=== PATIENT | male | born 1950 | race Caucasian/White ===

== ENCOUNTER → 2022-03-10 14:55 | Outpatient (BNVA) | payer OTHER, SELFPAY | PROVIDERS: Family Provider Family Medicine; PCP Family Medicine; Visit Provider Podiatrist Foot & Ankle Surgery | DX: E11.42 Type 2 diabetes mellitus with diabetic polyneuropathy (principal); L60.0 Ingrowing nail; L03.031 Cellulitis of right toe; L60.3 Nail dystrophy; Z79.4 Long term (current) use of insulin | CPT/HCPCS: 11721; 11730 ==

== ENCOUNTER → 2022-03-24 11:20 | Outpatient (BNVA) | payer OTHER, SELFPAY | PROVIDERS: Family Provider Family Medicine; PCP Family Medicine; Visit Provider Podiatrist Foot & Ankle Surgery | DX: L60.0 Ingrowing nail (principal); L03.031 Cellulitis of right toe; E11.42 Type 2 diabetes mellitus with diabetic polyneuropathy; Z79.4 Long term (current) use of insulin; L60.3 Nail dystrophy | CPT/HCPCS: 99213; 99214 ==

== ENCOUNTER → 2022-05-05 10:01 | Outpatient (BNVA) | payer OTHER, SELFPAY | PROVIDERS: Family Provider Family Medicine; PCP Family Medicine; Visit Provider Podiatrist Foot & Ankle Surgery | DX: L60.0 Ingrowing nail (principal); E11.42 Type 2 diabetes mellitus with diabetic polyneuropathy; Z79.4 Long term (current) use of insulin; L60.3 Nail dystrophy | CPT/HCPCS: 99213 ==

== ENCOUNTER → 2022-06-22 15:05 | Outpatient (BNVA) | payer MEDICARE, SELFPAY | PROVIDERS: Family Provider Family Medicine; PCP Family Medicine; Visit Provider Registered Nurse | DX: R06.02 Shortness of breath (principal); E11.42 Type 2 diabetes mellitus with diabetic polyneuropathy; Z79.4 Long term (current) use of insulin; I10 Essential (primary) hypertension | CPT/HCPCS: 83880; 85025 ==

== ENCOUNTER → 2022-07-09 09:59 | Outpatient (BNVA) | payer MEDICARE, SELFPAY | PROVIDERS: Family Provider Family Medicine; PCP Family Medicine; Visit Provider Podiatrist Foot & Ankle Surgery | DX: L60.3 Nail dystrophy (principal); E11.42 Type 2 diabetes mellitus with diabetic polyneuropathy; Z79.4 Long term (current) use of insulin; M21.41 Flat foot [pes planus] (acquired), right foot; M21.42 Flat foot [pes planus] (acquired), left foot; L60.0 Ingrowing nail | CPT/HCPCS: 11750; 99214; A6219; A6446 ==

== ENCOUNTER → 2022-08-03 11:26 | Outpatient (BNVA) | payer OTHER, SELFPAY | PROVIDERS: Family Provider Family Medicine; PCP Family Medicine; Visit Provider Podiatrist Foot & Ankle Surgery | DX: L60.0 Ingrowing nail (principal); Z98.890 Other specified postprocedural states; L60.3 Nail dystrophy; E11.42 Type 2 diabetes mellitus with diabetic polyneuropathy; Z79.4 Long term (current) use of insulin; M21.40 Flat foot [pes planus] (acquired), unspecified foot | CPT/HCPCS: 99213 ==

== ENCOUNTER → 2022-10-06 10:56 | Outpatient (BNVA) | payer OTHER, SELFPAY | PROVIDERS: Family Provider Family Medicine; PCP Family Medicine; Visit Provider Podiatrist Foot & Ankle Surgery | DX: L60.3 Nail dystrophy (principal); E11.42 Type 2 diabetes mellitus with diabetic polyneuropathy; Z79.4 Long term (current) use of insulin; M21.41 Flat foot [pes planus] (acquired), right foot; M21.42 Flat foot [pes planus] (acquired), left foot | CPT/HCPCS: 11721 ==

== ENCOUNTER → 2023-01-19 10:08 | Outpatient (BNVA) | payer OTHER, SELFPAY | PROVIDERS: Family Provider Family Medicine; PCP Family Medicine; Visit Provider Podiatrist Foot & Ankle Surgery | DX: E11.8 Type 2 diabetes mellitus with unspecified complications (principal); L60.0 Ingrowing nail; L60.3 Nail dystrophy; E11.42 Type 2 diabetes mellitus with diabetic polyneuropathy; Z79.4 Long term (current) use of insulin; M21.41 Flat foot [pes planus] (acquired), right foot; M21.42 Flat foot [pes planus] (acquired), left foot | CPT/HCPCS: 11721 ==

== ENCOUNTER 2023-03-12 09:33 | Outpatient (CLI) | payer OTHER, SELFPAY ==
--- NOTE | 2023-03-12 10:34 | USCV_ITS ---
Elfego Vince Age: 73 Gender: M : 1950 Exam Date: 03/12/2023 10:43 Ordering Phys: Sherry Borjas Technologist: CT Exam Location: [facility] [place] Indication: screening aaa HISTORY: Diameter (cm) AP x Transverse x Length Velocity (cm/s) Waveform Prox Aorta: 1.99 x 1.96 x 71.90 Mid Aorta: 1.94 x 1.94 x 81.80 Distal Aorta: 1.80 x 2.03 x 72.70 Right Iliac Prox: 0.96 x 0.95 x 120.60 Left Iliac Prox: 0.97 x 1.00 x 78.40 Stent Prox Landing x x Aneurysmal Sac Max x x Lt Lat Sac Dim Rt Lat Sac Dim Stent Dist Landing x x Right Iliac Stent x x Left Iliac Stent x x Right Renal Art Left Renal Art FINDINGS: slightly ectatic aorta CONCLUSIONS No evidence of abdominal aortic or bilateral iliac aneurysm. 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 Miguel Puentes MD (Electronically Signed) Final Date: 12 Mar 2023 16:56 S
== END 2023-03-12 09:34 | disposition home or self-care (01) ==
LOC: RAD 09:41
PROVIDERS: Family Provider Family Medicine; PCP Family Medicine; Visit Provider Nurse Practitioner
DX: Z13.6 Encounter for screening for cardiovascular disorders (principal)
CPT/HCPCS: 76706

== ENCOUNTER → 2023-03-30 10:24 | Outpatient (BNVA) | payer OTHER, SELFPAY | PROVIDERS: Family Provider Family Medicine; PCP Family Medicine; Visit Provider Podiatrist Foot & Ankle Surgery | DX: E11.8 Type 2 diabetes mellitus with unspecified complications (principal); L60.3 Nail dystrophy; E11.42 Type 2 diabetes mellitus with diabetic polyneuropathy; Z79.4 Long term (current) use of insulin; M21.41 Flat foot [pes planus] (acquired), right foot; M21.42 Flat foot [pes planus] (acquired), left foot | CPT/HCPCS: 11721 ==

== ENCOUNTER 2023-04-18 13:46 | Emergency (ER) | payer OTHER, SELFPAY ==
[2023-04-18 13:50] VITALS: BP 145/85; PULSE 64; RESP 18; TEMP 36.7; O2SAT 96; BMI 28.7
--- NOTE | 2023-04-18 14:00 | XRR_ITS ---
PROCEDURE INFORMATION: Exam: XR Right Foot Exam date and time: 04/18/2023 2:20 PM Age: 73 years old Clinical indication: Injury or trauma; Other: Cow stepped on foot; Crushing; Right; Injury details: Big toe TECHNIQUE: Imaging protocol: Radiologic exam of the right foot. Views: 3 or more views. COMPARISON: No relevant prior studies available. FINDINGS: Bones/joints: Mild degenerative changes 1st MTP joint. Small bony exostosis along the outer margin 1st proximal phalanx. No fracture, dislocation or malalignment. Small plantar spur otherwise remainder of visualized osseous structures are unremarkable. Soft tissues: Normal. XR/XR foot RT min 3V* [id number] IMPRESSION: No acute bony abnormalities.
--- NOTE | 2023-04-18 14:22 | W.ED.EXTPRO ---
HPI - Extremity Problem General: Chief complaint: Extremity Injury, Lower Stated complaint: cow stepped on rt foot Time Seen by Provider: 04/18/23 13:59 History of Present Illness: Patient is a 73-year-old male comes to the ED with right foot pain. Patient injured right foot just prior to arrival. Patient states that his toenails have been removed surgically on his first and second toe on right foot. Patient says a cow stepped on his right foot causing injury. He states that the cow actually stepped on the great toe and distal end of his second toe as well. He has bleeding at the nail bed area of great toe. He rates his pain currently an 8 out of 10. Patient states he is up-to-date on his tetanus. Associated symptoms: Deny chest pain, fever(s) or rash Review of Systems Const: Denies: fever(s), chills or fatigue Eyes: Denies: change in vision or eye discomfort ENMT: Denies: throat pain, odynophagia, nasal discharge or nasal congestion Card: Denies: chest pain, palpitations, edema, swelling of feet/ankles, dyspnea on exertion or orthopnea Resp: Denies: dyspnea, productive cough or non-productive cough GI: Denies: abdominal pain, nausea, vomiting, diarrhea, constipation or hematochezia : Denies: flank pain, difficulty urinating, dysuria or hematuria Musc: Reports: extremity pain (Right foot-great toe); Denies: neck pain, back pain or extremity swelling Skin/Breast: Denies: rash or new lesions Neuro: Denies: headache(s), numbness in extremities or weakness in extremities PFS ED PFSH: Medical History Diabetes mellitus Hearing loss Hypertension Surgical History History of ureter stent Family History Brother Diabetes Brother Diabetes Denies family history of Cancer Stroke Social History Smoking and tobacco status: never smoked Alcohol intake: never Substance/Drug Use: never Household members: spouse Marital status: Current occupational status: retired Physical Exam Const: COMMON NORMALS: no acute distress, patient oriented x3, healthy appearing and alert HENMT: COMMON NORMALS: normocephalic HEAD & SCALP: normocephalic MOUTH: Normal oral and palatal mucosa present THROAT: posterior oropharynx normal and uvula midline Neck/C-Spine: COMMON NORMALS: supple GENERAL: Yes normal visual inspection Resp: COMMON NORMALS: normal respiratory effort, No retractions, No use of accessory muscles and clear to auscultation bilaterally AUSCULTATION: clear to auscultation bilaterally Cardio: COMMON NORMALS: regular rate, regular rhythm, S1 normal heart sound present, S2 normal heart sound present, No gallops present (Cardio), No clicks present (Cardio), No murmurs present (Cardio) and Peripheral pulses 2+ throughout RATE: regular rate RHYTHM: regular rhythm HEART SOUNDS: S1 normal heart sound present and S2 normal heart sound present PERIPHERAL PULSES: Peripheral pulses 2+ throughout GI: COMMON NORMALS: Normal to inspection, nondistended, normoactive bowel sounds present, Soft to palpation, non-tender and no masses PALPATION: Yes Soft to palpation : COMMON NORMALS: Yes no CVA tenderness BLADDER/KIDNEY EXAM: Yes no CVA tenderness Back/Pelvis: COMMON NORMALS: no CVA tenderness Extremity: NARRATIVE EXTREMITY EXAM: Right foot?great toe?no nail present. Hematoma over nailbed with open wound that is bleeding as well. Mild swelling to the toe and tender to palpation. Full range of motion. Neuro: COMMON NORMALS: patient oriented x3 SENSORIUM/ORIENTATION: Yes alert GAIT: Yes Normal gait present Skin: GENERAL SKIN EXAM: dry skin Course Vital Signs: Vital signs: Vital Signs Temperature 98.1 F 04/18/23 13:50 Pulse Rate 64 04/18/23 13:50 Respiratory Rate 18 04/18/23 13:50 Blood Pressure 145/85 04/18/23 13:50 Pulse Oximetry 96 04/18/23 13:50 Oxygen Delivery Me thod Room Air 04/18/23 13:50 MDM - Extremity (Nontraumatic) Medical Decision Making Patient is a 73-year-old male comes to the ED with right foot pain. Patient injured right foot just prior to arrival. Patient states that his toenails have been removed surgically on his first and second toe on right foot. Patient says a cow stepped on his right foot causing injury. He states that the cow actually stepped on the great toe and distal end of his second toe as well. He has bleeding at the nail bed area of great toe. He rates his pain currently an 8 out of 10. Patient states he is up-to-date on his tetanus. Vitals are stable. Right foot?great toe?no nail present. Hematoma over nailbed with open wound that is bleeding as well. Mild swelling to the toe and tender to palpation. Full range of motion. X-ray right foot showed no acute bony fracture. I am suspicious for fracture given his exam findings. He was diagnosed with crush injury of toe and hematoma of toe. The nurse irrigated the toe extensively with normal saline and then triple antibiotic ointment was applied and the toe was bandaged up. He was put in a stiff sole shoe and discharged home with a prescription for hydrocodone to help with pain. Told to limit weightbearing over the next couple days that advance weightbearing as tolerated. I placed order with case management for patient to be referred to accounts receivable bookkeeper for follow-up on injury. Patient understood and agreed with plan. Lab Data Radiology Impressions Foot X-Ray 04/18/23 14:00 IMPRESSION: No acute bony abnormalities. Discharge Plan Discharge Patient Disposition: Home Clinical Impression: Crush injury of toe Qualifiers: Encounter type: initial encounter Laterality: right Qualified Code(s): S97.101A - Crushing injury of unspecified right toe(s), initial encounter Hematoma of toe Qualifiers: Encounter type: initial encounter Laterality: right Qualified Code(s): S90.121A - Contusion of right lesser toe(s) without damage to nail, initial encounter Condition: Stable Prescriptions: New cephalexin 500 mg capsule 500 mg PO Q6H 7 Days Qty: 28 0RF No Action omeprazole 20 mg capsule,delayed release(DR/EC) 20 mg PO QDAY hydrochlorothiazide 25 mg tablet 25 mg PO QAM lisinopril 40 mg tablet 40 mg PO QDAY finasteride 5 mg tablet 5 mg PO QDAY tamsulosin 0.4 mg capsule 0.4 mg PO QDAY aspirin 81 mg tablet,delayed release (DR/EC) 81 mg PO QDAY Lactobacillus acidophilus 2 billion cell tablet 2,000 mmu cells PO QDAY trazodone 100 mg tablet 100 mg PO DAILY atorvastatin 40 mg tablet 40 mg PO DAILY silver sulfadiazine 1 % cream 1 applic topical BID 14 Days Qty: 50 2RF Rx Instructions: apply a 1.5 mm thickness doxycycline hyclate 100 mg capsule 100 mg PO BID 10 Days Qty: 20 0RF (DME) Diabetic shoes with custom insoles See Rx Instructions .Route .MEDSUPPLY Qty: 1 0RF Rx Instructions: As directed by [facility] amoxicillin 500 mg capsule 500 mg PO TID potassium chloride [Klor-Con M10] 10 mEq tablet,ER particles/crystals 10 meq PO DAILY 90 Days Qty: 90 1RF furosemide 20 mg tablet 20 mg PO QAM 90 Days Qty: 90 1RF carvedilol 12.5 mg tablet 12.5 mg PO BID Rx Instructions: must administer with a meal/food levalbuterol tartrate [Xopenex HFA] 45 mcg/actuation HFA aerosol inhaler 2 inh inhalation Q6H Qty: 15 0RF Rx Instructions: has AFIB, can not do albuterol duloxetine 20 mg capsule,delayed release(DR/EC) 40 mg PO DAILY Jardiance 10 mg tablet 10 mg PO DAILY Qty: 90 1RF Discharge Orders: Discharge ED (Routine); Ordered 04/18/23 Ordered By: Renzo Carver Referrals: Sherry Borjas FNP [Primary Care Provider] - Discharge Diet: Regular Discharge Activity: Increase activity as tolerated Patient Instructions: Crush Injury (ED) Activity Restrictions/Additional Instructions: Follow-up with medical provider as directed. Case management should contact you in the next several days to set up an appointment with podiatry for follow-up on toe injury. Clean toe daily with soap and water then apply thin layer triple antibiotic ointment over it and cover with bandage. Wear stiff soled shoe with ambulation and use your cane to help with ambulation as well. Rest, ice and elevate foot and limit weightbearing for the first couple days. Take medications as prescribed. Return to the ER or your medical provider if condition worsens. Please read and understand discharge instructions. Thank you for choosing [facility] for your healthcare needs today. Please realize this is an emergency room and that we are providing you with a medical screening exam and this may not be complete and all inclusive of all the testing and or work up that you may need to determine your ailment or severity of your illness. It is very important that you follow up as instructed or that you return to the Emergency Department should you have concerns or if your condition changes or worsens in any way. Coding Level of Care Code ED Sander Operator for Felipe Damian
[2023-04-18] MEDS: HYDROcodone-acetaminophen 7.5-325 mg Tablet 1 TAB PO (14:53)
[2023-04-18] MEDS: cefTRIAXone 1,000 MG in water for injection-sterile 2.1 ML 1 MG IM (16:02)
[2023-04-18] MEDS: neomycin-poly-bacitracin oint 28 gm 1 APPLIC TOPICAL (16:02)
--- NOTE | 2023-04-19 05:33 | DCPLANNER ---
Addendum entered by Oumou Michel 04/23/23 13:32: Patient had a follow up appointment scheduled for 04.22.[address] Mancini at [facility] - patient did attend appointment. Original Note: regulatory process manager had message to schedule a follow up appointment for patient with podiatry. regulatory process manager sent patients information to the front office staff at podiatry. Patients information will be printed and reviewed. Clinic will call patient with appointment information.
== END 2023-04-18 16:07 | disposition home or self-care (01) ==
PROVIDERS: Emergency Provider Physician Assistant; PCP Nurse Practitioner
DX: S97.101A Crushing injury of unspecified right toe(s), initial encounter (principal); S90.121A Contusion of right lesser toe(s) without damage to nail, initial encounter; Z79.82 Long term (current) use of aspirin; E11.9 Type 2 diabetes mellitus without complications; I10 Essential (primary) hypertension; W55.22XA Struck by cow, initial encounter
CPT/HCPCS: 73630; 96372; 99284; J0696

== ENCOUNTER → 2023-04-22 10:57 | Outpatient (BNVA) | payer OTHER, SELFPAY | PROVIDERS: PCP Nurse Practitioner; Visit Provider Podiatrist Foot & Ankle Surgery | DX: S97.101A Crushing injury of unspecified right toe(s), initial encounter (principal); S92.424A Nondisplaced fracture of distal phalanx of right great toe, initial encounter for closed fracture; W55.22XA Struck by cow, initial encounter | CPT/HCPCS: 99213 ==

== ENCOUNTER → 2023-04-29 08:15 | Outpatient (BNVA) | payer OTHER, SELFPAY | PROVIDERS: PCP Nurse Practitioner; Visit Provider Podiatrist Foot & Ankle Surgery | DX: S92.424A Nondisplaced fracture of distal phalanx of right great toe, initial encounter for closed fracture (principal); W55.22XA Struck by cow, initial encounter | CPT/HCPCS: 73630; 99214 ==

== ENCOUNTER → 2023-05-12 14:13 | Outpatient (BNVA) | payer OTHER, SELFPAY | PROVIDERS: PCP Nurse Practitioner; Visit Provider Podiatrist Foot & Ankle Surgery | DX: S92.424D Nondisplaced fracture of distal phalanx of right great toe, subsequent encounter for fracture with routine healing (principal); S92.401D Displaced unspecified fracture of right great toe, subsequent encounter for fracture with routine healing; W55.22XD Struck by cow, subsequent encounter | CPT/HCPCS: 99213 ==

== ENCOUNTER → 2023-05-31 10:02 | Outpatient (BNVA) | payer OTHER, SELFPAY | PROVIDERS: PCP Nurse Practitioner; Visit Provider Podiatrist Foot & Ankle Surgery | DX: L60.3 Nail dystrophy (principal); E11.42 Type 2 diabetes mellitus with diabetic polyneuropathy; Z79.4 Long term (current) use of insulin; M21.41 Flat foot [pes planus] (acquired), right foot; M21.42 Flat foot [pes planus] (acquired), left foot | CPT/HCPCS: 11721 ==

== ENCOUNTER → 2023-09-06 10:10 | Outpatient (BNVA) | payer OTHER, SELFPAY | PROVIDERS: PCP Nurse Practitioner; Visit Provider Podiatrist Foot & Ankle Surgery | DX: E11.8 Type 2 diabetes mellitus with unspecified complications (principal); L60.3 Nail dystrophy; E11.42 Type 2 diabetes mellitus with diabetic polyneuropathy; M21.41 Flat foot [pes planus] (acquired), right foot; M21.42 Flat foot [pes planus] (acquired), left foot; Z79.4 Long term (current) use of insulin | CPT/HCPCS: 11721 ==

== ENCOUNTER → 2023-12-21 11:08 | Outpatient (BNVA) | payer OTHER, SELFPAY | PROVIDERS: PCP Nurse Practitioner; Visit Provider Podiatrist Foot & Ankle Surgery | DX: L60.3 Nail dystrophy (principal); E11.42 Type 2 diabetes mellitus with diabetic polyneuropathy; Z79.4 Long term (current) use of insulin | CPT/HCPCS: 11721 ==

== ENCOUNTER → 2024-03-21 11:16 | Outpatient (BNVA) | payer OTHER, SELFPAY | PROVIDERS: PCP Nurse Practitioner; Visit Provider Podiatrist Foot & Ankle Surgery | DX: L60.3 Nail dystrophy (principal); E11.42 Type 2 diabetes mellitus with diabetic polyneuropathy; Z79.4 Long term (current) use of insulin | CPT/HCPCS: 11721 ==

== ENCOUNTER → 2024-06-20 11:29 | Outpatient (BNVA) | payer OTHER, SELFPAY | PROVIDERS: PCP Nurse Practitioner; Visit Provider Podiatrist Foot & Ankle Surgery | DX: L60.3 Nail dystrophy (principal); E11.42 Type 2 diabetes mellitus with diabetic polyneuropathy; Z79.4 Long term (current) use of insulin | CPT/HCPCS: 11721; 99212 ==

== ENCOUNTER → 2024-09-11 10:23 | Outpatient (BNVA) | payer OTHER, SELFPAY | PROVIDERS: PCP Nurse Practitioner; Visit Provider Podiatrist Foot & Ankle Surgery | DX: E11.8 Type 2 diabetes mellitus with unspecified complications (principal); E11.42 Type 2 diabetes mellitus with diabetic polyneuropathy; Z79.4 Long term (current) use of insulin; L60.3 Nail dystrophy; M21.41 Flat foot [pes planus] (acquired), right foot; M21.42 Flat foot [pes planus] (acquired), left foot | CPT/HCPCS: 11721; 99212 ==

== ENCOUNTER → 2024-12-11 10:20 | Outpatient (BNVA) | payer OTHER, SELFPAY | PROVIDERS: PCP Nurse Practitioner; Visit Provider Podiatrist Foot & Ankle Surgery | DX: E11.42 Type 2 diabetes mellitus with diabetic polyneuropathy (principal); Z79.4 Long term (current) use of insulin; L60.3 Nail dystrophy; M21.41 Flat foot [pes planus] (acquired), right foot; M21.42 Flat foot [pes planus] (acquired), left foot | CPT/HCPCS: 11721; 99212 ==

== ENCOUNTER → 2025-03-19 10:28 | Outpatient (BNVA) | payer OTHER, SELFPAY | PROVIDERS: PCP Nurse Practitioner; Visit Provider Podiatrist Foot & Ankle Surgery | DX: E11.42 Type 2 diabetes mellitus with diabetic polyneuropathy (principal); L60.3 Nail dystrophy; E11.8 Type 2 diabetes mellitus with unspecified complications; Z79.4 Long term (current) use of insulin | CPT/HCPCS: 99213 ==

== ENCOUNTER 2025-06-06 12:24 | Emergency (ER) | payer OTHER, MEDICARE, SELFPAY ==
--- OUTSIDE RECORDS SUMMARY | 2024-07-07 04:30 | XMS_ITS | Encounter Summary ---
Author Name [facility] [place] [facility] [place] Address [address] [place] [address] Care Team Providers Care Track Man Name Role Phone RAYSA GRULLON Primary Care Provider Unavail able Insurance Providers: All historical and current Section Date Range: From patient's date of to the date document was created. This section includes the names of all active insurance providers for the patient. Insurance Provider Type of Coverage Plan Name Start of Policy Coverage End of Policy Coverage Group Number Member ID Insurance Provider's Telephone Number Policy Reed's Name Patient's Relationship to Policy Reed MEDICARE (WNR) MEDICARE (M) PART A March 01, 1998 PART A [id number] JUANJOSE BARAJAS PATIENT MEDICARE (WNR) MEDICARE (M) PART B March 01, 1998 PART B [id number] [phone] JUANJOSE BARAJAS PATIENT Selected Encounter This section includes the information on record at [place] for the Encounter. Date/Time Encounter Type Encounter Description Reason Provider Source Jul 07, 2024 09:30 AM OFF/OP EST MARCH X REQ PHY/QHP PRIMARY CARE/MEDICINE ICD-10-CM L03.90 Cellulitis, unspecified CUSTRED,RHIANNA J IHE Encounter Template Text not used by VA Assessments - Encounter Diagnoses This section includes the primary and secondary diagnoses documented for the Encounter. Date/Time Primary/Secondary Diagnosis Diagnosis Name Provider Source Jul 07, 2024 10:53 AM PRIMARY Cellulitis, unspecified CUSTRHIANNA NICHOLS [facility] Plan of Treatment: Future Appointments (+ 6 months) and Future Tests (+/- 45 days) The Plan of Treatment section includes future care activities for the patient from all [place] treatmentfacilities. This section includes future appointments and future orders which are active, pending or scheduled. Future Appointments This section includes appointments that were scheduled to occur 6 months from the date of the Encounter, up to a maximum of 20 appointments. The data comes from all [place] treatment facilities. Appointment Date/Time Appointment Type Appointme nt Facility Name Jul 12, 2024 10:50 AM AMBULATORY - [place]IC[place] [facility] Jul 12, 2024 01:00 PM AM[facility] - [place] [facility] Jul 27, 2024 11:30 AM AMBULATORY - MEDICINE [facility] Aug 02, 2024 09:00 AM AMBULATORY - MEDICINE [facility] Aug 10, 2024 10:30 AM AMBULATORY - MEDICINE [facility] Aug 10, 2024 12:00 PM AMBULATORY - MEDICINE [facility] Sep 15, 2024 11:00 AM AMBULATORY - MEDICINE [facility] Sep 20, 2024 11:00 AM [facility]ORY - [place] [facility] Sep 21, 2024 12:45 PM AM[facility]UL[facility]ORY - [place] [facility] Oct 19, 2024 01:30 PM [facility] [place] [facility] Dec 05, 2024 08:40 AM AMBULATORY - MEDICINE [facility] Dec 21, 2024 11:00 AM AMBULATORY - MEDICINE [facility] Jan 03, 2025 12:10 PM [facility]ORY - [place] [facility] Lab Results: +/- 30 days of the encounter This section includes the Chemistry and Hematology Lab Results on record with [place] for the patient. Radiology Reports and Pathology Reports are provided separately, in subsequent sections. Lab Results This section contains the Chemistry/Hematology Results that were resulted 30 days before or 30 daysafter the date of the Encounter. Date/Time Source Result Type Result - Unit Interpretation Reference Range Specimen Type Comment Aug 01, 2024 08:41 AM [facility] DIRECT LDL (MA-PB) PLASMA Specimen Type: PLASMA No comment entered. Ordering Provider: JAYA ROGERS Report Released Date/Time: Jun 15, 2024 07:38 AM Reporting Lab: [place] [facility] [address] [place] [address] Performing Lab: [place] [facility] [address] [place] [address] DIRECT LDL 101.4 mg/dL H 0-99.9 Aug 01, 2024 08:41 AM [facility] [place] [facility] CHOLESTEROL PANEL (PB) PLASMA Specimen Type: P LASMA No comment entered. Ordering Provider: JAYA ROGERS Report Released Date/Time: Jun 15, 2024 07:38 AM Reporting Lab: [place] [facility] [address] [place] [address] Performing Lab: [place] [facility] [address] [place] [address] CHOLESTEROL 175 mg/dL 0-200 TRIGLYCERIDE 119 mg/dL 0-150 CALCULATED LDL 110.2 mg/dL HDL(New) 41.0 mg/dL H >40 HDL % OF TOTAL CHOLESTEROL (PB) 23.4 >25 Aug 01, 2024 08:41 AM [facility] B12 SERUM Specimen Type: SERUM No comment entered. Ordering Provider: JAYA ROGERS Report Released Date/Time: Jun 15, 2024 07:38 AM Reporting Lab: [place] [facility] [address] [place] [address] Performing Lab: [place] [facility] [address] [place] [address] B12 537 pg/mL 213-816 Aug 01, 2024 08:41 AM [facility] VITAMIN D, 25-HYDROXY SERUM Specimen Type: SE RUM No comment entered. Ordering Provider: JAYA ROGERS Report Released Date/Time: Jun 15, 2024 07:38 AM Reporting Lab: [place] [facility] [address] [place] [address] Performing Lab: [place] [facility] [address] [place] [address] VITAMIN D, 25-HYDROXY 31.5 ng/mL 30-96 Aug 01, 2024 08:41 AM [facility] HGA1C BLOOD Specimen Type: BLOOD No comment entered. Ordering Provider: JAYA ROGERS Report Released Date/Time: Jun 15, 2024 07:38 AM Reporting Lab: [place] [facility] [address] [place] [address] Performing Lab: [place] [facility] [address] [place] [address] HGA1C 6.5 H 4.0-6.0 Aug 01, 2024 08:41 AM [facility] FOLATE (PB) SERUM Specimen Typ e: SERUM No comment entered. Ordering Provider: JAYA ROGERS Report Released Date/Time: Jun 15, 2024 07:38 AM Reporting Lab: [place] [facility] [address] [place] [address] Performing Lab: [place] [facility] [address] [place] [address] FOLATE (PB) 16.3 ng/mL 7-20 Aug 01, 2024 08:41 AM [facility] COMPREHENSIVE METABOLIC PANEL PLASMA Specimen Type: PLASMA No comment entered. Ordering Provider: JAYA ROGERS Report Released Date/Time: Jun 15, 2024 07:38 AM Reporting Lab: [place] [facility] [address] [place] [address] Performing Lab: [place] [facility] [address] [place] [address] CREATININE 1.33 mg/dL H 0.7-1.3 UREA NITROGEN 26 mg/dL H 9-25 GLUCOSE 140 mg/dL H 72-99 SODIUM 140 meq/L 136-145 POTASSIUM 3.7 meq/L 3.5-5 CHLORIDE 103 meq/L 98-107 CARBON DIOXIDE 28 meq/L 22-31 CALCIUM 9.4 mg/dL 8.4-10.4 PROTEIN 6.4 g/dL 6-8.6 ALBUMIN 3.9 g/dL 3.4-5 TOTAL BILIRUBIN 0.6 mg/dL 0.2-1.2 ALKALINE PHOSPHATASE 79 U/L 40-150 AST/SGOT 18 U/L 5-34 ALT/SGPT 17 U/L 8-40 EGFR (CKD-EPI 2020) 56 Aug 01, 2024 08:41 AM [facility] DIRECT LDL (MA-PB) PLASMA Specimen Type: PLASM A No comment entered. Ordering Provider: JAYA ROGERS Report Released Date/Time: Jul 27, 2024 06:15 AM Reporting Lab: [place] [facility] [address] [place] [address] Performing Lab: [place] [facility] [address] [place] [address] DIRECT LDL 102.3 mg/dL H 0-99.9 Aug 01, 2024 08:41 AM [facility] CHOLESTEROL PANEL (PB) PLASMA Specimen Type: P MARTY No comment entered. Ordering Provider: JAYA ROGERS Report Released Date/Time: Jul 27, 2024 06:15 AM Reporting Lab: [place] [facility] [address] [place] [address] Performing Lab: [place] [facility] [address] [place] [address] CHOLESTEROL 174 mg/dL 0-200 TRIGLYCERIDE 104 mg/dL 0-150 CALCULATED LDL 113.3 mg/dL HDL(New) 39.9 mg/dL L >40 HDL % OF TOTAL CHOLESTEROL (PB) 22.9 >25 Vital Signs: All taken on the encounter date This section contains inpatient and outpatient Vital Signs collected on the date of the Encounter. Date/Time Temperature Pulse Blood Pressure Respiratory Rate SP02 Pain Height Weight Body Mass Index Source Jul 07, 2024 10:37 AM 98.3 60 153/95 18 [facility] Social History: Smoking Status (Most current) and Tobacco Use (All prior to encounter date) This section includes the most current, and the historical, smoking and tobacco- related health factors from the [place] facility where the Encounter took place. Current Smoking Status This section includes the most current smoking, or tobacco-related health factor, from the [place] facility where the Encounter took place. Date/Time Current Smoking Status Comment Facil ity 2024 11:00 AM VA-TOBACCO FORMER USER [facility] Tobacco Use History This section includes a history of the smoking, or tobacco-related health factors, that were collected on or before the date of the Encounter. The data comes from the [place] facility where the Encounter took place. Date/Time Smoking Status/Tobacco Use Comment F acility 2024 11:00 AM AL-TOBACCO QUIT 15 YRS OR MORE [facility] Feb 17, 2023 10:30 AM VA-TOBACCO FORMER USER [facility] Feb 17, 2023 10:30 AM VA-TOBACCO QUIT 15 YRS OR MORE [facility] Feb 26, 2022 11:00 AM VA-TOBACCO FORMER USER [facility] Feb 26, 2022 11:00 AM VA-TOBACCO QUIT 15 YRS OR MORE [facility] March 03, 2021 09:00 AM VA-TOBACCO FORMER USER [facility] March 03, 2021 09:00 AM VA-TOBACCO QUIT 15 YRS OR MORE [facility] Jan 04, 2019 09:35 AM VA-TOBACCO FORMER USER [facility] Jan 04, 2019 09:35 AM VA-TOBACCO QUIT 15 YRS OR MORE [facility] Jan 22, 2016 10:08 AM QUIT TOBACCO >7 YEARS AGO [facility] Advance Directives: All historical and current Section Date Range: From patient's date of to the date document was created. This section includes ALL of a patient's completed or amended VA Advance and Rescinded Directives. The entries below indicate that a directive exists for the patient, but an actual copy is not included with this document. The data comes from all [place] facilities. Date Advance Directives Provider Source Dec 15, 2017 ADVANCE DIRECTIVE TULIO CRUMP YANNA FF [facility] Encounter Notes: All associated encounter notes This section contains the clinical notes associated to the Encounter. Date/Time Encounter Note(s) Provider Source Jul 07, 2024 10:37 AM NURSING PROGRESS N OTE: LOCAL TITLE: NURSING NOTE PB STANDARD TITLE: NURSING PROGRESS NOTE DATE OF NOTE: JUL 07, 2024@10:37 ENTRY DATE: JUL 07, 2024@10:37:38 AUTHOR: RHIANNA COOL EXP COSIGNER: URGENCY: STATUS: COMPLETED Blood Pressure: 153/95 Pulse: 60 Respiratory Rate: 18 Temperature: 98.3 F (36.8 C) Pulse Oximetry: 96% Active Outpatient Medications: Active Outpatient Medications (including Supplies): Active Outpatient Medications Status 1) ACCU-CHEK GUIDE (GLUCOSE) TEST STRIP USE 1 STRIP FOR ACTIVE BLOOD TEST TWO TIMES PER WEEK FOR BLOOD SUGAR MONITORING 2) APIXABAN 5MG TAB TAKE ONE TABLET BY MOUTH TWICE A DAY ACTIVE FOR ANTICOAGULATION 3) ASPIRIN 81MG EC TAB TAKE ONE TABLET BY MOUTH ONCE A ACTIVE DAY FOR HEART OR CIRCULATION. TAKE WITH FOOD. 4) ATORVASTATIN CALCIUM 40MG TAB TAKE ONE AND ONE-HALF ACTIVE TABLETS BY MOUTH EVERY EVENING FOR HIGH CHOLESTEROL 5) CARVEDILOL 25MG TAB TAKE ONE-HALF TABLET BY MOUTH ACTIVE TWICE A DAY FOR HEART. TAKE WITH FOOD. 6) CHOLECALCIF 50MCG (D3-2,000UNIT) TAB TAKE ONE TABLET ACTIVE BY MOUTH ONCE A DAY FOR VITAMIN D DEFICIENCY. 7) CYANOCOBALAMIN 1000MCG/ML INJ INJECT 1000MCG/1ML ACTIVE (S) INTRAMUSCULARLY MONTHLY 8) DEXAMETHASONE 0.1%/LION/POLYMX OPH OINT APPLY ACTIVE ONE-FOURTH INCH RIBBON TO AFFECTED EYE(S) TWICE A DAY APPLY ON EYELID. START DAY OF PROCEDURE AND CONTINUE FOR 2 WEEKS. 9) DULOXETINE HCL 60MG EC CAP TAKE ONE CAPSULE BY MOUTH ACTIVE (S) ONCE A DAY DO NOT ABRUPTLY DISCONTINUE MEDICATION. 10) EMPAGLIFLOZIN 25MG TAB TAKE ONE TABLET BY MOUTH ONCE ACTIVE (S) A DAY FOR DIABETES 11) ESCITALOPRAM OXALATE 10MG TAB TAKE ONE TABLET BY ACTIVE MOUTH ONCE A DAY FOR DEPRESSION 12) FEXOFENADINE HCL 180MG TAB TAKE ONE TABLET BY MOUTH ACTIVE (S) EVERY MORNING FOR ALLERGIES 13) FINASTERIDE 5MG TAB TAKE ONE TABLET BY MOUTH ONCE A ACTIVE DAY SWALLOW WHOLE, DO NOT CRUSH, SPLIT, OR CHEW. 14) FLUTICASONE PROP 50MCG 120D NASAL INHL INSTILL 1 ACTIVE (S) SPRAY IN NOSTRIL(S) ONCE A DAY FOR ALLERGIES (MUST BE USED DIRECTED FOR MINIMUM OF 21 DAYS TO PROVIDE ADEQUATE BENEFITS) 15) GABAPENTIN 300MG CAP TAKE ONE CAPSULE BY MOUTH TWICE ACTIVE A DAY 16) GLIPIZIDE 10MG TAB TAKE ONE TABLET BY MOUTH THREE ACTIVE TIMES A DAY BEFORE MEALS FOR DIABETES. TAKE 30 MINUTES BEFORE EATING. 17) HYDROCHLOROTHIAZIDE 25MG TAB TAKE ONE-HALF TABLET BY ACTIVE MOUTH ONCE A DAY FOR FLUID RETENTION (EDEMA) FOR EXCESSIVE FLUID AND TO LOWER BLOOD PRESSURE 18) LISINOPRIL 40MG TAB TAKE ONE TABLET BY MOUTH TWICE A ACTIVE (S) DAY FOR HEART OR BLOOD PRESSURE 19) MIRABEGRON 50MG SA TAB TAKE ONE TABLET BY MOUTH ONCE ACTIVE A DAY SWALLOW WHOLE; DO NOT CRUSH, SPLIT, OR CHEW. 20) MULTIVIT W/MINERALS, CAP/TAB TAKE 1 TABLET BY ACTIVE (S) MOUTH ONCE A DAY FOR VITAMIN AND MINERAL SUPPLEMENTATION. TAKE WITH FOOD. 21) OMEPRAZOLE 20MG EC CAP TAKE TWO CAPSULES BY MOUTH ACTIVE (S) EVERY MORNING TO LOWER STOMACH ACID. TAKE 30 MINUTES PRIOR TO FOOD. 22) PIOGLITAZONE HCL 30MG TAB TAKE ONE TABLET BY MOUTH ACTIVE ONCE A DAY FOR DIABETES 23) SILDENAFIL CITRATE 50MG TAB TAKE 1-2 TABLETS BY MOUTH ACTIVE ONE HOUR PRIOR TO SEXUAL ACTIVITY TAKE ON EMPTY STOMACH. NEEDED -- LIMIT 6 DOSES PER 30 DAYS 24) SODIUM FLUORIDE 1.1% TOOTHPASTE USE DIRECTED BY ACTIVE MOUTH AT BEDTIME FOR DENTAL HEALTH (BRUSH TEETH ONCE DAILY FOR TWO MINUTES BEFORE BEDTIME; SPIT EXCESS INTO SINK AFTER BRUSING - DO NOT SWALLOW) 25) SYRINGE 2.5-3ML/NDL 25G 1IN USE 1 SYRINGE UNDER THE ACTIVE (S) SKIN MONTHLY (TO BE USED WITH VITAMIN B12 SHOTS) 26) TAMSULOSIN HCL 0.4MG CAP TAKE ONE CAPSULE BY MOUTH AT ACTIVE BEDTIME APPROXIMATELY 30 MINUTES AFTER THE SAME MEAL EACH DAY 27) TRAZODONE HCL 100MG TAB TAKE TWO TABLETS BY MOUTH AT ACTIVE (S) BEDTIME FOR MOOD OR SLEEP. Active Non-VA Medications Status 1) Non-VA APPLE CIDER VINEGAR CAP/TAB 1 CAP/TAB BY MOUTH ACTIVE ONCE A DAY 2) Non-VA FISH OIL 1000MG (500MG DHA/EPA) CAP 2000MG BY ACTIVE MOUTH THREE TIMES A DAY WITH MEALS 3) Non-VA PSYLLIUM ORAL PWD 2 TEASPOONFULS BY MOUTH ONCE ACTIVE A DAY CC: [place] presents to walk in clinic for redness and bruising left leg. Subjective: states about 3 days ago he hit his leg on tractor causing a small abraison on left carpenter area. Today he notices area has become red, swollen, tender, and warm. Also noticed large bruise forming around left heel. Denies fever, chills, or malaise. O/A: [place] is alert and oriented. Respirations easy and non-labored. Heart rate regular with mild edema to left leg. Left carpenter area small abraised area with scab intact, no drainage noted. Area around abraison is red, swollen, and warm to touch. Red area is approximetely the size of a baseball. Ecchymosis noted around lower portion of heel with trace pedal edema. Circulation check to lower extremity normal with brisk capillary refill and palpable pedal pulse. No tenderness to foot or heel and range of motion to lower extremity normal. does not feel he hit carpenter very hard and denies pain with walking. While in clinic reports his blood pressure has been higher when checking at home. Today in clinic blood pressure 172/93, repeat 173/97, and 153/95. [place] reports his furosemide was held by clinical pharmacist as states he was urinating alot. Plan/ Intervention: Discussed with PACt [employer]AMINER. New RX for cephalexin 500mg PO 3 times daily for 7 days. Educated to take as prescribed. If red area expands, becomes increasingly painful, or becomes open seek re-evaluation in ER. Rx and immediate need form hand delivered to to present to pharmacy. Follow up with PACT Team if not fully healed at end of treatment. Furosemide to restart per [employer]ING EXAMINER as it is contributing to elevated BP. Resume dosing as previously ordered. Monitor and record BP over next week or two and follow up with PACt team to evaluate BP. RTC: As scheduled and as needed. Per A Directive 1605.06, wristband documentation: Patient wristband was removed and destroyed by (staff name) Rhianna Cool and placed in the designated [employer] bin. /es/ RHIANNA CALDWELL RN [facility] Signed: 07/07/2024 10:53 Receipt Acknowledged By: 07/07/2024 11:37 /es/ ISAAC BatesP[facility], SCOTT COOL,RHIANNA King [facility] NATY CHAVEZ
--- OUTSIDE RECORDS SUMMARY | 2024-08-10 05:30 | XMS_ITS | Encounter Summary ---
Author Name [facility] [place] [place] [facility] [place] Address [address] [place] [address] Care Team Providers Care Fingerprint Classifier Name Role Phone RAYSA GRULLON Primary Care [...] PART A March 01, 1998 PART A [id number] JUANJOSE BARAJAS PATIENT MEDICARE (WNR) MEDICARE (M) PART B March 01, 1998 PART B [id number] JUANJOSE BARAJAS PATIENT Selected Encounter This section includes the information on record at [place] for the Encounter. Date/Time Encounter Type Encounter Description Reason Provider Source Aug 10, 2024 10:30 AM Outpatient Encounter PRIMARY CARE/MEDICINE ICD-10-CM Z00.00 Encntr for general adult medical exam w/o abnormal findings NICOLE GRULLON IHCristina Encounter Template Text not used by [facility] Assessments - Encounter Diagnoses This section includes the primary and secondary diagnoses documented for the Encounter. 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 NICOLE GRULLONS [facility] Aug 10, 2024 09:54 PM SECONDARY Autonomic neuropathy in diseases classified elsewhere NICOLE GRULLONS [facility] Aug 10, 2024 09:54 PM SECONDARY Benign prostatic hyperplasia with lower urinary tract symp NICOLE GRULLONS [facility] Aug 10, 2024 09:54 PM SECONDARY Essential (primary) hypertension NICOLE GRULLONS [facility] Aug 10, 2024 09:54 PM SECONDARY Hyperlipidemia, unspecified NICOLE GRULLONS [facility] Aug 10, 2024 09:54 PM SECONDARY Obesity, unspecified NICOLE GRULLONS [facility] Aug 10, 2024 09:54 PM SECONDARY Type 2 diabetes mellitus with unspecified complications NICOLE GRULLON [facility] Plan of Treatment: Future Appointments (+ 6 months) and Future Tests (+/- 45 days) The Plan of Treatment section includes future care activities for the [facility] [place] [facility] This section includes future appointments and future orders which are active, pending or scheduled. Future Appointments This section includes appointments that were scheduled to occur 6 months from the date of the Encounter, up to a maximum of 20 appointments. The data comes from all [facility] facilities. Appointment Date/Time Appointment Type Appointme nt Facility Name Sep 15, 2024 11:00 AM AMBULATORY - MEDICINE [facility] Sep 20, 2024 11:00 AM AMBULATORY - MEDICINE [place] [facility] Sep 21, 2024 12:45 PM AMBULATORY - MEDICINE [place] [facility] Oct 19, 2024 01:30 PM AMBULATORY - MEDICINE [place] [facility] Dec 05, 2024 08:40 AM AMBULATORY - MEDICINE [facility] Dec 21, 2024 11:00 AM AMBULATORY - MEDICINE [facility] Jan 03, 2025 12:10 PM AMBULATORY - MEDICINE [place] [facility] Jan 15, 2025 10:00 AM AMBULATORY - MEDICINE [place] [facility] Jan 24, 2025 12:00 PM AMBULATORY - MEDICINE [facility] Jan 24, 2025 12:01 PM AMBULATORY - MEDICINE [place] [facility] Feb 05, 2025 05:00 AM AMBULATORY - NONE [facility] Lab Results: +/- 30 days of the encounter This section includes the Chemistry and Hematology Lab Results on record with [facility] for the patient. Radiology Reports and Pathology Reports are provided separately, in subsequent sections. Lab Results This section contains the Chemistry/Hematology Results that were resulted 30 days before or 30 daysafter the date of the Encounter. Date/Time Source Result Type Result - Unit Interpretation Reference Range Specimen Type Comment Aug 10, 2024 12:02 PM [facility] TSH (MA-PB) SERUM Specimen Type: SERUM No comment entered. Ordering Provider: RAYSA GRULLON Report Released Date/Time: Aug 10, 2024 12:01 PM Reporting Lab: [place] [facility] [address] [place] [address] Performing Lab: [place] [facility] [address] [place] [address] TSH 1.119 u[IU]/mL 0.47-5 Aug 10, 2024 12:01 PM [facility] URINE ALBUMIN PROFILE-ih (PB) URINE Specimen Type: URINE No comment entered. Ordering Provider: RAYSA GRULLON Report Released Date/Time: Aug 10, 2024 10:21 AM Reporting Lab: [place] [facility] [address] [place] [address] Performing Lab: [place] [facility] [address] [place] [address] URINE ALBUMIN (PB-STL) 7.80 mg/L 0-30 uACR (PB-MA) 57.82 ug/mg CREATININE URINE/OTHERS 13.49 mg/dL Aug 10, 2024 12:01 PM [facility] CBC BLOOD Specimen Type: BLOOD No comment entered. Ordering Provider: RAYSA GRULLON Report Released Date/Time: Aug 10, 2024 10:21 AM Reporting Lab: [place] [facility] [address] [place] [address] Performing Lab: [place] [facility] [address] [place] [address] WBC 7.0 10*3/uL 3.6-11.2 RBC 5.39 10*6/uL 4.10-5.70 HGB 17.1 g/dL H 13.1-16.8 HCT 49.1 H 38.2-48.4 MCV 91.1 fL 80.0-100.0 MCH 31.7 pg 27.0-34.0 MCHC 34.8 g/dL 33.0-36.0 PLT 174 10*3/uL 150-400 MPV 10.5 fL 7.5-11.2 RDW 13.0 11.8-15.1 LYMPHOCYTES, AUTO % 21.7 MONOCYTES, AUTO % 7.1 NEUTROPHILS, AUTO % 67.8 EOSINOPHILS, AUTO % 2.1 BASOPHILS, AUTO % 1.0 LYMPHOCYTES, ABSOLUTE 1.52 10*3/uL 0.77- 4.50 MONOCYTES, ABSOLUTE 0.50 10*3/uL 0.19-0. 8 NEUTROPHILS, ABSOLUTE 4.75 10*3/uL 2.10- 8.00 EOSINOPHILS, ABSOLUTE 0.15 10*3/uL 0.00- 0.60 BASOPHILS, ABSOLUTE 0.07 10*3/uL 0.00-0. 20 IMMATURE GRANS, AUTO % 0.3 IMMATURE GRANS, AUTO ABS 0.02 10*3/uL 0. 00-0.05 Aug 01, 2024 08:[address] [facility] VITAMIN D, 25-HYDROXY SERUM Specimen Type: SE RUM No comment entered. Ordering Provider: JAYA ROBINS Report Released Date/Time: Jun 15, 2024 07:38 AM Reporting Lab: [place] [facility] [address] [place] [id number] Performing Lab: [place] [facility] [address] [place] [address] VITAMIN D, 25-HYDROXY 31.5 ng/mL 30-96 Aug 01, 2024 08:[address] [facility] DIRECT LDL (MA-PB) PLASMA Specimen Type: PLASM A No comment entered. Ordering Provider: JAYA ROBINS Report Released Date/Time: Jun 15, 2024 07:38 AM Reporting Lab: [place] [facility] [address] [place] [address] Performing Lab: [place] [facility] [address] [place] [address] DIRECT LDL 101.4 mg/dL H 0-99.9 Aug 01, 2024 08:41 AM [facility] [place] [facility] CHOLESTEROL PANEL (PB) PLASMA Specimen Type: P LASMA No comment entered. Ordering Provider: JAYA ROBINS Report Released Date/Time: Jun 15, 2024 07:38 AM Reporting Lab: [place] [facility] [address] [place] [address] Performing Lab: [place] [facility] [address] [place] [address] CHOLESTEROL 175 mg/dL 0-200 TRIGLYCERIDE 119 mg/dL 0-150 CALCULATED LDL 110.2 mg/dL HDL(New) 41.0 mg/dL H >40 HDL % OF TOTAL CHOLESTEROL (PB) 23.4 >25 Aug 01, 2024 08:41 AM [facility] B12 SERUM Specimen Type: SERUM No comment entered. Ordering Provider: JAYA ROBINS Report Released Date/Time: Jun 15, 2024 07:38 AM Reporting Lab: [place] [facility] [address] [place] [address] Performing Lab: [place] [facility] [address] [place] [address] B12 537 pg/mL 213-816 Aug 01, 2024 08:41 AM [facility] [place] [facility] HGA1C BLOOD Specimen Type: BLOOD No comment entered. Ordering Provider: JAYA ROBINS Report Released Date/Time: Jun 15, 2024 07:38 AM Reporting Lab: [place] [facility] [address] [place] [address] Performing Lab: [place] [facility] [address] [place] [address] HGA1C 6.5 H 4.0-6.0 Aug 01, 2024 08:41 AM [facility] FOLATE (PB) SERUM Specimen Typ e: SERUM No comment entered. Ordering Provider: JAYA ROBINS Report Released Date/Time: Jun 15, 2024 07:38 AM Reporting Lab: [place] [facility] [address] [place] [address] Performing Lab: [place] [facility] [address] [place] [address] FOLATE (PB) 16.3 ng/mL 7-20 Aug 01, 2024 08:[address] [facility] COMPREHENSIVE METABOLIC PANEL PLASMA Specimen Type: PLASMA No comment entered. Ordering Provider: JAYA ROBINS Report Released Date/Time: Jun 15, 2024 07:38 AM Reporting Lab: [place] [facility] [address] [place] [address] Performing Lab: [place] [facility] [address] [place] [address] CREATININE 1.33 mg/dL H 0.7-1.3 UREA NITROGEN [...] 2020) 56 Aug 01, 2024 08:[address] [facility] DIRECT LDL (MA-PB) PLASMA Specimen Type: PLASM A No comment entered. Ordering Provider: JAYA ROBINS Report Released Date/Time: Jul 27, 2024 06:15 AM Reporting Lab: [place] [facility] [address] [place] [address] Performing Lab: [place] [facility] [address] [place] [address] DIRECT LDL 102.3 mg/dL H 0-99.9 Aug 01, 2024 08:[address] [facility] CHOLESTEROL PANEL (PB) PLASMA Specimen Type: P LASMA No comment entered. Ordering Provider: JAYA ROBINS Report Released Date/Time: Jul 27, 2024 06:15 AM Reporting Lab: [place] [facility] [address] [place] [address] Performing Lab: [place] [facility] [address] [place] [address] CHOLESTEROL 174 mg/dL 0-200 TRIGLYCERIDE 104 mg/dL 0-150 CALCULATED LDL 113.3 mg/dL HDL(New) 39.9 mg/dL L >40 HDL % OF TOTAL CHOLESTEROL (PB) 22.9 >25 Vital Signs: All taken on the encounter date This section contains inpatient and outpatient Vital Signs collected on the date of the Encounter. Date/Time Temperature Pulse Blood Pressure Respiratory Rate SP02 Pain Height Weight Body Mass Index Source Aug 10, 2024 10:37 AM 60 157/[address] [facility] Aug 10, 2024 10:34 AM 60 170/91 18 97 0 71.0 216.5 30 [facility] Social History: Smoking Status (Most current) and Tobacco Use (All prior to encounter date) This section includes the most current, and the historical, smoking and tobacco- related health factors from the [place] facility where the Encounter took place. Current Smoking Status This section includes the most current smoking, or tobacco-related health factor, from the [place] facility where the Encounter took place. Date/Time Current Smoking Status Comment Facil ity 2024 11:00 AM VA-TOBACCO FORMER USER [facility] Tobacco Use History This section includes a history of the smoking, or tobacco-related health factors, that were collected on or before the date of the Encounter. The data comes from the [place] facility where the Encounter took place. Date/Time Smoking Status/Tobacco Use Comment F acility 2024 11:00 AM VA-TOBACCO QUIT 15 YRS OR MORE [facility] Feb 17, 2023 10:30 AM VA-TOBACCO FORMER USER [facility] Feb 17, 2023 10:30 AM VA-TOBACCO QUIT 15 YRS [place] MORE [facility] Feb 26, 2022 11:00 AM VA-[facility] Feb 26, 2022 11:00 AM VA-TOBACCO QUIT 15 YRS [place] MORE [facility] March 03, 2021 09:00 AM VA-TOBACCO [facility] US[facility] March 03, 2021 09:00 AM VA-TOBACCO QUIT 15 YRS [place] MORE [facility] Jan 04, 2019 09:35 AM VA-TOBACCO FORMER USER [facility] Jan 04, 2019 09:35 AM VA-TOBACCO QUIT [address] [facility] Jan 22, 2016 10:08 AM QUIT TOBACCO >7 YEARS AGO [facility] Advance Directives: All historical and current Section Date Range: From patient's date of to the date document was created. This section includes ALL of a patient's completed or amended [place] Advance and Rescinded Directives. The entries below indicate that a directive exists for the patient, but an actual copy is not included with this document. The data comes from all [place] facilities. Date Advance Directives Provider Source Dec 15, 2017 ADVANCE DIRECTIVE TULIO CRUMP YANNA [facility] Encounter Notes: All associated encounter notes This section contains the clinical notes associated to the Encounter. Date/Time Encounter Note(s) Provider Source Aug 10, 2024 11:32 AM PRIMARY CARE PROGRESS NOTE: LOCAL TITLE: PRIMARY CARE CLINIC PROGRESS NOTE PB STANDARD TITLE: PRIMARY CARE PROGRESS NOTE DATE OF NOTE: AUG 10, 2024@11:32 ENTRY DATE: AUG 10, 2024@11:32:29 AUTHOR: RAYSA GRULLONIGNER: URGENCY: STATUS: COMPLETED PROVIDER ASSESSMENT DATE & TIME:Aug@11:32 CHIEF COMPLAINT: Annual physical and lab review. HISTORY OF PRESENT ILLNESS: Kaitlin is being seen today for his annual physical and lab review. recently saw dermatology. is seeing Dr. Robins for medication and lab review today but I have reviewed this with him also. is seeing a manager department soon also. Kaitlin is slightly hypertensive still and we discussed that he needs additional medication changes and he would like to have them adjust this also and do additional testing on his heart to check for blockage. He states he has not had any in awhile since his stents were placed. He has had a few falls but has not had any significant injuries. He denies any home needs. Active problems/med list thread puller: 1) Type 2 diabetes mellitus 2) CAD - Coronary artery disease 3) HTN - Hypertension 4) HLD - Hyperlipidemia 5) BPH - Benign prostatic hypertrophy 6) PTSD - Post-traumatic stress disorder 7) Depression 8) Diabetic peripheral neuropathy associated with type 2 diabetes mellitus 9) History of malignant basal cell neoplasm of skin 10) Obesity 11) Sleep apnea 12) Insomnia (SCT [id number]) 13) Actinic keratosis 14) Allergic rhinitis 15) Constipation 16) Plantar fasciitis 17) Unsteady when walking 18) Exposure to potentially hazardous substance Active Outpatient Medications (including Supplies): Active Outpatient Medications Status 1) ACCU-CHEK GUIDE (GLUCOSE) TEST STRIP USE 1 STRIP FOR ACTIVE BLOOD TEST TWO TIMES PER WEEK FOR BLOOD SUGAR MONITORING 2) AMLODIPINE BESYLATE 10MG TAB TAKE ONE TABLET BY MOUTH ACTIVE (S) ONCE A DAY FOR HIGH BLOOD PRESSURE 3) APIXABAN 5MG TAB TAKE ONE TABLET BY MOUTH TWICE A DAY ACTIVE (S) FOR ANTICOAGULATION 4) ASPIRIN 81MG EC TAB TAKE ONE TABLET BY MOUTH ONCE A ACTIVE (S) DAY FOR HEART OR CIRCULATION. TAKE WITH FOOD. 5) ATORVASTATIN CALCIUM 40MG TAB TAKE ONE AND ONE-HALF ACTIVE (S) TABLETS BY MOUTH EVERY EVENING FOR HIGH CHOLESTEROL 6) CARVEDILOL 25MG TAB TAKE ONE-HALF TABLET BY MOUTH ACTIVE (S) TWICE A DAY FOR HEART. TAKE WITH FOOD. 7) CHOLECALCIF 50MCG (D3-2,000UNIT) TAB TAKE ONE TABLET ACTIVE BY MOUTH ONCE A DAY FOR VITAMIN D DEFICIENCY. 8) CYANOCOBALAMIN 1000MCG/ML INJ INJECT 1000MCG/1ML ACTIVE INTRAMUSCULARLY MONTHLY 9) DEXAMETHASONE 0.1%/LION/POLYMX OPH OINT APPLY ACTIVE ONE-FOURTH INCH RIBBON TO AFFECTED EYE(S) TWICE A DAY APPLY ON EYELID. START DAY OF PROCEDURE AND CONTINUE FOR 2 WEEKS. 10) DULOXETINE HCL 60MG EC CAP TAKE ONE CAPSULE BY MOUTH ACTIVE (S) ONCE A DAY DO NOT ABRUPTLY DISCONTINUE MEDICATION. 11) EMPAGLIFLOZIN 25MG TAB TAKE ONE TABLET BY MOUTH ONCE ACTIVE A DAY FOR DIABETES 12) ESCITALOPRAM OXALATE 10MG TAB TAKE ONE TABLET BY ACTIVE (S) MOUTH ONCE A DAY FOR DEPRESSION 13) FEXOFENADINE HCL 180MG TAB TAKE ONE TABLET BY MOUTH ACTIVE (S) EVERY MORNING FOR ALLERGIES 14) FINASTERIDE 5MG TAB TAKE ONE TABLET BY MOUTH ONCE A ACTIVE DAY SWALLOW WHOLE, DO NOT CRUSH, SPLIT, OR CHEW. 15) FLUTICASONE PROP 50MCG 120D NASAL INHL INSTILL 1 ACTIVE (S) SPRAY IN NOSTRIL(S) ONCE A DAY FOR ALLERGIES (MUST BE USED DIRECTED FOR MINIMUM OF 21 DAYS TO PROVIDE ADEQUATE BENEFITS) 16) GABAPENTIN 300MG CAP TAKE ONE CAPSULE BY MOUTH TWICE ACTIVE (S) A DAY 17) GLIPIZIDE 10MG TAB TAKE ONE TABLET BY MOUTH THREE ACTIVE (S) TIMES A DAY BEFORE MEALS FOR DIABETES. TAKE 30 MINUTES BEFORE EATING. 18) HYDROCHLOROTHIAZIDE 25MG TAB TAKE ONE TABLET BY MOUTH ACTIVE (S) ONCE A DAY FOR EXCESSIVE FLUID AND TO LOWER BLOOD PRESSURE 19) LISINOPRIL 40MG TAB TAKE ONE TABLET BY MOUTH TWICE A ACTIVE (S) DAY FOR HEART OR BLOOD PRESSURE 20) MIRABEGRON 50MG SA TAB TAKE ONE TABLET BY MOUTH ONCE ACTIVE A DAY SWALLOW WHOLE; DO NOT CRUSH, SPLIT, OR CHEW. 21) MULTIVIT W/MINERALS, CAP/TAB TAKE 1 TABLET BY ACTIVE (S) MOUTH ONCE A DAY FOR VITAMIN AND MINERAL SUPPLEMENTATION. TAKE WITH FOOD. 22) OMEPRAZOLE 20MG EC CAP TAKE TWO CAPSULES BY MOUTH ACTIVE (S) EVERY MORNING TO LOWER STOMACH ACID. TAKE 30 MINUTES PRIOR TO FOOD. 23) PIOGLITAZONE HCL 30MG TAB TAKE ONE TABLET BY MOUTH ACTIVE (S) ONCE A DAY FOR DIABETES 24) SILDENAFIL CITRATE 50MG TAB TAKE 1-2 TABLETS BY MOUTH ACTIVE ONE HOUR PRIOR TO SEXUAL ACTIVITY TAKE ON EMPTY STOMACH. NEEDED -- LIMIT 6 DOSES PER 30 DAYS 25) SODIUM FLUORIDE 1.1% TOOTHPASTE USE DIRECTED BY ACTIVE MOUTH AT BEDTIME FOR DENTAL HEALTH (BRUSH TEETH ONCE DAILY FOR TWO MINUTES BEFORE BEDTIME; SPIT EXCESS INTO SINK AFTER BRUSING - DO NOT SWALLOW) 26) SYRINGE 2.5-3ML/NDL 25G 1IN USE 1 SYRINGE UNDER THE ACTIVE SKIN MONTHLY (TO BE USED WITH VITAMIN B12 SHOTS) 27) TAMSULOSIN HCL 0.4MG CAP TAKE ONE CAPSULE BY MOUTH AT ACTIVE (S) BEDTIME APPROXIMATELY 30 MINUTES AFTER THE SAME MEAL EACH DAY 28) TRAZODONE HCL 100MG TAB TAKE TWO TABLETS BY MOUTH AT ACTIVE BEDTIME FOR MOOD OR SLEEP. Active Non-VA Medications Status 1) Non-VA APPLE CIDER VINEGAR CAP/TAB 1 CAP/TAB BY MOUTH ACTIVE ONCE A DAY 2) Non-VA FISH OIL 1000MG (500MG DHA/EPA) CAP 2000MG BY ACTIVE MOUTH THREE TIMES A DAY WITH MEALS 3) Non-VA PSYLLIUM ORAL PWD 2 TEASPOONFULS BY MOUTH ONCE ACTIVE A DAY 31 Total Medications REVIEW OF SYSTEMS: HEENT: No Headache. No blurry vision, vision loss, eye pain, red eyes, or foreign body. No runnynose, congestion, or nose bleed. No hearing loss, ringing in the ears, or vertigo. No sore throat or dental pain. RESPIRATORY: No cough, SOA, wheezing, or sputum production. CARDIOVASCULAR: No chest pain, palpitations, tachycardia, PND, or orthopnea. GI: No abdominal pain, nausea, vomiting, diarrhea, constipation, melena, or hematochezia. : No dysuria, hematuria, urinary frequency, weak stream, or post-void dribbling. MUSCULOSKELETAL:chronic joint pain. SKIN: No rash, lesions, or infection PSYCH: No Depression or Anxiety. Not suicidal. PHYSICAL ASSESSMENT: VITAL SIGNS Pulse: 60 (08/10/2024 10:37) Blood Pressure: 157/77 (08/10/2024 10:37) Respiratory Rate: 18 (08/10/2024 10:34) Temperature: 98.3 F [36.8 C] (07/07/2024 10:37) Weight: 216.5 lb [98.20 kg] (08/10/2024 10:34) Height: 71.0 in [180.3 cm] (08/10/2024 10:34) Pain: 0 (08/10/2024 10:34) HEENT:PERRL, EOMI, Fundi benign, TM's clear, Pharynx not red and without exudate, tonsils normal size. NECK: Supple, no lymhadenopathy, thyroid normal. CARDIAC: Regular rate and rhythm without murmur. Trace edema lower extremities bilaterally. RESPIRATORY: CTA, BEBS GI: Abdomen soft,with ABS, no HSM, no guarding or rebound. MUSCULOSKELETAL:Chronic joint pain with no acute change. FROM. SKIN: [place] without rash or lesions. No open DM ulcers bilaterally. NEUROLOGICAL: The is alert and oriented without distress. Affect appropriate. IMPRESSION: Encounter for General Adult Medical Exam Diabetes Mellitus Type II with Neuropathy-controlled Hypertension-uncontrolled Hyperlipidemia-controlled BPH-chronic CAD-chronic PLAN: Increase water intake. Continue current medications. Fall precautions. Follow up with cardiology. Lab review and copy provided to . Discussed diet. RTC in 6 months or sooner if needed. Daily foot check. Patient is advised this primary care clinic has open access and he can make a same day appointment anytime a problem/concern arises. Patient further advised he can be seen on a walk-in basis as needed. Patient is provided clinic contact information. Medications reviewed and reconciled. Discussed diet and exercise as relevant to patient conditions. Treatment plan as noted above and the After Visit Summary was reviewed with ; opportunity provided to report concerns and ask question regarding aspects of care or treatment or services; concurrence reached and verbalized understanding. Please refer to addendum or follow up lab letter for plan of care/changes related to lab/test results not available at conclusion of appointment, if any. Discussed with patient that in the event of community imaging / testing being ordered in the future, once the imaging / testing has been completed, please notify PACT of within 1 week by a [facility] PACT member; this is due to intermittent lapses in notification of imaging completion within CPRS. All questions answered; agrees to plan of care. Follow up as listed above, annually, and as needed. Keep all completion at outside facility if not called with results appointments. Medications Reconciled. Time spent 30 minutes. *ELEVATED LDL DIABETIC: No lipid treatment change is needed based on patient's current status. Comment: stable The benefits of maintaining a healthy weight range were explained to the patient. *ELEVATED LDL: No lipid treatment change is needed based on patient's current status. Comment: stable The benefits of maintaining a healthy weight range were explained to the patient. HTN Assess for Elevated BP>=140/90: Patient referred to PACT pharmacist for hypertension treatment. The patient was counseled on the importance of regular exercise and/or physical activity in the control of blood pressure. The patient has a limited ability to exercise but was encouraged to increase physical activity as much as possible since any increase in activity may be beneficial in improving blood pressure control. The patient was counseled on the importance of diet and weight loss/ control in the regulation of blood pressure. The patient was counseled to reduce their weight to within 10 percent of their ideal body weight. The possible improvement in blood pressure control with even 5 to 10 pounds of weight loss was reviewed. The contribution of dietary sodium to elevated blood pressure was reviewed. The patient was counseled to have a goal sodium intake of 1500mg per day, with no more than 2300mg per day. The patient was counseled that a diet low in dietary saturated and trans fats is beneficial in lowering blood pressure. The patient was counseled that a diet rich in fresh fruits, vegetables and whole grains is beneficial in lowering blood pressure. /es/ ZARI [facility] HospitalSCOTT Signed: 08/10/2024 21:53 RAYSA GRULLON [facility] COUNTY[facility] Ann MD CB Aug 10, 2024 10:23 AM PRIMARY CARE NURSING NOTE: LOCAL TITLE: PRIMARY CARE NURSING PROGRESS NOTE (TEXT) NURSING P STANDARD TITLE: PRIMARY CARE NURSING NOTE DATE OF NOTE: AUG 10, 2024@10:23 ENTRY DATE: AUG 10, 2024@10:23:56 AUTHOR: ELISA SIERRA EXP COSIGNER: URGENCY: STATUS: COMPLETED Established Patient RACHEL BARAJAS IS A 74 YEAR OLD MALE BEING SEEN IN CLINIC AUG 10, 2024. REASON FOR VISIT: [place] here today for her annual appointment. Are you receiving care any where other than the [facility]? No HEALTH AND SURGICAL HISTORY: Does patient report using home oxygen? No CURRENT ACTIVE MEDICATIONS FOR REVIEW: Allergies/ADRs (Tool #5) FACILITY ALLERGY/ADR -------- No Remote Allergy/ADR Data available for this patient [facility] Med. Reconciliation (Tool #1) INCLUDED IN THIS LIST: Alphabetical list of active outpatient prescriptions dispensed from this [place] (local) and dispensed from another VA or DoD facility (remote) as well as inpatient orders (local pending and active), local clinic medications, locally documented non-VA medications, and local prescriptions that have or been discontinued in the past 90 days. Non-VA Meds Last Documented On: March 06, 2024 NOTE The display of VA prescriptions dispensed from another [place] or [facility] facility (remote) is limited to active outpatient prescription entries matched to National Drug File at the originating site and may not include some items such as investigational drugs, compounds, etc. NOT INCLUDED IN THIS LIST: Medications self-entered by the patient into personal health records (i.e. [employer]) are NOT included in this list. Non-VA medications documented outside this [place], remote inpatient orders (regardless of status) and remote clinic medications are NOT included in this list. The patient and provider must always discuss medications the patient is taking, regardless of where the medication was dispensed or obtained. OUTPT AMLODIPINE BESYLATE 10MG TAB (Status = Active/Suspended) TAKE ONE TABLET BY MOUTH ONCE A DAY FOR HIGH BLOOD PRESSURE Rx# [id number] Last Released: 07/28/24 Qty/Days Supply: 90 Rx Expiration Date: 07/28/25 Refills Remainin Indication: FOR HIGH BLOOD PRESSURE OUTPT APIXABAN 5MG TAB (Status = Discontinued) TAKE ONE TABLET BY MOUTH TWICE A DAY FOR ANTICOAGULATION Rx# [id number] Last Released: 03/23/24 Qty/Days Supply: 180/90 Rx Expiration Date: 07/14/24 Refills Remainin Indication: FOR ANTICOAGULATION OUTPT APIXABAN 5MG TAB (Status = Active/Suspended) TAKE ONE TABLET BY MOUTH TWICE A DAY FOR ANTICOAGULATION Rx# [id number] Last Released: 06/30/24 Qty/Days Supply: 180/90 Rx Expiration Date: 06/24/25 Refills Remainin Indication: FOR ANTICOAGULATION Non-VA APPLE CIDER VINEGAR CAP/TAB TAKE 1 CAP/TAB BY MOUTH ONCE A DAY 2024 [place] RX: Non-VA medication recommended by VA provider VA RX: Patient wants to buy from Non-VA pharmacy Indication: supplement OUTPT ASPIRIN 81MG EC TAB (Status = Active/Suspended) TAKE ONE TABLET BY MOUTH ONCE A DAY FOR HEART OR CIRCULATION. TAKE WITH FOOD. Rx# [id number] Last Released: 06/06/24 Qty/Days Supply: 120/90 Rx Expiration Date: 05/11/25 Refills Remainin OUTPT ATORVASTATIN CALCIUM 40MG TAB (Status = Active/Suspended) TAKE ONE AND ONE-HALF TABLETS BY MOUTH EVERY EVENING FOR HIGH CHOLESTEROL Rx# [id number] Last Released: 06/15/24 Qty/Days Supply: 135/90 Rx Expiration Date: 01/04/25 Refills Remainin Indication: FOR HIGH CHOLESTEROL OUTPT CARVEDILOL 25MG TAB (Status = Active/Suspended) TAKE ONE-HALF TABLET BY MOUTH TWICE A DAY FOR HEART. TAKE WITH FOOD. Rx# [id number] Last Released: 06/06/24 Qty/Days Supply: 90 Rx Expiration Date: 05/11/25 Refills Remainin OUTPT CHOLECALCIF 50MCG (D3-2,000UNIT) TAB (Status = Active) TAKE ONE TABLET BY MOUTH ONCE A DAY FOR VITAMIN D DEFICIENCY. Rx# [id number] Last Released: 08/02/24 Qty/Days Supply: 100/ Rx Expiration Date: 09/30/24 Refills Remainin OUTPT CYANOCOBALAMIN 1000MCG/ML INJ (Status = Active) INJECT 1000MCG/1ML INTRAMUSCULARLY MONTHLY Rx# [id number] Last Released: 07/12/24 Qty/Days Supply: Rx Expiration Date: 05/11/25 Refills Remainin OUTPT DEXAMETHASONE 0.1%/LION/POLYMX OPH OINT (Status = Active) APPLY ONE-FOURTH INCH RIBBON TO AFFECTED EYE(S) TWICE A DAY APPLY ON EYELID. START DAY OF PROCEDURE AND CONTINUE FOR 2 WEEKS. Rx# [id number] Last Released: 02/01/24 Qty/Days Supply: 11/14 Rx Expiration Date: 01/26/25 Refills Remainin OUTPT DULOXETINE HCL 60MG EC CAP (Status = Active/Suspended) TAKE ONE CAPSULE BY MOUTH ONCE A DAY DO NOT ABRUPTLY DISCONTINUE MEDICATION. Rx# [id number] Last Released: 07/31/24 Qty/Days Supply: Rx Expiration Date: 04/21/25 Refills Remainin OUTPT EMPAGLIFLOZIN 25MG TAB (Status = Active) TAKE ONE TABLET BY MOUTH ONCE A DAY FOR DIABETES Rx# [id number] Last Released: 08/03/24 Qty/Days Supply: Rx Expiration Date: 05/11/25 Refills Remainin Indication: FOR DIABETES OUTPT ESCITALOPRAM OXALATE 10MG TAB (Status = Active/Suspended) TAKE ONE TABLET BY MOUTH ONCE A DAY FOR DEPRESSION Rx# [id number] Last Released: 06/15/24 Qty/Days Supply: Rx Expiration Date: 01/04/25 Refills Remainin Indication: FOR DEPRESSION OUTPT FEXOFENADINE HCL 180MG TAB (Status = Active/Suspended) TAKE ONE TABLET BY MOUTH EVERY MORNING FOR ALLERGIES Rx# [id number] Last Released: 07/19/24 Qty/Days Supply: Rx Expiration Date: 05/11/25 Refills Remainin OUTPT FINASTERIDE 5MG TAB (Status = Discontinued) TAKE ONE TABLET BY MOUTH ONCE A DAY SWALLOW WHOLE, DO NOT CRUSH, SPLIT, OR CHEW. Rx# [id number] Last Released: 05/08/24 Qty/Days Supply: Rx Expiration Date: 07/09/24 Refills Remainin OUTPT FINASTERIDE 5MG TAB (Status = ) TAKE ONE TABLET BY MOUTH ONCE A DAY SWALLOW WHOLE, DO NOT CRUSH, SPLIT, OR CHEW. Rx# [id number] Last Released: 05/26/24 Qty/Days Supply: Rx Expiration Date: 07/09/24 Refills Remainin OUTPT FINASTERIDE 5MG TAB (Status = Discontinued) TAKE ONE TABLET BY MOUTH ONCE A DAY SWALLOW WHOLE, DO NOT CRUSH, SPLIT, OR CHEW. Rx# [id number] Last Released: 07/20/24 Qty/Days Supply: Rx Expiration Date: 07/13/25 Refills Remainin OUTPT FINASTERIDE 5MG TAB (Status = Active) TAKE ONE TABLET BY MOUTH ONCE A DAY SWALLOW WHOLE, DO NOT CRUSH, SPLIT, OR CHEW. Rx# [id number] Last Released: 08/03/24 Qty/Days Supply: Rx Expiration Date: 07/13/25 Refills Remainin Non-VA FISH OIL 1000MG (500MG DHA/EPA) CAP TAKE 2 CAPSULES BY MOUTH THREE TIMES A DAY WITH MEALS Jan 04, 2024 [place] RX: Non-VA medication recommended by [place] provider [place] RX: Patient wants to buy from Non-IN pharmacy Indication: FOR HIGH TRIGLYCERIDES OUTPT FLUTICASONE PROP 50MCG 120D NASAL INHL (Status = Active/Suspended) INSTILL 1 SPRAY IN NOSTRIL(S) ONCE A DAY FOR ALLERGIES (MUST BE USED DIRECTED FOR MINIMUM OF 21 DAYS TO PROVIDE ADEQUATE BENEFITS) Rx# [id number] Last Released: 07/19/24 Qty/Days Supply: Rx Expiration Date: 05/11/25 Refills Remainin OUTPT FUROSEMIDE 20MG TAB (Status = Discontinued) TAKE ONE TABLET BY MOUTH EVERY MORNING FOR FLUID RETENTION Rx# [id number] Last Released: 05/26/24 Qty/Days Supply: Rx Expiration Date: 05/11/25 Refills Remainin OUTPT GABAPENTIN 300MG CAP (Status = Active/Suspended) TAKE ONE CAPSULE BY MOUTH TWICE A DAY Rx# [id number] Last Released: 06/29/24 Qty/Days Supply: 180/ Rx Expiration Date: 04/21/25 Refills Remainin OUTPT GLIPIZIDE 10MG TAB (Status = Active/Suspended) TAKE ONE TABLET BY MOUTH THREE TIMES A DAY BEFORE MEALS FOR DIABETES. TAKE 30 MINUTES BEFORE EATING. Rx# [id number] Last Released: 06/15/24 Qty/Days Supply: 270 Rx Expiration Date: 01/04/25 Refills Remainin OUTPT HYDROCHLOROTHIAZIDE 25MG TAB (Status = Discontinued) TAKE ONE TABLET BY MOUTH ONCE A DAY FOR EXCESSIVE FLUID AND TO LOWER BLOOD PRESSURE Rx# [id number] Last Released: 04/10/24 Qty/Days Supply: Rx Expiration Date: 07/08/24 Refills Remainin OUTPT HYDROCHLOROTHIAZIDE 25MG TAB (Status = Discontinued) TAKE ONE TABLET BY MOUTH ONCE A DAY FOR EXCESSIVE FLUID AND TO LOWER BLOOD PRESSURE Rx# [id number] Last Released: Qty/Days Supply: Rx Expiration Date: 05/13/25 Refills Remainin OUTPT HYDROCHLOROTHIAZIDE 25MG TAB (Status = Discontinued) TAKE ONE-HALF TABLET BY MOUTH ONCE A DAY FOR FLUID RETENTION (EDEMA) FOR EXCESSIVE FLUID AND TO LOWER BLOOD PRESSURE Rx# [id number] Last Released: 06/20/24 Qty/Days Supply: 45 Rx Expiration Date: 06/16/25 Refills Remainin Indication: FOR FLUID RETENTION (EDEMA) OUTPT HYDROCHLOROTHIAZIDE 25MG TAB (Status = Active/Suspended) TAKE ONE TABLET BY MOUTH ONCE A DAY FOR EXCESSIVE FLUID AND TO LOWER BLOOD PRESSURE Rx# [id number] Last Released: 07/28/24 Qty/Days Supply: 90 Rx Expiration Date: 07/28/25 Refills Remainin OUTPT LISINOPRIL 40MG TAB (Status = Active/Suspended) TAKE ONE TABLET BY MOUTH TWICE A DAY FOR HEART OR BLOOD PRESSURE Rx# [id number] Last Released: 07/12/24 Qty/Days Supply: 180/90 Rx Expiration Date: 05/11/25 Refills Remainin OUTPT MIRABEGRON 50MG SA TAB (Status = ) TAKE ONE TABLET BY MOUTH ONCE A DAY SWALLOW WHOLE; DO NOT CRUSH, SPLIT, OR CHEW. Rx# [id number] Last Released: 05/26/24 Qty/Days Supply: Rx Expiration Date: 07/09/24 Refills Remainin OUTPT MIRABEGRON 50MG SA TAB (Status = Active) TAKE ONE TABLET BY MOUTH ONCE A DAY SWALLOW WHOLE; DO NOT CRUSH, SPLIT, OR CHEW. Rx# [id number] Last Released: 08/03/24 Qty/Days Supply: Rx Expiration Date: 07/13/25 Refills Remainin OUTPT MULTIVIT W/MINERALS, CAP/TAB (Status = Active/Suspended) TAKE 1 TABLET BY MOUTH ONCE A DAY FOR VITAMIN AND MINERAL SUPPLEMENTATION. TAKE WITH FOOD. Rx# [id number] Last Released: 07/12/24 Qty/Days Supply: 100/90 Rx Expiration Date: 05/11/25 Refills Remainin OUTPT OMEPRAZOLE 20MG EC CAP (Status = Active/Suspended) TAKE TWO CAPSULES BY MOUTH EVERY MORNING TO LOWER STOMACH ACID. TAKE 30 MINUTES PRIOR TO FOOD. Rx# [id number] Last Released: 07/08/24 Qty/Days Supply: Rx Expiration Date: 05/11/25 Refills Remainin OUTPT PIOGLITAZONE HCL 30MG TAB (Status = Active/Suspended) TAKE ONE TABLET BY MOUTH ONCE A DAY FOR DIABETES Rx# [id number] Last Released: 06/15/24 Qty/Days Supply: Rx Expiration Date: 01/04/25 Refills Remainin Indication: FOR DIABETES OUTPT POTASSIUM CL 20MEQ SA TAB (DISPERSIBLE) (Status = Discontinued) TAKE ONE TABLET BY MOUTH ONCE A DAY FOR POTASSIUM SUPPLEMENTATION TAKE WITH FOOD, DOSE INCREASE Rx# [id number] Last Released: 04/21/24 Qty/Days Supply: Rx Expiration Date: 02/09/25 Refills Remainin Indication: FOR POTASSIUM SUPPLEMENTATION Non-VA PSYLLIUM ORAL PWD MIX AND DRINK 2 TEASPOONFULS BY MOUTH ONCE A DAY March 06, 2024 VA RX: Non-VA medication recommended by [place] provider VA RX: Patient wants to buy from Non-[place] pharmacy Indication: FOR FIBER SUPPLEMENTATION OUTPT SILDENAFIL CITRATE 50MG TAB (Status = Active) TAKE 1-2 TABLETS BY MOUTH ONE HOUR PRIOR TO SEXUAL ACTIVITY TAKE ON EMPTY STOMACH. NEEDED -- LIMIT 6 DOSES PER 30 DAYS Rx# [id number] Last Released: 03/31/24 Qty/Days Supply: Rx Expiration Date: 02/01/25 Refills Remainin OUTPT SODIUM FLUORIDE 1.1% TOOTHPASTE (Status = Active) USE DIRECTED BY MOUTH AT BEDTIME FOR DENTAL HEALTH (BRUSH TEETH ONCE DAILY FOR TWO MINUTES BEFORE BEDTIME; SPIT EXCESS INTO SINK AFTER BRUSING - DO NOT SWALLOW) Rx# [id number] Last Released: 03/29/24 Qty/Days Supply: Rx Expiration Date: 12/27/24 Refills Remainin Indication: FOR DENTAL HEALTH OUTPT TAMSULOSIN HCL 0.4MG CAP (Status = Discontinued) TAKE ONE CAPSULE BY MOUTH AT BEDTIME APPROXIMATELY 30 MINUTES AFTER THE SAME MEAL EACH DAY Rx# [id number] Last Released: 05/24/24 Qty/Days Supply: Rx Expiration Date: 05/11/25 Refills Remainin OUTPT TAMSULOSIN HCL 0.4MG CAP (Status = Active/Suspended) TAKE ONE CAPSULE BY MOUTH AT BEDTIME APPROXIMATELY 30 MINUTES AFTER THE SAME MEAL EACH DAY Rx# [id number] Last Released: Supply: Rx Expiration Date: 07/13/25 Refills Remainin OUTPT TRAZODONE HCL 100MG TAB (Status = Active) TAKE TWO TABLETS BY MOUTH AT BEDTIME FOR MOOD OR SLEEP. Rx# [id number] Last Released: 08/04/24 Supply: Rx Expiration Date: 05/11/25 Refills Remainin SUPPLIES OUTPT ACCU-CHEK GUIDE (GLUCOSE) TEST STRIP (Status = Active) USE 1 STRIP FOR BLOOD TEST TWO TIMES PER WEEK FOR BLOOD SUGAR MONITORING Rx# [id number] Last Released: 06/30/24 Qt Supply: Rx Expiration Date: 09/21/24 Refills Remainin Indication: FOR BLOOD SUGAR MONITORING OUTPT SYRINGE 2.5-3ML/NDL 25G 1IN (Status = Active) USE 1 SYRINGE UNDER THE SKIN MONTHLY (TO BE USED WITH VITAMIN B12 SHOTS) Rx# [id number] Last Released: 07/19/24 Supply: Rx Expiration Date: 05/11/25 Refills Remainin PHARMACY TERMS AND POSSIBLE PATIENT ACTIONS INPT = IN inpatient order IV = VA intravenous medication OUTPT = IN outpatient prescription PHARMACY POSSIBLE PATIENT TERMS EXPLANATION ACTIONS -------- -- ACTIVE A prescription that can be If you have refills, filled at the local VA pharmacy. you may request a refill of this prescription from your VA pharmacy. CLINIC A medication you received during If you have questions a visit to a VA clinic or about this medication emergency department. contact your VA healthcare team. DISCONTINUED A prescription your provider has Contact your VA stopped. It is no longer healthcare team if you available to be sent to you or need more of this picked up at the [place] pharmacy medication. window. A prescription which is too old Contact your VA to fill. This does not refer to healthcare team if you the expiration date of the need more of this medication in the container. medication. NON-VA A medication that came from If this medication someplace other than a VA information is pharmacy. This may be a incorrect or out of prescription from either the VA date, please tell your or non VA providers that was VA healthcare team. filled outside the VA. Or, it may be an ozmj-zuk-sinqydf (OTC), herbal, dietary supplements or sample medication. ON HOLD An active prescription that will Contact your VA not be filled until pharmacy pharmacy when you need resolves the issue. more of this medication. PARKED An active prescription that will Contact your VA not be filled until the patient pharmacy when you need requests it. this medication. PENDING This prescription order has been If you have been sent to the pharmacy for review instructed to start and is not ready yet. this medication now, contact your VA pharmacy. SUSPENDED An active prescription that is Contact your [place] not scheduled to be filled yet. pharmacy if you need You should receive it before this medication now. you run out. ====== Patient reports taking medications as ordered. IS PATIENT TAKING ANY OVER THE COUNTER MEDICATIONS, SUCH VITAMINS OR HERBAL SUPPLEMENTS, INCLUDING ANY MEDICATIONS PRESCRIBED BY ANOTHER PHYSICIAN? No ALLERGIES/ADVERSE REACTIONS: CODEINE Does patient have any new allergies to report since last visit? NO VITALS: TEMPERATURE: 98.3 F [36.8 C] (07/07/2024 10:37) BP: 153/95 (07/07/2024 10:37) RESP: 18 (07/07/2024 10:37) PULSE: 60 (07/07/2024 10:37) HT: 71 in [180.3 cm] (02/17/2023 10:54) WT: 211 lb [95.71 kg] (03/09/2024 10:31) BMI: 29.5 PAIN ASSESSMENT: (Most Recent Pain Score in Vitals Package: 0 (02/17/2023 10:54) ) The patient indicated that they and their close contacts have not traveled outside of the [place] in the past 21 days. The patient reports the following symptoms: No symptoms present The patient is not immunocompromised. The patient does not report having a history of Multi Drug Resistant Organism (MDRO) within the last five years. The patient does not report having been exposed to measles, chickenpox, or zoster in last 30 days. Patient reports no pain at this visit. Pain Score = 0. STRESS: Thank you for your service. Now let us serve you. At the [facility], we strive to provide you with exceptional health care that improves your health and well-being. Are you feeling sad, empty, or depressed? No Do you need to talk about things in your life that worry you or cause you stress? No Do you need to talk about personal problems, family problems, alcohol use, drug use, or mental or emotional illness? No SUICIDE SCREENING: The patient was asked, Over the past two weeks, how often have you been bothered by thoughts that you would be better off or of hurting yourself in some way? Not At All SPIRITUAL ASSESSMENT: Are there rastafari practices or spiritual concerns you want the manager distribution center, your physician, and other health care team members to immediately know about? No Patient advised to call the clinic for any concerns, questions, or symptoms. Patient and/or caregiver verbalized understanding of plan of care. Frail/Elderly Screen: ADL Screen - [place]jas Index of [place] in Activities of Daily Living Bathing: (3 Points) Receives no assistance (gets in and out of tub by self, if tub is usual means of bathing) Dressing: (3 Points) Gets clothes and gets completely dressed without assistance. Toileting: (3 Points) Goes to toilet room , cleans self, and arranges clothes without assistance (may use object for support such as cane, walker, or wheelchair, and may manage own night bedpan or commode, emptying same next morning) Transferring: (3 Points) Moves in and out of bed and in and out of chair without assistance (may be using object for support, such as cane or walker) Continence: (3 Points) Controls urination and bowel movement completely by self Feeding: (3 Points) Feeds self without assistance Total Score: 18 Points 18 = High (patient independent) 6 = Low (patient very dependent) IADL Screen - [place] Instrumental Activities of Daily Living Scale Ability to use telephone: (1 point) Operates Telephone on own initiative; looks up and dials numbers. Shopping: (1 point) Takes care of all shopping needs independently. Food preparation: (1 point) Plans, prepares, and serves adequate meals independently. Housekeeping: (1 point) Maintains house alone with occasional assistance (heavy work). Laundry: (1 point) Does personal laundry completely. Mode of transportation: (1 point) Travels independently on public transportation or drives own car. Responsibility for own medications: (1 point) Is responsible for taking medications in correct dosages at correct times. Ability to handle finances: (1 point) Manages financial matters independently (budgets, writes checks, pays rent and bills, goes to bank); collects and keeps track of income. Total score: 8 points 8 = High function, independent 0 = Low function, dependent Falls Screen: No falls within the past 12 months. Incontinence Screen: No incontinence. Sexual Orientation: The patient thinks of their sexual orientation as: Straight or Heterosexual Suicide Screen: C-SSRS Screening [place]-Suicide Severity Rating Scale (C-SSRS Screener) 1. Over the past month, have you wished you were or wished you could go to sleep and not wake up? No 2. Over the past month, have you had any actual thoughts of killing yourself? No 3. Over the past month, have you been thinking about how you might do this? Response not required due to responses to other questions. 4. Over the past month, have you had these thoughts and had some intention of acting on them? Response not required due to responses to other questions. 5. Over the past month, have you started to work out or worked out the details of how to kill yourself? Response not required due to responses to other questions. 6. If yes, at any time in the past month did you intend to carry out this plan? Response not required due to responses to other questions. 7. In your lifetime, have you ever done anything, started to do anything, or prepared to do anything to end your life (for example, collected pills, obtained a gun, gave away valuables, went to the roof but didn't jump)? No 8. If YES, was this within the past 3 months? Response not required due to responses to other questions. RHS Screen: RHS Screen Session Format: Face to Face Environmental Check Screening was not completed at this time due to: Another adult present PAVE Foot Check: Patient indicates foot exam (including monofilament test for sensation) was performed in the past year in the private sector: Date: June 07, 2024 Result: Normal [facility] - PHP MAP: PERSONAL HEALTH PLAN INVENTORY & MAP [place]'s Response: family /es/ ELISA [facility] LPN Signed: 08/10/2024 10:42 ELISA [facility]
--- OUTSIDE RECORDS SUMMARY | 2024-09-15 06:00 | XMS_ITS | Encounter Summary ---
Author Name [facility] [place] [facility] [place] Address [address] [place] [address] Care Team Providers Care Senior Bioinformatics Scientist Name Role Phone RAYSA GRULLON Primary Care [...] PART A March 01, 1998 PART A [id number] [id number] [phone] JUANJOSE BARAJAS PATIENT MEDICARE (WNR) MEDICARE (M) PART B March 01, 1998 PART B [id number] [id number] [phone] JUANJOSE BARAJAS PATIENT Selected Encounter This section includes the information on record at [place] for the Encounter. Date/Time Encounter Type Encounter Description Reason Provider Source Sep 15, 2024 11:00 AM OFFICE O/P EST LOW 20 MIN PRIMARY CARE/MEDICINE ICD-10-CM I25.10 [place]s[facility] heart disease of [place] coronary artery w/o ang pctNICOLE Talley IHCristina Encounter Template Text not used by [place] Assessments - Encounter Diagnoses This section includes the primary and secondary diagnoses documented for the Encounter. Date/Time Primary/Secondary Diagnosis Diagnosis Name Provider Source Sep 17, 2024 11:19 PM PRIMARY Athscl heart disease of [place] coronary artery w/o ang pctHOA Talley [facility] Plan of Treatment: Future Appointments (+ 6 months) and Future Tests (+/- 45 days) The Plan of Treatment section includes future care activities for the patient from [facility] [place] [facility] This section includes future appointments and future orders which are active, pending or scheduled. Future Appointments This section includes appointments that were scheduled to occur 6 months from the date of the Encounter, up to a maximum of 20 appointments. The data comes from all [place] treatment facilities. Appointment Date/Time Appointment Type Appointme nt Facility Name Sep 20, 2024 11:00 AM AMBULATORY - MEDICINE [place] Sep 21, 2024 12:45 PM AMBULATORY - MEDICINE [place] [facility] Oct 19, 2024 01:30 PM AMBULATORY - MEDICINE [place] [facility] Dec 05, 2024 08:40 AM AMBULATORY - MEDICINE [facility] Dec 21, 2024 11:00 AM AMBULATORY - MEDICINE [facility] Jan 03, 2025 12:10 PM AMBULATORY - MEDICINE [place] [facility] Jan 15, 2025 10:00 AM AMBULATORY - MEDICINE [place] [facility] Jan 24, 2025 12:00 PM AMBULATORY - MEDICINE [facility] Jan 24, 2025 12:01 PM AMBULATORY - MEDICINE [place] Feb 05, 2025 05:00 AM AMBULATORY - NONE [place] [facility] Feb 14, 2025 02:30 PM AMBULATORY - MEDICINE [facility] Vital Signs: All taken on the encounter date This section contains inpatient and outpatient Vital Signs collected on the date of the Encounter. Date/Time Temperature Pulse Blood Pressure Respiratory Rate SP02 Pain Height Weight Body Mass Index Source Sep 15, 2024 11:05 AM 59 137/81 16 95 [address] [place] [address] Social History: Smoking Status (Most current) and Tobacco Use (All prior to encounter date) This section includes the most current, and the historical, smoking and tobacco- related health factors from the [place] facility where the Encounter took place. Current Smoking Status This section includes the most current smoking, or tobacco-related health factor, from the [place] facility where the Encounter took place. Date/Time Current Smoking Status Comment Adrien ity 2024 11:00 AM VA-TOBACCO QUIT 15 YRS OR MORE [facility] Tobacco Use History This section includes a history of the smoking, or tobacco-related health factors, that were collected on or before the date of the Encounter. The data comes from the [place] facility where the Encounter took place. Date/Time Smoking Status/Tobacco Use Comment F acility 2024 11:00 AM VA-TOBACCO QUIT 15 YRS OR MORE [facility] Feb 17, 2023 10:30 AM VA-TOBACCO FORMER USER [facility] Feb 17, 2023 10:30 AM VA-TOBACCO QUIT 15 YRS OR MORE [facility] Feb 26, 2022 11:00 AM VA-TOBACCO FORMER USER [facility] Feb 26, 2022 11:00 AM VA-TOBACCO QUIT 15 YRS OR MORE [facility] March 03, 2021 09:00 AM VA-TOBACCO FORMER USER [facility] March 03, 2021 09:00 AM VA-TOBACCO QUIT 15 YRS OR MORE [facility] Jan 04, 2019 09:35 AM VA-TOBACCO FORMER USER [facility] Jan 04, 2019 09:35 AM VA-TOBACCO QUIT 15 YRS OR MORE [facility] Jan 22, 2016 10:08 AM QUIT TOBACCO >7 YEARS AGO [facility] Advance Directives: All historical and current Section Date Range: From patient's date of to the date document was created. This section includes ALL of a patient's completed or amended [place] Advance and Rescinded Directives. The entries below indicate that a directive exists for the patient, but an actual copy is not included with this document. The data comes from all [place] facilities. Date Advance Directives Provider Source Dec 15, 2017 ADVANCE DIRECTIVE TULIO CRUMP [facility] Encounter Notes: All associated encounter notes This section contains the clinical notes associated to the Encounter. Date/Time Encounter Note(s) Provider Source Dec 08, 2024 03:41 PM PRIMARY CARE MEDICATION MGT NOTE: LOCAL TITLE: MEDICATION RENEWAL/REFILL PB STANDARD TITLE: PRIMARY CARE MEDICATION MGT NOTE DATE OF NOTE: DEC 08, 2024@15:41 ENTRY DATE: DEC 08, 2024@15:41:35 AUTHOR: RACHELE CRAFT RE EXP COSIGNER: URGENCY: STATUS: COMPLETED RACHEL BARAJAS has contacted the and is requesting that the following prescription(s) be renewed. The patient reports that he/she is currently LOW on his/her supply of medication. He/she is requesting a new supply be mailed by MEDICATION REQUESTED: Drug Name ACCU-CHEK GUIDE (GLUCOSE) TEST STRIP Issue Date 06/23/2024 SIG USE 1 STRIP FOR BLOOD TEST TWO TIMES PER WEEK FOR BLOOD SUGAR MONITORING Facility: [facility] Recall visit scheduled? Future visits: 12/21/24 11:00 am [facility] [phone] ====== The following is informational only for those patients that are on long-term opiate therapy: Opioid Consent: No data available for: CONSENT FOR LONG-TERM OPIOIDS FOR PAIN No drugs in class: CN101 (OPIOID ANALGESICS) Last UDS: Collection DT Specimen Test Name Result Units Ref Range 08/10/2024 12:01 URINE CREATuF 13.49 mg/dL Benzodiazipines: No drugs in class: CN302 (BENZODIAZEPINE DERIVATIVE SEDATIVES/HYPNOTICS) /aline/ Rachele Craft RN Vulcan SCOTT, PHILP [facility] Signed: 12/08/2024 15:45 Receipt Acknowledged By: 12/09/2024 17:03 /aline/ [facility]ARI [facility] warren JEANNIE R[facility] Ann CHAVEZ Sep 15, 2024 11:20 AM PRIMARY CARE PROGRESS NOTE: LOCAL TITLE: PRIMARY CARE CLINIC PROGRESS NOTE PB STANDARD TITLE: PRIMARY CARE PROGRESS NOTE DATE OF NOTE: SEP 15, 2024@11:20 ENTRY DATE: SEP 15, 2024@11:20:19 AUTHOR: RAYSA GRULLON COSIGNER: URGENCY: STATUS: COMPLETED PROVIDER ASSESSMENT DATE & TIME:Sep@11:20 CHIEF COMPLAINT: Discuss heart surgery. HISTORY OF PRESENT ILLNESS: Avery is being referred from [place] [facility] to [place] [facility] for heart surgery. They said the left lower side of his heart is atrophied. He had his heart doctor started him on torsemide 20mg daily and he will take it for the next week then have labs to see if it is working. He is on a one liter a day fluid restriction to see if it helps. Avery is just here to update clinician. 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: 1) Type 2 diabetes mellitus 2) CAD - Coronary artery disease 3) HTN - Hypertension 4) HLD - Hyperlipidemia 5) BPH - Benign prostatic hypertrophy 6) PTSD - Post-traumatic stress disorder 7) Depression 8) Diabetic peripheral neuropathy associated with type 2 diabetes mellitus 9) History of malignant basal cell neoplasm of skin 10) Obesity 11) Sleep apnea 12) Insomnia ([facility] [phone]) 13) Actinic keratosis 14) Allergic rhinitis 15) [...] MOUTH TWICE A DAY ACTIVE FOR ANTICOAGULATION 4) ASPIRIN 81MG EC TAB [...] ACTIVE MOUTH ONCE A DAY FOR DEPRESSION 13) [...] MOUTH ACTIVE ONCE A DAY FOR DIABETES 24) SILDENAFIL [...] runnynose, congestion, or nose bleed. No hearing loss,ringing in the ears, or vertigo. No sore [...] Not suicidal. PHYSICAL ASSESSMENT: VITAL SIGNS Pulse: 59 (09/15/2024 11:05) Blood Pressure: 137/81 (09/15/2024 11:05) Respiratory Rate: 16 (09/15/2024 11:05) Temperature: 98.3 F [36.8 C] (07/07/2024 10:37) Weight: 215.4 lb [97.70 kg] (09/15/2024 11:05) Height: 71.0 in [180.3 cm] (09/15/2024 11:05) Pain: 0 (09/15/2024 11:05) HEENT:PERRL, EOMI, Fundi benign, TM's clear, Pharynx not red and without exudate, tonsils normal size. NECK: Supple, no lymhadenopathy, thyroid normal. CARDIAC: Regular rate and rhythm without murmur. No edema. RESPIRATORY: CTA, BEBS GI: Abdomen soft,with ABS. MUSCULOSKELETAL:Chronic joint pain with no acute change. FROM. SKIN: [place] without rash or lesions. NEUROLOGICAL: The is alert and oriented without distress. Affect appropriate. IMPRESSION: Cardiac Hypertrophy-chronic PLAN: Continue current medications. RTC as previously scheduled. Patient is advised this primary care clinic [...] appointments. Medications Reconciled. Time spent 30 minutes. /aline/ ZARI Bates-[facility], [facility] Signed: 09/17/2024 23:18 RAYSA GRULLON [facility] Sep 15, 2024 10:58 AM PRIMARY CARE NURSING NOTE: LOCAL TITLE: PRIMARY CARE NURSING PROGRESS NOTE (TEXT) NURSING P STANDARD TITLE: PRIMARY CARE NURSING NOTE DATE OF NOTE: SEP 15, 2024@10:58 ENTRY DATE: SEP 15, 2024@10:58:51 AUTHOR: ELISA SIERRA EXP COSIGNER: URGENCY: STATUS: COMPLETED Established Patient RACHEL BARAJAS IS A 74 YEAR OLD MALE BEING SEEN IN CLINIC SEP 15, 2024. REASON FOR VISIT: Avery here today with to speak with provider about upcoming cardiac procedure. Are you receiving care any where other than the [facility]? No HEALTH AND SURGICAL HISTORY: Does patient report using home oxygen? No CURRENT ACTIVE MEDICATIONS FOR REVIEW: Allergies/ADRs (Tool #5) FACILITY ALLERGY/ADR -------- No Remote Allergy/ADR Data available for this patient [facility] Med. Reconciliation (Tool #1) INCLUDED IN THIS LIST: Alphabetical list of active outpatient prescriptions dispensed from this VA (local) and dispensed from another VA or DoD facility (remote) as well as inpatient orders (local pending and active), local clinic medications, locally documented non-VA medications, and local prescriptions that have or been discontinued in the past 90 days. Non-VA Meds Last Documented On: March 06, 2024 NOTE The display of VA prescriptions dispensed from another VA or DoD facility (remote) is limited to active outpatient prescription entries matched to National Drug File at the originating site and may not include some items such as investigational drugs, compounds, etc. NOT INCLUDED IN THIS LIST: Medications self-entered by the patient into personal health records (i.e. [employer]) are NOT included in this list. Non-VA medications documented outside this [place], remote inpatient orders (regardless of status) and remote clinic medications are NOT included in this list. The patient and provider must always discuss medications the patient is taking, regardless of where the medication was dispensed or obtained. OUTPT AMLODIPINE BESYLATE 10MG TAB (Status = Active/Suspended) TAKE ONE TABLET BY MOUTH ONCE A DAY FOR HIGH BLOOD PRESSURE Rx# [id number] Last Released: 07/28/24 Qty/Days Supply: 90/90 Rx Expiration Date: 07/28/25 Refills Remainin Indication: FOR HIGH BLOOD PRESSURE OUTPT APIXABAN 5MG TAB (Status = Discontinued) TAKE ONE TABLET BY MOUTH TWICE A DAY FOR ANTICOAGULATION Rx# [id number] Last Released: 03/23/24 Qty/Days Supply: 180/90 Rx Expiration Date: 07/14/24 Refills Remainin Indication: FOR ANTICOAGULATION OUTPT APIXABAN 5MG TAB (Status = Active) TAKE ONE TABLET BY MOUTH TWICE A DAY FOR ANTICOAGULATION Rx# [id number] Last Released: 09/08/24 Qty/Days Supply: 180/90 Rx Expiration Date: 06/24/25 Refills Remainin Indication: FOR ANTICOAGULATION Non-VA APPLE CIDER VINEGAR CAP/TAB TAKE 1 CAP/TAB BY MOUTH ONCE A DAY 2024 VA RX: Non-VA medication recommended by VA provider VA RX: Patient wants to buy from Non-VA pharmacy Indication: supplement OUTPT ASPIRIN 81MG EC TAB (Status = Active) TAKE ONE TABLET BY MOUTH ONCE A DAY FOR HEART OR CIRCULATION. TAKE WITH FOOD. Rx# [id number] Last Released: 08/28/24 Qty/Days Supply: 120/90 Rx Expiration Date: 05/11/25 Refills Remainin OUTPT ATORVASTATIN CALCIUM 40MG TAB (Status = Active) TAKE ONE AND ONE-HALF TABLETS BY MOUTH EVERY EVENING FOR HIGH CHOLESTEROL Rx# [id number] Last Released: 09/13/24 Qty/Days Supply: 135 Rx Expiration Date: 01/04/25 Refills Remainin Indication: FOR HIGH CHOLESTEROL OUTPT CARVEDILOL 25MG TAB (Status = Active) TAKE ONE-HALF TABLET BY MOUTH TWICE A DAY FOR HEART. TAKE WITH FOOD. Rx# [id number] Last Released: 08/28/24 Qty/Days Supply: Rx Expiration Date: 05/11/25 Refills Remainin OUTPT CHOLECALCIF 50MCG (D3-2,000UNIT) TAB (Status = Active) TAKE ONE TABLET BY MOUTH ONCE A DAY FOR VITAMIN D DEFICIENCY. Rx# [id number] Last Released: 08/02/24 Qty/Days Supply: / Rx Expiration Date: 09/30/24 Refills Remainin OUTPT CYANOCOBALAMIN 1000MCG/ML INJ (Status = Active) INJECT 1000MCG/1ML INTRAMUSCULARLY MONTHLY Rx# [id number] Last Released: 07/12/24 Qty/Days Supply: Rx Expiration Date: 05/11/25 Refills Remainin OUTPT DEXAMETHASONE 0.1%/LION/POLYMX OPH OINT (Status = Active) APPLY ONE-FOURTH INCH RIBBON TO AFFECTED EYE(S) TWICE A DAY APPLY ON EYELID. START DAY OF PROCEDURE AND CONTINUE FOR 2 WEEKS. Rx# [id number] Last Released: 02/01/24 Qty/Days Supply: 11/14 Rx Expiration Date: 01/26/25 Refills Remainin OUTPT DULOXETINE HCL 60MG EC CAP (Status = Active/Suspended) TAKE ONE CAPSULE BY MOUTH ONCE A DAY DO NOT ABRUPTLY DISCONTINUE MEDICATION. Rx# [id number] Last Released: 07/31/24 Qty/Days Supply: Rx Expiration Date: 04/21/25 Refills Remainin OUTPT EMPAGLIFLOZIN 25MG TAB (Status = Active) TAKE ONE TABLET BY MOUTH ONCE A DAY FOR DIABETES Rx# [id number] Last Released: 08/03/24 Qty/Days Supply: Rx Expiration Date: 05/11/25 Refills Remainin Indication: FOR DIABETES OUTPT ESCITALOPRAM OXALATE 10MG TAB (Status = Active) TAKE ONE TABLET BY MOUTH ONCE A DAY FOR DEPRESSION Rx# [id number] Last Released: 09/13/24 Qty/Days Supply: Rx Expiration Date: 01/04/25 Refills Remainin Indication: FOR DEPRESSION OUTPT FEXOFENADINE HCL 180MG TAB (Status = Active/Suspended) TAKE ONE TABLET BY MOUTH EVERY MORNING FOR ALLERGIES Rx# [id number] Last Released: 07/19/24 Qty/Days Supply: Rx Expiration Date: 05/11/25 Refills Remainin OUTPT FINASTERIDE 5MG TAB (Status = ) TAKE ONE TABLET BY MOUTH ONCE A DAY SWALLOW WHOLE, DO NOT CRUSH, SPLIT, OR CHEW. Rx# [id number] Last Released: 05/26/24 Qty/Days Supply: Rx Expiration Date: 07/09/24 Refills Remainin OUTPT FINASTERIDE 5MG TAB (Status = Discontinued) TAKE ONE TABLET BY MOUTH ONCE A DAY SWALLOW WHOLE, DO NOT CRUSH, SPLIT, OR CHEW. Rx# [id number] Last Released: 07/20/24 Qty/Days Supply: Rx Expiration Date: 07/13/25 Refills Remainin OUTPT FINASTERIDE 5MG TAB (Status = Active) TAKE ONE TABLET BY MOUTH ONCE A DAY SWALLOW WHOLE, DO NOT CRUSH, SPLIT, OR CHEW. Rx# [id number] Last Released: 08/03/24 Qty/Days Supply: Rx Expiration Date: 07/13/25 Refills Remainin Non-VA FISH OIL 1000MG (500MG DHA/EPA) CAP TAKE 2 CAPSULES BY MOUTH THREE TIMES A DAY WITH MEALS Jan 04, 2024 [place] RX: Non-VA medication recommended by [place] provider VA RX: Patient wants to buy from Non-VA pharmacy Indication: FOR HIGH TRIGLYCERIDES OUTPT FLUTICASONE PROP 50MCG 120D NASAL INHL (Status = Active/Suspended) INSTILL 1 SPRAY IN NOSTRIL(S) ONCE A DAY FOR ALLERGIES (MUST BE USED DIRECTED FOR MINIMUM OF 21 DAYS TO PROVIDE ADEQUATE BENEFITS) Rx# [id number] Last Released: 07/19/24 Qty/Days Supply: Rx Expiration Date: 05/11/25 Refills Remainin OUTPT GABAPENTIN 300MG CAP (Status = Active/Suspended) TAKE ONE CAPSULE BY MOUTH TWICE A DAY Rx# [id number] Last Released: 06/29/24 Qty/Days Supply: 180/90 Rx Expiration Date: 04/21/25 Refills Remainin OUTPT GLIPIZIDE 10MG TAB (Status = Active) TAKE ONE TABLET BY MOUTH THREE TIMES A DAY BEFORE MEALS FOR DIABETES. TAKE 30 MINUTES BEFORE EATING. Rx# [id number] Last Released: 09/13/24 Qty/Days Supply: 270/90 Rx Expiration Date: 01/04/25 Refills Remainin OUTPT HYDROCHLOROTHIAZIDE 25MG TAB (Status = Discontinued) TAKE ONE-HALF TABLET BY MOUTH ONCE A DAY FOR FLUID RETENTION (EDEMA) FOR EXCESSIVE FLUID AND TO LOWER BLOOD PRESSURE Rx# [id number] Last Released: 06/20/24 Qty/Days Supply: 45/ Rx Expiration Date: 06/16/25 Refills Remainin Indication: FOR FLUID RETENTION (EDEMA) OUTPT HYDROCHLOROTHIAZIDE 25MG TAB (Status = Active/Suspended) TAKE ONE TABLET BY MOUTH ONCE A DAY FOR EXCESSIVE FLUID AND TO LOWER BLOOD PRESSURE Rx# [id number] Last Released: 07/28/24 Qty/Days Supply: 90/ Rx Expiration Date: 07/28/25 Refills Remainin OUTPT LISINOPRIL 40MG TAB (Status = Active/Suspended) TAKE ONE TABLET BY MOUTH TWICE A DAY FOR HEART OR BLOOD PRESSURE Rx# [id number] Last Released: 07/12/24 Qty/Days Supply: 180/ Rx Expiration Date: 05/11/25 Refills Remainin OUTPT MIRABEGRON 50MG SA TAB (Status = ) TAKE ONE TABLET BY MOUTH ONCE A DAY SWALLOW WHOLE; DO NOT CRUSH, SPLIT, OR CHEW. Rx# [id number] Last Released: 05/26/24 Qty/Days Supply: Rx Expiration Date: 07/09/24 Refills Remainin OUTPT MIRABEGRON 50MG SA TAB (Status = Active) TAKE ONE TABLET BY MOUTH ONCE A DAY SWALLOW WHOLE; DO NOT CRUSH, SPLIT, OR CHEW. Rx# [id number] Last Released: 08/03/24 Qty/Days Supply: Rx Expiration Date: 07/13/25 Refills Remainin OUTPT MULTIVIT W/MINERALS, CAP/TAB (Status = Active/Suspended) TAKE 1 TABLET BY MOUTH ONCE A DAY FOR VITAMIN AND MINERAL SUPPLEMENTATION. TAKE WITH FOOD. Rx# [id number] Last Released: 07/12/24 Qty/Days Supply: 100/ Rx Expiration Date: 05/11/25 Refills Remainin OUTPT OMEPRAZOLE 20MG EC CAP (Status = Active/Suspended) TAKE TWO CAPSULES BY MOUTH EVERY MORNING TO LOWER STOMACH ACID. TAKE 30 MINUTES PRIOR TO FOOD. Rx# [id number] Last Released: 07/08/24 Qty/Days Supply: 180/ Rx Expiration Date: 05/11/25 Refills Remainin OUTPT PIOGLITAZONE HCL 30MG TAB (Status = Active) TAKE ONE TABLET BY MOUTH ONCE A DAY FOR DIABETES Rx# [id number] Last Released: 09/13/24 Qty/Days Supply: Rx Expiration Date: 01/04/25 Refills Remainin Indication: FOR DIABETES Non-VA PSYLLIUM ORAL PWD MIX AND DRINK 2 TEASPOONFULS BY MOUTH ONCE A DAY March 06, 2024 VA RX: Non-VA medication recommended by [place] provider VA RX: Patient wants to buy from Non-VA pharmacy Indication: FOR FIBER SUPPLEMENTATION OUTPT SILDENAFIL CITRATE 50MG TAB (Status = Active) TAKE 1-2 TABLETS BY MOUTH ONE HOUR PRIOR TO SEXUAL ACTIVITY TAKE ON EMPTY STOMACH. NEEDED -- LIMIT 6 DOSES PER 30 DAYS Rx# [id number] Last Released: 03/31/24 Qty/Days Supply: Rx Expiration Date: 02/01/25 Refills Remainin OUTPT SODIUM FLUORIDE 1.1% TOOTHPASTE (Status = Active) USE DIRECTED BY MOUTH AT BEDTIME FOR DENTAL HEALTH (BRUSH TEETH ONCE DAILY FOR TWO MINUTES BEFORE BEDTIME; SPIT EXCESS INTO SINK AFTER BRUSING - DO NOT SWALLOW) Rx# [id number] Last Released: 03/29/24 Qty/Days Supply: 102 Rx Expiration Date: 12/27/24 Refills Remainin Indication: FOR DENTAL HEALTH OUTPT TAMSULOSIN HCL 0.4MG CAP (Status = Discontinued) TAKE ONE CAPSULE BY MOUTH AT BEDTIME APPROXIMATELY 30 MINUTES AFTER THE SAME MEAL EACH DAY Rx# [id number] Last Released: 05/24/24 Qty/Days Supply: 90 Rx Expiration Date: 05/11/25 Refills Remainin OUTPT TAMSULOSIN HCL 0.4MG CAP (Status = Active) TAKE ONE CAPSULE BY MOUTH AT BEDTIME APPROXIMATELY 30 MINUTES AFTER THE SAME MEAL EACH DAY Rx# [id number] Last Released: 09/04/24 Qt Supply: Rx Expiration Date: 07/13/25 Refills Remainin OUTPT TRAZODONE HCL 100MG TAB (Status = Active) TAKE TWO TABLETS BY MOUTH AT BEDTIME FOR MOOD OR SLEEP. Rx# [id number] Last Released: 08/04/24 Qt Supply: Rx Expiration Date: 05/11/25 Refills Remainin SUPPLIES OUTPT ACCU-CHEK GUIDE (GLUCOSE) TEST STRIP (Status = Active) USE 1 STRIP FOR BLOOD TEST TWO TIMES PER WEEK FOR BLOOD SUGAR MONITORING Rx# [id number] Last Released: 06/30/24 Qt Supply: Rx Expiration Date: 09/21/24 Refills Remainin Indication: FOR BLOOD SUGAR MONITORING OUTPT SYRINGE 2.5-3ML/NDL 25G 1IN (Status = Active) USE 1 SYRINGE UNDER THE SKIN MONTHLY (TO BE USED WITH VITAMIN B12 SHOTS) Rx# [id number] Last Released: 07/19/24 Qt Supply: Rx Expiration Date: 05/11/25 Refills Remainin PHARMACY TERMS AND POSSIBLE PATIENT ACTIONS INPT = [place] inpatient order IV = VA intravenous medication OUTPT = [place] outpatient prescription PHARMACY POSSIBLE PATIENT TERMS EXPLANATION ACTIONS -------- -- ACTIVE A prescription that can be If you have refills, filled at the local [place] pharmacy. you may request a refill of [...] more of this picked up at the [place] pharmacy medication. window. A prescription which is [...] the VA. Or, it may be an yrcq-rqa-hstpfme (OTC), herbal, dietary supplements or sample medication. [...] An active prescription that is Contact your [place] not scheduled to be filled yet. pharmacy [...] 98.3 F [36.8 C] (07/07/2024 10:37) BP: 157/77 (08/10/2024 10:37) RESP: 18 (08/10/2024 10:34) PULSE: 60 (08/10/2024 10:37) HT: 71.0 in [180.3 cm] (08/10/2024 10:34) WT: 216.5 lb [98.20 kg] (08/10/2024 10:34) BMI: 30.3 PAIN ASSESSMENT: (Most Recent Pain Score in Vitals Package: 0 (08/10/2024 10:34) ) The patient indicated that they and [...] Now let us serve you. At the [facility], we strive to provide you [...] Not At All SPIRITUAL ASSESSMENT: Are there mosque practices or spiritual concerns you want the industrial truck operator, your physician, and other health care team members to immediately know about? No Patient advised to call the clinic for any concerns, questions, or symptoms. Patient and/or caregiver verbalized understanding of plan of care. /aline/ ELISA SIERRA LPN Signed: 09/15/2024 11:24 ELISA SIERRA [facility]
--- OUTSIDE RECORDS SUMMARY | 2025-01-23 03:56 | XMS_ITS | Encounter Summary ---
Author Name [facility] [place] Address [address] [place] [address] Care Team Providers Care Industrial Laborer Name Role Phone RAYSA GRULLON Primary Care [...] PART A March 01, 1998 PART A [id number] [id number] [phone] JUANJOSE BARAJAS PATIENT MEDICARE (WNR) MEDICARE (M) PART B March 01, 1998 PART B [id number] JUANJOSE BARAJAS PATIENT Selected Encounter This section includes the information on record at [place] for the Encounter. Date/Time Encounter Type Encounter Description Reason Pro vider Source Jan 23, 2025 08:56 AM Outpatient Encounter ADMIN PAT ACTIVTIES (MASNONCT) IHE Encounter Template Text not used by [facility] Plan of Treatment: Future Appointments (+ 6 months) and Future Tests (+/- 45 days) The Plan of Treatment section includes future care activities for the patient from all [facility] treatmentfacilities. This section includes future appointments and future orders which are active, pending or scheduled. Future Appointments This section includes appointments that were scheduled to occur 6 months from the date of the Encounter, up to a maximum of 20 appointments. The data comes from all [facility]. Appointment Date/Time Appointment Type Appointme nt Facility Name Jan 24, 2025 12:00 PM AMBULATORY - MEDICINE [facility] Jan 24, 2025 12:01 PM [place] [facility] Feb 05, 2025 05:00 AM AMBULATORY - NONE [place] [facility] Feb 14, 2025 02:30 PM AMBULATORY - MEDICINE [facility] March 19, 2025 10:30 AM AMB[place]ORY [place]IC[place] [facility] March 22, 2025 10:30 AM AMBULATORY - MEDICINE [facility] March 28, 2025 11:00 AM [place]ORY [place]IC[place] [facility] March 30, 2025 10:30 AM AMBUL[place]ORY - [place]IC[place] [facility] March 30, 2025 11:00 AM AMBULATORY - MEDICINE [facility] Apr 03, 2025 12:00 PM [facility]ULATORY - MEDICINE [facility] Apr 23, 2025 10:40 AM AMBULATORY - [place]ICINE [place] [facility] Apr 25, 2025 12:00 PM AMBULATORY - MEDICINE [facility] Apr 25, 2025 12:02 PM AMBULATORY - MEDICINE [place] [facility] May 01, 2025 12:00 PM AMBULATORY - MEDICINE [facility] Jun 05, 2025 12:00 PM AMBULATORY - MEDICINE [facility] Jun 06, 2025 12:00 PM AMBULATORY - MEDICINE [facility] Jun 12, 2025 01:00 PM AMBUL[place]ORY - [place]ICINE [place] [facility] Jun 25, 2025 10:30 AM [facility] Jul 11, 2025 12:00 PM AMBULATORY - MEDICINE [place] [facility] Active, Pending, and Scheduled Orders This section includes a listing of several types of active, pending, and scheduled orders, including clinic medications orders, diagnostic test orders, procedure orders and consult orders; where the start date of the order is 45 days before the date of the Encounter or 45 days after the date of theEncounter. The data comes from all [facility]. Test Date/Time Test Type Test Details Facility Name Feb 14, 2025 03:12 PM Laboratory - Chemi stry Order POC UA (STL-PB-MA) URINE SP [facility] Feb 19, 2025 10:44 AM Consult Order [facility]-PODIATRY [id number] Cons Soldering Machine Setter's Choice [facility] Lab Results: +/- 30 days of the encounter This section includes the Chemistry and Hematology Lab Results on record with [place] for the patient. Radiology Reports and Pathology Reports are provided separately, in subsequent sections. Lab Results This section contains the Chemistry/Hematology Results that were resulted 30 days before or 30 daysafter the date of the Encounter. Date/Time Source Result Type Result - Unit Interpretation Reference Range Specimen Type Comment Feb 14, 2025 03:27 PM [facility] HGA1C BLOOD Specimen Type: BLOOD No comment entered. Ordering Provider: RAYSA GRULLON Report Released Date/Time: Feb 14, 2025 03:27 PM Reporting Lab: [place] [facility] [address] [place] [address] Performing Lab: [place] [facility] [address] [address] HGA1C 7.1 H 4.0-6.0 Feb 14, 2025 03:18 PM [facility] POC UA (STL-PB-MA) URINE Specimen Type: URINE No comment entered. Ordering Provider: RAYSA GRULLON Report Released Date/Time: Feb 14, 2025 03:24 PM Reporting Lab: [facility] [address] [facility] [address] Performing Lab: [facility] [address] [facility] [address] PROTEIN POC UA Negative mg/dL Negative BLOOD POC UA Negative Negative LEUKOCYTES POC UA Negative Negative COLOR POC UA Yellow YELLOW SPEC GRAV POC UA 1.010 1.005-1.030 UROBILINOGEN POC UA 2.0 {Joy'U}/dL 0 .1-1.0 BILIRUBIN POC UA Negative Negative KETONES POC UA Negative mg/dL Negative GLUCOSE POC UA 500 mg/dL Negative pH POC UA 6.0 5.0-8.0 NITRITE POC UA Negative Negative CLARITY POC UA Clear CLEAR Feb 14, 2025 03:12 PM [place] [facility] COMPREHENSIVE METABOLIC PANEL PLASMA Specimen Type: PLASMA No comment entered. Ordering Provider: RAYSA GRULLON Report Released Date/Time: Feb 14, 2025 03:12 PM Reporting Lab: [place] [facility] [address] [place] [address] Performing Lab: [place] [facility] [address] [place] [address] CREATININE 0.92 mg/dL 0.7-1.3 UREA NITROGEN 15 mg/dL 9-25 GLUCOSE 264 mg/dL H 72-99 SODIUM 140 meq/L 136-145 POTASSIUM 4.2 meq/L 3.5-5 CHLORIDE 104 meq/L 98-107 CARBON DIOXIDE 25 meq/L 22-31 CALCIUM 9.3 mg/dL 8.4-10.4 PROTEIN 6.8 g/dL 6-8.6 ALBUMIN 4.2 g/dL 3.4-5 TOTAL BILIRUBIN 1.1 mg/dL 0.2-1.2 ALKALINE PHOSPHATASE 218 U/L H 40-150 AST/SGOT 24 U/L 5-34 ALT/SGPT 21 U/L 8-40 EGFR (CKD-EPI 2020) 86 Feb 14, 2025 03:12 PM [facility] CB CBC BLOOD Specimen Type: BLOOD No comment entered. Ordering Provider: RAYSA GRULLON Report Released Date/Time: Feb 14, 2025 03:00 PM Reporting Lab: [place] [facility] [address] [place] [address] Performing Lab: [place] [facility] [address] [place] [address] WBC 9.4 10*3/uL 3.6-11.2 RBC 4.38 10*6/uL 4.10-5.70 HGB 14.1 g/dL 13.1-16.8 HCT 41.3 38.2-48.4 MCV 94.3 fL 80.0-100.0 MCH 32.2 pg 27.0-34.0 MCHC 34.1 g/dL 33.0-36.0 PLT 379 10*3/uL 150-400 MPV 10.1 fL 7.5-11.2 RDW 13.6 11.8-15.1 LYMPHOCYTES, AUTO % 10.8 MONOCYTES, AUTO % 5.4 NEUTROPHILS, AUTO % 82.1 EOSINOPHILS, AUTO % 0.5 BASOPHILS, AUTO % 0.6 LYMPHOCYTES, ABSOLUTE 1.01 10*3/uL 0.77- 4.50 MONOCYTES, ABSOLUTE 0.51 10*3/uL 0.19-0. 8 NEUTROPHILS, ABSOLUTE 7.69 10*3/uL 2.10- 8.00 EOSINOPHILS, ABSOLUTE 0.05 10*3/uL 0.00- 0.60 BASOPHILS, ABSOLUTE 0.06 10*3/uL 0.00-0. 20 IMMATURE GRANS, AUTO % 0.6 IMMATURE GRANS, AUTO ABS 0.06 10*3/uL H 0. 00-0.05 Social History: Smoking Status (Most current) and Tobacco Use (All prior to encounter date) This section includes the most current, and the historical, smoking and tobacco- related health factors from the [place] facility where the Encounter took place. Current Smoking Status This section includes the most current smoking, or tobacco-related health factor, from the [place] facility where the Encounter took place. Date/Time Current Smoking Status Comment Facil ity 2024 11:00 AM VA-TOBACCO FORMER USER [facility] Tobacco Use History This section includes a history of the smoking, or tobacco-related health factors, that were collected on or before the date of the Encounter. The data comes from the [place] facility where the Encounter took place. Date/Time Smoking Status/Tobacco Use Comment F acility 2024 11:00 AM VA-TOBACCO QUIT 15 YRS OR MORE [place] [facility] Feb 17, 2023 10:30 AM VA-TOBACCO FORMER USER [place] [facility] Feb 17, 2023 10:30 AM VA-TOBACCO QUIT 15 YRS OR MORE [place] [facility] Feb 26, 2022 11:00 AM VA-TOBACCO FOR[facility] US[facility] [place] [facility] Feb 26, 2022 11:00 AM VA-TOBACCO QUIT 15 YRS OR MORE [place] [facility] March 03, 2021 09:00 AM VA-TOBACCO FOR[facility] USER [place] [facility] March 03, 2021 09:00 AM VA-TOBACCO QUIT 15 YRS OR MORE [place] [facility] Jan 04, 2019 09:35 AM VA-TOBACCO FORMER USER [place] [facility] Jan 04, 2019 09:35 AM VA-TOBACCO QUIT 15 YRS OR MORE [place] [facility] Jan 22, 2016 10:08 AM QUIT TOBACCO >7 YEARS AGO [facility] Advance Directives: All historical and current Section Date Range: From patient's date of to the date document was created. This section includes ALL of a patient's completed or amended [place] Advance and Rescinded Directives. The entries below indicate that a directive exists for the patient, but an actual copy is not included with this document. The data comes from all [place] facilities. Date Advance Directives Provider Source Dec 15, 2017 ADVANCE DIRECTIVE TULIO CRUMP [facility] Radiology Reports: +/- 30 days of the encounter Radiology Reports For cases when an order for radiology services may have been completed prior to the date of the Encounter, the report list includes the Radiology Reports that were completed up to 30 days before dateof the Encounter. For cases when an order for radiology services may have been completed after the date of the Encounter, the report list also includes the Radiology Reports that were completed up to30 days after date of the Encounter. The data comes from all [place] treatment facilities. Date/Time Radiology Report Provider Source Feb 14, 2025 03:02 PM CHEST X-RAY, 2 VIE WS: RACHEL BARAJAS [id number] -1950 M Exm Date: FEB 14, 2025@15:02 Req Phys: RAYSA GRULLON Loc: PB-GISSEL PACT CRISTIAN BUCKNER [facility] (Req Img Loc: PB-XRAY [place] Service: [place] [address] (Case [id number] COMPLETE) CHEST X-RAY, 2 VIEWS (RAD Detailed) CPT:20012 Reason for Study: left rib fractures and lung drained of fluid Clinical History: post chest injury Report Status: Verified Date Reported: FEB 14, 2025 Date Verified: FEB 14, 2025 [place] E-Sig: Report: PA and lateral views of the chest reveal moderate degenerative skeletal changes and multiple old left rib fractures. There is density at the left base and along the left lateral chest wall possibly due to a combination of pleural effusion and chronic pleural thickening. While not obvious, and left lower lobe infiltrate cannot be excluded. There is no acute process referable to the right lung. Heart size is normal. There is a cardiac pacemaker via the left main. Impression: 1. Chronic findings as noted 2. Left pleural effusion/fibrosis 3. No acute process referable to the right lung Primary Interpreting Staff: RACHEL DUBOIS, RADIOLOGIST ([place], no e-sig) /RACHEL [facility] Encounter Notes: All associated encounter notes This section contains the clinical notes associated to the Encounter. Date/Time Encounter Note(s) Provider Source Jan 23, 2025 08:56 AM GENERAL MEDICINE N OTE: LOCAL TITLE: General Note PB STANDARD TITLE: GENERAL MEDICINE NOTE DATE OF NOTE: JAN 23, 2025@08:56 ENTRY DATE: JAN 23, 2025@08:56:54 AUTHOR: DEE DEE EDWARDS EXP COSIGNER: URGENCY: STATUS: COMPLETED Rec'd left hearing aid, certified in [place]. [place] has upcoming appt for fitting. /aline/ VETO HANLEY CB Signed: 01/23/2025 08:57 DEE DEE EDWARDS [facility]
--- OUTSIDE RECORDS SUMMARY | 2025-01-24 07:01 | XMS_ITS ---
Author Name [facility] [place] Address [address] [place] [address] Care Team Providers Care Doll Repairer Name Role Phone RAYSA GRULLON Primary Care [...] PART A March 01, 1998 PART A [id number] JUANJOSE BARAJAS PATIENT MEDICARE (WNR) MEDICARE (M) PART B March 01, 1998 PART B [id number] JUANJOSE BARAJAS PATIENT Selected Encounter This section includes the [place] at [place] for the Encounter. Date/Time Encounter Type Encounter Description Reason Provider Source Jan 24, 2025 12:01 PM HEARING AID FITTING/CHECKIN G AUDIOLOGY ICD-10-CM Z46.1 Encounter for fitting and adjustment of hearing aid COCO MONTOYA RA E Encounter Template Text not used by [facility] Assessments - Encounter Diagnoses This section includes the primary and secondary diagnoses documented for the Encounter. Date/Time Primary/Secondary Diagnosis Diagnosis Name Provider Source Jan 24, 2025 12:10 PM PRIMARY Encounter for fitting and adjustment of hearing aid COCO MONTOYA RA [facility] Jan 24, 2025 12:10 PM SECONDARY Sensorineural hearing loss, bilateral COCO MONTOYA RA [place] [facility] Plan of Treatment: Future Appointments (+ 6 months) and Future Tests (+/- 45 days) The Plan of Treatment section includes future care activities for the patient from all [place] [facility]. This section includes future appointments and future orders which are active, pending or scheduled. Future Appointments This section includes appointments that were scheduled to occur 6 months from the date of the Encounter, up to a maximum of 20 appointments. The data comes from all [place] treatment facilities. Appointment Date/Time Appointment Type Appointme nt Facility Name Feb 05, 2025 05:00 AM AMBULATORY - NONE [place] [facility] Feb 14, 2025 02:30 PM AMBULATORY - MEDICINE [facility] March 19, 2025 10:30 AM AMBULATORY - MEDICINE [place] [facility] March 22, 2025 10:30 AM AMBULATORY - MEDICINE [facility] March 28, 2025 11:00 AM AMBULATORY - MEDICINE [place] [facility] March 30, 2025 10:30 AM AMBULATORY - MEDICINE [place] [facility] March 30, 2025 11:00 AM AMBULATORY - MEDICINE [facility] Apr 03, 2025 12:00 PM AMBULATORY - MEDICINE [facility] Apr 23, 2025 10:40 AM AMBULATORY - MEDICINE [place] [facility] Apr 25, 2025 12:00 PM AMBULATORY - MEDICINE [facility] Apr 25, 2025 12:02 PM AMBULATORY - MEDICINE [place] [facility] May 01, 2025 12:00 PM AMBULATORY - MEDICINE [facility] Jun 05, 2025 12:00 PM AMBULATORY - MEDICINE [facility] Jun 06, 2025 12:00 PM AMBULATORY - MEDICINE [facility] Jun 12, 2025 01:00 PM AMBULATORY - MEDICINE [place] [facility] Jun 25, 2025 10:30 AM AMBULATORY - MEDICINE [facility] Jul 11, 2025 12:00 PM AMBULATORY - MEDICINE [place] [facility] Active, Pending, and Scheduled Orders This section includes a listing of several types of active, pending, and scheduled orders, including clinic medications orders, diagnostic test orders, procedure orders and consult orders; where the start date of the order is 45 days before the date of the Encounter or 45 days after the date of theEncounter. The data comes from all [place] treatment facilities. Test Date/Time Test Type Test Details Facility Name Feb 14, 2025 03:12 PM Laboratory - Chemi stry Order POC UA (STL-PB-MA) [facility]INE SP [facility] Feb 19, 2025 10:44 AM Consult Order [facility]-PODIATRY [id number] Cons Loom Changer's Choice [facility] Lab Results: +/- 30 days of the encounter This section includes the Chemistry and Hematology Lab Results on record with [place] for the patient. Radiology Reports and Pathology Reports are provided separately, in subsequent sections. Lab Results This section contains the Chemistry/Hematology Results that were resulted 30 days before or 30 daysafter the date of the Encounter. Date/Time Source Result Type Result - Unit Interpretation Reference Range Specimen Type Comment Feb 14, 2025 03:27 PM [facility] HGA1C BLOOD Specimen Type: BLOOD No comment entered. Ordering Provider: RAYSA GRULLON Report Released Date/Time: Feb 14, 2025 03:27 PM Reporting Lab: [place] [facility] [address] [place] [address] Performing Lab: [place] [facility] [address] [place] [address] HGA1C 7.1 H 4.0-6.0 Feb 14, 2025 03:18 PM [facility] POC UA (STL-PB-MA) URINE Specimen Type: URINE No comment entered. Ordering Provider: RAYSA GRULLON Report Released Date/Time: Feb 14, 2025 03:24 PM Reporting Lab: [facility] [address] [facility] [address] Performing Lab: [facility] [address] [facility] [address] [facility] [address] PROTEIN POC UA Negative mg/dL Negative BLOOD [...] Clear CLEAR Feb 14, 2025 03:12 PM [facility] COMPREHENSIVE METABOLIC PANEL PLASMA Specimen Type: PLASMA No comment entered. Ordering Provider: RAYSA GRULLON Report Released Date/Time: Feb 14, 2025 03:12 PM Reporting Lab: [place] [facility] [address] [place] [address] Performing Lab: [place] [facility] [address] [facility] [place] [id number] CREATININE 0.92 mg/dL 0.7-1.3 UREA NITROGEN 15 [...] 2020) 86 Feb 14, 2025 03:12 PM [facility] CBC BLOOD Specimen Type: BLOOD No comment entered. Ordering Provider: RAYSA GRULLON Report Released Date/Time: Feb 14, 2025 03:00 PM Reporting Lab: [place] [facility] [address] [place] [address] Performing Lab: [place] [facility] [address] [place] [address] WBC 9.4 10*3/uL 3.6-11.2 RBC 4.38 10*6/uL [...] AUTO ABS 0.06 10*3/uL H 0. 00-0.05 Advance Directives: All historical and current Section Date Range: From patient's date of to the date document was created. This section includes ALL of a patient's completed or amended [place] Advance and Rescinded Directives. The entries below indicate that a directive exists for the patient, but an actual copy is not included with this document. The data comes from all [place] facilities. Date Advance Directives Provider Source Dec 15, 2017 ADVANCE DIRECTIVE TULIO CRUMP [facility] [facility] Radiology Reports: +/- 30 days of the [...] the Encounter. The data comes from all [place] treatment facilities. Date/Time Radiology Report Provider Source Feb 14, 2025 03:02 PM CHEST X-RAY, 2 VIE WS: RACHEL BARAJAS [id number] -1950 M Exm Date: FEB 14, 2025@15:02 Req Phys: RAYSA GRULLON Loc: PB-GISSEL PACT CRISTIAN BUCKNER (Req Img Loc: PB-XRAY [place] Service: [place] [address] (Case [id number] COMPLETE) CHEST X-RAY, 2 VIEWS (RAD Detailed) CPT:92339 Reason for Study: left rib fractures and lung drained of fluid Clinical History: post chest injury Report Status: Verified Date Reported: FEB 14, 2025 Date Verified: FEB 14, 2025 Sewing Machines Salesperson E-Sig: Report: PA and lateral views of [...] lung Primary Interpreting Staff: RACHEL DUBOIS, RADIOLOGIST (Sewing Machines Salesperson, no e-sig) /RACHEL Gonzalez [facility] Encounter Notes: All associated encounter notes This section contains the clinical notes associated to the Encounter. Date/Time Encounter Note(s) Provider Source Jan 24, 2025 07:24 AM AUDIOLOGY NOTE: LOCAL TITLE: HEARING CLINIC STANDARD TITLE: AUDIOLOGY NOTE DATE OF NOTE: JAN 24, 2025@07:24 ENTRY DATE: JAN 24, 2025@07:24:05 AUTHOR: PARIS MONTOYA COSIGNER: URGENCY: STATUS: COMPLETED Diagnosis: Sensorineural hearing loss, Bilateral Treatment: Hearing Aid Check Time spent with : 30 minutes seen for a hearing aid check via Audio Telehealth and verbally consented to the Telehealth modality. Multi-factor personally identifiable information of the was obtained verbally (full name and date of ). accompanied by: none Patient site: [facility] ____ HISTORY: Reason for Appointment: Patient is here today for issue of left hearing aid replaced through loss/damage warranty. He did not bring right device today. HEARING DEVICES: 12/2022 PHONAK AUDEO L90-R MILES R [id number] 12/2022 PHONAK AUDEO L90-R MILES L [id number] - 3P 4.0 - CSHLL 4.0 ACRYLIC SMALL SELECT A VENT RF TAPER CANAL - CERUSTOP Phone Connectivity: no OBJECTIVE/ASSESSMENT: Otoscopy was performed by collaboration of telehealth clinical electroencephalograph technician and provider via telehealth technology/video otoscope which revealed: Right ear: unremarkable Left ear: unremarkable Connected left hearing aid to software to import user settings. Unable to sync devices as right device not present today/firmware out of date. The was counseled/educated on services provided today and is in agreement with the plan. PLAN: Return to clinic with both hearing aids for firmware update (right) and sync'd settings. /aline/ Ulises Kovacs [facility] Signed: 01/24/2025 12:11 PARIS MONTOYA [facility]
--- OUTSIDE RECORDS SUMMARY | 2025-02-14 09:30 | XMS_ITS | Encounter Summary ---
Author Name [facility] [place] [facility] [place] Address [address] [place] [address] Care Team Providers Care Product Tester Name Role Phone RAYSA GRULLON Primary Care [...] Policy Reed's Name Patient's Relationship to Policy Rede MEDICARE (WNR) MEDICARE (M) PART A March 01, 1998 PART A [id number] JUANJOSE BARAJAS PATIENT MEDICARE (WNR) MEDICARE (M) PART B March 01, 1998 PART B [id number] JUANJOSE BARAJAS PATIENT Selected Encounter This section includes the information on record at [place] for the Encounter. Date/Time Encounter Type Encounter Description Reason Provider Source Feb 14, 2025 02:30 PM OFFICE O/P EST MOD 30 MIN PRIMARY CARE/MEDICINE ICD-10-CM S22.42XD Multiple fx of ribs, left side, subs for fx w routn NICOLE Wharton IHCristina Encounter Template Text not used by [facility] Assessments - Encounter Diagnoses This section includes the primary and secondary diagnoses documented for the Encounter. Date/Time Primary/Secondary Diagnosis Diagnosis Name Provider Source Feb 14, 2025 08:52 PM PRIMARY Multiple fx of ribs, left side, subs for fx w HOA Recio KELLI HERNANDEZS NATY [facility] Feb 14, 2025 08:52 PM SECONDARY Fx unsp part of l clavicle, subs for fx w HOA Recio KELLI SHAHIDA ALFONSO [facility] Feb 14, 2025 08:52 PM SECONDARY Other specified soft tissue disorders HOA GRULLON [facility] Plan of Treatment: Future Appointments (+ 6 months) and Future Tests (+/- 45 days) The Plan of Treatment section includes future care activities for the patient [facility] [place] [facility] This section includes future appointments and future orders which are active, pending or scheduled. Future Appointments This section includes appointments that were scheduled to occur 6 months from the date of the Encounter, up to a maximum of 20 appointments. The data comes from all [place] treatment facilities. Appointment Date/Time Appointment Type Appointme nt Facility Name March 19, 2025 10:30 AM AMBULATORY - [place]IC[place] [facility] March 22, 2025 10:30 AM AMBULATORY - MEDICINE [facility] March 28, 2025 11:00 AM AMBULATORY - [facility]IC[place] [facility] March 30, 2025 10:30 AM AMB[facility]ORY - [facility]IC[place] [facility] March 30, 2025 11:00 AM AMBULATORY - MEDICINE [facility] Apr 03, 2025 12:00 PM AMBULATORY - MEDICINE [facility] Apr 23, 2025 10:40 AM AMBULATORY - MEDIC[place] [facility] Apr 25, 2025 12:00 PM AMBULATORY - MEDICINE [facility] Apr 25, 2025 12:02 PM AMBULATORY - MEDIC[facility] [place] [facility] May 01, 2025 12:00 PM AMBULATORY - MEDICINE [facility] Jun 05, 2025 12:00 PM AMBULATORY - MEDICINE [facility] Jun 06, 2025 12:00 PM AMBULATORY - MEDICINE [facility] Jun 12, 2025 01:00 PM AMBULATORY - [facility]IC[place] [facility] Jun 25, 2025 10:30 AM AMBULATORY - MEDICINE [facility] Jul 11, 2025 12:00 PM AMBULATORY - MEDICINE [place] [facility] Active, Pending, and Scheduled Orders This section includes a listing of several types of active, pending, and scheduled orders, including clinic medications orders, diagnostic test orders, procedure orders and consult orders; where the start date of the order is 45 days before the date of the Encounter or 45 days after the date of theEncounter. The data comes from all [place] treatment facilities. Test Date/Time Test Type Test Details Facility Name Feb 14, 2025 03:12 PM Laboratory - Chemi stry Order POC UA (STL-PB-MA) URINE SP [facility] Feb 19, 2025 10:44 AM Consult Order COMMUNITY CARE-PODIATRY [id number] Cons Flexographic Press Helper's Choice [facility] March 30, 2025 12:00 AM Laboratory - Chemi stry Order HGB,HCT,PLT BLOOD [facility] Lab Results: +/- 30 days of the encounter This section includes the Chemistry and Hematology Lab Results on record with [place] for the patient. Radiology Reports and Pathology Reports are provided separately, in subsequent sections. Lab Results This section contains the Chemistry/Hematology Results that were resulted 30 days before or 30 daysafter the date of the Encounter. Date/Time Source Result Type Result - Unit Interpretation Reference Range Specimen Type Comment Feb 14, 2025 03:27 PM [facility] CB HGA1C BLOOD Specimen Type: BLOOD No comment entered. Ordering Provider: RAYSA GRULLON Report Released Date/Time: Feb 14, 2025 03:27 PM Reporting Lab: [place] [facility] [address] [facility] [place] [facility] [address] Performing Lab: [facility] [address] [facility] [address] HGA1C 7.1 H 4.0-6.0 Feb 14, 2025 03:18 PM [facility] POC UA (STL-PB-MA) URINE Specimen Type: URINE No comment entered. Ordering Provider: RAYSA GRULLON Report Released Date/Time: Feb 14, 2025 03:24 PM Reporting Lab: [facility] [address] [facility] [address] [facility]: [facility] [address] [facility] [address] PROTEIN POC UA Negative mg/dL Negative BLOOD [...] Clear CLEAR Feb 14, 2025 03:12 PM [facility] COMPREHENSIVE METABOLIC PANEL PLASMA Specimen Type: PLASMA No comment entered. Ordering Provider: RAYSA GRULLON Report Released Date/Time: Feb 14, 2025 03:12 PM Reporting Lab: [place] [facility] [address] [place] [phone] Performing Lab: [place] [facility] [address] [facility] [place] [phone] CREATININE 0.92 mg/dL 0.7-1.3 UREA NITROGEN 15 [...] 2020) 86 Feb 14, 2025 03:12 PM [facility] CBC BLOOD Specimen Type: BLOOD No comment entered. Ordering Provider: RAYSA GRULLON Report Released Date/Time: Feb 14, 2025 03:00 PM Reporting Lab: [place] [facility] [address] [place] [address] Performing Lab: [place] [facility] [address] [place] [phone] WBC 9.4 10*3/uL 3.6-11.2 RBC 4.38 10*6/uL [...] AUTO ABS 0.06 10*3/uL H 0. 00-0.05 Vital Signs: All taken on the encounter date This section contains inpatient and outpatient Vital Signs collected on the date of the Encounter. Date/Time Temperature Pulse Blood Pressure Respiratory Rate SP02 Pain Height Weight Body Mass Index Source Feb 14, 2025 02:37 PM 97.7 87 136/79 18 96 211.6 30 [facility] Social History: Smoking Status (Most current) and Tobacco Use (All prior to encounter date) This section includes the most current, and the historical, smoking and tobacco- related health factors from the [place] facility where the Encounter took place. Current Smoking Status This section includes the most current smoking, or tobacco-related health factor, from the [place] facility where the Encounter took place. Date/Time Current Smoking Status Comment Facil ity Feb 14, 2025 02:30 PM VA-TOBACCO NEVER USED CIGARETTES [facility] Tobacco Use History This section includes a history of the smoking, or tobacco-related health factors, that were collected on or before the date of the Encounter. The data comes from the [place] facility where the Encounter took place. Date/Time Smoking Status/Tobacco Use Comment F acility Feb 14, 2025 02:30 PM VA-TOBACCO NEVER USED OTHER TYPE [facility] 2024 11:00 AM VA-TOBACCO FORMER USER [facility] 2024 11:00 AM VA-TOBACCO QUIT 15 YRS OR MORE [facility] [place] [facility] Feb 17, 2023 10:30 AM VA-TOBACCO FORMER USER [facility] Feb 17, 2023 10:30 AM VA-TOBACCO QUIT 15 YRS OR MORE [facility] Feb 26, 2022 11:00 AM VA-TOBACCO FORMER USER [facility] Feb 26, 2022 11:00 AM VA-TOBACCO QUIT 15 YRS OR MORE [facility] March 03, 2021 09:00 AM VA-TOBACCO FOR[facility] USER [facility] March 03, 2021 09:00 AM VA-TOBACCO QUIT 15 YRS OR MORE [facility] Jan 04, 2019 09:35 AM VA-TOBACCO FORMER USER [facility] Jan 04, 2019 09:35 AM VA-TOBACCO QUIT 15 YRS OR MORE [facility] Jan 22, 2016 10:08 AM QUIT TOBACCO >7 YEARS AGO [facility] Advance Directives: All historical and current Section Date Range: From patient's date of to the date document was created. This section includes ALL of a patient's completed or amended VA Advance and Rescinded Directives. The entries below indicate that a directive exists for the patient, but an actual copy is not included with this document. The data comes from all [place] facilities. Date Advance Directives Provider Source Dec 15, 2017 ADVANCE DIRECTIVE TULIO CRUMP YANNA [facility] Radiology Reports: +/- 30 days of the [...] the Encounter. The data comes from all [place] treatment facilities. Date/Time Radiology Report Provider Source Feb 14, 2025 03:02 PM CHEST X-RAY, 2 VIE WS: RACHEL BARAJAS [id number] -[id number] M Exm Date: FEB 14, 2025@15:02 Req Phys: RAYSA GRULLON Pat Loc: PB-GISSEL PACT [employer] [facility] (Req Img Loc: PB-XRAY [place] Service: [place] [address] (Case [id number] COMPLETE) CHEST X-RAY, 2 VIEWS (RAD Detailed) CPT:55479 Reason for Study: left rib fractures and lung drained of fluid Clinical History: post chest injury Report Status: Verified Date Reported: FEB 14, 2025 Date Verified: FEB 14, 2025 Business Process Coordinator E-Sig: Report: PA and lateral views of [...] lung Primary Interpreting Staff: RACHEL DUBOIS, RADIOLOGIST (Business Process Coordinator, no e-sig) /RACHEL Gonzalez [facility] Encounter Notes: All associated encounter notes This section contains the clinical notes associated to the Encounter. Date/Time Encounter Note(s) Provider Source May 25, 2025 08:51 AM PRIMARY CARE MEDICATION MGT NOTE: LOCAL TITLE: MEDICATION RENEWAL/REFILL PB STANDARD TITLE: PRIMARY CARE MEDICATION MGT NOTE DATE OF NOTE: MAY 25, 2025@08:51 ENTRY DATE: MAY 25, 2025@08:51:36 AUTHOR: RACHELE CRAFT RE EXP COSIGNER: URGENCY: STATUS: COMPLETED RACHEL BARAJAS has contacted the and is requesting that the following prescription(s) be renewed. The patient reports that he/she is currently LOW on his/her supply of medication. He/she is requesting a new supply be mailed by MEDICATION REQUESTED: EZETIMIBE 10MG TAB TAKE ONE TABLET BY MOUTH ONCE A DAY Recall visit scheduled? Future visits: 06/05/25 12:00 pm V[facility] 01 06/12/25 1:00 pm COM CARE-DENTAL GEN 657A [phone] ==== The following is informational only for those patients that are on long-term opiate therapy: Opioid Consent: No data available for: CONSENT FOR LONG-TERM OPIOIDS FOR PAIN No drugs in class: CN101 (OPIOID ANALGESICS) Last UDS: Collection DT Specimen Test Name Result Units Ref Range 08/10/2024 12:01 URINE CREATuF 13.49 mg/dL Benzodiazipines: No drugs in class: CN302 (BENZODIAZEPINE DERIVATIVE SEDATIVES/HYPNOTICS) /aline/ Rachele Craft RN [place] [facility], [facility] Signed: 05/25/2025 08:52 Receipt Acknowledged By: 05/25/2025 09:36 /aline/ Liz Bazzi APRN, DELIVERY DRIVER-C, [facility] Renzo Rowe [facility] for RACHELE KOCH [place] [facility] Feb 14, 2025 02:54 PM PRIMARY CARE PROGRESS NOTE: LOCAL TITLE: PRIMARY CARE CLINIC PROGRESS NOTE PB STANDARD TITLE: PRIMARY CARE PROGRESS NOTE DATE OF NOTE: FEB 14, 2025@14:54 ENTRY DATE: FEB 14, 2025@14:54:17 AUTHOR: RAYSA GRULLON EXP COSIGNER: URGENCY: STATUS: COMPLETED PROVIDER ASSESSMENT DATE & TIME:Jan@14:54 CHIEF COMPLAINT: Hospital follow up following farm accident. HISTORY OF PRESENT ILLNESS: Approx three weeks ago was attacked from behind by a cow or bull and suffered extensive injury to his left side. He has broken ribs, had to have his chest drained and has a broken clavicle. He has bruising on his left side and hip. He was hospitalized at [facility] for two weeks and is now home. He is using incentive spirometer and walking with a cane. His left arm still has limited range of motion and he is feeling well over all. His appetite is returning slowly. He is getting up and moving at home. He is requesting lidocaine patchs to be mailed. He is requesting a muscle relaxer. Active problems/med list breast puller: 1) Type 2 diabetes mellitus 2) CAD - Coronary artery disease 3) HTN - Hypertension 4) HLD - Hyperlipidemia 5) BPH - Benign prostatic hypertrophy 6) PTSD - Post-traumatic stress disorder 7) Depression 8) Diabetic peripheral neuropathy associated with type 2 diabetes mellitus 9) History of malignant basal cell neoplasm of skin 10) Obesity 11) Sleep apnea 12) Insomnia ([facility] [id number]) 13) Actinic keratosis 14) Allergic rhinitis 15) Constipation 16) Plantar fasciitis 17) Unsteady when walking 18) Exposure to potentially hazardous substance Active Outpatient Medications (including Supplies): Active Outpatient Medications Status 1) ACCU-CHEK GUIDE (GLUCOSE) TEST STRIP USE 1 STRIP FOR BLOOD ACTIVE (S) TEST TWO TIMES PER WEEK *HYPOGLYCEMIA, 100 STRIPS PER YEAR* Dec Indication: FOR BLOOD SUGAR MONITORING 2) AMLODIPINE BESYLATE 10MG TAB TAKE ONE TABLET BY MOUTH ONCE A ACTIVE (S) DAY Indication: FOR HIGH BLOOD PRESSURE 3) APIXABAN 5MG TAB TAKE ONE TABLET BY MOUTH TWICE A DAY ACTIVE (S) Indication: FOR ANTICOAGULATION 4) ASPIRIN 81MG EC TAB TAKE ONE TABLET BY MOUTH ONCE A DAY FOR ACTIVE HEART OR CIRCULATION. TAKE WITH FOOD. 5) ATORVASTATIN CALCIUM 40MG TAB TAKE ONE AND ONE-HALF TABLETS ACTIVE (S) BY MOUTH EVERY EVENING Indication: FOR HIGH CHOLESTEROL 6) CARVEDILOL 25MG TAB TAKE ONE-HALF TABLET BY MOUTH TWICE A ACTIVE (S) DAY FOR HEART. TAKE WITH FOOD. 7) CHOLECALCIF 50MCG (D3-2,000UNIT) TAB TAKE ONE TABLET BY ACTIVE MOUTH ONCE A DAY FOR VITAMIN D DEFICIENCY. 8) CLOPIDOGREL BISULFATE 75MG TAB TAKE ONE TABLET BY MOUTH ONCE ACTIVE (S) A DAY Indication: FOR ACUTE CORONARY SYNDROME 9) CYANOCOBALAMIN 1000MCG/ML INJ INJECT 1000MCG/1ML ACTIVE INTRAMUSCULARLY MONTHLY 10) DULOXETINE HCL 60MG EC CAP TAKE ONE CAPSULE BY MOUTH ONCE A ACTIVE DAY DO NOT ABRUPTLY DISCONTINUE MEDICATION. 11) EMPAGLIFLOZIN 25MG TAB TAKE ONE TABLET BY MOUTH ONCE A DAY ACTIVE Indication: FOR DIABETES 12) ESCITALOPRAM OXALATE 10MG TAB TAKE ONE TABLET BY MOUTH ONCE ACTIVE (S) A DAY Indication: FOR DEPRESSION 13) EZETIMIBE 10MG TAB TAKE ONE TABLET BY MOUTH ONCE A DAY ACTIVE (S) 14) FEXOFENADINE HCL 180MG TAB TAKE ONE TABLET BY MOUTH EVERY ACTIVE (S) MORNING FOR ALLERGIES 15) FINASTERIDE 5MG TAB TAKE ONE TABLET BY MOUTH ONCE A DAY ACTIVE (S) SWALLOW WHOLE, DO NOT CRUSH, SPLIT, OR CHEW. 16) FLUTICASONE PROP 50MCG 120D NASAL INHL INSTILL 1 SPRAY IN ACTIVE (S) NOSTRIL(S) ONCE A DAY FOR ALLERGIES (MUST BE USED DIRECTED FOR MINIMUM OF 21 DAYS TO PROVIDE ADEQUATE BENEFITS) 17) GABAPENTIN 300MG CAP TAKE ONE CAPSULE BY MOUTH TWICE A DAY ACTIVE (S) 18) GLIPIZIDE 10MG TAB TAKE ONE TABLET BY MOUTH THREE TIMES A ACTIVE (S) DAY BEFORE MEALS FOR DIABETES. TAKE 30 MINUTES BEFORE EATING. 19) ISOSORBIDE MONONITRATE 30MG SA TAB TAKE ONE TABLET BY MOUTH ACTIVE (S) EVERY MORNING . TAKE ON EMPTY STOMACH. SWALLOW WHOLE. DO NOT CRUSH OR CHEW. 20) LOSARTAN 100MG TAB TAKE ONE-HALF TABLET BY MOUTH ONCE A DAY ACTIVE (S) Indication: FOR HIGH BLOOD PRESSURE 21) MIRABEGRON 50MG SA TAB TAKE ONE TABLET BY MOUTH ONCE A DAY ACTIVE SWALLOW WHOLE; DO NOT CRUSH, SPLIT, OR CHEW. 22) MULTIVIT W/MINERALS, CAP/TAB TAKE 1 TABLET BY MOUTH ACTIVE (S) ONCE A DAY FOR VITAMIN AND MINERAL SUPPLEMENTATION. TAKE WITH FOOD. 23) OMEPRAZOLE 20MG EC CAP TAKE TWO CAPSULES BY MOUTH EVERY ACTIVE (S) MORNING TO LOWER STOMACH ACID. TAKE 30 MINUTES PRIOR TO FOOD. 24) PIOGLITAZONE HCL 30MG TAB TAKE ONE TABLET BY MOUTH ONCE A ACTIVE (S) DAY Indication: FOR DIABETES 25) SYRINGE 2.5-3ML/NDL 25G 1IN USE 1 SYRINGE UNDER THE SKIN ACTIVE MONTHLY (TO BE USED WITH VITAMIN B12 SHOTS) 26) TAMSULOSIN HCL 0.4MG CAP TAKE ONE CAPSULE BY MOUTH AT ACTIVE (S) BEDTIME APPROXIMATELY 30 MINUTES AFTER THE SAME MEAL EACH DAY 27) TORSEMIDE 20MG TAB TAKE ONE TABLET BY MOUTH ONCE A DAY ACTIVE (S) Indication: FOR FLUID RETENTION (EDEMA) 28) TRAZODONE HCL 100MG TAB TAKE TWO TABLETS BY MOUTH AT BEDTIME ACTIVE FOR MOOD OR SLEEP. Pending Outpatient Medications Status 1) LIDOCAINE 5% PATCH APPLY 2 PATCHES TO SKIN SITE ONCE A DAY PENDING APPLY PATCH AND PRESS FIRMLY FOR 10-15 SECONDS. KEEP ON FOR 12 HOURS THEN REMOVE PATCH FOR 12 HOURS. Indication: FOR LOCAL ANESTHESIA 2) METHOCARBAMOL 750MG TAB TAKE 1 TABLET BY MOUTH THREE TIMES A PENDING DAY NEEDED Indication: FOR MUSCLE SPASM Active Non-VA Medications Status 1) Non-VA APPLE CIDER VINEGAR CAP/TAB 1 CAP/TAB BY MOUTH ONCE A ACTIVE DAY Indication: supplement 2) Non-VA FISH OIL 1000MG (500MG DHA/EPA) CAP 2000MG BY MOUTH ACTIVE THREE TIMES A DAY WITH MEALS Indication: FOR HIGH TRIGLYCERIDES 3) Non-VA PSYLLIUM ORAL PWD 2 TEASPOONFULS BY MOUTH ONCE A DAY ACTIVE Indication: FOR FIBER SUPPLEMENTATION 33 Total Medications REVIEW OF SYSTEMS: HEENT: No [...] urinary frequency, weak stream, or post-void dribbling. MUSCULOSKELETAL:Left sided pain and bruising. Left shoulder pain. SKIN: No rash, lesions, or infection PSYCH: No Depression or Anxiety. Not suicidal. PHYSICAL ASSESSMENT: VITAL SIGNS Pulse: 87 (02/14/2025 14:37) Blood Pressure: 136/79 (02/14/2025 14:37) Respiratory Rate: 18 (02/14/2025 14:37) Temperature: 97.7 F [36.5 C] (02/14/2025 14:37) Weight: 211.6 lb [95.98 kg] (02/14/2025 14:37) Height: 71.0 in [180.3 cm] (09/15/2024 11:05) Pain: 0 (09/15/2024 11:05) HEENT:PERRL, EOMI, Fundi benign, TM's clear, Pharynx not red and without exudate, tonsils normal size. NECK: Supple, no lymhadenopathy, thyroid normal. CARDIAC: Regular rate and rhythm without murmur. Trace edema bilateral lower extremities. RESPIRATORY: CTA, BEBS GI: Abdomen soft,with ABS, no HSM, no guarding or rebound. MUSCULOSKELETAL:Left shoulder has limited range of motion and limp with gait. Use of cane. SKIN: Bruising of various stages on left hip, back, left shoulder left lower abdomen. Hematoma present without warmth or signs of infection. NEUROLOGICAL: The Carbon is alert and oriented without distress. Affect appropriate. IMPRESSION: Hematoma-current Left Rib Fracture-current Left Clavicle Fracture-current PLAN: Increase water intake. Continue incentive spirometer. Will mail lidocaine patchs. Will mail muscle relaxer. Continue exercise program. RTC in one month for repeat xrays. Chest xray today. Labs today. To ER if symptoms worsen or continue. Patient is advised this primary care clinic [...] Medications Reconciled. Time spent 30 minutes. /aline/ [facility] Signed: 02/14/2025 20:50 RAYSA GRULLON Feb 14, 2025 02:42 PM PRIMARY CARE NURSING NOTE: LOCAL TITLE: PRIMARY CARE NURSING PROGRESS NOTE (TEXT) NURSING P STANDARD TITLE: PRIMARY CARE NURSING NOTE DATE OF NOTE: FEB 14, 2025@14:42 ENTRY DATE: FEB 14, 2025@14:42:38 AUTHOR: RACHELE CRAFT EXP COSIGNER: URGENCY: STATUS: COMPLETED Established Patient RACHEL BARAJAS IS A 75 YEAR OLD MALE BEING SEEN IN CLINIC FEB 14, 2025. REASON FOR VISIT: Hospital follow up/ post farm accident Are you receiving care any where other than the [facility]? No HEALTH AND SURGICAL HISTORY: Does patient report using home oxygen? No CURRENT ACTIVE MEDICATIONS FOR REVIEW: Allergies/ADRs (Tool #5) FACILITY ALLERGY/ADR -------- No Remote Allergy/ADR Data available for this patient [facility] Med. Reconciliation (Tool #1) INCLUDED IN THIS LIST: Alphabetical list of active outpatient prescriptions dispensed from this [place] (local) and dispensed from another [place] or [facility] facility (remote) as well as inpatient orders (local pending and active), local clinic medications, locally documented non-VA medications, and local prescriptions that have or been discontinued in the past 90 days. Non-VA Meds Last Documented On: March 06, 2024 NOTE The display of VA prescriptions dispensed from another [place] or [facility] facility (remote) is limited to active outpatient prescription entries matched to National Drug File at the originating site and may not include some items such as investigational drugs, compounds, etc. NOT INCLUDED IN THIS LIST: Medications self-entered by the patient into personal health records (i.e. [employer]) are NOT included in this list. Non-VA medications documented outside this [place], remote inpatient orders (regardless of status) and remote clinic medications are NOT included in this list. The patient and provider must always discuss medications the patient is taking, regardless of where the medication was dispensed or obtained. OUTPT AMLODIPINE BESYLATE 10MG TAB (Status = Active/Suspended) TAKE ONE TABLET BY MOUTH ONCE A DAY FOR HIGH BLOOD PRESSURE Rx# [id number] Last Released: 01/05/25 Qty/Days Supply: 90 Rx Expiration Date: 07/28/25 Refills Remainin Indication: FOR HIGH BLOOD PRESSURE OUTPT APIXABAN 5MG TAB (Status = Active/Suspended) TAKE ONE TABLET BY MOUTH TWICE A DAY FOR ANTICOAGULATION Rx# [id number] Last Released: 12/08/24 Qty/Days Supply: 180/90 Rx Expiration Date: 06/24/25 Refills Remainin Indication: FOR ANTICOAGULATION Non-VA APPLE CIDER VINEGAR CAP/TAB TAKE 1 CAP/TAB BY MOUTH ONCE A DAY 2024 [place] RX: Non-VA medication recommended by [place] provider VA RX: Patient wants to buy from Non-VA pharmacy Indication: supplement OUTPT ASPIRIN 81MG EC TAB (Status = Active) TAKE ONE TABLET BY MOUTH ONCE A DAY FOR HEART OR CIRCULATION. TAKE WITH FOOD. Rx# [id number] Last Released: 11/25/24 Qty/Days Supply: 120/ Rx Expiration Date: 05/11/25 Refills Remainin OUTPT ATORVASTATIN CALCIUM 40MG TAB (Status = Active/Suspended) TAKE ONE AND ONE-HALF TABLETS BY MOUTH EVERY EVENING FOR HIGH CHOLESTEROL Rx# [id number] Last Released: 12/12/24 Qty/Days Supply: 135/ Rx Expiration Date: 10/20/25 Refills Remainin Indication: FOR HIGH CHOLESTEROL OUTPT CARVEDILOL 25MG TAB (Status = Active/Suspended) TAKE ONE-HALF TABLET BY MOUTH TWICE A DAY FOR HEART. TAKE WITH FOOD. Rx# [id number] Last Released: 11/25/24 Qty/Days Supply: Rx Expiration Date: 05/11/25 Refills Remainin OUTPT CHOLECALCIF 50MCG (D3-2,000UNIT) TAB (Status = Active) TAKE ONE TABLET BY MOUTH ONCE A DAY FOR VITAMIN D DEFICIENCY. Rx# [id number] Last Released: 01/15/25 Qty/Days Supply: 100 Rx Expiration Date: 11/09/25 Refills Remainin OUTPT CLOPIDOGREL BISULFATE 75MG TAB (Status = Active/Suspended) TAKE ONE TABLET BY MOUTH ONCE A DAY FOR ACUTE CORONARY SYNDROME Rx# [id number] Last Released: 12/11/24 Qty/Days Supply: Rx Expiration Date: 10/05/25 Refills Remainin Indication: FOR ACUTE CORONARY SYNDROME OUTPT CYANOCOBALAMIN 1000MCG/ML INJ (Status = Active) INJECT 1000MCG/1ML INTRAMUSCULARLY MONTHLY Rx# [id number] Last Released: 01/16/25 Qty/Days Supply: Rx Expiration Date: 05/11/25 Refills Remainin OUTPT DEXAMETHASONE 0.1%/LION/POLYMX OPH OINT (Status = ) APPLY ONE-FOURTH INCH RIBBON TO AFFECTED EYE(S) TWICE A DAY APPLY ON EYELID. START DAY OF PROCEDURE AND CONTINUE FOR 2 WEEKS. Rx# [id number] Last Released: 02/01/24 Qty/Days Supply: 11/14 Rx Expiration Date: 01/26/25 Refills Remainin OUTPT DICLOFENAC NA 1% TOP GEL (Status = ) APPLY 4 GM TO AFFECTED AREA(S) FOUR TIMES A DAY FOR OSTEOARTHRITIS NO MORE THAN 16 GM/DAY TO ANY LOWER EXTREMITY JOINT. NO MORE THAN 8 GM/DAY TO ANY UPPER EXTREMITY JOINT. MAX 32GM/DAY OVER ALL JOINTS.(MEASURE DOSE WITH RULER INSIDE BOX) Rx# [id number] Last Released: 12/22/24 Qty/Days Supply: 100/30 Rx Expiration Date: 01/20/25 Refills Remainin Indication: FOR OSTEOARTHRITIS OUTPT DULOXETINE HCL 60MG EC CAP (Status = Active) TAKE ONE CAPSULE BY MOUTH ONCE A DAY DO NOT ABRUPTLY DISCONTINUE MEDICATION. Rx# [id number] Last Released: 01/22/25 Qty/Days Supply: Rx Expiration Date: 04/21/25 Refills Remainin OUTPT EMPAGLIFLOZIN 25MG TAB (Status = Active) TAKE ONE TABLET BY MOUTH ONCE A DAY FOR DIABETES Rx# [id number] Last Released: 01/29/25 Qty/Days Supply: Rx Expiration Date: 05/11/25 Refills Remainin Indication: FOR DIABETES OUTPT ESCITALOPRAM OXALATE 10MG TAB (Status = Active/Suspended) TAKE ONE TABLET BY MOUTH ONCE A DAY FOR DEPRESSION Rx# [id number] Last Released: 12/12/24 Qty/Days Supply: Rx Expiration Date: 10/20/25 Refills Remainin Indication: FOR DEPRESSION OUTPT EZETIMIBE 10MG TAB (Status = Discontinued) TAKE ONE TABLET BY MOUTH ONCE A DAY Rx# [id number] Last Released: 11/29/24 Qty/Days Supply: Rx Expiration Date: 01/17/25 Refills Remainin OUTPT EZETIMIBE 10MG TAB (Status = Active/Suspended) TAKE ONE TABLET BY MOUTH ONCE A DAY Rx# [id number] Last Released: Qty/Days Supply: Rx Expiration Date: 03/08/25 Refills Remainin OUTPT FEXOFENADINE HCL 180MG TAB (Status = Active/Suspended) TAKE ONE TABLET BY MOUTH EVERY MORNING FOR ALLERGIES Rx# [id number] Last Released: 12/28/24 Qty/Days Supply: Rx Expiration Date: 05/11/25 Refills Remainin OUTPT FINASTERIDE 5MG TAB (Status = Active/Suspended) TAKE ONE TABLET BY MOUTH ONCE A DAY SWALLOW WHOLE, DO NOT CRUSH, SPLIT, OR CHEW. Rx# [id number] Last Released: 01/10/25 Qty/Days Supply: Rx Expiration Date: 07/13/25 Refills Remainin Non-VA FISH OIL 1000MG (500MG DHA/EPA) CAP TAKE 2 CAPSULES BY MOUTH THREE TIMES A DAY WITH MEALS Jan 04, 2024 [place] RX: [place] medication recommended by [place] provider [place] RX: Patient wants to buy from [place] pharmacy Indication: FOR HIGH TRIGLYCERIDES OUTPT FLUTICASONE PROP 50MCG 120D NASAL INHL (Status = Active/Suspended) INSTILL 1 SPRAY IN NOSTRIL(S) ONCE A DAY FOR ALLERGIES (MUST BE USED DIRECTED FOR MINIMUM OF 21 DAYS TO PROVIDE ADEQUATE BENEFITS) Rx# [id number] Last Released: 12/26/24 Qty/Days Supply: Rx Expiration Date: 05/11/25 Refills Remainin OUTPT GABAPENTIN 300MG CAP (Status = Discontinued) TAKE ONE CAPSULE BY MOUTH TWICE A DAY Rx# [id number] Last Released: 12/18/24 Qty/Days Supply: Rx Expiration Date: 04/21/25 Refills Remainin OUTPT GABAPENTIN 300MG CAP (Status = Active/Suspended) TAKE ONE CAPSULE BY MOUTH TWICE A DAY Rx# [id number] Last Released: Qty/Days Supply: Rx Expiration Date: 01/13/26 Refills Remainin OUTPT GLIPIZIDE 10MG TAB (Status = Active/Suspended) TAKE ONE TABLET BY MOUTH THREE TIMES A DAY BEFORE MEALS FOR DIABETES. TAKE 30 MINUTES BEFORE EATING. Rx# [id number] Last Released: 12/12/24 Qty/Days Supply: Rx Expiration Date: 10/20/25 Refills Remainin OUTPT HYDROCHLOROTHIAZIDE 25MG TAB (Status = Discontinued) TAKE ONE TABLET BY MOUTH ONCE A DAY FOR HIGH BLOOD PRESSURE Rx# [id number] Last Released: 10/05/24 Qty/Days Supply: Rx Expiration Date: 10/05/25 Refills Remainin Indication: FOR HIGH BLOOD PRESSURE OUTPT ISOSORBIDE MONONITRATE 30MG SA TAB (Status = Discontinued) TAKE ONE TABLET BY MOUTH EVERY MORNING . TAKE ON EMPTY STOMACH. SWALLOW WHOLE. DO NOT CRUSH OR CHEW. Rx# [id number] Last Released: 09/29/24 Qty/Days Supply: Rx Expiration Date: 12/19/24 Refills Remainin OUTPT ISOSORBIDE MONONITRATE 30MG SA TAB (Status = Discontinued) TAKE ONE TABLET BY MOUTH EVERY MORNING . TAKE ON EMPTY STOMACH. SWALLOW WHOLE. DO NOT CRUSH OR CHEW. Rx# [id number] Last Released: 12/16/24 Qty/Days Supply: Rx Expiration Date: 03/08/25 Refills Remainin OUTPT ISOSORBIDE MONONITRATE 30MG SA TAB (Status = Active/Suspended) TAKE ONE TABLET BY MOUTH EVERY MORNING . TAKE ON EMPTY STOMACH. SWALLOW WHOLE. DO NOT CRUSH OR CHEW. Rx# [id number] Last Released: Qty/Days Supply: Rx Expiration Date: 04/12/25 Refills Remainin OUTPT LOSARTAN 100MG TAB (Status = Active/Suspended) TAKE ONE-HALF TABLET BY MOUTH ONCE A DAY FOR HIGH BLOOD PRESSURE Rx# [id number] Last Released: 12/16/24 Qty/Days Supply: Rx Expiration Date: 10/05/25 Refills Remainin Indication: FOR HIGH BLOOD PRESSURE OUTPT MIRABEGRON 50MG SA TAB (Status = Active) TAKE ONE TABLET BY MOUTH ONCE A DAY SWALLOW WHOLE; DO NOT CRUSH, SPLIT, OR CHEW. Rx# [id number] Last Released: 01/16/25 Qty/Days Supply: Rx Expiration Date: 07/13/25 Refills Remainin OUTPT MULTIVIT W/MINERALS, CAP/TAB (Status = Active/Suspended) TAKE 1 TABLET BY MOUTH ONCE A DAY FOR VITAMIN AND MINERAL SUPPLEMENTATION. TAKE WITH FOOD. Rx# [id number] Last Released: 12/28/24 Qty/Days Supply: / Rx Expiration Date: 05/11/25 Refills Remainin OUTPT OMEPRAZOLE 20MG EC CAP (Status = Active/Suspended) TAKE TWO CAPSULES BY MOUTH EVERY MORNING TO LOWER STOMACH ACID. TAKE 30 MINUTES PRIOR TO FOOD. Rx# [id number] Last Released: 12/23/24 Qty/Days Supply: 180/ Rx Expiration Date: 05/11/25 Refills Remainin OUTPT PIOGLITAZONE HCL 30MG TAB (Status = Discontinued) TAKE ONE TABLET BY MOUTH ONCE A DAY FOR DIABETES Rx# [id number] Last Released: 09/13/24 Qty/Days Supply: 90 Rx Expiration Date: 01/04/25 Refills Remainin Indication: FOR DIABETES OUTPT PIOGLITAZONE HCL 30MG TAB (Status = Active/Suspended) TAKE ONE TABLET BY MOUTH ONCE A DAY FOR DIABETES Rx# [id number] Last Released: 12/16/24 Qty/Days Supply: Rx Expiration Date: 12/09/25 Refills Remainin Indication: FOR DIABETES Non-VA PSYLLIUM ORAL PWD MIX AND DRINK 2 TEASPOONFULS BY MOUTH ONCE A DAY March 06, 2024 [place] RX: [place] recommended by [place] provider [place] RX: Patient wants to buy from Non-VA pharmacy Indication: FOR FIBER SUPPLEMENTATION OUTPT SODIUM FLUORIDE 1.1% TOOTHPASTE (Status = ) USE DIRECTED BY MOUTH AT BEDTIME FOR DENTAL HEALTH (BRUSH TEETH ONCE DAILY FOR TWO MINUTES BEFORE BEDTIME; SPIT EXCESS INTO SINK AFTER BRUSING - DO NOT SWALLOW) Rx# [id number] Last Released: 03/29/24 Qty/Days Supply: Rx Expiration Date: 12/27/24 Refills Remainin Indication: FOR DENTAL HEALTH OUTPT TAMSULOSIN HCL 0.4MG CAP (Status = Active/Suspended) TAKE ONE CAPSULE BY MOUTH AT BEDTIME APPROXIMATELY 30 MINUTES AFTER THE SAME MEAL EACH DAY Rx# [id number] Last Released: 11/21/24 Qty/Days Supply: Rx Expiration Date: 07/13/25 Refills Remainin OUTPT TORSEMIDE 20MG TAB (Status = Active/Suspended) TAKE ONE TABLET BY MOUTH ONCE A DAY FOR FLUID RETENTION (EDEMA) Rx# [id number] Last Released: 11/23/24 Qty/Days Supply: Rx Expiration Date: 09/16/25 Refills Remainin Indication: FOR FLUID RETENTION (EDEMA) OUTPT TRAZODONE HCL 100MG TAB (Status = Active) TAKE TWO TABLETS BY MOUTH AT BEDTIME FOR MOOD OR SLEEP. Rx# [id number] Last Released: 01/29/25 Qty/Days Supply: 180/90 Rx Expiration Date: 05/11/25 Refills Remainin SUPPLIES OUTPT ACCU-CHEK GUIDE (GLUCOSE) TEST STRIP (Status = Active/Suspended) USE 1 STRIP FOR BLOOD TEST TWO TIMES PER WEEK FOR BLOOD SUGAR MONITORING *HYPOGLYCEMIA, 100 STRIPS PER YEAR* Dec Rx# [id number] Last Released: 12/18/24 Qty/Days Supply: 100/90 Rx Expiration Date: 12/10/25 Refills Remainin Indication: FOR BLOOD SUGAR MONITORING OUTPT ACCU-CHEK GUIDE ME (GLUCOSE) METER (Status = ) USE GLUCOSE METER FOR DIRECTED FOR BLOOD SUGAR MONITORING -CONTACT [employer] FOR REPLACEMENT OR PROBLEM Rx# [id number] Last Released: 10/18/24 Qty/Days Supply: Rx Expiration Date: 01/15/25 Refills Remainin Indication: FOR BLOOD SUGAR MONITORING OUTPT SYRINGE 2.5-3ML/NDL 25G 1IN (Status = Active) USE 1 SYRINGE UNDER THE SKIN MONTHLY (TO BE USED WITH VITAMIN B12 SHOTS) Rx# [id number] Last Released: 01/14/25 Qty/Days Supply: Rx Expiration Date: 10/20/25 Refills Remainin PHARMACY TERMS AND POSSIBLE PATIENT ACTIONS INPT = [place] inpatient order IV = [place] intravenous medication OUTPT = [place] outpatient prescription PHARMACY POSSIBLE PATIENT TERMS EXPLANATION [...] more of this picked up at the [place] pharmacy medication. window. A prescription which is [...] the VA. Or, it may be an [id number] (OTC), herbal, dietary supplements or sample medication. [...] An active prescription that is Contact your [place] not scheduled to be filled yet. pharmacy if you need You should receive it before this medication now. you run out. ====== Medication list reviewed with Patient Patient/Caregiver reports taking medications as ordered. IS PATIENT TAKING ANY OVER THE COUNTER MEDICATIONS, SUCH VITAMINS OR HERBAL SUPPLEMENTS, INCLUDING ANY MEDICATIONS PRESCRIBED BY ANOTHER PHYSICIAN? No Does patient have any new allergies to report since last visit? NO VITALS: TEMPERATURE: 97.7 F [36.5 C] (02/14/2025 14:37) BP: 136/79 (02/14/2025 14:37) RESP: 18 (02/14/2025 14:37) PULSE: 87 (02/14/2025 14:37) HT: 71.0 in [180.3 cm] (09/15/2024 11:05) WT: 211.6 lb [95.98 kg] (02/14/2025 14:37) BMI: 29.6 PAIN ASSESSMENT: (Most Recent Pain Score in Vitals Package: 0 (09/15/2024 11:05) ) The patient indicated that they and [...] Now let us serve you. At the [facility], we strive to provide you with exceptional [...] Not At All SPIRITUAL ASSESSMENT: Are there latter-day practices or spiritual concerns you want the media services specialist, your physician, and other health care team members to immediately know about? No Patient advised to call the clinic for any concerns, questions, or symptoms. Patient and/or caregiver verbalized understanding of plan of care. Alcohol Use Screen (AUDIT-C) - V: Alcohol Screen: SCREEN FOR ALCOHOL (AUDIT-C) An alcohol screening test (AUDIT-C) was negative (score=0). 1. How often did you have a drink containing alcohol in the past year? Consider a drink to be a 12 ounce can or bottle of regular beer, 8 ounces of malt liquor, a 5 ounce glass of table wine, or a 1.5 ounce shot of liquor (like scotch, gin, or vodka). Never 2. How many drinks containing alcohol did you have on a typical day when you were drinking in the past year? Response not required due to responses to other questions. 3. How often did you have six or more drinks on one occasion in the past year? Response not required due to responses to other questions. Tobacco Use Screening - AT,DE,L,M,N,P,PH,PS,RT,S,U: The patient has never smoked cigarettes. The patient has never used other types of tobacco. Depression Screening - V: Perform PHQ-2 A PHQ-2 screen was performed. The score was 0 which is a negative screen for depression. Over the past two weeks, how often have you been bothered by the following problems? 1. Little interest or pleasure in doing things Not at all 2. Feeling down, depressed, or hopeless Not at all Homelessness/Food Insecurity Screen - DI,L,N,P,PH,PS,S,U: In the past 2 months, have you been living in stable housing that you own, rent, or stay in as part of a household? Yes - Living in stable housing. Are you worried or concerned that in the next 2 months you may NOT have stable housing that you own, rent, or stay in as part of a household? No - Not worried about housing near future The reports the following: Within the past 12 months, you worried whether your food would run out before you got money to buy more. Never true Within the past 12 months, the food you bought just didn't last and you didn't have money to get more. Never true Advanced Directive Screen/Hides And Skins Colorer: ADVANCE DIRECTIVE SCREENING: I asked if the patient has an advance directive, and determined that: Patient does not have an Advance Directive. Patient was given form to update and return when completed. ADVANCE DIRECTIVE NOTIFICATION I provided the patient with written notification about advance directives. Level of understanding: Good /aline/ Rachele Craft RN [place] [facility] Signed: 02/14/2025 14:45 RACHELE CRAFT [place] ALONDRAOC
--- OUTSIDE RECORDS SUMMARY | 2025-03-22 05:30 | XMS_ITS | Encounter Summary ---
Author Name [facility] Organization [facility] Address [address] [place] [address] Care Team Providers Care Counseling Specialist Name Role Phone RAYSA GRULLON Primary Care [...] PART A March 01, 1998 PART A [id number] JUANJOSE BARAJAS PATIENT MEDICARE (WNR) MEDICARE (M) PART B March 01, 1998 PART B [id number] JUANJOSE BARAJAS PATIENT Selected Encounter This section includes the information on record at ID for the Encounter. Date/Time Encounter Type Encounter Description Reason Provider Source March 22, 2025 10:30 AM OFF/OP EST MARCH X REQ PHY/QHP PRIMARY CARE/MEDICINE ICD-10-CM R21 Rash and other nonspecific skin eruption NEREYDA COOL Encounter Template Text not used by VA Assessments - Encounter Diagnoses This section includes the primary and secondary diagnoses documented for the Encounter. Date/Time Primary/Secondary Diagnosis Diagnosis Name Provider Source March 22, 2025 04:18 PM PRIMARY Rash and other nonspecific skin eruption MITZINEREYDA NICHOLS [facility] Plan of Treatment: Future Appointments (+ 6 months) and Future Tests (+/- 45 days) The Plan of Treatment section includes future care activities for the patient [facility]. This section includes future appointments and future orders which are active, pending or scheduled. Future Appointments This section includes appointments that were scheduled to occur 6 months from the date of the Encounter, up to a maximum of 20 appointments. The data comes from all [facility]. Appointment Date/Time Appointment Type Appointme nt Facility Name March 28, 2025 11:00 AM AMBULATORY - [place]IC[place] March 30, 2025 10:30 AM [facility] March 30, 2025 11:00 AM AMBULATORY - MEDICINE [facility] Apr 03, 2025 12:00 PM AMBULATORY - MEDICINE [facility] Apr 23, 2025 10:40 AM [facility]ATORY - [facility]IC[facility] Apr 25, 2025 12:00 PM AMBULATORY - MEDICINE [facility] Apr 25, 2025 12:02 PM [facility]ULATORY - [facility]IC[facility] May 01, 2025 12:00 PM AMBULATORY - MEDICINE [facility] Jun 05, 2025 12:00 PM AMBULATORY - MEDICINE [facility] Jun 06, 2025 12:00 PM AMBULATORY - MEDICINE [facility] Jun 12, 2025 01:00 PM AM[facility]ULATORY - [facility]IC[facility] Jun 25, 2025 10:30 AM AMBULATORY - MEDICINE [facility] Jul 11, 2025 12:00 PM AMBULATORY - MEDICINE [facility][NOTE 3] Active, Pending, and Scheduled Orders This section includes a listing of several types of active, pending, and scheduled orders, including clinic medications orders, diagnostic test orders, procedure orders and consult orders; where the start date of the order is 45 days before the date of the Encounter or 45 days after the date of theEncounter. The data comes from all [facility]. Test Date/Time Test Type Test Details Facility Name Feb 14, 2025 03:12 PM Laboratory - Chemi stry Order POC UA (STL-PB-MA) URINE SP [facility] Feb 19, 2025 10:44 AM Consult Order COMMUNITY CARE-PODIATRY [id number] Cons Music Engraver's Choice [facility] March 30, 2025 12:00 AM Laboratory - Chemi stry Order HGB,HCT,PLT BLOOD SP [facility] Vital Signs: All taken on the encounter date This section contains inpatient and outpatient Vital Signs collected on the date of the Encounter. Date/Time Temperature Pulse Blood Pressure Respiratory Rate SP02 Pain Height Weight Body Mass Index Source March 22, 2025 04:06 PM 97.9 94 140/80 [facility] Social History: Smoking Status (Most current) and Tobacco Use (All prior to encounter date) This section includes the most current, and the historical, smoking and tobacco- related health factors from the ID facility where the Encounter took place. Current Smoking Status This section includes the most current smoking, or tobacco-related health factor, from the ID facility where the Encounter took place. Date/Time Current Smoking Status Comment Facil ity Feb 14, 2025 02:30 PM VA-TOBACCO NEVER USED CIGARETTES [facility] Tobacco Use History This section includes a history of the smoking, or tobacco-related health factors, that were collected on or before the date of the Encounter. The data comes from the ID facility where the Encounter took place. Date/Time Smoking Status/Tobacco Use Comment F acility Feb 14, 2025 02:30 PM VA-TOBACCO NEVER USED OTHER TYPE [facility] 2024 11:00 AM VA-TOBACCO FORMER USER [facility] 2024 11:00 AM VA-TOBACCO QUIT 15 YRS OR MORE [facility] Feb 17, 2023 10:30 AM VA-TOBACCO FORMER USER [facility] Feb 17, 2023 10:30 AM VA-TOBACCO QUIT 15 YRS OR MORE [facility] Feb 26, 2022 11:00 AM VA-TOBACCO FORMER USER [facility] Feb 26, 2022 11:00 AM VA-TOBACCO QUIT 15 YRS OR MORE [facility] March 03, 2021 09:00 AM VA-TOBACCO FORMER USER [facility] March 03, 2021 09:00 AM VA-TOBACCO QUIT 15 YRS OR MORE [facility] Jan 04, 2019 09:35 AM VA-TOBACCO FORMER USER [facility] Jan 04, 2019 09:35 AM VA-TOBACCO QUIT 15 YRS OR MORE [facility] Jan 22, 2016 10:08 AM QUIT TOBACCO >7 YEARS AGO [facility] Advance Directives: All historical and current Section Date Range: From patient's date of to the date document was created. This section includes ALL of a patient's completed or amended ID Advance and Rescinded Directives. The entries below indicate that a directive exists for the patient, but an actual copy is not included with this document. The data comes from all ID facilities. Date Advance Directives Provider Source Dec 15, 2017 ADVANCE DIRECTIVE TULIO CRUMP YANNA FF [facility] Encounter Notes: All associated encounter notes This section contains the clinical notes associated to the Encounter. Date/Time Encounter Note(s) Provider Source March 22, 2025 04:06 PM NURSING PROGRESS N OTE: LOCAL TITLE: NURSING NOTE PB STANDARD TITLE: NURSING PROGRESS NOTE DATE OF NOTE: MARCH 22, 2025@16:06 ENTRY DATE: MARCH 22, 2025@16:06:35 AUTHOR: NEREYDA COOL EXP COSIGNER: URGENCY: STATUS: COMPLETED Blood Pressure: 140/80 Pulse: 94 Temperature: 97.9 F (36.6 C) Pulse Oximetry: 95% Active Outpatient Medications: Active Outpatient Medications (including [...] TABLET BY MOUTH TWICE A DAY ACTIVE Indication: FOR ANTICOAGULATION 4) ASPIRIN 81MG EC TAB TAKE ONE TABLET BY MOUTH ONCE A DAY FOR ACTIVE HEART OR CIRCULATION. TAKE WITH FOOD. 5) ATORVASTATIN CALCIUM 40MG TAB TAKE ONE AND ONE-HALF TABLETS ACTIVE BY MOUTH EVERY EVENING Indication: FOR HIGH CHOLESTEROL 6) CARVEDILOL 25MG TAB TAKE ONE-HALF TABLET BY MOUTH TWICE A ACTIVE DAY FOR HEART. TAKE WITH FOOD. 7) CHOLECALCIF 50MCG (D3-2,000UNIT) TAB TAKE ONE TABLET BY ACTIVE (S) MOUTH ONCE A DAY FOR VITAMIN D DEFICIENCY. 8) CLOPIDOGREL BISULFATE 75MG TAB TAKE ONE TABLET BY MOUTH ONCE ACTIVE A DAY Indication: FOR ACUTE CORONARY SYNDROME 9) CYANOCOBALAMIN 1000MCG/ML INJ INJECT 1000MCG/1ML ACTIVE (S) INTRAMUSCULARLY MONTHLY 10) DULOXETINE HCL 60MG EC CAP TAKE ONE CAPSULE BY MOUTH ONCE A ACTIVE DAY DO NOT ABRUPTLY DISCONTINUE MEDICATION. 11) EMPAGLIFLOZIN 25MG TAB TAKE ONE TABLET BY MOUTH ONCE A DAY ACTIVE Indication: FOR DIABETES 12) ESCITALOPRAM OXALATE 10MG TAB TAKE ONE TABLET BY MOUTH ONCE ACTIVE A DAY Indication: FOR DEPRESSION 13) FEXOFENADINE HCL 180MG TAB TAKE ONE TABLET BY MOUTH EVERY ACTIVE (S) MORNING FOR ALLERGIES 14) FINASTERIDE 5MG TAB [...] CAPSULE BY MOUTH TWICE A DAY ACTIVE 17) GLIPIZIDE 10MG TAB TAKE ONE TABLET BY MOUTH THREE TIMES A ACTIVE DAY BEFORE MEALS FOR DIABETES. TAKE 30 MINUTES BEFORE EATING. 18) ISOSORBIDE MONONITRATE 30MG SA TAB TAKE ONE TABLET BY MOUTH ACTIVE EVERY MORNING . TAKE ON EMPTY STOMACH. SWALLOW WHOLE. DO NOT CRUSH OR CHEW. 19) LIDOCAINE 5% PATCH APPLY 2 PATCHES TO SKIN SITE ONCE A DAY ACTIVE (S) APPLY PATCH AND PRESS FIRMLY FOR 10-15 SECONDS. KEEP ON FOR 12 HOURS THEN REMOVE PATCH FOR 12 HOURS. Indication: FOR LOCAL ANESTHESIA 20) LOSARTAN 100MG TAB TAKE ONE-HALF TABLET BY MOUTH ONCE A DAY ACTIVE Indication: FOR HIGH BLOOD PRESSURE 21) METHOCARBAMOL 750MG TAB TAKE 1 TABLET BY MOUTH THREE TIMES A ACTIVE (S) DAY NEEDED Indication: FOR MUSCLE SPASM 22) MIRABEGRON 50MG SA TAB TAKE ONE TABLET BY MOUTH ONCE A DAY ACTIVE SWALLOW WHOLE; DO NOT CRUSH, SPLIT, OR CHEW. 23) MULTIVIT W/MINERALS, CAP/TAB TAKE 1 TABLET BY MOUTH ACTIVE (S) ONCE A DAY FOR VITAMIN AND MINERAL SUPPLEMENTATION. TAKE WITH FOOD. 24) OMEPRAZOLE 20MG EC CAP TAKE TWO CAPSULES BY MOUTH EVERY ACTIVE (S) MORNING TO LOWER STOMACH ACID. TAKE 30 MINUTES PRIOR TO FOOD. 25) PIOGLITAZONE HCL 30MG TAB TAKE ONE TABLET BY MOUTH ONCE A ACTIVE DAY Indication: FOR DIABETES 26) SYRINGE 2.5-3ML/NDL 25G 1IN USE 1 SYRINGE UNDER THE SKIN ACTIVE MONTHLY (TO BE USED WITH VITAMIN B12 SHOTS) 27) TAMSULOSIN HCL 0.4MG CAP TAKE ONE CAPSULE BY MOUTH AT ACTIVE BEDTIME APPROXIMATELY 30 MINUTES AFTER THE SAME MEAL EACH DAY 28) TORSEMIDE 20MG TAB TAKE ONE TABLET BY MOUTH ONCE A DAY ACTIVE Indication: FOR FLUID RETENTION (EDEMA) 29) TRAZODONE HCL 100MG TAB TAKE TWO TABLETS BY MOUTH AT BEDTIME ACTIVE FOR MOOD OR SLEEP. Active Non-VA Medications Status 1) Non-VA APPLE CIDER VINEGAR CAP/TAB 1 CAP/TAB BY MOUTH ONCE A ACTIVE DAY Indication: supplement 2) Non-VA FISH OIL 1000MG (500MG DHA/EPA) CAP 2000MG BY MOUTH ACTIVE THREE TIMES A DAY WITH MEALS Indication: FOR HIGH TRIGLYCERIDES 3) Non-VA PSYLLIUM ORAL PWD 2 TEASPOONFULS BY MOUTH ONCE A DAY ACTIVE Indication: FOR FIBER SUPPLEMENTATION CC: presents to clinic with rash and redness on face. Subjective: Jackson states he woke up yesterday with swelling around his eyes and red raised rash noted on face. Denies contact with any irritants. denies any changes in routines or foods. Reports rash as itchiness but no pain. O/A: Red raised rash noted right upper and lower eyelid extending part way down middle of cheek. No other rash areas noted. Periorbital edema both eyes but right greater than left. No drainage noted. Plan/ Intervention:Discussed with JOSE Grullon. Diagnosis for shingles. New prescriptions for hydrocortisone topical cream and acyclovir oral tablets. Medication education given. New prescriptions and immediate need form hand delivered to . RTC: As scheduled and as needed. Per [facility] Directive 1605.06, wristband documentation: Patient wristband was removed and destroyed by (staff name) Nereyda Cool RN and placed in the designated [employer] bin. /es/ NEREYDA CALDWELL, [place] Signed: 03/22/2025 16:18 NEREYDA COOL [facility]
--- OUTSIDE RECORDS SUMMARY | 2025-03-28 04:51 | XMS_ITS | Encounter Summary ---
Author Name [place] Address [address] [place] [address] Care Team Providers Care Product Development Name Role Phone RAYSA GRULLON Primary Care [...] PART A March 01, 1998 PART A [id number] JUANJOSE BARAJAS PATIENT MEDICARE (WNR) MEDICARE (M) PART B March 01, 1998 PART B [id number] [id number] JUANJOSE BARAJAS PATIENT Selected Encounter This section includes the information on record at [place] for the Encounter. Date/Time Encounter Type Encounter Description Reason Pro vider Source March 28, 2025 09:51 AM Outpatient Encounter ADMIN PAT ACTIVTIES (MASNONCT) [...] 20 appointments. The data comes from all [facility]. Appointment Date/Time Appointment Type Appointme nt Facility Name March 30, 2025 10:30 AM AMBULATORY - [facility]ICINE [facility] March 30, 2025 11:00 AM AMBULATORY - MEDICINE [facility] Apr 03, 2025 12:00 PM AMBULATORY - MEDICINE [facility] Apr 23, 2025 10:40 AM AMBULATORY - MEDICINE [facility] Apr 25, 2025 12:00 PM AMBULATORY - MEDICINE [facility] Apr 25, 2025 12:02 PM AMBULATORY - MEDICINE [facility] May 01, 2025 12:00 PM AMBULATORY - MEDICINE [facility] Jun 05, 2025 12:00 PM AMBULATORY - MEDICINE [facility] Jun 06, 2025 12:00 PM AMBULATORY - MEDICINE [facility] Jun 12, 2025 01:00 PM AMBULATORY - MEDICINE [facility] Jun 25, 2025 10:30 AM AMBULATORY - MEDICINE [facility] Jul 11, 2025 12:00 PM AMBULATORY - MEDICINE [facility] Active, Pending, and Scheduled Orders This section includes a listing of several types of active, pending, and scheduled orders, including clinic medications orders, diagnostic test orders, procedure orders and consult orders; where the start date of the order is 45 days before the date of the Encounter or 45 days after the date of theEncounter. The data comes from all [facility]. Test Date/Time Test Type Test Details Facility Name Feb 14, 2025 03:12 PM Laboratory - Chemi stry Order POC UA (STL-PB-MA) URINE [facility] Feb 19, 2025 10:44 AM Consult Order COMMUNITY CARE-PODIATRY [id number] Cons Asset Management Lead's Choice [facility] March 30, 2025 12:00 AM Laboratory - Chemi stry Order HGB,HCT,PLT BLOOD [facility] Lab Results: +/- 30 days of the encounter This section includes the Chemistry and Hematology Lab Results on record with [place] for the patient. Radiology Reports and Pathology Reports are provided separately, in subsequent sections. Lab Results This section contains the Chemistry/Hematology Results that were resulted 30 days before or 30 daysafter the date of the Encounter. Date/Time Source Result Type Result - Unit Interpretation Reference Range Specimen Type Comment Apr 25, 2025 12:40 PM [facility] GLUCOSE PLASMA Specimen Type: PLASMA No comment entered. Ordering Provider: NATALYA WAKEFIELD Report Released Date/Time: Apr 25, 2025 12:31 PM Reporting Lab: [place] [facility] [address] [place] [address] Performing Lab: [place] [facility] [address] [place] [address] GLUCOSE 115 mg/dL H 72-99 Apr 25, 2025 12:40 PM [facility] CB HGA1C BLOOD Specimen Type: BLOOD No comment entered. Ordering Provider: NATALYA WAKEFIELD Report Released Date/Time: Apr 25, 2025 12:31 PM Reporting Lab: [place] [facility] [address] [place] [address] Performing Lab: [place] [facility] [address] [place] [address] HGA1C 7.6 H 4.0-6.0 Social History: Smoking Status (Most current) and Tobacco Use (All prior to encounter date) This section includes the most current, and the historical, smoking and tobacco- related health factors from the [place] facility where the Encounter took place. Current Smoking Status This section includes the most current smoking, or tobacco-related health factor, from the [place] facility where the Encounter took place. Date/Time Current Smoking Status Comment Adiren ity Feb 14, 2025 02:30 PM VA-TOBACCO NEVER USED CIGARETTES [facility] Tobacco Use History This section includes a history of the smoking, or tobacco-related health factors, that were collected on or before the date of the Encounter. The data comes from the [place] facility where the Encounter took place. Date/Time Smoking Status/Tobacco Use Comment F acility Feb 14, 2025 02:30 PM VA-TOBACCO NEVER USED OTHER TYPE [facility] 2024 11:00 AM [facility] 20[facility] 11:00 AM VA-TOBACCO QUIT 15 YRS OR MORE [facility] CB Feb 17, 2023 10:30 AM VA-TOBACCO FORMER USER [facility] Feb 17, 2023 10:30 AM VA-TOBACCO QUIT 15 YRS OR MORE [facility] Feb 26, 2022 11:00 AM VA-TOBACCO FORMER USER [facility] Feb 26, 2022 11:00 AM VA-TOBACCO QUIT 15 YRS OR MORE [facility] March 03, 2021 09:00 AM VA-TOBACCO FORMER USER [facility] March 03, 2021 09:00 AM VA-TOBACCO QUIT 15 YRS OR MORE [facility] Jan 04, 2019 09:35 AM VA-TOBACCO FORMER USER [facility] Jan 04, 2019 09:35 AM VA-TOBACCO QUIT 15 YRS OR MORE [facility] Jan 22, 2016 10:08 AM QUIT TOBACCO >7 YEARS AGO [facility] Advance Directives: All historical and current Section Date Range: From patient's date of to the date document was created. This section includes ALL of a patient's completed or amended [place] Advance and Rescinded Directives. The entries below indicate that a directive exists for the patient, but an actual copy is not included with this document. The data comes from all [place] facilities. Date Advance Directives Provider Source Dec 15, 2017 ADVANCE DIRECTIVE TULIO CRUMP [facility] Encounter Notes: All associated encounter notes This section contains the clinical notes associated to the Encounter. Date/Time Encounter Note(s) Provider Source March 28, 2025 09:51 AM GENERAL MEDICINE N OTE: LOCAL TITLE: General Note PB STANDARD TITLE: GENERAL MEDICINE NOTE DATE OF NOTE: MARCH 28, 2025@09:51 ENTRY DATE: MARCH 28, 2025@09:51:22 AUTHOR: DEE DEE EDWARDS EXP COSIGNER: URGENCY: STATUS: COMPLETED Eye Care At-Risk Screen - L,N,PH,U: Patient identified to be at risk for the following eye condition(s): DIABETIC RETINOPATHY: Diabetes Diagnosis Information: Encounter Diagnosis: 12/21/2024@11:00 E11.8 (ICD-10-CM) Type 2 Diabetes Mellitus with unspecified Complications rank: SECONDARY Prov. Narr. 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 Narr. - Atherosclerotic Heart Disease of [place] Coronary Artery without Angina Pectoris Action: No Referral Ordered: Eye exam completed elsewhere by an Chemical Engineering Professor or Tan Room Supervisor Diabetic retinal exam result: Negative for Retinopathy Date: October 19, 2024 Location: [facility] Comment: Dry AMD Early stage OS /es/ [facility] Signed: 03/28/2025 09:52 DEE DEE EDWARDS [facility]
--- OUTSIDE RECORDS SUMMARY | 2025-04-24 05:47 | XMS_ITS | Encounter Summary ---
Author Name [place] Address [address] [place] [address] Care Team Providers Care Railroad Watchman Name Role Phone RAYSA GRULLON Primary Care [...] PART A March 01, 1998 PART A [id number] JUANJOSE BARAJAS PATIENT MEDICARE (WNR) MEDICARE (M) PART B March 01, 1998 PART B [id number] JUANJOSE BARAJAS PATIENT Selected Encounter This section includes the information on record at [place] for the Encounter. Date/Time Encounter Type Encounter Description Reason Pro vider Source Apr 24, 2025 10:47 AM Outpatient Encounter ADMIN PAT ACTIVTIES (MASNONCT) [...] 20 appointments. The data comes from all [facility]. Appointment Date/Time Appointment Type Appointme nt Facility Name Apr 25, 2025 12:00 PM AMBULATORY - MEDICINE [facility] Apr 25, 2025 12:02 PM AMBULATORY - MEDICINE [facility] May 01, 2025 12:00 PM AMBULATORY - MEDICINE [facility] Jun 05, 2025 12:00 PM AMBULATORY - MEDICINE [facility] Jun 06, 2025 12:00 PM AMBULATORY - MEDICINE [facility] Jun 12, 2025 01:00 PM AMBULATORY - MEDICINE [facility] Jun 25, 2025 10:30 AM AMBULATORY - MEDICINE [facility] Jul 11, 2025 12:00 PM AMBULATORY MEDICINE [facility] Active, Pending, and Scheduled Orders This section includes a listing of several types of active, pending, and scheduled orders, including clinic medications orders, diagnostic test orders, procedure orders and consult orders; where the start date of the order is 45 days before the date of the Encounter or 45 days after the date of theEncounter. The data comes from all [facility]. Test Date/Time Test Type Test Details Facility Name March 30, 2025 12:00 AM Laboratory - Chemi stry Order HGB,HCT,PLT BLOOD SP [facility] May 29, 2025 04:06 PM Consult Order COMMUNITY CARE-DERMATOLOGY [id number] Cons Grips's Choice [facility] Lab Results: +/- 30 days of the encounter This section includes the Chemistry and Hematology Lab Results on record with [place] for the patient. Radiology Reports and Pathology Reports are provided separately, in subsequent sections. Lab Results This section contains the Chemistry/Hematology Results that were resulted 30 days before or 30 daysafter the date of the Encounter. Date/Time Source Result Type Result - Unit Interpretation Reference Range Specimen Type Comment Apr 25, 2025 12:40 PM [facility] GLUCOSE PLASMA Specimen Type: PLASMA No comment entered. Ordering Provider: NATALYA WAKEFIELD Report Released Date/Time: Apr 25, 2025 12:31 PM Reporting Lab: [facility] [address] [place] [address] Performing Lab: [place] [facility] [address] [place] [address] GLUCOSE 115 mg/dL H 72-99 Apr 25, 2025 12:40 PM [facility] HGA1C BLOOD Specimen Type: BLOOD No comment entered. Ordering Provider: NATALYA WAKEFIELD Report Released Date/Time: Apr 25, 2025 12:31 PM Reporting Lab: [place] [facility] [address] [place] [address] Performing Lab: [place] [facility] [address] [place] [address] HGA1C 7.6 H 4.0-6.0 Social History: Smoking Status (Most current) and Tobacco Use (All prior to encounter date) This section includes the most current, and the historical, smoking and tobacco- related health factors from the [place] facility where the Encounter took place. Current Smoking Status This section includes the most current smoking, or tobacco-related health factor, from the [place] facility where the Encounter took place. Date/Time Current Smoking Status Comment Facil ity Feb 14, 2025 02:30 PM VA-TOBACCO NEVER USED OTHER TYPE [facility] [place] Tobacco Use History This section includes a history of the smoking, or tobacco-related health factors, that were collected on or before the date of the Encounter. The data comes from the [place] facility where the Encounter took place. Date/Time Smoking Status/Tobacco Use Comment F acility Feb 14, 2025 02:30 PM VA-TOBACCO NEVER USED OTHER TYPE [facility] [place] 2024 11:00 AM VA-TOBACCO FORMER USER [facility] 2024 11:00 AM VA-TOBACCO QUIT 15 YRS OR MORE [place] [facility] Feb 17, 2023 10:30 AM VA-TOBACCO FORMER USER [place] [place] [facility] Feb 17, 2023 10:30 AM VA-TOBACCO QUIT 15 YRS OR MORE [facility] [place] Feb 26, 2022 11:00 AM VA-TOBACCO FORMER USER [facility] [place] Feb 26, 2022 11:00 AM VA-TOBACCO QUIT 15 YRS OR MORE [facility] March 03, 2021 09:00 AM VA-TOBACCO FORMER USER [facility] [place] March 03, 2021 09:00 AM VA-TOBACCO QUIT 15 YRS OR MORE [facility] Jan 04, 2019 09:35 AM VA-TOBACCO FORMER USER [facility] Jan 04, 2019 09:35 AM VA-TOBACCO QUIT 15 YRS OR MORE [facility] Jan 22, 2016 10:08 AM QUIT TOBACCO >7 YEARS AGO [facility] Advance Directives: All historical and current Section Date Range: From patient's date of to the date document was created. This section includes ALL of a patient's completed or amended [place] Advance and Rescinded Directives. The entries below indicate that a directive exists for the patient, but an actual copy is not included with this document. The data comes from all [place] facilities. Date Advance Directives Provider Source Dec 15, 2017 ADVANCE DIRECTIVE TULIO CRUMP [facility] Encounter Notes: All associated encounter notes This section contains the clinical notes associated to the Encounter. Date/Time Encounter Note(s) Provider Source Apr 24, 2025 10:47 AM GENERAL MEDICINE N OTE: LOCAL TITLE: General Note PB STANDARD TITLE: GENERAL MEDICINE NOTE DATE OF NOTE: APR 24, 2025@10:47 ENTRY DATE: APR 24, 2025@10:47:24 AUTHOR: BERNA ASH EXP COSIGNER: URGENCY: STATUS: COMPLETED Attempted to confirm 04/25/25 Audiology appt, no answer /es/ BERNA ASH Telehealth Clinical Brake Holder Signed: 04/24/2025 10:47 BERNA ASH [facility]
--- OUTSIDE RECORDS SUMMARY | 2025-04-25 07:02 | XMS_ITS ---
Author Name Department [place] Organization [place] Address [address] [place] [address] Care Team Providers Care Wild Life Photographer Name Role Phone RAYSA GRULLON Primary Care [...] PART A March 01, 1998 PART A [id number] [id number] JUANJOSE BARAJAS PATIENT MEDICARE (WNR) MEDICARE (M) PART B March 01, 1998 PART B [id number] [id number] JUANJOSE BARAJAS PATIENT Selected Encounter This section includes the information on record at [place] for the Encounter. Date/Time Encounter Type Encounter Description Reason Provider Source Apr 25, 2025 12:02 PM HEARING AID REPAIR/MODIFYIN G AUDIOLOGY ICD-10-CM Z46.1 Encounter for fitting and adjustment of hearing aid COCO MONTOYA RA E Encounter Template Text not used by [facility] Assessments - Encounter Diagnoses This section includes the primary and secondary diagnoses documented for the Encounter. Date/Time Primary/Secondary Diagnosis Diagnosis Name Provider Source Apr 25, 2025 12:16 PM PRIMARY Encounter for fitting and adjustment of hearing aid COCO MONTOYA RA [facility] Apr 25, 2025 12:16 PM SECONDARY Sensorineural hearing loss, bilateral COCO MONTOYA RA [facility] Plan of Treatment: Future Appointments (+ 6 months) and Future Tests (+/- 45 days) The Plan of Treatment section includes future care activities for the patient from all [place] [facility] This section includes future appointments and future orders which are active, pending or scheduled. Future Appointments This section includes appointments that were scheduled to occur 6 months from the date of the Encounter, up to a maximum of 20 appointments. The data comes from all [facility]. Appointment Date/Time Appointment Type Appointme nt Facility Name May 01, 2025 12:00 PM AMBULATORY - MEDICINE [facility] Jun 05, 2025 12:00 PM AMBULATORY - MEDICINE [facility] Jun 06, 2025 12:00 PM [facility] Jun 12, 2025 01:00 PM [facility] - [facility] Jun 25, 2025 10:30 AM AMBULATORY - MEDICINE [facility] Jul 11, 2025 12:00 PM [...] of theEncounter. The data comes from all [facility]. Test Date/Time Test Type Test Details Facility Name March 30, 2025 12:00 AM Laboratory - Chemi stry Order HGB,HCT,PLT BLOOD SP [facility] May 29, 2025 04:06 PM Consult Order COMMUNITY CARE-DERMATOLOGY [id number] Cons Primer Charger's Choice [facility] Lab Results: +/- 30 days of the encounter This section includes the Chemistry and Hematology Lab Results on record with [place] for the patient. Radiology Reports and Pathology Reports are provided separately, in subsequent sections. Lab Results This section contains the Chemistry/Hematology Results that were resulted 30 days before or 30 daysafter the date of the Encounter. Date/Time Source Result Type Result - Unit Interpretation Reference Range Specimen Type Comment Apr 25, 2025 12:40 PM [facility] GLUCOSE PLASMA Specimen Type: PLASMA No comment entered. Ordering Provider: NATALYA WAKEFIELD Report Released Date/Time: Apr 25, 2025 12:31 PM Reporting Lab: [place] [facility] [address] [place] [address] Performing Lab: [place] [facility] [address] [place] [address] GLUCOSE 115 mg/dL H 72-99 Apr 25, 2025 12:40 PM [facility] HGA1C BLOOD Specimen Type: BLOOD No comment entered. Ordering Provider: NATALYA WAKEFIELD Report Released Date/Time: Apr 25, 2025 12:31 PM Reporting Lab: [place] [facility] [address] [place] [address] Performing Lab: [place] [facility] [address] [place] [address] HGA1C 7.6 H 4.0-6.0 Advance Directives: All historical and current Section Date Range: From patient's date of to the date document was created. This section includes ALL of a patient's completed or amended [place] Advance and Rescinded Directives. The entries below indicate that a directive exists for the patient, but an actual copy is not included with this document. The data comes from all [place] facilities. Date Advance Directives Provider Source Dec 15, 2017 ADVANCE DIRECTIVE TULIO CRUMP [facility] Encounter Notes: All associated encounter notes This section contains the clinical notes associated to the Encounter. Date/Time Encounter Note(s) Provider Source Apr 25, 2025 07:09 AM AUDIOLOGY NOTE: LOCAL TITLE: HEARING CLINIC PB STANDARD TITLE: AUDIOLOGY NOTE DATE OF NOTE: APR 25, 2025@07:09 ENTRY DATE: APR 25, 2025@07:09:32 AUTHOR: PARIS MONTOYA COSIGNER: URGENCY: STATUS: COMPLETED Diagnosis: Sensorineural hearing loss, Bilateral Treatment: Hearing Aid Check Time spent with [place]: 30 minutes seen for a hearing aid check via Audio Telehealth and verbally consented to the Telehealth modality. Multi-factor personally identifiable information of the was obtained verbally (full name and date of ). accompanied by: none Patient site: [place] [facility] ____ HISTORY: Reason for Appointment: Patient is here today for firmware update (right) and synced settings. Patient reports fuzzy sound quality to both devices. CURRENT HEARING DEVICES: 12/2022 PHONAK AUDEO L90-R MILES R [id number] 12/2022 PHONAK AUDEO L90-R MILES L [id number] - 3P 4.0 - CSHLL 4.0 ACRYLIC SMALL SELECT A VENT RF TAPER CANAL - CERUSTOP Phone Connectivity: no OBJECTIVE/ASSESSMENT: Otoscopy was performed by collaboration of telehealth clinical internetworking technician and provider via telehealth technology/video otoscope which revealed: Right ear: unremarkable Left ear: unremarkable Cleaned devices including replacement of filters. A listening check performed by the TCT confirmed proper function. Connected hearing aids to software. Updated firmware of right device. Synced settings. Patient noted improvement in sound quality. Ordered filters to home address. The was counseled/educated on services provided today and is in agreement with the plan. PLAN: Follow up as needed or scheduled. /aline/ Ulises Kovacs [facility] Signed: 04/25/2025 12:20 PARIS MONTOYA [facility]
--- OUTSIDE RECORDS SUMMARY | 2025-05-30 04:12 | XMS_ITS | Encounter Summary ---
Author Name [place] Address [address] [place] [address] Care Team Providers Care Wood Car Builder Name Role Phone RAYSA GRULLON Primary Care [...] PART A March 01, 1998 PART A [id number] [id number] [phone] JUANJOSE BARAJAS PATIENT MEDICARE (WNR) MEDICARE (M) PART B March 01, 1998 PART B [id number] [id number] JUANJOSE BARAJAS PATIENT Selected Encounter This section includes the information on record at [place] for the Encounter. Date/Time Encounter Type Encounter Description Reason Provider Source May 30, 2025 09:12 AM Outpatient Encounter COMMUNITY CARE CONSULT UBALDO ALVAREZ Encounter Template Text not used by [place] Plan of Treatment: Future Appointments (+ 6 [...] 20 appointments. The data comes from all [facility]. Appointment Date/Time Appointment Type Appointme nt Facility Name Jun 05, 2025 12:00 PM AMBULATORY - MEDICINE [facility] Jun 06, 2025 12:00 PM AMBULATORY - MEDICINE MEDICINE [facility] Jun 12, 2025 01:00 PM AMBULATORY - MEDICINE [facility] Jun 25, 2025 10:30 AM AMBULATORY - MEDICINE [facility] Jul 11, 2025 12:00 PM AMBULATORY - MEDICINE [facility] Active, Pending, and Scheduled Orders This section includes a listing of several types of active, pending, and scheduled orders, including clinic medications orders, diagnostic test orders, procedure orders and consult orders; where the start date of the order is 45 days before the date of the Encounter or 45 days after the date of theEncounter. The data comes from all [facility]. Test Date/Time Test Type Test Details Facility Name May 29, 2025 04:06 PM Consult Order COMMUNITY CARE-DERMATOLOGY 657A4 Cons Tub Washer's Choice [facility] Advance Directives: All historical and current Section Date Range: From patient's date of to the date document was created. This section includes ALL of a patient's completed or amended [place] Advance and Rescinded Directives. The entries below indicate that a directive exists for the patient, but an actual copy is not included with this document. The data comes from all [facility]. Date Advance Directives Provider Source Dec 15, 2017 [facility] Encounter Notes: All associated encounter notes This section contains the clinical notes associated to the Encounter. Date/Time Encounter Note(s) Provider Source May 30, 2025 09:12 AM NONVA NOTE: LOCAL TITLE: COMMUNITY CARE-CARE COORDINATION PLAN NOTE 657A4 PB STANDARD TITLE: NONVA NOTE DATE OF NOTE: MAY 30, 2025@09:12 ENTRY DATE: MAY 30, 2025@09:13:09 AUTHOR: UBALDO ALVAREZ COSIGNER: URGENCY: STATUS: COMPLETED Community Care Consult: DERMATOLOGY Consult No: [id number] [facility] Referral #: [id number] Chief Complaint: . RFS received from [facility] Dermatology [facility] for continuation of care, appointment 07/11/25 at 1200. Dx [id number] Patient Admitted? No Level of Care Coordination Moderate Care Coordination was determined from: Chart Review Facility Community Care Office Contact Care Coordination Point of Contact: UBALDO ALVAREZ RN .. Phone Number: .[phone] Services: Basic Care Coordination Services Monitoring and coordination of Rehab/PT Services Direct communication to referring provider Care management, if appropriate Plan: . Proceed with scheduling /es/ UBALDO ALVAREZ RN Signed: 05/30/2025 09:15 UBALDO ALVAREZ [facility]
--- OUTSIDE RECORDS SUMMARY | 2025-05-30 07:53 | XMS_ITS | Encounter Summary ---
Author Name [facility] [place] Organization [place] Address [address] [place] [address] Care Team Providers Care Basket Weaver Name Role Phone RAYSA GRULLON Primary Care [...] PART A March 01, 1998 PART A [id number] JUANJOSE BARAJAS PATIENT MEDICARE (WNR) MEDICARE (M) PART B March 01, 1998 PART B [id number] [id number] [phone] JUANJOSE BARAJAS PATIENT Selected Encounter This section includes the information on record at [place] for the Encounter. Date/Time Encounter Type Encounter Description Reason Pro vider Source May 30, 2025 12:53 PM Outpatient Encounter COMMUNITY CARE CONSULT IHE Encounter Template Text not used by [place] Plan of Treatment: Future Appointments (+ 6 [...] 20 appointments. The data comes from all [place] treatment [facility]. Appointment Date/Time Appointment Type Appointme nt Facility Name Jun 05, 2025 12:00 PM AMBULATORY [facility] Jun 06, 2025 12:00 PM [facility] Jun 12, 2025 01:00 PM AMBULATORY - MEDICINE [facility] Jun 25, 2025 10:30 AM [facility]BULATORY - MEDICINE [facility] Jul 11, 2025 12:00 PM AMBULATORY - MEDICINE [facility] Active, Pending, and Scheduled Orders This section includes a listing of several types of active, pending, and scheduled orders, including clinic medications orders, diagnostic test orders, procedure orders and consult orders; where the start date of the order is 45 days before the date of the Encounter or 45 days after the date of theEncounter. The data comes from all [facility]. Test Date/Time Test Type Test Details Facility Name May 29, 2025 04:06 PM Consult Order COMMUNITY CARE-DERMATOLOGY 657A4 Cons Integrated Logistics Support Manager's Choice [facility] Advance Directives: All historical and current Section Date Range: From patient's date of to the date document was created. This section includes ALL of a patient's completed or amended [place] Advance and Rescinded Directives. The entries below indicate that a directive exists for the patient, but an actual copy is not included with this document. The data comes from all [facility]. Date Advance Directives Provider Source Dec 15, 2017 ADVANCE DIRECTIVE TULIO CRUMP [facility] Encounter Notes: All associated encounter notes This section contains the clinical notes associated to the Encounter. Date/Time Encounter Note(s) Provider Source May 30, 2025 12:53 PM LETTERS: LOCAL TITLE: COMMUNITY CARE-REFERRAL PB (AUTO-PRINT) STANDARD TITLE: LETTERS DATE OF NOTE: MAY 30, 2025@12:53:46 ENTRY DATE: MAY 30, 2025@12:53:46 AUTHOR: ANGLE SARMIENTO COSIGNER: URGENCY: STATUS: COMPLETED Rachel Barajas [address] [place] [id number] Dear RACHEL BARAJAS, Your VA provider has referred you to a provider within the community for care. Your medical care for dermatology has been authorized with the Community Care Provider listed below. DO NOT REPORT TO THE [facility] Provider info: An appointment has been scheduled for you on: Jul 11, 2025 12:00 PM Office Name: [facility] Address: [address] Address: [place] [address] Auth #: [id number] Referral Issue Date: 2025-05-30 Expiration Date: 2026-01-07 If you are unable to keep this appointment or the appointment is no longer needed, please contact the community provider above for notification/rescheduling and then call the Renzo Rowe [place] Community Care Office at [phone] Ext [phone]. If you need additional care/services not mentioned above, please contact your primary care provider for a new referral. Co-Payments: If you are required to pay a VA co-payment, you will be billed by the VA for each authorized visit that you attend. However, you are NOT REQUIRED to make co-payments to a Community Provider. Prescriptions: Your community provider may write a prescription related to the authorized care. If there is an immediate need for your prescriptions from your community care visit, you may be able to get up to a 14-day fill of your prescription at your own expense for the cost of the medication, and may seek reimbursement from the VA. If you require more than a 14-day supply or if the prescribed medication is not immediately needed, your community provider will send a prescription to a VA pharmacy so that the VA can provide you with your routine medication. In-network locations can be found at https://www.va.gov/find-loca tions/ Medical Devices: Your community provider may recommend that medical devices, adapted equipment, or other items be provided for the treatment or rehabilitation of your medical condition. Veterans are generally required to obtain these items through the Prosthetics and Sensory Aids Service (PSAS) in your referring facility. Emergency/Inpatient Services: You, your community provider, or your family must provide notification within 72hr or ER visit and/or admission by [phone]. Thank you for the opportunity to serve you and for your service to our great nation! Angle Reddyhing [facility] Care in the Community [address] [place] [address] ANGLE SARMIENTO [facility]
--- OUTSIDE RECORDS SUMMARY | 2025-05-30 19:00 | XMS_ITS | Encounter Summary ---
Author Name [facility] [place] [place] Organization [place] Address [address] [place] [address] Care Team Providers Care Brand Sales Consultant Name Role Phone RAYSA GRULLON Primary Care [...] PART A March 01, 1998 PART A [id number] JUANJOSE BARAJAS PATIENT MEDICARE (WNR) MEDICARE (M) PART B March 01, 1998 PART B [id number] JUANJOSE BARAJAS PATIENT Selected Encounter This section includes the information on record at [place] for the Encounter. Date/Time Encounter Type Encounter Description Reason Pro vider Source May 31, 2025 12:00 AM Outpatient Encounter EVENT (HISTORICAL) IHE Encounter Template Text not used by [place] Plan of Treatment: Future Appointments (+ 6 [...] 20 appointments. The data comes from all [facility]. Appointment Date/Time Appointment Type Appointme nt Facility Name Jun 05, 2025 12:00 PM [facility]ATORY - [facility]INE [facility] Jun 06, 2025 12:00 PM [facility]ICINE [facility] Jun 12, 2025 01:00 PM AMBULATORY - MEDICINE [facility] Jun 25, 2025 10:30 AM AMBULATORY - MEDICINE [facility] Jul 11, 2025 12:00 PM AMBULATORY - MEDICINE [facility] Active, Pending, and Scheduled Orders This section includes a listing of several types of active, pending, and scheduled orders, including clinic medications orders, diagnostic test orders, procedure orders and consult orders; where the start date of the order is 45 days before the date of the Encounter or 45 days after the date of theEncounter. The data comes from all [facility]. Test Date/Time Test Type Test Details Facility Name May 29, 2025 04:06 PM Consult Order COMMUNITY CARE-DERMATOLOGY [id number] Cons Stonemason Apprentice's Choice [facility] Advance Directives: All historical and current Section Date Range: From patient's date of to the date document was created. This section includes ALL of a patient's completed or amended [place] Advance and Rescinded Directives. The entries below indicate that a directive exists for the patient, but an actual copy is not included with this document. The data comes from all [facility]. Date Advance Directives Provider Source Dec 15, 2017 ADVANCE DIRECTIVE [facility] Encounter Notes: All associated encounter notes This section contains the clinical notes associated to the Encounter. Date/Time Encounter Note(s) Provider Source May 31, 2025 12:00 AM NONVA CONSULT: LOCAL TITLE: COMMUNITY CARE-CONSULT RESULT NOTE PB STANDARD TITLE: NONVA CONSULT DATE OF NOTE: MAY 31, 2025 ENTRY DATE: JUN 01, 2025@14:52:13 AUTHOR: MODESTA ADAM EXP COSIGNER: URGENCY: STATUS: COMPLETED [facility] - Scanned Document PRATIK AMADOR DDS SCANNED DOCUMENT SIGNATURE NOT REQUIRED Electronically Filed: 06/01/2025 by: MODESTA GAMA,BUSINESS OFFICE MODESTA ADAM [facility]
--- OUTSIDE RECORDS SUMMARY | 2025-06-01 07:02 | XMS_ITS | Encounter Summary ---
Author Name [facility] [place] Organization [place] Address [address] [place] [address] Care Team Providers Care Sorting Machine Attendant Name Role Phone RAYSA GRULLON Primary Care [...] PART A March 01, 1998 PART A [id number] JUANJOSE BARAJAS PATIENT MEDICARE (WNR) MEDICARE (M) PART B March 01, 1998 PART B [id number] [id number] [phone] JUANJOSE BARAJAS PATIENT Selected Encounter This section includes the information on record at [place] for the Encounter. Date/Time Encounter Type Encounter Description Reason Pro vider Source Jun 01, 2025 12:02 PM Outpatient Encounter COMMUNITY CARE CONSULT IHE Encounter Template Text not used by [place] Plan of Treatment: Future Appointments (+ 6 [...] 20 appointments. The data comes from all [place] treatment [facility]. Appointment Date/Time Appointment Type Appointme nt Facility Name Jun 05, 2025 12:00 PM [facility] Jun 06, 2025 12:00 PM [facility] - MEDICINE [facility] Jun 12, 2025 01:00 PM [facility] Jun 25, 2025 10:30 AM [facility] Jul 11, 2025 12:00 PM [facility]ORY - MEDIC[facility] Active, Pending, and Scheduled Orders This section includes a listing of several types of active, pending, and scheduled orders, including clinic medications orders, diagnostic test orders, procedure orders and consult orders; where the start date of the order is 45 days before the date of the Encounter or 45 days after the date of theEncounter. The data comes from all [facility]. Test Date/Time Test Type Test Details Facility Name May 29, 2025 04:06 PM Consult Order COMMUNITY CARE-DERMATOLOGY 657A4 Cons Director Sales And Marketing's Choice [facility] Advance Directives: All historical and current Section Date Range: From patient's date of to the date document was created. This section includes ALL of a patient's completed or amended [place] Advance and Rescinded Directives. The entries below indicate that a directive exists for the patient, but an actual copy is not included with this document. The data comes from all [facility]. Date Advance Directives Provider Source Dec 15, 2017 ADVANCE DIRECTIVE TULIO CRUMP [facility] Encounter Notes: All associated encounter notes This section contains the clinical notes associated to the Encounter. Date/Time Encounter Note(s) Provider Source Jun 01, 2025 12:07 PM NONVA NOTE: LOCAL TITLE: COMMUNITY CARE-REQUEST FOR SERVICE NOTE PB STANDARD TITLE: NONVA NOTE DATE OF NOTE: JUN 01, 2025@12:07 ENTRY DATE: JUN 01, 2025@12:07:33 AUTHOR: ZHANE GARCIA EXP COSIGNER: URGENCY: STATUS: COMPLETED Request for Services (RFS) documentation has been sent for scanning to [facility] Community Care Consult: COMMUNITY CARE-DENTAL [id number] Consult No: [id number] Date sent to scanning: Jun A Request for Service (RFS) form [id number] has been received which includes the following: Care Requested: [id number] PERIODONTAL SCALING AND ROOT PLANING EVIE GARCIA LR ICD-10 Dx code: K03.6 Date VA received request: May Date service required: TBD Requesting Community Provider Information: [facility] PRATIK AMADOR S [address] [place] [address] ALERTING THE DENTAL TEAM VIA THIS NOTE. /aline/ ZHANE GARCIA RN [facility] ISABELLA MONTENEGRO [facility] Signed: 06/01/2025 12:10 Receipt Acknowledged By: * AWAITING SIGNATURE * MILAD MCDONALD * AWAITING SIGNATURE * SUSANNE BUNCH ASHLEY N POPLAR BLUFF [facility]
--- OUTSIDE RECORDS SUMMARY | 2025-06-05 07:00 | XMS_ITS | Encounter Summary ---
Author Name [facility] [place] Organization [place] Address [address] [place] [address] Care Team Providers Care Retort Firer Name Role Phone RAYSA GRULLON Primary Care [...] PART A March 01, 1998 PART A [id number] [phone] JUANJOSE BARAJAS PATIENT MEDICARE (WNR) MEDICARE (M) PART B March 01, 1998 PART B [id number] JUANJOSE BARAJAS PATIENT Selected Encounter This section includes the information on record at [place] for the Encounter. Date/Time Encounter Type Encounter Description Reason Provider Source Jun 05, 2025 12:00 PM MTMS BY PHARM ADDL 15 MIN TELEPHONE PRIMARY CARE ICD-10-CM E11.8 Type 2 diabetes mellitus with unspecified complications JOSE WAKEFIELD IHCristina Encounter Template Text not used by [place] Assessments - Encounter Diagnoses This section includes the primary and secondary diagnoses documented for the Encounter. Date/Time Primary/Secondary Diagnosis Diagnosis Name Provider Source Jun 05, 2025 12:00 PM PRIMARY Type 2 diabetes mellitus with unspecified complications NATALYA WAKEFIELD [facility] Plan of Treatment: Future Appointments (+ 6 months) and Future Tests (+/- 45 days) The Plan of Treatment section includes future care activities for the patient from all [place] treatmentfacilities. This section includes future appointments and future orders which are active, pending or scheduled. Future Appointments This section includes appointments that were scheduled to occur 6 months from the date of the Encounter, up to a maximum of 20 appointments. The data comes from all [place] treatment [facility]. Appointment Date/Time Appointment Type Appointme nt Facility Name Jun 06, 2025 12:00 PM AMBULATORY [facility] MEDICINE [facility] Jun 12, 2025 01:00 PM AMBULATORY - MEDICINE [facility] Jun 25, 2025 10:30 AM AMBULATORY - MEDICINE [facility] Jul 11, 2025 12:00 PM AMBULATORY - MEDICINE [facility] Active, Pending, and Scheduled Orders This section includes a listing of several types of active, pending, and scheduled orders, including clinic medications orders, diagnostic test orders, procedure orders and consult orders; where the start date of the order is 45 days before the date of the Encounter or 45 days after the date of theEncounter. The data comes from all [facility]. Test Date/Time Test Type Test Details Facility Name May 29, 2025 04:06 PM Consult Order COMMUNITY CARE-DERMATOLOGY 657A4 Cons Water Treatment Technician's Choice [facility] Advance Directives: All historical and current Section Date Range: From patient's date of to the date document was created. This section includes ALL of a patient's completed or amended [place] Advance and Rescinded Directives. The entries below indicate that a directive exists for the patient, but an actual copy is not included with this document. The data comes from all [facility]. Date Advance Directives Provider Source Dec 15, 2017 ADVANCE DIRECTIVE TULIO CRUMP [facility] Encounter Notes: All associated encounter notes This section contains the clinical notes associated to the Encounter. Date/Time Encounter Note(s) Provider Source Jun 05, 2025 11:06 AM PHARMACY NOTE: LOCAL TITLE: PHARMACY CHRONIC DISEASE STATE MANAGEMENT PB STANDARD TITLE: PHARMACY NOTE DATE OF NOTE: JUN 05, 2025@11:06 ENTRY DATE: JUN 05, 2025@11:07:03 AUTHOR: NATALYA WAKEFIELD COSIGNER: URGENCY: STATUS: COMPLETED RACHEL BARAJAS is a 75 yo, WHITE MALE [facility] for [facility]/u diabetes management. Vet's also on the call w his consent. Verified identity by vet's full name and . PMH: 1) Type 2 diabetes mellitus 2) Coronary artery disease: 10/02/2024 CLARKE x2 to mid LAD and 1st diagonal x1; per [facility]: 05/2022 stent to LAD, 2015 stent to mid LAD; stents also 2005 and 2006 3) HTN - Hypertension 4) HLD - Hyperlipidemia 5) BPH - Benign prostatic hypertrophy 6) PTSD - Post-traumatic stress disorder 7) Depression 8) Diabetic peripheral neuropathy associated with type 2 diabetes mellitus 9) History of malignant basal cell neoplasm of skin 10) Obesity 11) Sleep apnea 12) Insomnia (SCT [id number]) 13) Actinic keratosis 14) Allergic rhinitis 15) Constipation 16) Plantar fasciitis 17) Unsteady when walking 18) Exposure to potentially hazardous substance From [facility] 03/28/25 cholecystectomy 1999 HF (cardiac MRI 01/10/25 LVEF 55%; echo 02/01/25 LVEF 50-55%; echo 08/30/24 LVEF 39%; grade I diastolic dysfuntion) Afib s/p ablation and pacemaker 10/2022 At last clinical pharmacy encounter with vet 05/01/25, increased metformin, decreased glipizide. At clinical pharmacy encounter 04/03/25, stopped piogltazone, decreased SFU, started metformin SA. During current visit, patient confirms taking the following pertinent meds: -metformin SA 500mg QAM and 500mg QPM (did not increase) -empagliflozin 25mg daily -glipizide 10mg 1-2x/d AC (did not decrease) DM medication adherence: no missed doses, but taking incorrect doses. Subjective: FBG running higher because he has had company for the last few weeks. Previously FBG 90s to low 110s. See smbg below [-] hypoglycemia sxs [-] SMBG <70 mg/dL [-] hyperglycemia sxs [-] N/V/D/C [-] sx infection [+] CP, tightness, usually exertional. Happens almost daily. Lasts 2-3 min or more. Sits downs and takes deep breaths. Has not tried sl ntg. Has been going on a couple months. Vet had injury in January (kicked by bull in the back). [+] lightheadedness. Recently has carotid US, waiting to hear the results. [-] tobacco Objective: Allergies/ADR's:CODEINE Active and Recently Outpatient Medications (including Supplies): Active Outpatient Medications Status 1) ACCU-CHEK GUIDE (GLUCOSE) TEST STRIP USE 1 STRIP FOR BLOOD ACTIVE TEST TWO TIMES PER WEEK *HYPOGLYCEMIA, 100 STRIPS PER YEAR* Dec Indication: FOR BLOOD SUGAR MONITORING 2) AMLODIPINE BESYLATE 10MG TAB TAKE ONE TABLET BY MOUTH ONCE A ACTIVE (S)y DAY Indication: FOR HIGH BLOOD PRESSURE 3) APIXABAN 5MG TAB TAKE ONE TABLET BY MOUTH TWICE A DAY ACTIVE y Indication: FOR ANTICOAGULATION 4) ATORVASTATIN CALCIUM 80MG TAB TAKE ONE TABLET BY MOUTH EVERY ACTIVE y EVENING Indication: FOR HIGH CHOLESTEROL 5) CHOLECALCIF 50MCG (D3-2,000UNIT) TAB TAKE ONE TABLET BY ACTIVE y MOUTH ONCE A DAY FOR VITAMIN D DEFICIENCY. 6) CLOPIDOGREL BISULFATE 75MG TAB TAKE ONE TABLET BY MOUTH ONCE ACTIVE y A DAY Indication: FOR STROKE PREVENTION 7) DULOXETINE HCL 30MG EC CAP TAKE ONE CAPSULE BY MOUTH ONCE A ACTIVE y DAY DO NOT ABRUPTLY DISCONTINUE MEDICATION. 8) EMPAGLIFLOZIN 25MG TAB TAKE ONE TABLET BY MOUTH ONCE A DAY ACTIVE y Indication: FOR DIABETES 9) ESCITALOPRAM OXALATE 10MG TAB TAKE ONE TABLET BY MOUTH ONCE ACTIVE y A DAY Indication: FOR DEPRESSION 10) EZETIMIBE 10MG TAB TAKE ONE TABLET BY MOUTH ONCE A DAY ACTIVE y 11) FINASTERIDE 5MG TAB TAKE ONE TABLET BY MOUTH ONCE A DAY ACTIVE y SWALLOW WHOLE, DO NOT CRUSH, SPLIT, OR CHEW. 12) FLUTICASONE PROP 50MCG 120D NASAL INHL INSTILL 1 SPRAY IN ACTIVE (S)y* NOSTRIL(S) ONCE A DAY FOR ALLERGIES (MUST BE USED DIRECTED FOR MINIMUM OF 21 DAYS TO PROVIDE ADEQUATE BENEFITS) *prn 13) GABAPENTIN 300MG CAP TAKE ONE CAPSULE BY MOUTH TWICE A DAY ACTIVE y 14) GLIPIZIDE 5MG TAB TAKE ONE TABLET BY MOUTH TWO TIMES A DAY ACTIVE/PARKEDy BEFORE MEALS . TAKE 30 MINUTES BEFORE EATING. Indication: FOR DIABETES 15) ISOSORBIDE MONONITRATE 30MG SA TAB TAKE ONE TABLET BY MOUTH ACTIVE y EVERY MORNING . TAKE ON EMPTY STOMACH. SWALLOW WHOLE. DO NOT CRUSH OR CHEW. 16) LIDOCAINE 5% PATCH APPLY 2 PATCHES TO SKIN SITE ONCE A DAY ACTIVE y APPLY PATCH AND PRESS FIRMLY FOR 10-15 SECONDS. KEEP ON FOR 12 HOURS THEN REMOVE PATCH FOR 12 HOURS. Indication: FOR LOCAL ANESTHESIA 17) LOSARTAN 50MG TAB TAKE ONE TABLET BY MOUTH ONCE A DAY ACTIVE y Indication: FOR HIGH BLOOD PRESSURE 18) METFORMIN HCL 500MG 24HR SA TAB TAKE ONE TABLET BY MOUTH ACTIVE y EVERY MORNING AND TAKE TWO TABLETS EVERY EVENING TAKE WITH FOOD. AVOID ALCOHOL. DISCONTINUE BEFORE GETTING XRAY DYE. STOP PIOGLITAZONE Indication: FOR DIABETES 19) METHOCARBAMOL 750MG TAB TAKE 1 TABLET BY MOUTH THREE TIMES A ACTIVE y DAY NEEDED Indication: FOR MUSCLE SPASM 20) MIRABEGRON 50MG SA TAB TAKE ONE TABLET BY MOUTH ONCE A DAY ACTIVE y SWALLOW WHOLE; DO NOT CRUSH, SPLIT, OR CHEW. 21) SYRINGE 2.5-3ML/NDL 25G 1IN USE 1 SYRINGE UNDER THE SKIN ACTIVE MONTHLY (TO BE USED WITH VITAMIN B12 SHOTS) 22) TAMSULOSIN HCL 0.4MG CAP TAKE ONE CAPSULE BY MOUTH AT ACTIVE y BEDTIME APPROXIMATELY 30 MINUTES AFTER THE SAME MEAL EACH DAY 23) TORSEMIDE 20MG TAB TAKE ONE TABLET BY MOUTH ONCE A DAY ACTIVE NO Indication: FOR FLUID RETENTION (EDEMA) ###per 09/15/24 PCP note, started by non [facility]. Can't find note. Not on 03/28/25 [facility] note Inactive Outpatient Medications Status 1) ASPIRIN 81MG EC TAB TAKE ONE TABLET BY MOUTH ONCE A DAY FOR NO HEART OR CIRCULATION. TAKE WITH FOOD. 2) CARVEDILOL 25MG TAB TAKE ONE-HALF TABLET BY MOUTH TWICE A y DAY FOR HEART. TAKE WITH FOOD. 3) CYANOCOBALAMIN 1000MCG/ML INJ INJECT 1000MCG/1ML y INTRAMUSCULARLY MONTHLY 4) FEXOFENADINE HCL 180MG TAB TAKE ONE TABLET BY MOUTH EVERY y MORNING FOR ALLERGIES 5) FUROSEMIDE 20MG TAB TAKE ONE TABLET BY MOUTH ONCE A DAY NO 6) MULTIVIT W/MINERALS, CAP/TAB TAKE 1 TABLET BY MOUTH y ONCE A DAY FOR VITAMIN AND MINERAL SUPPLEMENTATION. TAKE WITH FOOD. 7) OMEPRAZOLE 20MG EC CAP TAKE TWO CAPSULES BY MOUTH EVERY y MORNING TO LOWER STOMACH ACID. TAKE 30 MINUTES PRIOR TO FOOD. 8) TRAZODONE HCL 100MG TAB TAKE TWO TABLETS BY MOUTH AT BEDTIME y* FOR MOOD OR SLEEP. *usually 1 tab qhs Active Non-VA Medications Status 1) Non-VA APPLE CIDER VINEGAR CAP/TAB 1 CAP/TAB BY MOUTH ONCE A ACTIVE no DAY Indication: supplement 2) Non-VA FISH OIL 1000MG (500MG DHA/EPA) CAP 2000MG BY MOUTH ACTIVE y* THREE TIMES A DAY WITH MEALS Indication: FOR HIGH TRIGLYCERIDES *one daily 3) Non-VA PSYLLIUM ORAL PWD 2 TEASPOONFULS BY MOUTH ONCE A DAY ACTIVE no Indication: FOR FIBER SUPPLEMENTATION ALA 600mg daily ntg sl prn (has not used LABS: HGA1C 7.6 H % 04/25/2025 12:40 HGA1C 7.1 H % 02/14/2025 15:27 HGA1C 7.9 H % 12/05/2024 08:57 HGA1C 6.5 H % 08/01/2024 08:41 HGA1C 8.8 H % 2024 11:41 SODIUM 140 mEq/L 02/14/2025 15:12 POTASSIUM 4.2 mEq/L 02/14/2025 15:12 CHLORIDE 104 mEq/L 02/14/2025 15:12 UREA NITROGEN 15 mg/dL 02/14/2025 15:12 CREATININE 0.92 mg/dL 02/14/2025 15:12 CALCIUM 9.3 mg/dL 02/14/2025 15:12 CARBON DIOXIDE 25 mEq/L 02/14/2025 15:12 GLUCOSE 115 H mg/dL 04/25/2025 12:40 EGFR (CKD-EPI 2020) 86 02/14/2025 15:12 SGOT/AST: 24 U/L (02/14/25 15:12) SGPT/ALT: 21 U/L (02/14/25 15:12) B12 461 pg/mL 12/05/2024 08:57 uACR (PB-MA) 57.82 mcg/mg 08/10/2024 12:01 URINE ALBUMIN (PB-STL) 7.80 mg/L 08/10/2024 12:01 CREATININE URINE/OTHERS 13.49 mg/dL 08/10/2024 12:01 TRIGLYCERIDE 169 H mg/dL 12/05/2024 08:57 CHOLESTEROL 136 mg/dL 12/05/2024 08:57 HDL(New) 37.0 L mg/dL 12/05/2024 08:57 DIRECT LDL 69.7 mg/dL 12/05/2024 08:57 CALCULATED LDL 65.2 mg/dL 12/05/2024 08:57 VITAMIN D, 25-HYDROXY 34.1 ng/mL 12/05/2024 08:57 TSH 1.119 uIU/mL 08/10/2024 12:02 Most recent clinic vitals: BP: 130/70 (03/28/2025 12:50) HR: 94 (03/22/2025 16:06) SMBG's: Date fbg lunch pc 05/04 124 129 05/07 150 156 05/18 124 05/19 134 05/20 147 05/21 168* 05/28 160* 05/30 104 05/31 145 8/1 121 8/2 131 8/3 181* 4 150 8/5 157 *at out night before Assessment/Plan: 1) Diabetes - Goal A1c <8%, FPG 80-160, PPG <210 d/t age, significant ASCVD, CM. Controlled based on A1C, not refective of current regimen. Denies hypoglycemia sx. eGFR >45. LFTs wnl. Avoiding TZD since HF with hx EF <50%. Will increase metforminSA and taper SFU. Goal is to d/c SFU. Will consider GLP1 if needed. -increase metforminSA to 500mg qam and 1000mg qpm -continue empagliflozin 25mg daily -decrease glipizide to 5mg 1-2x/d AC before main meals -skip if not eating or if just light snack - instructed vet to check SMBGs daily, rotate times, keep log. - educated vet on hypoglycemia prevention, symptoms, appropriate treatment and when to contact clinic or go to emergency room DM standards of care renal screening: uACR (PB-MA) 57.82 mcg/mg 08/10/2024 statin: [id number] Eye exam: 10/19/24 [facility], no retinopathy 2) CV - BP goal <130/80 mmHg for secondary prevention in patient with known CVD and HF per ACC/AHA and ADA guidelines. BP controlled at recent [facility] clinic. Renal function, K wnl. HFrEF (now recovered based on cardiac MRI), denies sx HF exacerbation. On GDMT ARB, BB, SGLT2i. If needed for BP control, could consider dose titration of ARB or BB, or changing ARB to ARNI, or addition of MRA. Reports exertional CP. Started a couple months ago, so possibly related to significant injury sustained January 2025, but advised vet to discuss w tow motor driver to r/o CV. Advised to try sl ntg when sx occur. Review dosing and admin. Managed by [facility]. continue -amlodipine 10mg daily -losartan 50mg daily -ISMN 30mg QAM -carvedilol 12.5mg (half of 25mg tab) BID 3) med rec completed, list updated. not discussed today, from prior note ) Lipids - on high-intensity statin for secondary prevention. Also on ezetimibe. LDL not at goal <55, but <70 and not reflective of current statin dose. Reassess after updated labs. continue -atorvastatin 80mg daily -ezetimibe 10mg daily -Education provided on nonpharmacologic ways to improve health (including lifestyle management/dietary/physical activity) specific for the vet's needs. -[place] verbalized understanding to all plans discussed today. Questions were answered to vet's satisfaction. Time spent on phone: 43 minutes RTC order entered: 06/25 1030 phone JUAN PharmDomingo Pharmacotherapy Rem V12: PHARMACIST INTERVENTIONS: TYPE 2 DIABETES MELLITUS Medication Intervention(s) Adjust dose or frequency of current medication due to other reason Address adherence Referral/consultation made by pharmacist for additional care PBGabby PharmDomingo Pharmacotherapy Rem V12: Medication reconciliation (changes to active VA and non-VA medication lists to reconcile differences) Changes to medication lists made Discontinue or remove medication Add or renew medication /es/ ROBERTO WYMAND, [facility] Clinical Culinary Artist Signed: 06/05/2025 16:00 NATALYA WAKEFIELD [facility]
[2025-06-06] VITALS (7 sets, daily range): BP systolic 146–165; BP diastolic 74–87; PULSE 72–76; RESP 16–17; TEMP 36.6; O2SAT 94–95; BMI 29.8
--- OUTSIDE RECORDS SUMMARY | 2025-06-06 07:00 | XMS_ITS | Encounter Summary ---
Author Name [facility] [place] Address [address] [place] [address] Care Team Providers Care Election Supervisor Name Role Phone RAYSA GRULLON Primary Care [...] PART A March 01, 1998 PART A [id number] JUANJOSE BARAJAS PATIENT MEDICARE (WNR) MEDICARE (M) PART B March 01, 1998 PART B [id number] JUANJOSE BARAJAS PATIENT Selected Encounter This section includes the information on record at [place] for the Encounter. Date/Time Encounter Type Encounter Description Reason Provider Source Jun 06, 2025 12:00 PM OFF/OP EST MARCH X REQ PHY/QHP PRIMARY CARE/MEDICINE ICD-10-CM M54.2 Cervicalgia NICOLE GRULLON IHCristina Encounter Template Text not used by [place] Assessments - Encounter Diagnoses This section includes the primary and secondary diagnoses documented for the Encounter. Date/Time Primary/Secondary Diagnosis Diagnosis Name Provider Source Jun 06, 2025 12:22 PM PRIMARY Cervicalgia REAGAN CRAFT [facility] Plan of Treatment: Future Appointments (+ 6 months) and Future Tests (+/- 45 days) The Plan of Treatment section includes future care activities for the patient from all [place] [facility]. This section includes future appointments and future orders which are active, pending or scheduled. Future Appointments This section includes appointments that were scheduled to occur 6 months from the date of the Encounter, up to a maximum of 20 appointments. The data comes from all [place] treatment [facility]. Appointment Date/Time Appointment Type Appointme nt Facility Name Jun 12, 2025 01:00 PM AMBULATORY - MEDICINE [facility] Jun 25, 2025 10:30 AM AMBULATORY - MEDICINE [facility] Jul 11, 2025 12:00 PM AMBULATORY - MEDICINE [facility] Active, Pending, and Scheduled Orders This section includes a listing of several types of active, pending, and scheduled orders, including clinic medications orders, diagnostic test orders, procedure orders and consult orders; where the start date of the order is 45 days before the date of the Encounter or 45 days after the date of theEncounter. The data comes from all [facility]. Test Date/Time Test Type Test Details Facility Name May 29, 2025 04:06 PM Consult Order COMMUNITY CARE-DERMATOLOGY 657A4 Cons Machine Rough Rounder's Choice [facility] Social History: Smoking Status (Most current) and Tobacco Use (All prior to encounter date) This section includes the most current, and the historical, smoking and tobacco- related health factors from the [place] facility where the Encounter took place. Current Smoking Status This section includes the most current smoking, or tobacco-related health factor, from the [place] facility where the Encounter took place. Date/Time Current Smoking Status Comment Facil ity Feb 14, 2025 02:30 PM [place]-TOBACCO NEVER USED CIGARETTES [facility] Tobacco Use History This section includes a history of the smoking, or tobacco-related health factors, that were collected on or before the date of the Encounter. The data comes from the [place] facility where the Encounter took place. Date/Time Smoking Status/Tobacco Use Comment F acility Feb 14, 2025 02:30 PM VA-TOBACCO NEVER USED OTHER TYPE [facility] 2024 11:00 AM VA-TOBACCO FORMER USER [facility] 2024 11:00 AM VA-TOBACCO QUIT 15 YRS OR MORE [facility] Feb 17, 2023 10:30 AM VA-TOBACCO FORMER USER [facility] Feb 17, 2023 10:30 AM VA-TOBACCO QUIT 15 YRS OR MORE [facility] Feb 26, 2022 11:00 AM VA-TOBACCO FORMER USER [facility] Feb 26, 2022 11:00 AM VA-TOBACCO QUIT 15 YRS OR MORE [facility] March 03, 2021 09:00 AM VA-TOBACCO FORMER USER [facility] March 03, 2021 09:00 AM VA-TOBACCO QUIT 15 YRS OR MORE [facility] Jan 04, 2019 09:35 AM VA-TOBACCO FORMER USER [facility] Jan 04, 2019 09:35 AM VA-TOBACCO QUIT 15 YRS OR MORE [facility] Jan 22, 2016 10:08 AM QUIT TOBACCO >7 YEARS AGO [facility] CB Advance Directives: All historical and current Section Date Range: From patient's date of to the date document was created. This section includes ALL of a patient's completed or amended [place] Advance and Rescinded Directives. The entries below indicate that a directive exists for the patient, but an actual copy is not included with this document. The data comes from all [place] facilities. Date Advance Directives Provider Source Dec 15, 2017 ADVANCE DIRECTIVE TULIO CRUMP [facility] Encounter Notes: All associated encounter notes This section contains the clinical notes associated to the Encounter. Date/Time Encounter Note(s) Provider Source Jun 06, 2025 12:16 PM NURSING PROGRESS N OTE: LOCAL TITLE: NURSING NOTE PB STANDARD TITLE: NURSING PROGRESS NOTE DATE OF NOTE: JUN 06, 2025@12:16 ENTRY DATE: JUN 06, 2025@12:16:27 AUTHOR: RACHELE CRAFT COSIGNER: URGENCY: STATUS: COMPLETED This is a 75 year old MALE with known Allergies as noted: CODEINE C/C: Neck pain S: stated that he fell at home today and his head to tailbone is hurting. stated that he does not remember what caused him to fall but he fell backwards and hit his head and back. Pelican stated that it is hard for him to move his neck. On the following Active Medications: Active Outpatient Medications (including Supplies): Active [...] A DAY ACTIVE Indication: FOR ANTICOAGULATION 4) ATORVASTATIN CALCIUM 80MG TAB TAKE ONE TABLET BY MOUTH EVERY ACTIVE EVENING Indication: FOR HIGH CHOLESTEROL 5) CHOLECALCIF 50MCG (D3-2,000UNIT) TAB TAKE ONE TABLET BY ACTIVE MOUTH ONCE A DAY FOR VITAMIN D DEFICIENCY. 6) CLOPIDOGREL BISULFATE 75MG TAB TAKE ONE TABLET BY MOUTH ONCE ACTIVE A DAY Indication: FOR STROKE PREVENTION 7) DULOXETINE HCL 30MG EC CAP TAKE ONE CAPSULE BY MOUTH ONCE A ACTIVE DAY DO NOT ABRUPTLY DISCONTINUE MEDICATION. 8) EMPAGLIFLOZIN 25MG TAB TAKE ONE TABLET BY MOUTH ONCE A DAY ACTIVE Indication: FOR DIABETES 9) ESCITALOPRAM OXALATE 10MG TAB TAKE ONE TABLET BY MOUTH ONCE ACTIVE A DAY Indication: FOR DEPRESSION 10) EZETIMIBE 10MG TAB TAKE ONE TABLET BY MOUTH ONCE A DAY ACTIVE 11) FINASTERIDE 5MG TAB TAKE ONE TABLET BY MOUTH ONCE A DAY ACTIVE SWALLOW WHOLE, DO NOT CRUSH, SPLIT, OR CHEW. 12) FLUTICASONE PROP 50MCG 120D NASAL INHL INSTILL 1 SPRAY IN ACTIVE (S) NOSTRIL(S) ONCE A DAY FOR ALLERGIES (MUST BE USED DIRECTED FOR MINIMUM OF 21 DAYS TO PROVIDE ADEQUATE BENEFITS) 13) GABAPENTIN 300MG CAP TAKE ONE CAPSULE BY MOUTH TWICE A DAY ACTIVE 14) GLIPIZIDE 5MG TAB TAKE ONE TABLET BY MOUTH TWO TIMES A DAY ACTIVE/PARKED BEFORE MEALS . TAKE 30 MINUTES BEFORE EATING. Indication: FOR DIABETES 15) ISOSORBIDE MONONITRATE 30MG SA TAB TAKE ONE TABLET BY MOUTH ACTIVE EVERY MORNING . TAKE ON EMPTY STOMACH. SWALLOW WHOLE. DO NOT CRUSH OR CHEW. 16) LIDOCAINE 5% PATCH APPLY 2 PATCHES TO SKIN SITE ONCE A DAY ACTIVE APPLY PATCH AND PRESS FIRMLY FOR 10-15 SECONDS. KEEP ON FOR 12 HOURS THEN REMOVE PATCH FOR 12 HOURS. Indication: FOR LOCAL ANESTHESIA 17) LOSARTAN 50MG TAB TAKE ONE TABLET BY MOUTH ONCE A DAY ACTIVE Indication: FOR HIGH BLOOD PRESSURE 18) METFORMIN HCL 500MG 24HR SA TAB TAKE ONE TABLET BY MOUTH ACTIVE EVERY MORNING AND TAKE TWO TABLETS EVERY EVENING TAKE WITH FOOD. AVOID ALCOHOL. DISCONTINUE BEFORE GETTING XRAY DYE. STOP PIOGLITAZONE Indication: FOR DIABETES 19) METHOCARBAMOL 750MG TAB TAKE 1 TABLET BY MOUTH THREE TIMES A ACTIVE DAY NEEDED Indication: FOR MUSCLE SPASM 20) [...] MINUTES AFTER THE SAME MEAL EACH DAY Active Non-VA Medications Status 1) Non-VA ALPHA-LIPOIC ACID CAP/TAB 600MG BY MOUTH ONCE A DAY ACTIVE 2) Non-VA FISH OIL 1000MG (500MG DHA/EPA) CAP 1000MG BY MOUTH ACTIVE ONCE A DAY Indication: FOR HIGH TRIGLYCERIDES 3) Non-VA NITROGLYCERIN 0.4MG SL TAB 0.4MG UNDER THE TONGUE ACTIVE ONE-TIME NEEDED 25 Total Medications O: Pelican ambulated to the scales without assistive device. Pelican alert and oriented x4. Unlabored breathing. A/P: I advised Pelican that I recommend for him to report to the ER for further evaluationa and treatment due to he hit his head and is on Apixaban. Pelican agreed to plan of care. Pelican refused EMS. Pelican advised that his will take him to [facility]. Report called to CODY Clark at [facility] ER. RTC: as needed /aline/ Rachele Craft RN [facility], [facility] Signed: 06/06/2025 12:22 Receipt Acknowledged By: * AWAITING SIGNATURE * RAYSA GRULLON,[facility]LE [facility]A [facility]
--- OUTSIDE RECORDS SUMMARY | 2025-06-06 07:43 | XMS_ITS | Continuity of Care Document ---
Author Name [facility] Organization [facility] Care Team Providers Care Telegraph Editor Name Role Phone [facility] Unavailable Unavailable Problems Combined list of problems from Department of Defense and Veterans Affairs facilities. It does not include entries that were removed or entered in error. Problem Status Onset Date Problem Type Date of Resolution Comments Source Actinic keratosis Active Condition [facility] Allergic rhinitis Active Condition [facility] BPH - Benign prostatic hypertrophy Active Condition [facility] CAD - Coronary artery disease Active Condition [facility] Constipation Active Condition [facility] Depression Active Condition [facility] Diabetic peripheral neuropathy associated with type 2 diabetes mellitus Active Condition [facility] Exposure to potentially hazardous substance Active Condition [facility] History of malignant basal cell neoplasm of skin Active Condition [facility] HLD - Hyperlipidemia Active Condition [facility] HTN - Hypertension Active Condition [facility] Insomnia (SCT [id number]) Active Condition [facility] Obesity Active Condition [facility] Plantar fasciitis Active Condition [facility] PTSD - Post-traumatic stress disorder Active Condition [facility] Sleep apnea Active Condition [facility] Type 2 diabetes mellitus Active Condition [facility] Unsteady when walking Active Condition [facility] Angina Inactive Condition 12/03/2020 [facility] Diagnosis: ICD-10-CM M54.2 Cervicalgia Active Diagnosis [facility] Diagnosis: ICD-10-CM E11.8 Type 2 diabetes mellitus with unspecified complications Active Diagnosis . [facility] Diagnosis: ICD-10-CM Z46.1 Encounter for fitting and adjustment of hearing aid Active Diagnosis [facility] Diagnosis: ICD-10-CM Z51.81 Encounter for therapeutic drug level monitoring Active Diagnosis [facility] Diagnosis: ICD-10-CM R21 Rash and other nonspecific skin eruption Active Diagnosis [facility] Diagnosis: ICD-10-CM S22.42XD Multiple fx of ribs, left side, subs for fx w routn heal Active Diagnosis [facility] Diagnosis: ICD-10-CM E78.5 Hyperlipidemia, unspecified Active Diagnosis [facility] Diagnosis: ICD-10-CM K05.322 Chronic periodontitis, generalized, moderate Active Diagnosis [facility] Diagnosis: ICD-10-CM I25.10 Athscl heart disease of [place] coronary artery w/o ang pctrs Active Diagnosis [facility] Diagnosis: ICD-10-CM Z00.00 Encntr for general adult medical exam w/o abnormal findings Active Diagnosis [facility] Diagnosis: ICD-10-CM L03.90 Cellulitis, unspecified Active Diagnosis [facility] Diagnosis: ICD-10-CM K02.62 Dental caries on smooth surface penetrating into dentin Active Diagnosis [facility] Medications Combined list of outpatient medications from Department of Defense and Veterans Affairs facilities.Medications provided include 1) outpatient medications from the last 15 months, and 2) patient-reported medications. Medication Details Route Status Patient Instructions Prescription Expires Prescription Number Last Dispense Date Ordering Provider Order Date Order Qty Source ALPHA-LIPOI C ACID CAP/TAB TAKE 600MG BY MOUTH ONCE A DAY ORAL ACTIVE Evangelist [place] 2024 [facility] AMLODIPINE BESYLATE 10MG TAB TAKE ONE TABLET BY MOUTH ONCE A DAY FOR HIGH BLOOD PRESSURE ORAL SUSPEND ED 05/26/2026 [id number] Evangelist GRULLON [address] [place] [address] [facility] AMLODIPINE BESYLATE 10MG TAB TAKE ONE TABLET BY MOUTH ONCE A DAY FOR HIGH BLOOD PRESSURE ORAL DISCONT INUED 07/28/2025 [id number] JAYA ROGERS [address] [place] [address] [facility] APIXABAN 5MG TAB TAKE ONE TABLET BY MOUTH TWICE A DAY FOR ANTICOAG ULATION ORAL ACTIVE 03/29/2026 [id number] ME RODRIGO CAICEDO 2024 180 [place] [facility] APIXABAN 5MG TAB TAKE ONE TABLET BY MOUTH TWICE A DAY FOR ANTICOAG ULATION ORAL DISCONT INUED 06/24/2025 [id number] 5 Evangelist GRULLON R 2023 180 [facility] APIXABAN 5MG TAB TAKE ONE TABLET BY MOUTH TWICE A DAY FOR ANTICOAG ULATION ORAL DISCONT INUED 07/14/2024 [id number] Issac THOMAS 2022 180 [place] [facility] ASPIRIN 81MG TAB,EC TAKE ONE TABLET BY MOUTH ONCE A DAY FOR HEART OR CIRCULAT ION. TAKE WITH FOOD. ORAL DISCONT INUED BY PROVIDE R 05/11/2025 [id number] 5 Evangelist GRULLON R 2023 120 [facility] ASPIRIN 81MG TAB,EC TAKE ONE TABLET BY MOUTH ONCE A DAY FOR HEART OR CIRCULAT ION. TAKE WITH FOOD. ORAL DISCONT INUED 09/30/2024 [id number] 4 Evangelist GRULLON R 2022 120 [facility] ATORVASTATI N CA 40MG TAB TAKE ONE AND ONE-HALF TABLETS BY MOUTH EVERY EVENING FOR HIGH CHOLESTE ROL ORAL DISCONT INUED BY PROVIDE R 10/20/2025 [id number] 5 Evangelist GRULLON R 2024 135 [facility] ATORVASTATI N CA 40MG TAB TAKE ONE AND ONE-HALF TABLETS BY MOUTH EVERY EVENING FOR HIGH CHOLESTE ROL ORAL DISCONT INUED 01/04/2025 [id number] JAYA ROGERS 2023 135 [facility] ATORVASTATI N CA 80MG TAB TAKE ONE TABLET BY MOUTH EVERY EVENING FOR HIGH CHOLESTE ROL ORAL ACTIVE 03/29/2026 [id number] 5 ME RODRIGO CAICEDO 2024 90 [facility] CARVEDILOL 25MG TAB TAKE ONE-HALF TABLET BY MOUTH TWICE A DAY FOR HEART. TAKE WITH FOOD. ORAL DISCONT INUED 09/30/2024 [id number] 4 Evangelist GRULLON R 2022 90 [facility] CARVEDILOL 25MG TAB TAKE ONE-HALF TABLET BY MOUTH TWICE A DAY FOR HEART. TAKE WITH FOOD. ORAL 05/11/2025 [id number] 5 Evangelist GRULLON R 2023 90 [place] [facility] CHOLECALCIF JESSE 50MCG (2,000UNIT) TAB TAKE ONE TABLET BY MOUTH ONCE A DAY FOR VITAMIN D DEFICIEN CY. ORAL ACTIVE 11/09/2025 [id number] 5 Evangelist GRULLON R 2024 100 [place] [facility] CHOLECALCIF JESSE 50MCG (2,000UNIT) TAB TAKE ONE TABLET BY MOUTH ONCE A DAY FOR VITAMIN D DEFICIEN CY. ORAL DISCONT INUED 09/30/2024 [id number] 4 Evangelist GRULLON R 2022 100 [facility] CLOPIDOGREL BISULFATE 75MG TAB TAKE ONE TABLET BY MOUTH ONCE A DAY FOR STROKE PREVENTI ON ORAL ACTIVE 03/29/2026 [id number] 5 ME RODRIGO CAICEDO 2024 90 [facility] CLOPIDOGREL BISULFATE 75MG TAB TAKE ONE TABLET BY MOUTH ONCE A DAY FOR ACUTE CORONARY SYNDROME ORAL DISCONT INUED 10/05/2025 [id number] Evangelist GRULLON R 2023 90 [place] [facility] CYANOCOBALA MIN 1000MCG/ML INJ INJECT 1000MCG/ 1ML INTRAMUS CULARLY MONTHLY INTRAM USCULA R DISCONT INUED 08/03/2024 [id number] MARILU MCCAIN 2022 3 [facility] CYANOCOBALA MIN 1000MCG/ML INJ INJECT 1000MCG/ 1ML INTRAMUS CULARLY MONTHLY INTRAM USCULA R 05/11/2025 [id number] 5 Evangelist GRULLON R 2023 3 [place] [facility] DICLOFENAC NA 1% GEL,TOP APPLY 4 GM TO AFFECTED AREA(S) FOUR TIMES A DAY FOR OSTEOART HRITIS NO MORE THAN 16 GM/DAY TO ANY LOWER EXTREMIT Y JOINT. NO MORE THAN 8 GM/DAY TO ANY UPPER EXTREMIT Y JOINT. MAX 32GM/DAY OVER ALL JOINTS.( MEASURE DOSE WITH RULER INSIDE BOX) MARY Downs 01/20/2025 [id number] 5 JAYA ROGERS 2024 100 [facility] DULOXETINE HCL 30MG CAP,EC TAKE ONE CAPSULE BY MOUTH ONCE A DAY DO NOT ABRUPTLY DISCONTI NUE MEDICATI ON. ORAL ACTIVE 04/24/2026 [id number] 5 MCCAINMARILU JR 2024 90 [facility] DULOXETINE HCL 60MG CAP,EC TAKE ONE CAPSULE BY MOUTH ONCE A DAY FOR NERVE PAIN DO NOT ABRUPTLY DISCONTI NUE MEDICATI ON. ORAL DISCONT INUED 03/07/2025 [id number] JAYA ROGERS 2023 90 [facility] DULOXETINE HCL 60MG CAP,EC TAKE ONE CAPSULE BY MOUTH ONCE A DAY DO NOT ABRUPTLY DISCONTI NUE MEDICATI ON. ORAL 04/21/2025 [id number] TOAN MG 2023 90 [facility] EMPAGLIFLOZ IN 25MG TAB TAKE ONE TABLET BY MOUTH ONCE A DAY FOR DIABETES ORAL ACTIVE 05/26/2026 [id number] 5 Evangelist GRULLON R [address] [place] [address] [facility] EMPAGLIFLOZ IN 25MG TAB TAKE ONE TABLET BY MOUTH ONCE A DAY FOR DIABETES ORAL DISCONT INUED 05/11/2025 [id number] 5 Evangelist GRULLON R [address] [place] [address] [facility] ESCITALOPRA M OXALATE 10MG TAB TAKE ONE TABLET BY MOUTH ONCE A DAY FOR DEPRESSI ON ORAL ACTIVE 10/20/2025 [id number] 5 Evangelist GRULLON R [address] [place] [address] [facility] ESCITALOPRA M OXALATE 10MG TAB TAKE ONE TABLET BY MOUTH ONCE A DAY FOR DEPRESSI ON ORAL DISCONT INUED 01/04/2025 [id number] Evangelist GRULLON R [address] [place] [address] [facility] EZETIMIBE 10MG TAB TAKE ONE TABLET BY MOUTH ONCE A DAY ORAL ACTIVE 08/23/2025 [id number] 5 MARKSAPPHIRESAI ERICKSON [address] [place] [address] [facility] EZETIMIBE 10MG TAB TAKE ONE TABLET BY MOUTH ONCE A DAY ORAL DISCONT INUED 03/08/2025 [id number] 5 Evangelist GRULLON R [address] [place] [address] [facility] EZETIMIBE 10MG TAB TAKE ONE TABLET BY MOUTH ONCE A DAY ORAL DISCONT INUED 01/17/2025 [id number] 5 Evangelist GRULLON R [address] [place] [address] [facility] EZETIMIBE 10MG TAB TAKE ONE TABLET BY MOUTH ONCE A DAY ORAL DISCONT INUED 12/19/2024 [id number] ME RODRIGO CAICEDO 2023 90 [place] [facility] FEXOFENADIN E HCL 180MG TAB TAKE ONE TABLET BY MOUTH EVERY MORNING FOR ALLERGIE S ORAL DISCONT INUED 07/08/2024 [id number] 4 Evangelist GRULLON R [address] [place] [address] [facility] FEXOFENADIN E HCL 180MG TAB TAKE ONE TABLET BY MOUTH EVERY MORNING FOR ALLERGIE S ORAL 05/11/2025 [id number] 5 Evangelist GRULLON R [address] [place] [address] [facility] FINASTERIDE 5MG TAB TAKE ONE TABLET BY MOUTH ONCE A DAY SWALLOW WHOLE, DO NOT CRUSH, SPLIT, OR CHEW. ORAL ACTIVE 07/13/2025 [id number] 5 Nela [place] NDREW D 2023 90 [place] [facility] FINASTERIDE 5MG TAB TAKE ONE TABLET BY MOUTH ONCE A DAY SWALLOW WHOLE, DO NOT CRUSH, SPLIT, OR CHEW. ORAL DISCONT INUED 07/13/2025 [id number] 4 Nela [place] NDREW D 2023 30 [place] [facility] FINASTERIDE 5MG TAB TAKE ONE TABLET BY MOUTH ONCE A DAY SWALLOW WHOLE, DO NOT CRUSH, SPLIT, OR CHEW. ORAL DISCONT INUED 07/09/2024 [id number] 4 Nela [place] NDREW D 2022 30 [place] [facility] FINASTERIDE 5MG TAB TAKE ONE TABLET BY MOUTH ONCE A DAY SWALLOW WHOLE, DO NOT CRUSH, SPLIT, OR CHEW. ORAL 07/09/2024 [id number] 4 Nela [place] NDREW D 2023 90 [place] [facility] FISH OIL 1000MG (500MG DHA/EPA) CAP,ORAL TAKE 1 CAPSULE BY MOUTH ONCE A DAY ORAL ACTIVE Evangelist [place] 2023 [facility] FLUTICASONE PROPIONATE 50MCG/SPRAY SOLN,NASAL, 16GM INSTILL 1 SPRAY IN NOSTRIL( S) ONCE A DAY FOR ALLERGIE S (MUST BE USED DIRECTED FOR MINIMUM OF 21 DAYS TO PROVIDE ADEQUATE BENEFITS ) NASAL SUSPEND ED 04/04/2026 [id number] 5 Evangelist GRULLON R 2024 1 [facility] FLUTICASONE PROPIONATE 50MCG/SPRAY SOLN,NASAL, 16GM INSTILL 1 SPRAY IN NOSTRIL( S) ONCE A DAY FOR ALLERGIE S (MUST BE USED DIRECTED FOR MINIMUM OF 21 DAYS TO PROVIDE ADEQUATE BENEFITS ) NASAL DISCONT INUED 05/11/2025 [id number] 5 Evangelist GRULLON R 2023 1 [facility] FLUTICASONE PROPIONATE 50MCG/SPRAY SOLN,NASAL, 16GM INSTILL 1 SPRAY IN NOSTRIL( S) ONCE A DAY FOR ALLERGIE S (MUST BE USED DIRECTED FOR MINIMUM OF 21 DAYS TO PROVIDE ADEQUATE BENEFITS ) NASAL DISCONT INUED 07/08/2024 [id number] 4 Evangelist GRULLON R 2022 3 [facility] FUROSEMIDE 20MG TAB TAKE ONE TABLET BY MOUTH EVERY MORNING FOR FLUID RETENTIO N ORAL DISCONT INUED BY RICARDO R 05/11/2025 [id number] Evangelist GRULLON R 2023 90 [facility] FUROSEMIDE 20MG TAB TAKE ONE TABLET BY MOUTH EVERY MORNING FOR FLUID RETENTIO N ORAL DISCONT INUED 07/08/2024 [id number] 4 Evangelist GRULLON R 2022 90 [facility] FUROSEMIDE 20MG TAB TAKE ONE TABLET BY MOUTH ONCE A DAY ORAL 05/13/2025 [id number] ME RODRIGO CAICEDO 2024 3 [place] [facility] GABAPENTIN 300MG CAP TAKE ONE CAPSULE BY MOUTH TWICE A DAY ORAL ACTIVE 01/13/2026 [id number] 5 Evangelist GRULLON R 2024 180 [facility] GABAPENTIN 300MG CAP TAKE ONE CAPSULE BY MOUTH TWICE A DAY ORAL DISCONT INUED 04/21/2025 [id number] SAURAVAUGIENela Pierre 2023 180 [place] [facility] GABAPENTIN 300MG CAP TAKE ONE CAPSULE BY MOUTH EVERY EVENING FOR 1 WEEK, THEN TAKE ONE CAPSULE TWICE A DAY ORAL DISCONT INUED 04/21/2025 [id number] LARYCHARLYTOAN LARSON M 2023 180 [place] [facility] GABAPENTIN 300MG CAP TAKE ONE CAPSULE BY MOUTH TWICE A DAY ORAL DISCONT INUED 08/03/2024 [id number] MARILU MCCAIN JR 2022 60 [place] [facility] GLIPIZIDE 10MG TAB TAKE ONE TABLET BY MOUTH TWO TIMES A DAY BEFORE MEALS FOR DIABETES . TAKE 30 MINUTES BEFORE EATING. ORAL DISCONT INUED (EDIT) 04/04/2026 [id number] Evangelist [place] 2024 180 [facility] GLIPIZIDE 10MG TAB TAKE ONE TABLET BY MOUTH THREE TIMES A DAY BEFORE MEALS FOR DIABETES . TAKE 30 MINUTES BEFORE EATING. ORAL DISCONT INUED (EDIT) 10/20/2025 [id number] 5 Evangelist GRULLON R 2024 270 [facility] GLIPIZIDE 10MG TAB TAKE ONE TABLET BY MOUTH THREE TIMES A DAY BEFORE MEALS FOR DIABETES . TAKE 30 MINUTES BEFORE EATING. ORAL DISCONT INUED 01/04/2025 [id number] 4 KENJAYA 2023 270 [facility] GLIPIZIDE 5MG TAB TAKE ONE TABLET BY MOUTH TWO TIMES A DAY BEFORE MEALS FOR DIABETES . TAKE 30 MINUTES BEFORE EATING. ORAL ACTIVE 05/02/2026 [id number] Evangelist [place] 2024 180 [facility] HYDROCHLORO THIAZIDE 25MG TAB TAKE ONE TABLET BY MOUTH ONCE A DAY FOR HIGH BLOOD PRESSURE ORAL DISCONT INUED BY PROVIDE R 10/05/2025 [id number] Evangelist GRULLON R [address] [place] [address] [facility] HYDROCHLORO THIAZIDE 25MG TAB TAKE ONE TABLET BY MOUTH ONCE A DAY FOR EXCESSIV E FLUID AND TO LOWER BLOOD PRESSURE ORAL DISCONT INUED BY PROVIDE R 07/28/2025 [id number] 4 JAYA ROGERS [address] [place] [address] [facility] HYDROCHLORO THIAZIDE 25MG TAB TAKE ONE-HALF TABLET BY MOUTH ONCE A DAY FOR FLUID RETENTIO N (EDEMA) FOR EXCESSIV E FLUID AND TO LOWER BLOOD PRESSURE ORAL DISCONT INUED (EDIT) 06/16/2025 [id number] 4 KENJAYA 2023 45 [facility] HYDROCHLORO THIAZIDE 25MG TAB TAKE ONE TABLET BY MOUTH ONCE A DAY FOR EXCESSIV E FLUID AND TO LOWER BLOOD PRESSURE ORAL DISCONT INUED (EDIT) 05/13/2025 [id number] 4 Evangelist GRULLON R [address] [place] [address] [facility] HYDROCHLORO THIAZIDE 25MG TAB TAKE ONE TABLET BY MOUTH ONCE A DAY FOR EXCESSIV E FLUID AND TO LOWER BLOOD PRESSURE ORAL DISCONT INUED 07/08/2024 [id number] 4 Evangelist GRULLON R [address] [place] [address] [facility] ISOSORBIDE MONONITRATE 30MG TAB,SA TAKE ONE TABLET BY MOUTH EVERY MORNING . TAKE ON EMPTY STOMACH. SWALLOW WHOLE. DO NOT CRUSH OR CHEW. ORAL ACTIVE 08/23/2025 [id number] 5 Evangelist GRULLONINE R 2024 90 [facility] ISOSORBIDE MONONITRATE 30MG TAB,SA TAKE ONE TABLET BY MOUTH EVERY MORNING . TAKE ON EMPTY STOMACH. SWALLOW WHOLE. DO NOT CRUSH OR CHEW. ORAL DISCONT INUED 04/12/2025 [id number] 5 Evangelist GRULLONINE R 2024 90 [facility] ISOSORBIDE MONONITRATE 30MG TAB,SA TAKE ONE TABLET BY MOUTH EVERY MORNING . TAKE ON EMPTY STOMACH. SWALLOW WHOLE. DO NOT CRUSH OR CHEW. ORAL DISCONT INUED 03/08/2025 [id number] 5 Evangelist GRULLON R 2024 90 [facility] ISOSORBIDE MONONITRATE 30MG TAB,SA TAKE ONE TABLET BY MOUTH EVERY MORNING . TAKE ON EMPTY STOMACH. SWALLOW WHOLE. DO NOT CRUSH OR CHEW. ORAL DISCONT INUED 12/19/2024 [id number] ME RODRIGO CAICEDO 2023 90 [place] [facility] LIDOCAINE 5% PATCH APPLY 2 PATCHES TO SKIN SITE ONCE A DAY FOR LOCAL ANESTHES IA APPLY PATCH AND PRESS FIRMLY FOR 10-15 SECONDS. KEEP ON FOR 12 HOURS THEN REMOVE PATCH FOR 12 HOURS. TRANSD ERMAL ACTIVE 02/15/2026 [id number] 5 Evangelist GRULLON R [address] [place] [address] [facility] LISINOPRIL 40MG TAB TAKE ONE TABLET BY MOUTH TWICE A DAY FOR HEART OR BLOOD PRESSURE ORAL DISCONT INUED BY PROVIDE R 05/11/2025 [id number] Evangelist GRULLON R [address] [place] [address] [facility] LISINOPRIL 40MG TAB TAKE ONE TABLET BY MOUTH TWICE A DAY FOR HEART OR BLOOD PRESSURE ORAL DISCONT INUED 07/08/2024 [id number] Evangelist GRULLON R [address] [place] [address] [facility] LOSARTAN 50MG TAB TAKE ONE TABLET BY MOUTH ONCE A DAY FOR HIGH BLOOD PRESSURE ORAL ACTIVE 03/29/2026 [id number] 5 ME RODRIGO CAICEDO 2024 90 [place] [facility] LOSARTAN POTASSIUM 100MG TAB TAKE ONE-HALF TABLET BY MOUTH ONCE A DAY FOR HIGH BLOOD PRESSURE ORAL DISCONT INUED BY PROVIDE R 10/05/2025 [id number] 5 Evangelist GRULLON R 2023 45 [facility] METFORMIN HCL 500MG 24HR TAB,SA TAKE ONE TABLET BY MOUTH EVERY MORNING AND TAKE TWO TABLETS EVERY EVENING TAKE WITH FOOD. AVOID ALCOHOL. DISCONTI NUE BEFORE GETTING XRAY DYE. STOP PIOGLITA ZONE ORAL ACTIVE 08/23/2025 [id number] 5 Evangelist GRULLON R 2024 270 [facility] METFORMIN HCL 500MG 24HR TAB,SA TAKE ONE TABLET BY MOUTH EVERY MORNING AND TAKE TWO TABLETS EVERY EVENING TAKE WITH FOOD. AVOID ALCOHOL. DISCONTI NUE BEFORE GETTING XRAY DYE. STOP PIOGLITA ZONE ORAL DISCONT INUED 07/30/2025 [id number] 5 Evangelist [place] 2024 270 [facility] METFORMIN HCL 500MG 24HR TAB,SA TAKE ONE TABLET BY MOUTH ONCE A DAY FOR 7 DAYS, THEN TAKE TWO TABLETS ONCE A DAY FOR DIABETES TAKE WITH FOOD. AVOID ALCOHOL. DISCONTI NUE BEFORE GETTING XRAY DYE. STOP PIOGLITA ZONE ORAL DISCONT INUED (EDIT) 07/02/2025 [id number] 5 Evangelist [place] 2024 173 [facility] DIVISIO N METHOCARBAM OL 750MG TAB TAKE 1 TABLET BY MOUTH THREE TIMES A DAY NEEDED FOR MUSCLE SPASM ORAL ACTIVE 02/15/2026 [id number] 5 Evangelist GRULLON R 2024 270 [facility] MIRABEGRON 50MG TAB,SA TAKE ONE TABLET BY MOUTH ONCE A DAY SWALLOW WHOLE; DO NOT CRUSH, SPLIT, OR CHEW. ORAL ACTIVE 05/26/2026 [id number] 5 Evangelist GRULLON R 2024 30 [facility] MIRABEGRON 50MG TAB,SA TAKE ONE TABLET BY MOUTH ONCE A DAY SWALLOW WHOLE; DO NOT CRUSH, SPLIT, OR CHEW. ORAL DISCONT INUED 07/13/2025 [id number] 5 Nela [place] NDREW D 2023 30 [place] [facility] MIRABEGRON 50MG TAB,SA TAKE ONE TABLET BY MOUTH ONCE A DAY SWALLOW WHOLE; DO NOT CRUSH, SPLIT, OR CHEW. ORAL 07/09/2024 [id number] 4 Nela [place] NDREW D 2022 30 [place] [facility] MULTIVITAMI NS W/MINERALS, CAP/TAB TAKE 1 TABLET BY MOUTH ONCE A DAY FOR VITAMIN AND MINERAL SUPPLEME NTATION. TAKE WITH FOOD. ORAL DISCONT INUED 07/08/2024 [id number] 4 vEangelist GRULLON R 2022 100 [facility] MULTIVITAMI NS W/MINERALS, CAP/TAB TAKE 1 TABLET BY MOUTH ONCE A DAY FOR VITAMIN AND MINERAL SUPPLEME NTATION. TAKE WITH FOOD. ORAL 05/11/2025 [id number] 5 Evangelist GRULLON R 2023 100 [facility] NITROGLYCER IN 0.4MG TAB,SUBLING UAL DISSOLVE ONE TABLET UNDER THE TONGUE ONE-TIME NEEDED FOR CHEST PAIN; IF NO IMPROVEM ENT AFTER FIRST DOSE CALL 9-1-1. MAY TAKE 2 ADDITION AL DOSES, 5 MINUTES APART. TAKE WHILE SITTING. INSTR:NO T TO EXCEED 3 DOSES/15 MIN--IF PAIN PERSISTS , SEEK MEDICAL ATTENTIO N. SUBLIN GUAL 10/20/2024 [id number] ME RODRIGO CAICEDO 2023 100 [place] [facility] NITROGLYCER IN 0.4MG TAB,SUBLING UAL DISSOLVE ONE TABLET UNDER THE TONGUE ONE-TIME NEEDED SUBLIN GUAL ACTIVE Evangelist [place] 2024 [facility] AYDE N OMEPRAZOLE 20MG CAP,EC TAKE TWO CAPSULES BY MOUTH EVERY MORNING TO LOWER STOMACH ACID. TAKE 30 MINUTES PRIOR TO FOOD. ORAL DISCONT INUED 07/08/2024 [id number] 4 Evangelist GRULLON R 2022 180 [facility] OMEPRAZOLE 20MG CAP,EC TAKE TWO CAPSULES BY MOUTH EVERY MORNING TO LOWER STOMACH ACID. TAKE 30 MINUTES PRIOR TO FOOD. ORAL 05/11/2025 [id number] 5 Evangelist GRULLON R [address] [place] [address] PIOGLITAZON E HCL 30MG TAB TAKE ONE TABLET BY MOUTH ONCE A DAY FOR DIABETES ORAL DISCONT INUED BY PROVIDE R 12/09/2025 [id number] 5 Evangelist GRULLON R 2024 90 [facility] PIOGLITAZON E HCL 30MG TAB TAKE ONE TABLET BY MOUTH ONCE A DAY FOR DIABETES ORAL DISCONT INUED 01/04/2025 [id number] 4 JAYA ROGERS [address] [place] [address] POTASSIUM CHLORIDE 20MEQ TAB,SA (DISPERSIBL E) TAKE ONE TABLET BY MOUTH ONCE A DAY FOR POTASSIU M SUPPLEME NTATION TAKE WITH FOOD, DOSE INCREASE ORAL DISCONT INUED BY PROVIDE R 2025 [id number] 4 Evangelist GRULLON R [address] [place] [address] SILDENAFIL CITRATE 50MG TAB TAKE 1-2 TABLETS BY MOUTH ONE HOUR PRIOR TO SEXUAL ACTIVITY TAKE ON EMPTY STOMACH. NEEDED -- LIMIT 6 DOSES PER 30 DAYS ORAL DISCONT INUED 02/01/2025 [id number] 4 Nela [place] 2023 18 [facility] SODIUM FLUORIDE 1.1% TOOTHPASTE USE DIRECTED BY MOUTH AT BEDTIME FOR DENTAL HEALTH (BRUSH TEETH ONCE DAILY FOR TWO MINUTES BEFORE BEDTIME; SPIT EXCESS INTO SINK AFTER BRUSING - DO NOT SWALLOW) (BRUSH TEETH ONCE DAILY FOR TWO MINUTES BEFORE BEDTIME; SPIT EXCESS INTO SINK AFTER BRUSING - DO NOT SWALLOW) ORAL 12/27/2024 [id number] 4 TYSON GRIJALVA 2023 102 [place] [facility] TAMSULOSIN HCL 0.4MG CAP TAKE ONE CAPSULE BY MOUTH AT BEDTIME APPROXIM ATELY 30 MINUTES AFTER THE SAME MEAL EACH DAY ORAL ACTIVE 07/13/2025 [id number] 5 Nela [place] NDREW D 2023 90 [place] [facility] TAMSULOSIN HCL 0.4MG CAP TAKE ONE CAPSULE BY MOUTH AT BEDTIME APPROXIM ATELY 30 MINUTES AFTER THE SAME MEAL EACH DAY ORAL DISCONT INUED 05/11/2025 [id number] 4 Evangelist GRULLON R 2023 90 [facility] TAMSULOSIN HCL 0.4MG CAP TAKE ONE CAPSULE BY MOUTH AT BEDTIME APPROXIM ATELY 30 MINUTES AFTER THE SAME MEAL EACH DAY ORAL DISCONT INUED 07/09/2024 [id number] Nela [place] NDREW D 2022 90 [facility] TORSEMIDE 20MG TAB TAKE ONE TABLET BY MOUTH ONCE A DAY FOR FLUID RETENTIO N (EDEMA) ORAL DISCONT INUED BY PROVIDE R 09/16/2025 [id number] Evangelist GRULLON R 2023 90 [facility] TRAZODONE HCL 100MG TAB TAKE TWO TABLETS BY MOUTH AT BEDTIME FOR MOOD OR SLEEP. ORAL 05/11/2025 [id number] Evangelist GRULLON R 2023 180 [facility] Allergies, Adverse Reactions, Alerts Combined list of allergies from Department of Defense and Veterans Affairs facilities. It does not include entries that were removed or entered in error. Substance Category Reaction Severity Reaction type Status Date Reported Comments Source CODEINE Propensity to adverse reactions to drug (finding) Nausea and vomiting active 6 [facility] Immunizations Combined list of available immunizations from the Department of Defense and Veterans Affairs facilities. Immunization Series Date Given Administered By Site Reaction Lot Number CVX Code Drug Process Control Tech Status Comments Source INFLUENZA, HIGH-DOSE, TRIVALENT, PF 6 2023 135 complet ed HISTORICA L INFORMATI ON - FROM OTHER REGISTRY, [facility] INFLUENZA VACCINE, QUADRIVALENT, ADJUVANTED 5 2022 205 complet ed HISTORICA L INFORMATI ON - FROM OTHER REGISTRY, [facility] INFLUENZA VACCINE, QUADRIVALENT, ADJUVANTED 2021 205 complet ed [facility] INFLUENZA, HIGH-DOSE, QUADRIVALENT 4 2020 197 complet ed HISTORICA L INFORMATI ON - FROM OTHER REGISTRY, [facility] INFLUENZA, UNSPECIFIED FORMULATION 2020 88 complet ed [facility] ZOSTER RECOMBINANT 2 2020 187 complet ed [facility] PNEUMOCOCCAL POLYSACCHARID E PPV23 2020 33 complet ed [facility] TDAP 2020 115 complet ed [facility] ZOSTER RECOMBINANT 1 2020 187 complet ed [facility] COVID-19 (MODERNA), MRNA, LNP-S, PF, 100 MCG/0.5 ML DOSE 2 2020 207 complet ed [facility] COVID-19 (MODERNA), MRNA, LNP-S, PF, 100 MCG/0.5 ML DOSE 1 2020 207 complet ed [facility] INFLUENZA, UNSPECIFIED FORMULATION 2019 88 complet ed [facility] INFLUENZA, UNSPECIFIED FORMULATION 2018 88 complet ed [facility] PNEUMOCOCC[facility] CONJUGATE PCV 13 2017 133 complet ed [facility] INFLUENZA, SEASONAL, INJECTABLE, PRESERVATIVE FREE 2016 140 complet ed Right Deltoid [facility] INFLUENZA, SEASONAL, INJECTABLE, PRESERVATIVE FREE 2015 140 complet ed [place] [facility] INFLUENZA, UNSPECIFIED FORMULATION 2014 88 complet ed [facility] INFLUENZA, HIGH DOSE SEASONAL 3 2014 135 complet ed HISTORICA L INFORMATI ON - FROM OTHER REGISTRY, [facility] INFLUENZA, SEASONAL, INJECTABLE 2 2013 141 complet ed HISTORICA L INFORMATI ON - FROM OTHER REGISTRY, [facility] INFLUENZA, SEASONAL, INJECTABLE 1 2012 141 complet ed HISTORICA L INFORMATI ON - FROM OTHER REGISTRY, [facility] ZOSTER LIVE 1 2012 121 complet ed HISTORICA L INFORMATI ON - FROM OTHER REGISTRY, [facility] PNEUMOCOCCAL POLYSACCHARID E PPV23 2010 33 complet ed [facility] Results Combined list of recent chemistry, hematology and other laboratory results from Department of Defense and Veterans Affairs, ranging from 15 months to all on record, depending upon the facility. Order Name Results Value Reference Range Date Interpretation Specimen Comments Source GLUCOSE GLUCOSE [MASS/VOLUM E] IN SERUM OR PLASMA 115 mg/dL 72 - 99 04/25 H Specimen Type: PLASMA No comment entered. Ordering Provider: Evangelist WAKEFIELD Report Released Date/Time : Apr 25, 2025 12:31 PM Reporting Lab: [place] [facility] [address] [place] [address] Performin g Lab: [place] [facility] [address] [place] [address] [facility] HGA1C HEMOGLOBIN A1C/HEMOGLO BIN.TOTAL IN BLOOD 7.6 4.0 - 6.0 04/25 H Specimen Type: BLOOD No comment entered. Ordering Provider: Evangelist [place] Report Released Date/Time : Apr 25, 2025 12:31 PM Reporting Lab: [place] [facility] [address] [place] [address] Performin g Lab: [place] [facility] [address] [place] [address] [facility] HGA1C HEMOGLOBIN A1C/HEMOGLO BIN.TOTAL IN BLOOD 7.1 4.0 - 6.0 02/14 H Specimen Type: BLOOD No comment entered. Ordering Provider: Evangelist GRULLON Report Released Date/Time : Feb 14, 2025 03:27 PM Reporting Lab: [place] [facility] [address] [place] [address] Performin g Lab: [place] [facility] [address] [place] [address] [facility] POC UA (STL-PB-MA ) PROTEIN [MASS/VOLUM E] IN URINE BY TEST STRIP Negativem g/dL 02/14 Specimen Type: URINE No comment entered. Ordering Provider: Evangelist GRULLON Report Released Date/Time : Feb 14, 2025 03:24 PM Reporting Lab: [place] [facility] [address] [facility] [place] [address] Performin g Lab: [place] [facility] [address] [facility] [address] [facility] [address] [facility] POC UA (STL-PB-MA ) HEMOGLOBIN [MASS/VOLUM E] IN URINE BY TEST STRIP Negative 02/14 Specimen Type: URINE No comment entered. Ordering Provider: Evangelist GRULLON Report Released Date/Time : Feb 14, 2025 03:24 PM Reporting Lab: [place] [facility] [address] [facility] [place] [address] Performin g Lab: [place] [facility] [address] [facility] [address] [facility] POC UA (STL-PB-MA ) LEUKOCYTES [PRESENCE] IN URINE Negative 02/14 Specimen Type: URINE No comment entered. Ordering Provider: Evangelist GRULLON Report Released Date/Time : Feb 14, 2025 03:24 PM Reporting Lab: [place] [facility] [address] [facility] [address] Performin g Lab: [place] [facility] [address] [facility] [address] [facility] POC UA (STL-PB-MA ) COLOR OF URINE Yellow 02/14 Specimen Type: URINE No comment entered. Ordering Provider: RAYSA GRULLON Report Released Date/Time : Feb 14, 2025 03:24 PM Reporting Lab: [place] [facility] [address] [facility] [address] [facility] [place] [address] Performin g Lab: [place] [facility] [address] [facility] [address] [place] [address] [facility] POC UA (STL-PB-MA ) SPECIFIC GRAVITY OF URINE 1.010 1.005 - 1.030 02/14 Specimen Type: URINE No comment entered. Ordering Provider: Evangelist GRULLON Report Released Date/Time : Feb 14, 2025 03:24 PM Reporting Lab: [place] [facility] [address] [place] [address] Performin g Lab: [place] [facility] [address] [facility] [address] [facility] [address] [facility] POC UA (STL-PB-MA ) UROBILINOGE N [UNITS/VOLU ME] IN URINE 2.0 {Joy' U}/dL 0.1 - 1.0 02/14 Specimen Type: URINE No comment entered. Ordering Provider: Evangelist GRULLON Report Released Date/Time : Feb 14, 2025 03:24 PM Reporting Lab: [facility] [address] [facility] [address] Performin g Lab: [place] [facility] [address] [facility] [address] [facility] POC UA (STL-PB-MA ) BILIRUBIN.T OTAL [PRESENCE] IN URINE Negative 02/14 Specimen Type: URINE No comment entered. Ordering Provider: Evangelist GRULLON Report Released Date/Time : Feb 14, 2025 03:24 PM Reporting Lab: [place] [facility] [address] [address] [facility] [address] Performin g Lab: [place] [facility] [address] [facility] [address] [facility] POC UA (STL-PB-MA ) KETONES [MASS/VOLUM E] IN URINE BY TEST STRIP Negativem g/dL 02/14 Specimen Type: URINE No comment entered. Ordering Provider: Evangelist GRULLON Report Released Date/Time : Feb 14, 2025 03:24 PM Reporting Lab: [place] [facility] [address] [facility] [address] Performin g Lab: [place] [facility] [address] [facility] [facility] [address] [facility] [address] [facility] POC UA (STL-PB-MA ) GLUCOSE [MASS/VOLUM E] IN URINE BY TEST STRIP 500 mg/dL 02/14 Specimen Type: URINE No comment entered. Ordering Provider: Evangelist GRULLON Report Released Date/Time : Feb 14, 2025 03:24 PM Reporting Lab: [place] [facility] [address] [place] [address] Performin g Lab: [place] [facility] [address] [facility] [place] [address] [facility] POC UA (STL-PB-MA ) PH OF URINE 6.0 5.0 - 8.0 02/14 Specimen Type: URINE No comment entered. Ordering Provider: Evangelist GRULLON Report Released Date/Time : Feb 14, 2025 03:24 PM Reporting Lab: [place] [facility] [address] [place] [address] Performin g Lab: [place] [facility] [address] [place] [facility] [place] [address] [facility] POC UA (STL-PB-MA ) NITRITE [PRESENCE] IN URINE BY TEST STRIP Negative 02/14 Specimen Type: URINE No comment entered. Ordering Provider: Evangelist GRULLON Report Released Date/Time : Feb 14, 2025 03:24 PM Reporting Lab: [place] [facility] [address] [place] [address] Performin g Lab: [place] [facility] [address] [place] [facility] [place] [address] [facility] POC UA (STL-PB-MA ) CLARITY OF URINE Clear 02/14 Specimen Type: URINE No comment entered. Ordering Provider: Evangelist GRULLON Report Released Date/Time : Feb 14, 2025 03:24 PM Reporting Lab: [place] [facility] [address] [place] [address] Performin g Lab: [place] [facility] [address] [facility] [address] [place] [facility] COMPREHENS HERNANDEZ METABOLIC PANEL CREATININE [MASS/VOLUM E] IN SERUM OR PLASMA 0.92 mg/dL 0.7 - 1.3 02/14 Specimen Type: PLASMA No comment entered. Ordering Provider: Evangelist GRULLON Report Released Date/Time : Feb 14, 2025 03:12 PM Reporting Lab: [place] [facility] [address] [place] [address] Performin g Lab: [place] [facility] [address] [place] [address] [facility] COMPREHENS HERNANDEZ METABOLIC PANEL UREA NITROGEN [MASS/VOLUM E] IN SERUM OR PLASMA 15 mg/dL 9 - 25 02/14 Specimen Type: PLASMA No comment entered. Ordering Provider: Evangelist GRULLON Report Released Date/Time : Feb 14, 2025 03:12 PM Reporting Lab: [place] [facility] [address] [place] [address] Performin g Lab: [place] [facility] [address] [place] [address] [facility] COMPREHENS HERNANDEZ METABOLIC PANEL GLUCOSE [MASS/VOLUM E] IN SERUM OR PLASMA 264 mg/dL 72 - 99 02/14 H Specimen Type: PLASMA No comment entered. Ordering Provider: Evangelist GRULLON Report Released Date/Time : Feb 14, 2025 03:12 PM Reporting Lab: [place] [facility] [address] [place] [address] Performin g Lab: [place] [facility] [address] [place] [address] [facility] COMPREHENS HERNANDEZ METABOLIC PANEL SODIUM [MOLES/VOLU ME] IN SERUM OR PLASMA 140 meq/L 136 - 145 02/14 Specimen Type: PLASMA No comment entered. Ordering Provider: Evangelist GRULLON R Report Released Date/Time : Feb 14, 2025 03:12 PM Reporting Lab: [place] [facility] [address] [place] [address] Performin g Lab: [place] [facility] [address] [place] [address] [facility] COMPREHENS HERNANDEZ METABOLIC PANEL POTASSIUM [MOLES/VOLU ME] IN SERUM OR PLASMA 4.2 meq/L 3.5 - 5 02/14 Specimen Type: PLASMA No comment entered. Ordering Provider: Evangelist GRULLON Report Released Date/Time : Feb 14, 2025 03:12 PM Reporting Lab: [place] [facility] [address] [place] [address] Performin g Lab: [place] [facility] [address] [place] [address] [facility] COMPREHENS HERNANDEZ METABOLIC PANEL CHLORIDE [MOLES/VOLU ME] IN SERUM OR PLASMA 104 meq/L 98 - 107 02/14 Specimen Type: PLASMA No comment entered. Ordering Provider: Evangelist GRULLON R Report Released Date/Time : Feb 14, 2025 03:12 PM Reporting Lab: [place] [facility] [address] [place] [address] Performin g Lab: [place] [facility] [address] [place] [address] [facility] COMPREHENS HERNANDEZ METABOLIC PANEL CARBON DIOXIDE, TOTAL [MOLES/VOLU ME] IN SERUM OR PLASMA 25 meq/L 22 - 31 02/14 Specimen Type: PLASMA No comment entered. Ordering Provider: Evangelist GRULLON R Report Released Date/Time : Feb 14, 2025 03:12 PM Reporting Lab: [place] [facility] [address] [place] [address] Performin g Lab: [place] [facility] [address] [place] [address] [facility] COMPREHENS HERNANDEZ METABOLIC PANEL CALCIUM [MASS/VOLUM E] IN SERUM OR PLASMA 9.3 mg/dL 8.4 - 10.4 02/14 Specimen Type: PLASMA No comment entered. Ordering Provider: Evangelist GRULLON R Report Released Date/Time : Feb 14, 2025 03:12 PM Reporting Lab: [place] [facility] [address] [place] [address] Performin g Lab: [place] [facility] [address] [place] [address] [facility] COMPREHENS HERNANDEZ METABOLIC PANEL PROTEIN [MASS/VOLUM E] IN SERUM OR PLASMA 6.8 g/dL 6 - 8.6 02/14 Specimen Type: PLASMA No comment entered. Ordering Provider: Evangelist GRULLON R Report Released Date/Time : Feb 14, 2025 03:12 PM Reporting Lab: [place] [facility] [address] [place] [address] Performin g Lab: [place] [facility] [address] [place] [address] [facility] COMPREHENS HERNANDEZ METABOLIC PANEL ALBUMIN [MASS/VOLUM E] IN SERUM OR PLASMA 4.2 g/dL 3.4 - 5 02/14 Specimen Type: PLASMA No comment entered. Ordering Provider: Evangelist GRULLON R Report Released Date/Time : Feb 14, 2025 03:12 PM Reporting Lab: [place] [facility] [address] [place] [address] Performin g Lab: [place] [facility] [address] [place] [address] [facility] COMPREHENS HERNANDEZ METABOLIC PANEL BILIRUBIN.T OTAL [MASS/VOLUM E] IN SERUM OR PLASMA 1.1 mg/dL 0.2 - 1.2 02/14 Specimen Type: PLASMA No comment entered. Ordering Provider: Evangelist GRULLON R Report Released Date/Time : Feb 14, 2025 03:12 PM Reporting Lab: [place] [facility] [address] [place] [address] Performin g Lab: [place] [facility] [address] [place] [address] [facility] COMPREHENS HERNANDEZ METABOLIC PANEL ALKALINE PHOSPHATASE [ENZYMATIC ACTIVITY/VO LUME] IN SERUM OR PLASMA 218 U/L 40 - 150 02/14 H Specimen Type: PLASMA No comment entered. Ordering Provider: Evangelist GRULLON R Report Released Date/Time : Feb 14, 2025 03:12 PM Reporting Lab: [place] [facility] [address] [place] [address] Performin g Lab: [place] [facility] [address] [place] [address] [facility] COMPREHENS HERNANDEZ METABOLIC PANEL ASPARTATE AMINOTRANSF ERASE [ENZYMATIC ACTIVITY/VO LUME] IN SERUM OR PLASMA 24 U/L 5 - 34 02/14 Specimen Type: PLASMA No comment entered. Ordering Provider: Evangelist GRULLON R Report Released Date/Time : Feb 14, 2025 03:12 PM Reporting Lab: [place] [facility] [address] [place] [address] Performin g Lab: [place] [facility] [address] [place] [address] [facility] COMPREHENS HERNANDEZ METABOLIC PANEL ALANINE AMINOTRANSF ERASE [ENZYMATIC ACTIVITY/VO LUME] IN SERUM OR PLASMA 21 U/L 8 - 40 02/14 Specimen Type: PLASMA No comment entered. Ordering Provider: Evangelist GRULLON R Report Released Date/Time : Feb 14, 2025 03:12 PM Reporting Lab: [place] [facility] [address] [place] [address] Performin g Lab: [place] [facility] [address] [place] [address] [facility] COMPREHENS HERNANDEZ METABOLIC PANEL GLOMERULAR FILTRATION RATE/1.73 SQ M.PREDICTED [VOLUME RATE/AREA] IN SERUM, PLASMA OR BLOOD BY CREATININE- BASED FORMULA (CKD-EPI 2020) 86 02/14 Specimen Type: PLASMA No comment entered. Ordering Provider: Evangelist GRULLON R Report Released Date/Time : Feb 14, 2025 03:12 PM Reporting Lab: [place] [facility] [address] [place] [address] Performin g Lab: [place] [facility] [address] [place] [address] [facility] CBC LEUKOCYTES [#/VOLUME] IN BLOOD BY AUTOMATED COUNT 9.4 10*3/uL 3.6 - 11.2 02/14 Specimen Type: BLOOD No comment entered. Ordering Provider: Evangelist GRULLON R Report Released Date/Time : Feb 14, 2025 03:00 PM Reporting Lab: [place] [facility] [address] [place] [address] Performin g Lab: [place] [facility] [address] [place] [address] [facility] CBC ERYTHROCYTE S [#/VOLUME] IN BLOOD BY AUTOMATED COUNT 4.38 10*6/uL 4.10 - 5.70 02/14 Specimen Type: BLOOD No comment entered. Ordering Provider: Evangelist GRULLON R Report Released Date/Time : Feb 14, 2025 03:00 PM Reporting Lab: [place] [facility] [address] [place] [address] Performin g Lab: [place] [facility] [address] [place] [address] [facility] CBC HEMOGLOBIN [MASS/VOLUM E] IN BLOOD 14.1 g/dL 13.1 - 16.8 02/14 Specimen Type: BLOOD No comment entered. Ordering Provider: Evangelist GRULLON Report Released Date/Time : Feb 14, 2025 03:00 PM Reporting Lab: [place] [facility] [address] [place] [address] Performin g Lab: [place] [facility] [address] [place] [address] [facility] CBC HEMATOCRIT [VOLUME FRACTION] OF BLOOD 41.3 38.2 - 48.4 02/14 Specimen Type: BLOOD No comment entered. Ordering Provider: Evangelist GRULLON Report Released Date/Time : Feb 14, 2025 03:00 PM Reporting Lab: [place] [facility] [address] [place] [address] Performin g Lab: [place] [facility] [address] [place] [address] [facility] CBC MCV [ENTITIC VOLUME] BY AUTOMATED COUNT 94.3 fL 80.0 - 100.0 02/14 Specimen Type: BLOOD No comment entered. Ordering Provider: Evangelist GRULLON R Report Released Date/Time : Feb 14, 2025 03:00 PM Reporting Lab: [place] [facility] [address] [place] [address] Performin g Lab: [place] [facility] [address] [place] [address] [facility] CBC MCH [ENTITIC MASS] BY AUTOMATED COUNT 32.2 pg 27.0 - 34.0 02/14 Specimen Type: BLOOD No comment entered. Ordering Provider: Evangelist GRULLON R Report Released Date/Time : Feb 14, 2025 03:00 PM Reporting Lab: [place] [facility] [address] [place] [address] Performin g Lab: [place] [facility] [address] [place] [address] [facility] CBC MCHC [MASS/VOLUM E] BY AUTOMATED COUNT 34.1 g/dL 33.0 - 36.0 02/14 Specimen Type: BLOOD No comment entered. Ordering Provider: Evangelist GRULLON Report Released Date/Time : Feb 14, 2025 03:00 PM Reporting Lab: [place] [facility] [address] [place] [address] Performin g Lab: [place] [facility] [address] [place] [address] [facility] CBC PLATELETS [#/VOLUME] IN BLOOD BY AUTOMATED COUNT 379 10*3/uL 150 - 400 02/14 Specimen Type: BLOOD No comment entered. Ordering Provider: Evangelist GRULLON R Report Released Date/Time : Feb 14, 2025 03:00 PM Reporting Lab: [place] [facility] [address] [place] [address] Performin g Lab: [place] [facility] [address] [place] [address] [facility] CBC PLATELET MEAN VOLUME [ENTITIC VOLUME] IN BLOOD BY AUTOMATED COUNT 10.1 fL 7.5 - 11.2 02/14 Specimen Type: BLOOD No comment entered. Ordering Provider: Evangelist GRULLON R Report Released Date/Time : Feb 14, 2025 03:00 PM Reporting Lab: [place] [facility] [address] [place] [address] Performin g Lab: [place] [facility] [address] [place] [address] [facility] CBC ERYTHROCYTE DISTRIBUTIO N WIDTH [RATIO] BY AUTOMATED COUNT 13.6 11.8 - 15.1 02/14 Specimen Type: BLOOD No comment entered. Ordering Provider: Evangelist GRULLON R Report Released Date/Time : Feb 14, 2025 03:00 PM Reporting Lab: [place] [facility] [address] [place] [address] Performin g Lab: [place] [facility] [address] [place] [address] [facility] CBC LYMPHOCYTES /100 LEUKOCYTES IN BLOOD BY AUTOMATED COUNT 10.8 02/14 Specimen Type: BLOOD No comment entered. Ordering Provider: Evangelist GRULLON R Report Released Date/Time : Feb 14, 2025 03:00 PM Reporting Lab: [place] [facility] [address] [place] [address] Performin g Lab: [place] [facility] [address] [place] [address] [facility] CBC MONOCYTES/1 00 LEUKOCYTES IN BLOOD BY AUTOMATED COUNT 5.4 02/14 Specimen Type: BLOOD No comment entered. Ordering Provider: Evangelist GRULLON Report Released Date/Time : Feb 14, 2025 03:00 PM Reporting Lab: [place] [facility] [address] [place] [address] Performin g Lab: [place] [facility] [address] [place] [address] [facility] CBC NEUTROPHILS /100 LEUKOCYTES IN BLOOD BY AUTOMATED COUNT 82.1 02/14 Specimen Type: BLOOD No comment entered. Ordering Provider: Evangelist GRULLON Report Released Date/Time : Feb 14, 2025 03:00 PM Reporting Lab: [place] [facility] [address] [place] [address] Performin g Lab: [place] [facility] [address] [place] [address] [facility] CBC EOSINOPHILS /100 LEUKOCYTES IN BLOOD BY AUTOMATED COUNT 0.5 02/14 Specimen Type: BLOOD No comment entered. Ordering Provider: Evangelist GRULLON Report Released Date/Time : Feb 14, 2025 03:00 PM Reporting Lab: [place] [facility] [address] [place] [address] Performin g Lab: [place] [facility] [address] [place] [address] [facility] CBC BASOPHILS/1 00 LEUKOCYTES IN BLOOD BY AUTOMATED COUNT 0.6 02/14 Specimen Type: BLOOD No comment entered. Ordering Provider: Evangelist GRULLON Report Released Date/Time : Feb 14, 2025 03:00 PM Reporting Lab: [place] [facility] [address] [place] [address] Performin g Lab: [place] [facility] [address] [place] [address] [facility] CBC LYMPHOCYTES [#/VOLUME] IN BLOOD BY AUTOMATED COUNT 1.01 10*3/uL 0.77 - 4.50 02/14 Specimen Type: BLOOD No comment entered. Ordering Provider: Evangelist GRULLON Report Released Date/Time : Feb 14, 2025 03:00 PM Reporting Lab: [place] [facility] [address] [place] [address] Performin g Lab: [place] [facility] [address] [place] [address] [facility] CBC MONOCYTES [#/VOLUME] IN BLOOD BY AUTOMATED COUNT 0.51 10*3/uL 0.19 - 0.8 02/14 Specimen Type: BLOOD No comment entered. Ordering Provider: Evangelist GRULLON R Report Released Date/Time : Feb 14, 2025 03:00 PM Reporting Lab: [place] [facility] [address] [place] [address] Performin g Lab: [place] [facility] [address] [place] [address] [facility] CBC NEUTROPHILS [#/VOLUME] IN BLOOD BY AUTOMATED COUNT 7.69 10*3/uL 2.10 - 8.00 02/14 Specimen Type: BLOOD No comment entered. Ordering Provider: Evangelist GRULLON R Report Released Date/Time : Feb 14, 2025 03:00 PM Reporting Lab: [place] [facility] [address] [place] [address] Performin g Lab: [place] [facility] [address] [place] [address] [facility] CBC EOSINOPHILS [#/VOLUME] IN BLOOD BY AUTOMATED COUNT 0.05 10*3/uL 0.00 - 0.60 02/14 Specimen Type: BLOOD No comment entered. Ordering Provider: Evangelist GRULLON R Report Released Date/Time : Feb 14, 2025 03:00 PM Reporting Lab: [place] [facility] [address] [place] [address] Performin g Lab: [place] [facility] [address] [place] [address] [facility] CBC BASOPHILS [#/VOLUME] IN BLOOD BY AUTOMATED COUNT 0.06 10*3/uL 0.00 - 0.20 02/14 Specimen Type: BLOOD No comment entered. Ordering Provider: Evangelist GRULLON Report Released Date/Time : Feb 14, 2025 03:00 PM Reporting Lab: [place] [facility] [facility] [address] [place] [address] Performin g Lab: [place] [facility] [address] [place] [address] [facility] CBC IMMATURE GRANULOCYTE S/100 LEUKOCYTES IN BLOOD BY AUTOMATED COUNT 0.6 02/14 Specimen Type: BLOOD No comment entered. Ordering Provider: Evangelist GRULLON R Report Released Date/Time : Feb 14, 2025 03:00 PM Reporting Lab: [place] [facility] [address] [place] [address] Performin g Lab: [place] [facility] [address] [place] [address] [facility] CBC IMMATURE GRANULOCYTE S [#/VOLUME] IN BLOOD BY AUTOMATED COUNT 0.06 10*3/uL 0.00 - 0.05 02/14 H Specimen Type: BLOOD No comment entered. Ordering Provider: Evangelist GRULLON R Report Released Date/Time : Feb 14, 2025 03:00 PM Reporting Lab: [place] [facility] [address] [place] [address] Performin g Lab: [place] [facility] [address] [place] [address] [facility] DIRECT LDL (MA-PB) CHOLESTEROL IN LDL [MASS/VOLUM E] IN SERUM OR PLASMA BY DIRECT ASSAY 69.7 mg/dL 0 - 99.9 12/05 Specimen Type: PLASMA No comment entered. Ordering Provider: JAYA ROGERS Report Released Date/Time : Aug 10, 2024 07:02 AM Reporting Lab: [place] [facility] [address] [place] [address] Performin g Lab: [place] [facility] [address] [place] [address] [facility] CHOLESTERO L PANEL (PB) CHOLESTEROL [MASS/VOLUM E] IN SERUM OR PLASMA 136 mg/dL 0 - 200 12/05 Specimen Type: PLASMA No comment entered. Ordering Provider: JAYA ROGERS Report Released Date/Time : Aug 10, 2024 07:02 AM Reporting Lab: [place] [facility] [address] [place] [address] Performin g Lab: [place] [facility] [address] [place] [address] [facility] CHOLESTERO L PANEL (PB) TRIGLYCERID E [MASS/VOLUM E] IN SERUM OR PLASMA 169 mg/dL 0 - 150 12/05 H Specimen Type: PLASMA No comment entered. Ordering Provider: JAYA ROGERS Report Released Date/Time : Aug 10, 2024 07:02 AM Reporting Lab: [place] [facility] [address] [place] [address] Performin g Lab: [place] [facility] [address] [place] [address] [facility] CHOLESTERO L PANEL (PB) CHOLESTEROL IN LDL [MASS/VOLUM E] IN SERUM OR PLASMA BY CALCULATION 65.2 mg/dL 12/05 Specimen Type: PLASMA No comment entered. Ordering Provider: JAYA ROGERS Report Released Date/Time : Aug 10, 2024 07:02 AM Reporting Lab: [place] [facility] [address] [place] [address] Performin g Lab: [place] [facility] [address] [place] [address] 8 [facility] CHOLESTERO L PANEL (PB) CHOLESTEROL IN HDL [MASS/VOLUM E] IN SERUM OR PLASMA 37.0 mg/dL 40 02/04 /2025 L Specimen Type: PLASMA No comment entered. Ordering Provider: JAYA ROGERS Report Released Date/Time : Aug 10, 2024 07:02 AM Reporting Lab: [place] [facility] [address] [place] [address] Performin g Lab: [place] [facility] [address] [place] [address] [facility] CHOLESTERO L PANEL (PB) CHOLESTEROL IN HDL/CHOLEST JESSE.TOTAL [MASS RATIO] IN SERUM OR PLASMA 27.2 25 12/05 Specimen Type: PLASMA No comment entered. Ordering Provider: JAYA ROGERS Report Released Date/Time : Aug 10, 2024 07:02 AM Reporting Lab: [place] [facility] [address] [place] [address] Performin g Lab: [place] [facility] [address] [place] [address] [facility] VITAMIN D, 25-HYDROXY 25-HYDROXYV ITAMIN D3 [MASS/VOLUM E] IN SERUM OR PLASMA 34.1 ng/mL 30 - 96 12/05 Specimen Type: SERUM No comment entered. Ordering Provider: JAYA ROGERS Report Released Date/Time : Aug 10, 2024 07:02 AM Reporting Lab: [place] [facility] [address] [place] [address] Performin g Lab: [place] [facility] [address] [place] [address] [facility] HGA1C HEMOGLOBIN A1C/HEMOGLO BIN.TOTAL IN BLOOD 7.9 4.0 - 6.0 12/05 H Specimen Type: BLOOD No comment entered. Ordering Provider: JAYA ROGERS Report Released Date/Time : Aug 10, 2024 07:02 AM Reporting Lab: [place] [facility] [address] [place] [address] Performin g Lab: [place] [facility] [address] [place] [address] [facility] Vital Signs Combined list of inpatient and outpatient Vital Signs from Department of Defense and Veterans Affairs, ranging from 12 months to all on record, depending upon the facility. Vital Sign Value Date Comments Source SYSTOLIC BLOOD PRESSURE 130 03/28/2025 12:50:00 [facility] DIASTOLIC BLOOD PRESSURE 70 03/28/2025 12:50:[facility] SYSTOLIC BLOOD PRESSURE 140 03/22/2025 16:06:00 [place] [facility] DIASTOLIC BLOOD PRESSURE 80 03/22/2025 16:06:00 [place] [facility] TEMPERATURE 97.9 03/22/2025 16:06:00 [place] [facility] PULSE 94 03/22/2025 16:06:00 [place] [facility] SYSTOLIC BLOOD PRESSURE 136 02/14/2025 14:37:31 [place] [facility] DIASTOLIC BLOOD PRESSURE 79 02/14/2025 14:37:31 [place] [facility] PULSE OXIMETRY 96 02/14/2025 14:37:31 [facility] [place] [facility] WEIGHT 211.6 02/14/2025 14:37:31 [place] [facility] BMI 30 kg/m2 02/14/2025 14:37:31 [place] [facility] TEMPERATURE 97.7 02/14/2025 14:37:31 [place] [facility] PULSE 87 02/14/2025 14:37:31 [place] [facility] RESPIRATION 18 02/14/2025 14:37:31 [place] [facility] SYSTOLIC BLOOD PRESSURE 137 09/15/2024 11:05:00 [place] [facility] DIASTOLIC BLOOD PRESSURE 81 09/15/2024 11:05:00 [place] [facility] PULSE OXIMETRY 95 09/15/2024 11:05:00 [facility] [place] [facility] WEIGHT 215.4 09/15/2024 11:05:00 [place] [facility] BMI 30 kg/m2 09/15/2024 11:05:00 [place] [facility] PAIN 0 09/15/2024 11:05:00 [place] [facility] HEIGHT 71.0 09/15/2024 11:05:00 [place] [facility] PULSE 59 09/15/2024 11:05:00 [place] [facility] RESPIRATION 16 09/15/2024 11:05:00 [place] [facility] SYSTOLIC BLOOD PRESSURE 170 08/10/2024 10:34:00 [place] [facility] DIASTOLIC BLOOD PRESSURE 91 08/10/2024 10:34:00 [facility] PULSE OXIMETRY 97 08/10/2024 10:34:00 [facility] WEIGHT 216.5 08/10/2024 10:34:00 [facility] BMI 30 kg/m2 08/10/2024 10:34:00 [facility] PAIN 0 08/10/2024 10:34:00 [facility] HEIGHT 71.0 08/10/2024 10:34:00 [facility] PULSE 60 08/10/2024 10:34:00 [facility] RESPIRATION 18 08/10/2024 10:34:00 [facility] Encounters Combined list of: 1) Encounters from Department of [facility] Affairs facilities going backup to the last 18 months, not all [place] inpatient encounters are included; 2) Encounters from the Department of [facility] facilities going backup to 280 months. Location Location Details Encounter Type Encounter Number Reason For Visit Attending Provider ADM Date DC Date Status Disposition Source [facility] Outpatient Encounter [id number] 12/08 [facility] Outpatient Encounter [id number] 12/09 [facility] Outpatient Encounter [id number] Fernando CRAFT 12/13 [facility] Outpatient Encounter [id number] 12/14 [facility] Outpatient Encounter [id number] 12/21 [facility] Outpatient Encounter [id number] 12/24 [facility] OFFICE VISIT DURING HOURS [id number] Diagnos is: ICD-10- CM K02.62 Dental caries on smooth surface penetra ting into dentin MAYSMOOTH SALAZAR CLAUDIO 12/27 [facility] Outpatient Encounter [id number] 12/27 [facility] Outpatient Encounter [id number] 12/28 [facility] Outpatient Encounter [id number] Diagnos is: ICD-10- CM E11.8 Type 2 diabete s 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 Fernando ROGERS W 01/03 [facility] Outpatient Encounter [id number] MODESTA RICHETR 01/31 [facility] Outpatient Encounter [id number] 02/01 [facility] Outpatient Encounter [id number] 02/02 [facility] Outpatient Encounter [id number] Diagnos is: ICD-10- CM Z00.00 Encntr for general adult medical exam w/o abnorma l finding s FUENTES GRULLON R 02/08 [facility] MTMS BY PHARM ADDL 15 MIN [id number] Diagnos is: ICD-10- CM E78.5 Hyperli pidemia , unspeci fied Fernando ROGERS W 02/08 [facility] Outpatient Encounter [id number] 02/09 [facility] Outpatient Encounter [id number] 02/17 [facility] MTMS BY PHARM ADDL 15 MIN [id number] Diagnos is: ICD-10- CM E78.5 Hyperli pidemia , unspeci fied Fernando ROGERS W 03/06 [facility] Outpatient Encounter [id number] 03/08 [facility] FACILITY FEE [id number] Diagnos is: ICD-10- CM E11.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 Outpatient Encounter [id number] 03/14 [facility] Outpatient Encounter [id number] [id number] 03/29 [facility] Outpatient Encounter [id number] 04/20 [facility] Outpatient Encounter [id number] 04/[address] [facility] N [place] [facility] QNHP OL DIG ASSMT&MGMT 09-20 [id number] Diagnos is: ICD-10- CM E11.8 Type 2 diabete s 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 MCKENNACHRISANGELLA IGLESIAS Kal 04[facility]21 [facility] En[facility] [id number] AJ SIERRA M 05/09 [facility] [place] [facility] Outpatient Encounter [id number] TRICEHAO Downs 05/12 [facility] Encounter [id number] 05/19 [facility] PERIODIC [place] [id number] Diagnos is: ICD-10- CM K05.322 Chronic periodo ntitis, general ized, moderat e MAYSE,SMOOTH KAPOOR CLAUDIO 05/22 [facility] Outpatient Encounter [id number] Fernando CRAFT 05/23 [facility] Outpatient Encounter [id number] 05/25 [facility] Outpatient Encounter [id number] Fernando CRAFT 05/26 [facility] Outpatient Encounter [id number] 05/26 [facility] Outpatient Encounter [id number] [id number] 05/29 [facility] Outpatient Encounter [id number] 05/29 [facility] Outpatient Encounter [id number] 06/07 [facility] Outpatient Encounter [id number] 06/09 [facility] MTMS BY PHARM ADDL 15 MIN [id number] Diagnos is: ICD-10- CM E78.5 Hyperli pidemia , unspeci fied Fernando ROGERS W 06/15 [facility] Outpatient Encounter [id number] 06/19 [facility] Outpatient Encounter [id number] [id number] 06/20 [facility] Outpatient Encounter [id number] Fernando CRAFT 06/23 [facility] OFF/OP EST MARCH X REQ PHY/QHP [id number] Diagnos is: ICD-10- CM L03.90 Celluli tis, unspeci fied CUSTRED,TO RRI J 07/07 [facility] Outpatient Encounter [id number] Fernando CRAFT 07/10 [facility] Outpatient Encounter [id number] 07/12 [facility] Outpatient Encounter [id number] 07/20 [facility] MTMS BY PHARM ADDL 15 MIN [id number] Diagnos is: ICD-10- CM E11.8 Type 2 diabete s 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 Fernando ROGERS W 07/27 [facility] Outpatient Encounter [id number] Diagnos is: ICD-10- CM Z00.00 Encntr for general adult medical exam w/o abnorma l finding s FUENTES GRULLON THERINE R 08/10 [facility] MTMS BY PHARM ADDL 15 MIN [id number] Diagnos is: ICD-10- CM E78.5 Hyperli pidemia , unspeci fied Fernando ROGERS ANTONETTE W 08/10 [facility] Outpatient Encounter [id number] 09/01 [facility] Outpatient Encounter [id number] [id number] 09/11 [facility] Outpatient Encounter [id number] 09/13 [facility] Outpatient Encounter [id number] FUENTES GRULLON THERINE R 09/15 [facility] OFFICE O/P EST LOW 20 MIN [id number] Diagnos is: ICD-10- CM I25.10 Athscl heart disease of [place] coronar y artery w/o ang pctrs FUENTES GRULLON THERINE R 09/15 [facility] [place] [facility] Outpatient Encounter [id number] 09/20 [facility] Outpatient Encounter [id number] 09/20 [facility] TOPICAL FLUORIDE VARNISH [id number] Diagnos is: ICD-10- CM K05.322 Chronic periodo ntitis, general ized, moderat e MAYSE,SMOOTH LOTTE CLAUDIO 09/21 [facility] Outpatient Encounter [id number] Fernando CRAFT 09/21 [facility] Outpatient Encounter [id number] [id number] 09/24 [facility] Outpatient Encounter [id number] Fernando CRFAT 09/25 [facility] Outpatient Encounter [id number] 09/25 [facility] Outpatient Encounter [id number] [id number] 09/26 [facility] Outpatient Encounter [id number] [id number] 09/26 [facility] Outpatient Encounter [id number] 10/10 [facility] Outpatient Encounter [id number] [id number] 10/17 [facility] Outpatient Encounter [id number] [id number] 10/19 [facility] Outpatient Encounter [id number] [id number] AJ SIERRA 11/08 [facility] Outpatient Encounter [id number] Fernando CRAFT 12/08 [facility] MTMS BY PHARM ADDL 15 MIN [id number] Diagnos is: ICD-10- CM E78.5 Hyperli pidemia , unspeci fied Fernando ROGERS 12/21 [facility] Outpatient Encounter [id number] 01/03 [facility] Outpatient Encounter [id number] 2 01/03 [facility] Outpatient Encounter [id number] 01/05 [facility] Outpatient Encounter [id number] 01/11 [facility] Outpatient Encounter [id number] 01/11 [facility] Outpatient Encounter [id number] [id number] 01/15 [facility] [place] [facility] Outpatient Encounter [id number] 01/[address] [place] [facility] Outpatient Encounter [id number] 01/23 [facility] TELEHEALTH FACILITY FEE [id number] Diagnos is: ICD-10- CM Z46.1 Encount er for fitting and adjustm ent of hearing aid MEI MONTOYA 01[facility]24 [facility] [place] [facility] HEARING AID FITTING/CH ECKING [id number] Diagnos is: ICD-10- CM Z46.1 Encount er for fitting and adjustm ent of hearing aid MEI MONTOYA 01/24 [place] [facility] PINGYENESSA GARCIAE [facility] Outpatient Encounter [id number] 01/29 JASS BHARDWAJ [facility] FAYETTOSWALD GARCIAE [facility] Outpatient Encounter [id number] JASE BROWN 01/31 JASS BHARDWAJ [facility] Outpatient Encounter [id number] [id number] 02/01 [facility] AYDE FENGYETTOSWALD GARCIAE [facility] Outpatient Encounter [id number] 02/05 JASS BHARDWAJ [facility] FAYETTOSWALD [place]LE [facility] Outpatient Encounter [id number] [place] 02/05 FAYELANE BHARDWAJ [facility] FAYETTAMILCARI LLE [facility] Outpatient Encounter [id number] 02/07 JASS BHARDWAJ [facility] FAYETTOSWALD [facility] Outpatient Encounter [id number] 02/07 JASS BHARDWAJ [facility] FAYETTAMILCARI [facility] Outpatient Encounter [id number] 02/07 JASS BHARDWAJ [facility] FAYENESSA GARCIACristina [facility] Outpatient Encounter [id number] JASE BROWN 02/09 PINGARMINDALANE BHARDWAJ [facility] [place] [facility] Outpatient Encounter [id number] 02/12 [place] [facility] Outpatient Encounter [id number] FUENTES GRULLON THERINE R 02/14 [facility] EST MOD 30 MIN [id number] Diagnos is: ICD-10- CM S22.42X D Multipl e fx of ribs, left side, subs for fx w routn heal FUENTES GRULLONINE R 02/14 [facility] Outpatient Encounter [id number] 02/14 [facility] En[facility] [id number] [id number] Fernando CRAFT 02/19 [facility] En[facility] [id number] PETER CASTRO 02/20 [facility] Encounter [id number] FUENTES BENJAMIN 02/20 [facility] En[facility] [id number] [id number] COLLIN ALVAREZ 02/20 [facility] Encounter [id number] [id number] MODESTA ZAMARRIPA 02/20 [facility] Encounter [id number] [id number] 02/21 [facility] Outpatient Encounter [id number] [id number] 02/21 [facility] Outpatient Encounter [id number] [id number] 03/05 [facility] OFF/OP EST MARCH X REQ PHY/QHP [id number] Diagnos is: ICD-10- CM R21 Rash and other nonspec ific skin eruptio n CUSTRED,TO RRI J 03/22 [facility] Outpatient Encounter [id number] 03/27 [facility] Outpatient Encounter [id number] [id number] 03/27 [facility] Outpatient Encounter [id number] 03/28 [facility] Outpatient Encounter [id number] 03/28 [facility] MTMS BY PHARM SAP FICO ARCHITECT 15 MIN [id number] Diagnos is: ICD-10- CM Z51.81 Encount er for therape utic drug level monitor ing ROBERTA ALFONSO 03/30 [facility] Outpatient Encounter [id number] FUENTES GRULLON THERINE R 03/30 [facility] MTMS BY PHARM ADDL 15 MIN [id number] [id number] Diagnos is: ICD-10- CM E11.8 Type 2 diabete s mellitu s with unspeci fied complic atchristine FUENTES [place] L 04/03 [facility] Outpatient Encounter [id number] [id number] AJ SIERRA 04/03 [facility] Outpatient Encounter [id number] 04/23 [facility] Outpatient Encounter [id number] 04/24 [facility] FAC[facility] FEE [id number] Diagnos is: ICD-10- CM Z46.1 Encount er for fitting and adjustm ent of hearing aid MEI MONTOYARA A 04/25 [facility] HEARING AID REPAIR/MOD IFYING [id number] [id number] Diagnos is: ICD-10- CM Z46.1 Encount er for fitting and adjustm ent of hearing aid MEI MONTOYANDRA A 04/25 [facility] MTMS BY PHARM EST 15 MIN [id number] Diagnos is: ICD-10- CM E11.8 Type 2 diabete s mellitu s with unspeci fied complic atchristine FUENTES [place] 05/01 [facility] Outpatient Encounter [id number] Fernando CRAFT 05/25 [facility] Outpatient Encounter [id number] 05/29 [facility] Outpatient Encounter [id number] COLLIN ALVAREZ 05/30 [facility] Outpatient Encounter [id number] 05/30 [facility] En[facility] [id number] 05/31 [facility] Outpatient Encounter [id number] 06/01 [facility] MTMS BY PHARM ADDL 15 MIN [id number] Diagnos is: ICD-10- CM E11.8 Type 2 diabete s mellitu s with unspeci fied complic atFUENTES [place] ROLE L 06/05 [facility] OFF/OP EST MARCH X REQ PHY/QHP [id number] Diagnos is: ICD-10- CM M54.2 Cervica FUENTES [place] THERINE R 06/06 [facility] Social History Combined list of available smoking, tobacco, and other social history from [facility] and [facility] facilities. Social History Type Response Date Comment Sour e Tobacco smoking status UTIS VA-TOBACCO NEVER USED CIGARETTES 02/14/2025 [facility] History of tobacco use VA-TOBACCO NEVER USED OTHER TYPE 02/14/2025 [facility] History of tobacco use VA-TOBACCO QUIT 1 5 YRS OR MORE 2024 [facility] History of tobacco use VA-TOBACCO QUIT 1 5 YRS OR MORE 02/17/2023 [facility] History of tobacco use VA-TOBACCO FORMER USER 02/26/2022 [facility] History of tobacco use VA-TOBACCO FORMER USER 03/03/2021 [facility] History of tobacco use [place]-TOBACCO QUIT 1 5 YRS OR MORE 01/04/2019 [facility] History of tobacco use QUIT TOBACCO >7 Y EARS AGO 01/22/2016 [facility] Plan of Care List of future care activities from [facility] of [place] facilities. Additional future care activities may be listed in the Assessment and Plan section. Date/Time Care Activity Care Activity Detail Facili ty 06/06/2025 AMBULATORY - MEDICINE AMBULATORY - MEDICI [facility] Advance Directives List of completed, amended, or rescinded Advance Directives on record at [facility] [place] facilities. An actual copy of the Directive is not included. Date Advance Directive Provider Source 12/15/2017 ADVANCE DIRECTIVE TULIO CRUMP FF [facility]
--- NOTE | 2025-06-06 12:44 | CT_ITS ---
WS: [id number] CT HEAD NONCONTRAST HISTORY: trauma TECHNIQUE: Contiguous axial imaging performed through the brain. Bone and soft tissue windows. Sagittal and coronal reformats reviewed. All CT scans at [facility] use at least one of these dose optimization techniques: automated exposure control; mA and/or kV adjustment per patient size (includes targeted exams where dose is matched to clinical indication); or iterative reconstruction. DLP: 1462.41 mGy.cm COMPARISON: None available. No acute intracranial hemorrhage, midline shift or mass effect. Mild symmetric atrophy and small vessel disease. No prior infarct. Mild cerebellar atrophy. Ventricles: Normal size with no hydrocephalus. No inferior displacement of the cerebellar tonsils. Paranasal sinuses: As visualized are clear. Mastoid air cells: Well pneumatized. Calvarium and scalp: Skull is intact with no soft tissue edema or swelling. CT/CT head wo con* [id number] IMPRESSION: 1. Negative head CT for acute lateral edema. 2. No skull fracture. 3. No scalp hematoma. 4. Symmetric cerebral atrophy and small vessel disease.
--- NOTE | 2025-06-06 12:44 | XR_ITS ---
WS: [id number] XR chest 1V portable [id number] REASON FOR EXAM: trauma FINDINGS: No previous examination for comparison. Device overlying the left chest with trans left subclavian vein leads to the right atrium and right ventricular apex. Moderate tortuosity and ectasia of the thoracic aorta. Normal heart size with coronary artery stent/stents. Mild central pulmonary venous congestion. No acute pulmonary parenchymal or pleural abnormality. Fracture of left ribs; 2 and 5 through 8. Cardiac device obscures 3 and 4. These may all be old healed fractures, uncertain. There is an old healed fracture of the distal end of the left clavicle. XR/XR chest 1V portable [id number] IMPRESSION: No acute lung or pleural abnormality. Multiple left rib fractures as above.
--- OUTSIDE RECORDS SUMMARY | 2025-06-06 12:44 | XMS_ITS | Clinical Summary ---
Author Organization [facility] Address [address] [place] [address] Phone Care Team Providers Care Supervising Broker Name Role Phone Alexander Christina, ZARI, Ramez Navarro Primary Care Pro vider Allergies Active Allergy Reactions Criticality Noted Date Comments Codeine Unknown 12/11/2008 Medications NIFEdipine SR 24 hour (PROCARDIA-XL) 90 mg Oral TR24 Take by mouth daily. Active lisinopril (PRINIVIL) 40 mg Oral Tab Take by mouth daily. Active carvedilol (COREG) 12.5 mg Oral Tab Take by mouth 2 times daily. Active lansoprazole (PREVACID) 30 mg Oral CpDR Take by mouth daily. Active aspirin (ARIAN) 325 mg Oral Tab Take by mouth daily. Active escitalopram (LEXAPRO) 20 mg Oral Tab Take by mouth daily. Active 0mega-3 fatty acids-vitamin E (FISH OIL) 1,000 mg Oral Cap Take by mouth 2 times daily. Active simvastatin (ZOCOR) 40 mg Oral Tab Take by mouth daily. Active glipiZIDE (GLUCOTROL) 5 mg Oral Tab Take by mouth daily. Active Active Problems Problem Noted Date Diagnosed Date HTN (hypertension) 12/11/2008 Overview (11/25/2010): Updating IMO/ICD9 Code and Description Diabetes mellitus type II, c ontrolled, with no complications 12/11/2008 Chest pain 12/10/2008 CAD (coronary artery disease) 12/10/2008 Overview (12/11/2008): 12/18/04 TAXUS CLARKE mid LAD--Dr. 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 Gender Identity Not on file Sexual Orientation Not on file Last Filed Vital Signs Vital Sign Reading Time Taken Comments Blood Pressure 124/76 07/28/2017 1:44 PM CDT Pulse 55 07/28/2017 1:44 PM CDT Temperature 36.6 C (97.9 F) 07/28/2017 1:44 PM CDT Respiratory Rate 16 07/28/2017 1:44 PM CDT Oxygen Saturation 97% 07/28/2017 1:44 PM CDT Inhaled Oxygen Concentration - - Weight 115.7 kg (255 lb) 07/28/2017 1:44 PM CDT Height 180.3 cm (5' 11 ) 07/28/2017 1:44 PM CDT Body Mass Index 35.57 07/28/2017 1:44 PM CDT Plan of Treatment Health Maintenance Due Date Last Done Comments DIABETES ANNUAL FOOT EXAM 1967 DIABETES ANNUAL RETINAL EXAM 1967 DIABETES HBA1C Q 6 MONTHS 1967 DIABETES MICROALBUMIN ANNUAL SCREEN 1967 DTAP/TDAP/TD VACCINES (1 - Tdap) 02/10/1968 PNEUMOCOCCAL VACCINE 50+ YEARS (1 of 2 - PCV) 02/09/19 68 ZOSTER VACCINE (1 of 2) 1999 LDL CHOLESTEROL ANNUAL 12/19/2005 12/19/2004 RSV VACCINE (60+ or ) (1 - 1-dose 75+ series) 02/10/2024 INFLUENZA VACCINE (#1) 2025 08/01/2008 Colorectal Cancer Screening Discontinued FIT/FOBT Q 1 year Discontinued 02/18/1999 COLORECTAL SCREENING Discontinued FIT-DNA Q 3 years Discontinued Flex Sig/CT Colonography Q 5 years Discontinued Procedures Procedure Name Priority Date/Time Associated Diagnosis Comments LIPID PANEL Routine 12/19/2004 4:36 AM HIDE BUFFER from Last 3 Months or Most Recently Relevant to Health Maintenance Results * (ABNORMAL) LIPID PANEL (12/19/2004 4:36 AM HIDE BUFFER) CHOLESTEROL 125 75 - 200 mg/dL INTERFACE SYSTEM TRIGLYCERIDE 175 0 - 200 mg/dL INTERFACE SYSTEM CALCULATED TOTAL CHOLESTEROL TO HDL RATIO 3.29(L) 3.43 - 4.97 INTERFACE SYSTEM HDL 38(L) 40 - 60 mg/dL INTERFACE SYSTEM Comment: As of 01 the reference range for HDL has been changed from 35-60 to 40-60 in following the recommendations from the National Education Cholesterol Program NECP . Specimen slightly hemolyzed LDL CALCULATED 52 0 - 130 mg/dL INTERFACE SYSTEM 12/19/2004 4:36 AM HIDE BUFFER us Jr Mistry MD CHEMISTRY ORDERABLES Final Result INTERFACE SYSTEM Refer to clinic/hospital department from Last 3 Months or Most Recently Relevant to Health Maintenance Insurance [address] [place] [address] MEDICARE PART A AND B Advance Directives For more information, please contact: [phone] * Full Code (Latest Code Status on File) Date Activated Date Inactivated Comments 12/11/2008 8:20 AM 12/11/2008 7:50 PM Care Teams Supervising Broker Relationship Specialty Start Date End Date Ramez Munoz Sr., FNP [address] [place] [address] PCP - General NURSE PRACTITIONER 05/21/16
--- OUTSIDE RECORDS SUMMARY | 2025-06-06 12:44 | XMS_ITS | Encounter Summary ---
Author Organization [facility] Address [address] 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
--- OUTSIDE RECORDS SUMMARY | 2025-06-06 12:44 | XMS_ITS | Encounter Summary ---
Author Organization [facility] Address [address] [place] [address] Care Team Providers Care Explosive Operator Name Role Phone Alexander Christina, ZARI, Ramez Navarro Primary Care Pro vider Encounter Details Date Type Department Care Team (Latest Contact Info) Description 12/07/2008 Ancillary Orders [facility] Cardiac Financial Analysis Manager [address] [place] [address] Renzo Joseph MD NO ADDRESS ON FILE Unspecified Pre-Operative Examination; Pre-Operative Cardiovascular Examination; Coronary Atherosclerosis of [place] Coronary Artery; Unspecified Essential Hypertension; DM w/o Complication Type II (CMS/HCC) Social History Tobacco Use Types Packs/Day Years Used Date Smoking Tobacco: Never Assessed Sex and Gender Information Value Date Recorded Sex Assigned at Not on file Legal Sex Male 3:06 AM FOOD CLERK Gender Identity Not on file Sexual Orientation Not on file documented as of this encounter Plan of Treatment Not on file documented as of this encounter Results * CL CARD CATH W POSBL PCI (12/11/2008 11:03 AM FOOD CLERK) Impressions Renzo Joseph MD - 12/11/2008 11:15 AM FOOD CLERK S: 1) Mild 2-vessel coronary artery disease 2) Normal left ventricular contractility 3) The previously inserted mid LAD and mid RCA stents remain wide open. 4) No new high grade narrowings are found RECOMMENDATIONS: On going medical and preventive therapy. Renzo Joseph MD, FACC, [facility] Narrative Renzo Joseph MD - 12/11/2008 11:15 AM FOOD CLERK CARDIAC CATHETERIZATION REPORT [place], [place] PATIENT: Vince Telles PATIENT NUMBER: [id number] BIRTHDATE: 1950 REFERRING PHYSICIAN: Dr. Abe Santiago DATE: 12/11/2008 TIME: 11:10 AM PROCEDURE: Left heart catheterization with coronary angiography, left ventricular cineangiography INDICATION: angina, CAD After carefully discussing potential benefits/ risks of and alternatives to cardiac catheterization and possible intervention at length with the patient, informed consent was obtained. The right groin was prepped and draped in the usual manner. Continuous blood pressure, ECG, and oxygen saturation monitoring were utilized. Carefully titrated conscious sedation was achieved. Following infiltration of 1% lidocaine local anesthetic, a 6 FR right femoral arterial sheath was inserted over a flexible guidewire using single wall technique. There were no apparent complications. CORONARY ANGIOGRAPHY: Coronary angiography was performed with 6-4 left and 6-4 right Amy diagnostic catheters. The results were as follows: The left main coronary artery is normal. The left anterior descending coronary artery is 30% stenosed in its mid segment. The previously inserted mid LAD stent about one cm distal to this 30% narrowing is wide open. The left posterior circumflex coronary artery and its branches are normal. The circumflex is dominant. The right coronary artery is small and nondominant and free of significant narrowing. The previously inserted mid RCA stent is wide open. No collaterals are seen. LEFT VENTRICULAR CINEANGIOGRAPHY: LV cineangiography was performed with a 6 FR pigtail catheter in MARTEL projection. 20 ml of contrast were used. The left ventricle is normal in size. All wall segments contract normally. Estimated left ventricular ejection fraction is 65%. No significant mitral insufficiency is noted. There is no significant gradient across the aortic valve. Procedure Note Renzo Joseph MD - 12/11/2008 CARDIAC CATHETERIZATION REPORT [place], [place] PATIENT: Vince Telles PATIENT NUMBER: [id number] BIRTHDATE: 1950 REFERRING PHYSICIAN: Dr. Abe Santiago DATE: 12/11/2008 TIME: 11:10 AM PROCEDURE: Left heart catheterization with coronary angiography, leftventricular cineangiography INDICATION: angina, CAD After carefully discussing potential benefits/ risks of and alternativesto cardiac catheterization and possible intervention at length with thepatient, informed consent was obtained. The right groin was prepped anddraped in the usual manner. Continuous blood pressure, ECG, and oxygensaturation monitoring were utilized. Carefully titrated conscious sedationwas achieved. Following infiltration of 1% lidocaine local anesthetic, a 6 FR rightfemoral arterial sheath was inserted over a flexible guidewire usingsingle wall technique. There were no apparent complications. CORONARY ANGIOGRAPHY: Coronary angiography was performed with 6-4 leftand 6-4 right Amy diagnostic catheters. The results were asfollows: The left main coronary artery is normal. The left anterior descending coronary artery is 30% stenosed in its midsegment. The previously inserted mid LAD stent about one cm distal tothis 30% narrowing is wide open. The left posterior circumflex coronary artery and its branches are normal.The circumflex is dominant. The right coronary artery is small and nondominant and free of significantnarrowing. The previously inserted mid RCA stent is wide open. No collaterals are seen. LEFT VENTRICULAR CINEANGIOGRAPHY: LV cineangiography was performed witha 6 FR pigtail catheter in MARTEL projection. 20 ml of contrast were used.The left ventricle is normal in size. All wall segments contractnormally. Estimated left ventricular ejection fraction is 65%. Nosignificant mitral insufficiency is noted. There is no significantgradient across the aortic valve. IMPRESSIONS: 1) Mild 2-vessel coronary artery disease 2) Normal left ventricular contractility 3) The previously inserted mid LAD and mid RCA stents remain wide open. 4) No new high grade narrowings are found RECOMMENDATIONS: On going medical and preventive therapy. Renzo Joseph MD, [facility] us Renzo Joseph MD FLUOROSCOPY ORDERABLES Final R esult documented in this encounter Visit Diagnoses Diagnosis Preoperative examination, unspecified Pre-operative cardiovascular examination Coronary atherosclerosis of [place] coronary artery Unspecified essential hypertension Type II or unspecified type diabetes mellitus without mention of complication, not stated as uncontrolled Chest pain Chest pain, unspecified CAD (coronary artery disease) Coronary atherosclerosis of unspecified type of vessel, [place] or graft Fatigue Other malaise and fatigue Preoperative examination, unspecified Pre-operative cardiovascular examination Coronary atherosclerosis of [place] coronary artery Unspecified essential hypertension Type II or unspecified type diabetes mellitus without mention of complication, not stated as uncontrolled documented in this encounter Care Teams Explosive Operator Relationship Specialty Start Date End Date Alexander Christina, ZARI Gonzalez [address] [place] [address] PCP - General NURSE PRACTITIONER 05/21/16 documented as of this encounter
--- OUTSIDE RECORDS SUMMARY | 2025-06-06 12:44 | XMS_ITS | Encounter Summary ---
Author Organization [facility] Address [address] [place] [address] Care Team Providers Care Food Supervisor Name Role Phone ZAIR Munoz Sr., Michael Dave Primary Care Pro vider Encounter Details Date Type Department Care Team (Latest Contact Info) Description 03/11/2006 Outpatient Historical [facility]iology [facility] [address] [place] [address] Kee Reid MD NO ADDRESS ON FILE Other Primary Cardiomyopathies (CMS/HCC) (Primary Dx) Social History Tobacco Use Types Packs/Day Years Used Date Smoking Tobacco: Never Assessed Sex and Gender Information Value Date Recorded Sex Assigned at Not on file Legal Sex Male 3:06 AM ULTIMATE HOOPS 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
--- OUTSIDE RECORDS SUMMARY | 2025-06-06 12:44 | XMS_ITS | Encounter Summary ---
Author Organization [facility] Address [address] [place] [address] Care Team Providers Care General Farmer Name Role Phone Alexander Christina, Ramez HAMEED Primary Care Pro vider Encounter Details Date Type Department Care Team (Late st Contact Info) Description 01/09/2008 Outpatient Historical [facility] Jr Mistry MD NO ADDRESS ON FILE Renzo Joseph MD NO ADDRESS ON FILE Unspecified Pre-Operative Examination; Other and Unspecified Angina Pectoris; Unspecified Essential Hypertension; Other and Unspecified Hyperlipidemia; Personal History of Tobacco Use, Presenting Hazards to Health Social History Tobacco Use Types Packs/Day Years Used Date Smoking Tobacco: Never Assessed Sex and Gender Information Value Date Recorded Sex Assigned at Not on file Legal Sex Male 3:06 AM VASCULAR SURGEON Gender Identity Not on file Sexual Orientation Not on file documented as of this encounter Plan of Treatment Not on file documented as of this encounter Procedures Procedure Name Priority Date/Time Associated Diagnosis Comments POC ACTIVATED CLOTTING TIME Routine 01/10/2008 1:18 PM CDT PT AND APTT Stat 01/10/2008 7:47 AM CDT CBC WITHOUT DIFFERENTIAL Stat 01/10/2008 7:47 AM CDT BASIC METABOLIC PANEL Stat 01/10/2008 7:47 AM CDT documented in this encounter Results * POC ACTIVATED CLOTTING TIME (01/10/2008 1:18 PM CDT) ACT POC 147 79 - 149 sec [facility] Blood specimen (specimen) 01/10/2008 1:18 PM CDT 01/10/2008 5:23 PM CDT Renzo Joseph MD POINT OF CARE TESTING Final Re sult Performing Organization Address [facility] Co de Phone Number [facility] [address] [place] [address] * (ABNORMAL) BASIC METABOLIC PANEL (01/10/2008 7:47 AM CDT) CREATININE 1.1 0.7 - 1.5 mg/dL [facility] CALCIUM 10.1 8.4 - 10.5 mg/dL [facility] GLUCOSE 119(H) 70 - 110 mg/dL [facility] CHLORIDE 110 95 - 110 mEq/L [facility] ANION GAP 8(L) 9 - 20 mEq/L [facility] SODIUM 142 136 - 145 mEq/L [facility] BUN 20 9 - 20 mg/dL [facility] CO2 28 22 - 32 mmol/l [facility] POTASSIUM 4.4 3.5 - 5.0 mEq/L [facility] OSMOLALITY, CALCULATED 296(H) 275 - 295 mOsm/Kg [facility] Blood specimen (specimen) 01/10/2008 7:47 AM CDT 01/10/2008 7:52 AM CDT Jr Mistry MD CHEMISTRY ORDERABLES Final Result Performing Organization Address [facility] Co de Phone Number [facility] [address] [place] [address] * PT AND APTT (01/10/2008 7:47 AM CDT) INR 1.0 [facility] Comment: Expected Values for INR: DVT/PE Goal INR 2.5; range 2.0 - 3.0 Valve Replacement Tissue Goal INR 2.5; range 2.0 - 3.0 Mechanical Goal INR 3.0; range 2.5 - 3.5 POST-OH Goal INR 2.5; range 2.0 - 3.0 or Goal 3.0; range 2.5 - 3.5 Atrial Fibrillation Goal INR 2.5; range 2.0 - 3.0 Ischemic Stroke Goal INR 2.5; range 2.0 - 3.0 For additional information see Guidelines for Anticoagulation available from the pharmacy [facility] [phone] PTT 29.8 21.6 - 35.6 Secs [facility] Comment: Therapeutic Range: Hi-level PE/DVT heparin protocol 80.1 -95.0 sec Lo-level PE/DVT heparin protocol 67.1 - 80.0 sec Cardiac Heparin Protocol 67.1 - 85.0 sec Neuro Heparin Protocol 67.1 - 80.0 sec As of 10/07/2006 note change in APTT Normal Range. PROTIME 13.8 12.8 - 15.8 Secs [facility] Comment:As of 2007 not e change in normal range. Blood specimen (specimen) 01/10/2008 7:47 AM CDT 01/10/2008 7:52 AM CDT us Jr Mistry MD HEMATOLOGY ORDERABLES Edite d Performing Organization Address City/State/[facility] Co de Phone Number [facility] [address] [place] [address] * (ABNORMAL) CBC WITHOUT DIFFERENTIAL (01/10/2008 7:47 AM CDT) MCV 92.1 84.0 - 103.0 Fl [facility] BASOPHILS 0.4 0.0 - 1.0 % [facility] MPV 10.2 8.9 - 12.8 Fl [facility] BASOPHILS ABSOLUTE 0.0 0.0 - 0.2 K/ul [facility] HEMOGLOBIN 13.9(L) 14.0 - 18.0 g/dL [facility] MONOCYTES 8.6 2.0 - 10.0 % [facility] RDW 12.4 11.0 - 14.5 % [facility] MONOCYTE ABSOLUTE 0.8(H) 0.1 - 0.6 K/ul [facility] WBC 9.0 4.8 - 10.8 K/ul [facility] NEUTROPHILS 65.4 42.2 - 75.2 % [facility] MCH 31.4 27.0 - 34.0 pg [facility] NEUTROPHIL ABSOLUTE 5.9 2.0 - 8.0 K/ul [facility] HEMATOCRIT 40.7(L) 41.0 - 53.0 % [facility] PLATELETS 199 140 - 440 K/ul [facility] EOSINOPHIL ABSOLUTE 0.2 0.0 - 0.7 K/ul [facility] EOSINOPHILS 2.2 0.0 - 7.0 % [facility] RBC 4.42(L) 4.60 - 6.20 Mil/ul [facility] MCHC 34.2 30.0 - 35.0 g/dL [facility] LYMPHOCYTE ABSOLUTE 2.1 1.2 - 4.0 K/ul [facility] LYMPHOCYTES 23.4(L) 24.0 - 44.0 % [facility] Blood specimen (specimen) 01/10/2008 7:47 AM CDT 01/10/2008 7:52 AM CDT us Jr Mistry MD HEMATOLOGY ORDERABLES Final Result Performing Organization Address City/State/[facility] Co de Phone Number [facility] [address] [place] [address] documented in this encounter Visit Diagnoses Diagnosis Preoperative examination, unspecified Other and unspecified angina pectoris Unspecified essential hypertension Other and unspecified hyperlipidemia Personal history of tobacco use, presenting hazards to health documented in this encounter Care Teams General Farmer Relationship Specialty Start Date End Date Alexander Christina, ZARI Gonzalez [address] [place] [address] PCP - General NURSE PRACTITIONER 05/21/16 documented as of this encounter
--- OUTSIDE RECORDS SUMMARY | 2025-06-06 12:44 | XMS_ITS | Encounter Summary ---
Author Organization [facility] Address [address] [place] [address] Care Team Providers Care Cognos Bi Developer Name Role Phone Alexander Christina, ZARI, Ramez Navarro Primary Care Pro vider Encounter Details Date Type Department Care Team (Late st Contact Info) Description 12/18/2004 Inpatient Historical [facility] Jr Mistry MD NO ADDRESS ON FILE CORON ATHEROSCL [place] CORON VESSEL (Primary Dx) Social History Tobacco Use Types Packs/Day Years Used Date Smoking Tobacco: Never Assessed Sex and Gender Information Value Date Recorded Sex Assigned at Not on file Legal Sex Male 3:06 AM HIGH SCHOOL PHYSICAL EDUCATION TEACHER Gender Identity Not on file Sexual Orientation Not on file documented as of this encounter Plan of Treatment Not on file documented as of this encounter Procedures Procedure Name Priority Date/Time Associated Diagnosis Comments LIPID PANEL Routine 12/19/2004 4:36 AM HIGH SCHOOL PHYSICAL EDUCATION TEACHER POC ACTIVATED CLOTTING TIME Routine 12/18/2004 10:14 AM HIGH SCHOOL PHYSICAL EDUCATION TEACHER PT AND APTT Routine 12/18/2004 6:25 AM HIGH SCHOOL PHYSICAL EDUCATION TEACHER CBC WITHOUT DIFFERENTIAL Routine 12/18/2004 6:25 AM HIGH SCHOOL PHYSICAL EDUCATION TEACHER C-REACTIVE PROTEIN Routine 12/18/2004 6: 25 AM HIGH SCHOOL PHYSICAL EDUCATION TEACHER BASIC METABOLIC PANEL Routine 12/18/2004 6:25 AM HIGH SCHOOL PHYSICAL EDUCATION TEACHER documented in this encounter Results * (ABNORMAL) LIPID PANEL (12/19/2004 4:36 AM HIGH SCHOOL PHYSICAL EDUCATION TEACHER) CHOLESTEROL 125 75 - 200 mg/dL INTERFACE [...] 130 mg/dL INTERFACE SYSTEM 12/19/2004 4:36 AM HIGH SCHOOL PHYSICAL EDUCATION TEACHER us Jr Mistry MD CHEMISTRY ORDERABLES Final Result Performing Organization Address City[facility] Co de Phone Number INTERFACE SYSTEM Refer to clinic/hospital department * (ABNORMAL) POC ACTIVATED CLOTTING TIME (12/18/2004 10:14 AM HIGH SCHOOL PHYSICAL EDUCATION TEACHER) ACT POC 156(H) 79 - 149 sec INTERFACE SYSTEM 12/18/2004 10:1 4 AM HIGH SCHOOL PHYSICAL EDUCATION TEACHER us rJ Mistry MD POINT OF CARE TESTING Final Result Performing Organization Address [facility] Co de Phone Number INTERFACE SYSTEM Refer to clinic/hospital department * PT AND APTT (12/18/2004 6:25 AM HIGH SCHOOL PHYSICAL EDUCATION TEACHER) PROTIME 13.4 12.4 - 14.9 Secs INTERFACE SYSTEM Comment: As of 04 note change in normal range. INR 1.0 INTERFACE SYSTEM Comment: Expected Values for INR: DVT/PE Goal INR 2.5; range 2.0 - 3.0 Valve Replacement Tissue Goal INR 2.5; range 2.0 - 3.0 Mechanical Goal INR 3.0; range 2.5 - 3.5 POST-IN Goal INR 2.5; range 2.0 - 3.0 or Goal 3.0; range 2.5 - 3.5 Atrial Fibrillation Goal INR 2.5; range 2.0 - 3.0 Ischemic Stroke Goal INR 2.5; range 2.0 - 3.0 For additional information see Guidelines for Anticoagulation available from the pharmacy [facility]. PTT 30.9 24.3 - 37.5 Secs INTERFACE SYSTEM Comment:Therapeutic Range: 12/18/2004 6:25 AM HIGH SCHOOL PHYSICAL EDUCATION TEACHER Jr Mistry MD HEMATOLOGY ORDERABLES Final Result INTERFACE SYSTEM Refer to clinic/hospital department * (ABNORMAL) CBC WITHOUT DIFFERENTIAL (12/18/2004 6:25 AM HIGH SCHOOL PHYSICAL EDUCATION TEACHER) WBC 8.8 4.8 - 10.8 K/ul INTERFACE SYSTEM RBC 4.73 4.60 - 6.20 Mil/ul INTERFACE SYSTEM HEMOGLOBIN 15.2 14.0 - 18.0 g/dL INTERFACE SYSTEM HEMATOCRIT 43.7 41.0 - 53.0 % INTERFACE SYSTEM MCV 92.4 84.0 - 103.0 Fl INTERFACE SYSTEM MCH 32.1 27.0 - 34.0 pg INTERFACE SYSTEM MCHC 34.8 30.0 - 35.0 g/dL INTERFACE SYSTEM RDW 12.6 11.0 - 14.5 percent(in active) INTERFACE SYSTEM PLATELETS 199 140 - 440 K/ul INTERFACE SYSTEM MPV 10.3 8.9 - 12.8 Fl INTERFACE SYSTEM NEUTROPHILS 57.7 42.2 - 75.2 percent(in active) INTERFACE SYSTEM LYMPHOCYTES 30.9 24.0 - 44.0 percent(in active) INTERFACE SYSTEM MONOCYTES 8.9 2.0 - 10.0 percent(in active) INTERFACE SYSTEM EOSINOPHILS 2.2 0.0 - 7.0 % INTERFACE SYSTEM BASOPHILS 0.3 0.0 - 1.0 percent(in active) INTERFACE SYSTEM NEUTROPHIL ABSOLUTE 5.1 2.0 - 8.0 K/uL INTERFACE SYSTEM LYMPHOCYTE ABSOLUTE 2.7 1.2 - 4.0 K/ul INTERFACE SYSTEM MONOCYTE ABSOLUTE 0.8(H) 0.1 - 0.6 K/ul INTERFACE SYSTEM EOSINOPHIL ABSOLUTE 0.2 0.0 - 0.7 K/ul INTERFACE SYSTEM BASOPHILS ABSOLUTE 0.0 0.0 - 0.2 K/ul INTERFACE SYSTEM 12/18/2004 6:25 AM HIGH SCHOOL PHYSICAL EDUCATION TEACHER Jr Mistry MD HEMATOLOGY ORDERABLES Final Result INTERFACE SYSTEM Refer to clinic/hospital department * C-REACTIVE PROTEIN (12/18/2004 6:25 AM HIGH SCHOOL PHYSICAL EDUCATION TEACHER) CRP 0.6 0.0 - 1.0 mg/dL INTERFACE SYSTEM Comment: This is a standard CRP method, and is not intended as a marker for Heart Disease This test cannot be used to assess cardiac risk. As of 06/23/2004, the linearity on CRP has been changed to 0.3-11.0 mg/dl. The past range was 0.7-11.0 mg/dl. 12/18/2004 6:25 AM HIGH SCHOOL PHYSICAL EDUCATION TEACHER us Jr Mistry MD CHEMISTRY ORDERABLES Final Result Performing Organization Address [facility] Number INTERFACE SYSTEM Refer to clinic/hospital department * (ABNORMAL) BASIC METABOLIC PANEL (12/18/2004 6:25 AM HIGH SCHOOL PHYSICAL EDUCATION TEACHER) GLUCOSE 110 70 - 110 mg/dL INTERFACE SYSTEM BUN 17 9 - 20 mg/dL INTERFACE SYSTEM CREATININE 1.2 0.7 - 1.5 mg/dL (inactive) INTERFACE SYSTEM SODIUM 144 136 - 145 mEq/L INTERFACE SYSTEM POTASSIUM 3.7 3.5 - 5.0 mEq/L INTERFACE SYSTEM CHLORIDE 107 95 - 110 mEq/L INTERFACE SYSTEM CO2 26 22 - 32 mmol/l INTERFACE SYSTEM ANION GAP 15 9 - 20 mEq/L INTERFACE SYSTEM OSMOLALITY, CALCULATED 297(H) 275 - 295 mOsm/Kg INTERFACE SYSTEM CALCIUM 9.1 8.4 - 10.5 mg/dL INTERFACE SYSTEM 12/18/2004 6:25 AM HIGH SCHOOL PHYSICAL EDUCATION TEACHER us Jr Mistry MD CHEMISTRY ORDERABLES Final Result Performing Organization Address [facility] Phone Number INTERFACE SYSTEM Refer to clinic/hospital department documented in this encounter Visit Diagnoses Diagnosis Coronary atherosclerosis of [place] coronary artery- Primary documented in this encounter Care Teams Cognos Bi Developer Relationship Specialty Start Date End Date Ramez Munoz Sr., FNP [address] [place] [address] PCP - General NURSE PRACTITIONER 7/21/16 documented as of this encounter
--- OUTSIDE RECORDS SUMMARY | 2025-06-06 12:44 | XMS_ITS | Encounter Summary ---
Author Organization [facility] Address [address] [place] [address] Care Team Providers Care Fan Installer Name Role Phone ZARI Munoz Sr., Ramez Navarro Primary Care Pro vider Encounter Details Date Type Department Care Team (Latest Contact Info) Description 02/03/2005 Outpatient Historical [facility] Cardiology- [place] [address] [place] [address] Jr Mistry MD NO ADDRESS ON FILE CORON ATHEROSCL [place] CORON VESSEL (Primary Dx); Pure hypercholesterolem Social History Tobacco Use Types Packs/Day Years Used Date Smoking Tobacco: Never Assessed Sex and Gender Information Value Date Recorded Sex Assigned at Not on file Legal Sex Male 3:06 AM DE ALCOHOLIZER Gender Identity Not on file Sexual Orientation Not on file documented as of this encounter Plan of Treatment Not on file documented as of this encounter Visit Diagnoses Diagnosis Coronary atherosclerosis of [place] coronary artery- Primary Pure hypercholesterolem Pure hypercholesterolemia documented in this encounter Care Teams Fan Installer Relationship Specialty Start Date End Date Ramez Munoz Sr., FNP [address] [place] [address] PCP - General NURSE PRACTITIONER 05/21/16 documented as of this encounter
--- OUTSIDE RECORDS SUMMARY | 2025-06-06 12:44 | XMS_ITS | Encounter Summary ---
Author Organization [email or web address] [facility] Address [address] [place] [address] Care Team Providers Care Recyclable Materials Distributor Name Role Phone ZARI Munoz Sr., Michael Dave Primary Care Pro vider Encounter Details Date Type Department Care Team (Late st Contact Info) Description 05/13/2012 Ancillary Orders [facility] [place] [address] [place] [phone] Ramez Munoz Sr., FNP [address] [place] [address] Shoulder pain, right Social History Tobacco Use Types Packs/Day Years Used Date Smoking Tobacco: Former Cigarettes 1 15 0 12/11/1973 - 12/11/1988 Sex and Gender Information Value Date Recorded Sex Assigned at Not on file Legal Sex Male 3:06 AM COMMISSIONER OF OFFICIALS Gender Identity Not on file Sexual Orientation Not on file documented as of this encounter Plan of Treatment Not on file documented as of this encounter Results * XR SHOULDER 2+ VW RIGHT (05/13/2012 10:36 AM CDT) Anatomical Region Laterality Modality Upper Extremity Computed Radiogr aphy 05/13/2012 10:3 2 AM CDT Narrative 05/13/2012 11:15 AM CDT DESCRIPTION AP, Grashey, and scapular lateral view of the right shoulder show no acute fracture or deformity. Clothing artifact is noted. No significant degenerative change is seen. IMPRESSION unremarkable right shoulder views Procedure Note Bryan Johnson MD - 05/13/2012 DESCRIPTION AP, Grashey, and scapular lateral view of the right shoulder show no acute fracture or deformity. Clothing artifact is noted. No significant degenerative change is seen. IMPRESSION unremarkable right shoulder views us Ramez Munoz Sr., ZARI DIAGNOSTIC IMAGIN G ORDERABLES Final Result documented in this encounter Visit Diagnoses Diagnosis Shoulder pain, right Pain in joint, shoulder region Shoulder pain, right Pain in joint, shoulder region documented in this encounter Care Teams Recyclable Materials Distributor Relationship Specialty Start Date End Date Alexander Christina, ZARI [address] [place] [address] PCP - General NURSE PRACTITIONER 05/21/16 documented as of this encounter
--- OUTSIDE RECORDS SUMMARY | 2025-06-06 12:44 | XMS_ITS | Encounter Summary ---
Author Organization [facility] Address [address] [place] [address] Care Team Providers Care Relief Operator Name Role Phone ZARI Munoz Sr., Ramez Navarro Primary Care Pro vider Encounter Details Date Type Department Care Team (Latest Contact Info) Description 03/08/2006 Outpatient Historical [facility] [address] [place] [address] Corrine Gross, INTERSTATE PLANNER NO ADDRESS ON FILE Other and Unspecified Angina Pectoris (Primary Dx); Coronary Atherosclerosis of [place] Coronary Artery; Pure Hypercholesterolem Social History Tobacco Use Types Packs/Day Years Used Date Smoking Tobacco: Never Assessed Sex and Gender Information Value Date Recorded Sex Assigned at Not on file Legal Sex Male 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
--- OUTSIDE RECORDS SUMMARY | 2025-06-06 12:45 | XMS_ITS | Encounter Summary ---
Author Organization [facility] Address [address] [place] [address] Care Team Providers Care Machine Tester Name Role Phone ZARI Munoz Sr., Michael Dave Primary Care Pro vider Encounter Details Date Type Department Care Team (Latest Contact Info) Description 01/31/1999 Outpatient Historical [facility] Medicine [place] [address] [facility] [address] [place] [phone] Jack Caballero MD [address] [facility] [address] [place] [phone] Unspecified hemorrhoids without mention of complication (Primary Dx); Acute upper respiratory infections of unspecified site Social History Tobacco Use Types Packs/Day Years Used Date Smoking Tobacco: Never Assessed Sex and Gender Information Value Date Recorded Sex Assigned at Not on file Legal Sex Male 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
--- OUTSIDE RECORDS SUMMARY | 2025-06-06 12:45 | XMS_ITS | Encounter Summary ---
Author Organization [facility] Address [address] [place] [address] Care Team Providers Care Radiology Services Manager Name Role Phone ZARI Munoz Sr., Ramez Navarro Primary Care Pro vider Encounter Details Date Type Department Care Team (Latest Contact Info) Description 05/10/2001 Outpatient Historical [facility] Medicine [place] [address] [facility] [address] [place] [phone] Jack Caballero MD [address] 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
--- OUTSIDE RECORDS SUMMARY | 2025-06-06 12:45 | XMS_ITS | Encounter Summary ---
Author Organization [facility] Address [address] [place] [address] Care Team Providers Care Showcase Maker Name Role Phone ZARI Munoz Sr., Michael Dave Primary Care Pro vider Encounter Details Date Type Department Care Team (Latest Contact Info) Description 12/02/2001 Outpatient Historical [facility] Medicine [place] [address] [facility] [address] [place] [phone] Jack Caballero MD [address] [facility] [address] [place] [phone] HYPERTENSION NOS (Primary Dx); VIR HEP NEC W/O COMA W HEPAT C ACUT; SCREENING MAL NEOP-PROSTATE Social History Tobacco Use Types Packs/Day Years Used Date Smoking Tobacco: Never Assessed Sex and Gender Information Value Date Recorded Sex Assigned at Not on file 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 Gender Identity Not on file Sexual Orientation Not on file documented as of this encounter Plan of Treatment Not on file documented as of this encounter Visit Diagnoses Diagnosis Unspecified essential hypertension- Primary Acute hepatitis C without mention of hepatic coma(070.51) Acute hepatitis C without mention of hepatic coma Special screening for malignant neoplasm of prostate documented in this encounter Care Teams Showcase Maker Relationship Specialty Start Date End Date Ramez Munoz Sr., FNP [address] [place] [address] PCP - General NURSE PRACTITIONER 05/21/16 documented as of this encounter
--- OUTSIDE RECORDS SUMMARY | 2025-06-06 12:45 | XMS_ITS | Encounter Summary ---
Author Organization [facility] Address [address] [place] [address] Care Team Providers Care Insurance Adviser Name Role Phone ZARI Munoz Sr., Ramez Navarro Primary Care Pro vider Encounter Details Date Type Department Care Team (Latest Contact Info) Description 03/23/2000 Outpatient Historical [facility] Medicine [place] [address] [facility] [address] [place] [phone] Jack Caballero MD [address] [facility] [address] [place] [phone] Dermatitis due to plant (Primary Dx); Unspecified essential hypertension Social History Tobacco Use Types Packs/Day Years Used Date Smoking Tobacco: Never Assessed Sex and Gender Information Value Date Recorded Sex Assigned at Not on file 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
--- OUTSIDE RECORDS SUMMARY | 2025-06-06 12:45 | XMS_ITS | Encounter Summary ---
Author Organization [facility] Address [address] [place] [address] Care Team Providers Care Golf Caddie Name Role Phone ZARI Munoz Sr., Ramez Navarro Primary Care Pro vider Encounter Details Date Type Department Care Team (Latest Contact Info) Description 07/22/1998 Outpatient Historical [facility] Medicine [place] [address] [facility] 60 [place] [phone] Jack Caballero MD [address] [facility] [address] [place] [phone] Acute bronchitis (Primary Dx); Acute pharyngitis Social History Tobacco Use Types Packs/Day Years Used Date Smoking Tobacco: Never Assessed Sex and Gender Information Value Date Recorded Sex Assigned at Not on file Legal 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
--- OUTSIDE RECORDS SUMMARY | 2025-06-06 12:45 | XMS_ITS | Encounter Summary ---
Author Organization [facility] Address [address] [place] [address] Care Team Providers Care Manager Protein Name Role Phone ZARI Munoz Sr., Ramez Navarro Primary Care Pro vider Encounter Details Date Type Department Care Team (Latest Contact Info) Description 07/26/1998 Outpatient Historical [facility] Medicine [place] [address] [facility] [address] [place] [phone] Jack Caballero MD [address] [facility] 200 [place] [phone] Acute upper respiratory infections of unspecified site (Primary Dx) Social History Tobacco Use Types Packs/Day Years Used Date Smoking Tobacco: Never Assessed Sex and Gender Information Value Date Recorded Sex Assigned at Not on file Legal Sex Male 3:06 AM MANAGER EVENT Gender Identity Not on file Sexual Orientation Not on file documented as of this encounter Plan of Treatment Not on file documented as of this encounter Visit Diagnoses Diagnosis Acute upper respiratory infections of unspecified site- Primary documented in this encounter Care Teams Manager Protein Relationship Specialty Start Date End Date Ramez Munoz Sr., FNP [address] [place] [address] PCP - General NURSE PRACTITIONER 05/21/16 documented as of this encounter
--- OUTSIDE RECORDS SUMMARY | 2025-06-06 12:45 | XMS_ITS | Encounter Summary ---
Author Organization [facility] Address [address] [facility] Attn: [place] [address] Care Team Providers Care Leather Stretcher Name Role Phone ZARI Munoz Sr., Ramez Navarro Primary Care Pro vider Encounter Details Date Type Department Care Team (Late st Contact Info) Description 03/23/2000 Outpatient Historical Jack Caballero MD [address] [facility] 200 [place] [phone] Social History Tobacco Use Types Packs/Day Years Used Date Smoking Tobacco: Never Assessed Sex and Gender Information Value Date Recorded Sex Assigned at Not on file Legal 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
--- OUTSIDE RECORDS SUMMARY | 2025-06-06 12:45 | XMS_ITS | Encounter Summary ---
Author Organization [employer] [facility] Address [address] [place] [address] Care Team Providers Care Steam Box Hand Name Role Phone ZARI Munoz Sr., Michael Dave Primary Care Pro vider Encounter Details Date Type Department Care Team (Latest Contact Info) Description 02/24/1999 Outpatient Historical [facility] Shoaib Myrick MD [address] [place] [address] Unspecified hemorrhoids without mention of complication (Primary Dx) Social History Tobacco Use Types Packs/Day Years Used Date Smoking Tobacco: Never Assessed Sex and Gender Information Value Date Recorded Sex Assigned at Not on file Legal 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
--- OUTSIDE RECORDS SUMMARY | 2025-06-06 12:45 | XMS_ITS | Encounter Summary ---
Author Organization [facility] Address [address] [place] [address] Care Team Providers Care Histopathology Technician Name Role Phone ZARI Munoz Sr., Ramez Navarro Primary Care Pro vider Encounter Details Date Type Department Care Team (Latest Contact Info) Description 04/05/2001 Outpatient Historical [facility] Medicine [place] [address] [facility] [address] [place] [phone] Jack Caballero MD [address] [facility] [address] [place] [phone] Unspecified essential hypertension (Primary Dx); Actinic keratosis Social History Tobacco Use Types Packs/Day Years Used Date Smoking Tobacco: Never Assessed Sex and Gender Information Value Date Recorded Sex Assigned at Not on file 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
--- OUTSIDE RECORDS SUMMARY | 2025-06-06 12:45 | XMS_ITS | Encounter Summary ---
Author Organization [facility] Address [address] [place] [address] Care Team Providers Care Optical Manufacturing Technician Name Role Phone ZARI Munoz Sr., Michael Dave Primary Care Pro vider Encounter Details Date Type Department Care Team (Latest Contact Info) Description 03/31/2000 Outpatient Historical [facility] Medicine [address] [place] [phone] Rickey Lubin, DO NO ADDRESS ON FILE Contact dermatitis and other eczema due to other specified agent (Primary Dx) Social History Tobacco Use Types Packs/Day Years Used Date Smoking Tobacco: Never Assessed Sex and Gender Information Value Date Recorded Sex Assigned at Not on file 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
--- OUTSIDE RECORDS SUMMARY | 2025-06-06 12:45 | XMS_ITS | Encounter Summary ---
Author Organization [facility] Address [address] [place] [address] Care Team Providers Care Settlement Worker Name Role Phone ZARI Munoz Sr., Ramez Navarro Primary Care Pro vider Encounter Details Date Type Department Care Team (Latest Contact Info) Description 04/29/[address] 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
--- OUTSIDE RECORDS SUMMARY | 2025-06-06 12:45 | XMS_ITS | Encounter Summary ---
Author Organization [facility] Address [address] [place] [address] Care Team Providers Care Air Conditioning Manager Name Role Phone ZARI Munoz Sr., Ramez Navarro Primary Care Pro vider Encounter Details Date Type Department Care Team (Latest Contact Info) Description 02/18/1999 Outpatient Historical [facility] Medicine [place] [address] [facility] 60 [place] [phone] Jack Caballero MD [address] [facility] [address] [place] [phone] Urinary tract infection, site not specified (Primary Dx); Unspecified hemorrhoids without mention of complication; Screening for malignant neoplasm of the rectum Social History Tobacco Use Types Packs/Day Years Used Date Smoking Tobacco: Never Assessed Sex and Gender Information Value Date Recorded Sex Assigned at Not on file 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
--- OUTSIDE RECORDS SUMMARY | 2025-06-06 12:45 | XMS_ITS | Encounter Summary ---
Author Organization [facility] Address [address] [place] [address] Care Team Providers Care Supervisor Conditioning Yard Name Role Phone ZARI Munoz Sr., Michael Dave Primary Care Pro vider Encounter Details Date Type Department Care Team (Latest Contact Info) Description 09/08/2000 Outpatient Historical [facility] Medicine [place] [address] [facility] 60 [place] [phone] Rachana Jean Baptiste NO ADDRESS ON FILE Dermatitis due to plant (Primary Dx) Social History Tobacco Use Types Packs/Day Years Used Date Smoking Tobacco: Never Assessed Sex and Gender Information Value Date Recorded Sex Assigned at Not on file Legal Sex Male 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
--- OUTSIDE RECORDS SUMMARY | 2025-06-06 12:45 | XMS_ITS | Encounter Summary ---
Author Organization [facility] Address [address] [place] [address] Care Team Providers Care Workforce Analyst Name Role Phone ZARI Munoz Sr., Michael Dave Primary Care Pro vider Encounter Details Date Type Department Care Team (Latest Contact Info) Description 09/10/1998 Outpatient Historical [facility] Medicine [place] [address] 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 Gender Identity Not on file Sexual Orientation Not on file documented as of this encounter Plan of Treatment Not on file documented as of this encounter Visit Diagnoses Diagnosis Chest pain, unspecified- Primary Acute hepatitis C without mention of hepatic coma(070.51) Acute hepatitis C without mention of hepatic coma Encounters for other specified administrative purpose(V68.89) Encounters for other specified administrative purpose documented in this encounter Care Teams Workforce Analyst Relationship Specialty Start Date End Date Ramez Munoz Sr., FNP [address] [place], [place] [id number] PCP - General NURSE PRACTITIONER 05/21/16 documented as of this encounter
--- OUTSIDE RECORDS SUMMARY | 2025-06-06 12:45 | XMS_ITS | Encounter Summary ---
Author Organization [facility] Address [address] [place] [address] Care Team Providers Care Payroll And Benefits Manager Name Role Phone ZARI Munoz Sr., Ramez Navarro Primary Care Pro vider Encounter Details Date Type Department Care Team (Latest Contact Info) Description 06/15/2000 Outpatient Historical [facility] Medicine [place] [address] [facility] 60 [place] [phone] Jack Caballero MD [address] 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
--- OUTSIDE RECORDS SUMMARY | 2025-06-06 12:46 | XMS_ITS | Clinical Summary ---
Author Organization [facility] Address [address] [facility] Attn: [place] [address] Care Team Providers Care Insulation Installer Name Role Phone Alexander Christina, ZARI, Ramez Navarro Primary Care Pro vider Allergies Active Allergy Reactions Criticality Noted Date Comments Codeine Nausea and Vomiting Low 12/11/2008 Medications lisinopriL 40 mg tablet Take 40 mg by mouth daily. Active omeprazole 20 mg capsule,delayed release Take 20 mg by mouth 2 times daily. Active carvediloL 12.5 mg tablet Take 12.5 mg by mouth 2 times daily with meals. Active hydroCHLOROthiazid e 25 mg tablet Take 25 mg by mouth daily. Active tamsulosin 0.4 mg capsule Take 0.4 mg by mouth daily. Active traZODone 100 mg tablet Take 100 mg by mouth daily at bedtime. Active aspirin 81 mg tablet,delayed release Take 81 mg by mouth daily. Active multivitamin tablet Take 1 Tablet by mouth daily. Active calcium carbonate 600 mg-vitamin D3 10 mcg (400 unit) tablet Take by mouth. Active DULoxetine 20 mg capsule,delayed release Take 20 mg by mouth daily. Active peg 3350-electrolytes (GOLYTELY) 236-22.74-6.74 -5.86 gram Recon Soln Take 1 Each (4,000 mL) by mouth one time for 1 dose. Use as directed the day prior to your procedure. 4000 mL 3 Active finasteride 5 mg tablet Take 5 mg by mouth daily. Active glipiZIDE 10 mg tablet Take 10 mg by mouth daily with breakfast. Active furosemide 20 mg tablet Take 20 mg by mouth daily. Active atorvastatin 80 mg tablet Take 80 mg by mouth daily. Active potassium chloride ER 20 mEq tablet,extended release(part/cryst ) Take 20 mEq by mouth daily. Active omega-3 fatty acids-fish oil 300 mg-1,000 mg capsule Take by mouth daily. Active empagliflozin 25 mg tablet Take by mouth daily in the morning. Active tadalafiL 10 mg tablet Take 5 mg by mouth 1 time daily as needed for Erectile Dysfunction. Active mirabegron ER 25 mg tablet,extended release 24 hr Take 25 mg by mouth daily. Active omega3/dha/epa/fis h oil/vit D3 (va-5-wrp-epa-fish oil-vit D3) 120 mg-180 mg -1,000 unit Capsule Take 1 Caplet by mouth 2 times daily. Active ydt6688/sod sulf,bicarb,Cl/KCl (PEG 3350-ELECTROLYTES ORAL) Take 1 Bottle by mouth one time only. 3 Active PNV no.95/ferrous fum/folic ac ( MULTIVITAMINS ORAL) Take 1 Tablet by mouth daily. 2 Active Active Problems Problem Noted Date Diagnosed Date Diabetes mellitus type II, c ontrolled, with no complications 12/11/2008 HTN (hypertension) 12/11/2008 Overview (02/27/2021): Updating IMO/ICD9 Code and Description Chest pain 12/10/2008 CAD (coronary artery disease) 12/10/2008 Overview (02/27/2021): 12/18/04 TAXUS CLARKE mid LAD--Dr. 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 Gender Identity Not on file Sexual Orientation Not on file Last Filed Vital Signs Vital Sign Reading Time Taken Comments Blood Pressure 139/83 07/01/2023 6:30 PM CDT Pulse 59 07/01/2023 6:30 PM CDT Temperature 36.1 C (96.9 F) 07/01/2023 6:30 PM CDT Respiratory Rate 18 07/01/2023 6:07 PM CDT Oxygen Saturation 95% 07/01/2023 6:30 PM CDT Inhaled Oxygen Concentration - - Weight 94.7 kg (208 lb 12.8 oz) 07/01/2023 6:07 PM CDT Height 180.3 cm (5' 11 ) 07/01/2023 6:07 PM CDT Body Mass Index 29.12 07/01/2023 6:07 PM CDT Plan of Treatment Health Maintenance Due Date Last Done Comments DIABETES ANNUAL FOOT EXAM 1967 DIABETES MICROALBUMIN ANNUAL SCREEN 1967 LDL CHOLESTEROL ANNUAL 1967 DIABETES HBA1C Q 6 MONTHS 08/19/2023 02/17/2023 RSV VACCINE (60+ or ) (1 - 1-dose 75+ series) 02/10/2024 DIABETES ANNUAL RETINAL EXAM 02/18/2024 02/17/2023, 02/17/2023 INFLUENZA VACCINE (#1) 2025 , 07/14/2017, 08/12/2016, Additional history exists DTAP/TDAP/TD VACCINES (2 - T d or Tdap) 03/03/2031 03/03/2021 PNEUMOCOCCAL VACCINE 50+ YEARS Completed 0 03/03/2021, 11/03/2017, 06/08/2011 ZOSTER VACCINE Completed 06/02/2021, 03/03/2021 COLORECTAL SCREENING Discontinued 12/23/2022 Colorectal Cancer Screening Discontinued FIT-DNA Q 3 years Discontinued FIT/FOBT Q 1 year Discontinued Flex Sig/CT Colonography Q 5 years Discontinued Insurance [address] [place] [address] MEDICARE PART A AND B [facility] [employer] Care Teams Insulation Installer Relationship Specialty Start Date End Date Alexander Christina, ZARI Gonzalez [address] [place] [address] PCP - General NURSE PRACTITIONER 05/21/16
--- NOTE | 2025-06-06 12:54 | ECG_ITS ---
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 Measurements Intervals Colp Rate: 69 P: 61 OH: 176 QRS: -53 QRSD: 170 T: 109 QT: 453 QTc: 487 Interpretive Statements ELECTRONIC VENTRICULAR PACEMAKER ABNORMAL RHYTHM ECG No previous ECG available for comparison Electronically Signed On 06-06-2025 22:49:11 CDT by Tiffanie New M.D. [id number]
--- NOTE | 2025-06-06 12:59 | CT_ITS ---
WS: [id number] CT CERVICAL SPINE HISTORY: trauma TECHNIQUE: Contiguous 2.0 mm axial imaging performed through the entire cervical spine. Sagittal and coronal reformats also performed. All CT scans at [facility] use at least one of these dose optimization techniques: automated exposure control; mA and/or kV adjustment per patient size (includes targeted exams where dose is matched to clinical indication); or iterative reconstruction. DLP: 1462.41 mGy.cm COMPARISON: None available. Straightening of the normal cervical lordosis. Bony fusion at C5-6 and C6-7 across the endplates and disc spaces. Additional osseous fusion involving several of the facet joints bilaterally. No fractures are identified. The odontoid is intact. Craniocervical junction is normally aligned. C2-C3: Bilateral facet joint arthritis, RIGHT greater than LEFT. Mild foraminal stenosis. C3-C4: Osteophytic ridging with bilateral facet arthropathy. Severe bilateral foraminal stenosis, RIGHT greater than LEFT. C4-C5: Osteophytic ridging with moderate facet arthropathy. Moderate to severe bilateral foraminal stenosis. C5-C6: Diffuse osteophytic ridging. Moderate RIGHT and mild LEFT foraminal stenosis and facet arthritis. C6-C7: Moderate bilateral foraminal stenosis and facet arthropathy. C7-T1: Mild foraminal stenosis. Facet joint arthropathy. Lung apices are clear. Moderate to severe atherosclerotic plaque in the cervical carotid arteries and through the cavernous carotid arteries. CT/CT cervical spin wo con* [id number] IMPRESSION: 1. No acute cervical spine fracture identified. 2. Advanced facet joint arthropathy with multi level areas of foraminal stenos is. 3. Severe bilateral foraminal stenosis at C3-4 and moderate to severe at C4-5. Additional moderate bilateral foraminal stenosis at C6-7 and on the RIGHT at C 5-6. 4. Bony fusion across the disc spaces of C5-6 and C6-7. Additional bilateral f acet joint effusions.
--- NOTE | 2025-06-06 13:02 | W.ED.FALL ---
HPI - Fall General: Chief Complaint: Fall Stated Complaint: Fell on back blacked out Time Seen by Provider: 06/06/25 12:44 History of Present Illness: 75-year-old male presents emergency room complaining of having fallen. He was cutting some weeds and elevated garden bed fell backwards hit the back of his head his back of his head and his neck hurt. He has no memory of the episode. He cannot tell me if he had any chest discomfort lightheadedness or dizziness prior to the fall. He does have a history of atrial fibrillation and a pacemaker. He is on anticoagulation takes Eliquis daily. He denies any palpitations or racing heart. He has previously had a cervical fusion. Patient states he has had other episodes of syncope recently. Associated symptoms-after fall: Denies abdominal pain, chest pain or neck pain Related Data Home Medications ?Medication ?Instructions ?Recorded ?Confirmed finasteride 5 mg tablet 5 mg PO QDAY 11/28/19 06/06/25 tamsulosin 0.4 mg capsule 0.4 mg PO BEDTIME 11/28/19 06/06/25 trazodone 100 mg tablet 200 mg PO BEDTIME 02/18/21 06/06/25 carvedilol 12.5 mg tablet 6.25 mg PO BID 07/03/22 06/06/25 gabapentin 300 mg capsule 300 mg PO BID 09/06/23 06/06/25 alpha lipoic acid 600 mg capsule 600 mg PO DAILY 06/06/25 06/06/25 amlodipine 10 mg tablet 10 mg PO DAILY 06/06/25 06/06/25 apixaban 5 mg tablet (Eliquis) 5 mg PO BID 06/06/25 06/06/25 atorvastatin 80 mg tablet 80 mg PO QPM 06/06/25 06/06/25 cholecalciferol (vitamin D3) 50 50 mcg PO DAILY 06/06/25 06/06/25 mcg (2,000 unit) tablet clopidogrel 75 mg tablet 75 mg PO DAILY 06/06/25 06/06/25 cyanocobalamin (vitamin B-12) 1,000 mcg IM Q30D 06/06/25 06/06/25 1,000 mcg/mL injection solution duloxetine 30 mg capsule,delayed 30 mg PO DAILY 06/06/25 06/06/25 release empagliflozin 25 mg tablet 25 mg PO DAILY 06/06/25 06/06/25 (Jardiance) escitalopram oxalate 10 mg tablet 10 mg PO DAILY 06/06/25 06/06/25 ezetimibe 10 mg tablet 10 mg PO DAILY 06/06/25 06/06/25 fexofenadine 180 mg tablet 180 mg PO DAILY 06/06/25 06/06/25 fluticasone propionate 50 1 spray intranasal DAILY 06/06/25 06/06/25 mcg/actuation nasal spray,suspension glipizide 10 mg tablet 5 mg PO TID 06/06/25 06/06/25 isosorbide mononitrate 30 mg 30 mg PO QAM 06/06/25 06/06/25 tablet,extended release 24 hr lidocaine 4 % topical patch 2 patch topical DAILY PRN Pain 06/06/25 06/06/25 losartan 50 mg tablet 50 mg PO DAILY 06/06/25 06/06/25 metformin 500 mg tablet,extended See Rx Instructions .Route .COMPLEX 06/06/25 06/06/25 release 24 hr methocarbamol 750 mg tablet 375 mg PO Q8H 06/06/25 06/06/25 mirabegron 50 mg tablet,extended 50 mg PO DAILY 06/06/25 06/06/25 release 24 hr (Myrbetriq) multivitamin 1 tab PO DAILY 06/06/25 06/06/25 nitroglycerin 0.4 mg sublingual 0.4 mg sublingual Q5M PRN Chest 06/06/25 06/06/25 tablet (Nitrostat) Pain omega-3 fatty acids 1,000 mg 1,000 mg PO DAILY 06/06/25 06/06/25 capsule omeprazole 40 mg capsule,delayed 40 mg PO DAILY 06/06/25 06/06/25 release Previous Rx's ?Medication ?Instructions ?Recorded Diabetic shoes with custom insoles #1 ea 07/09/22 Diabetic socks #12 ea 06/20/24 diabetic shoes with 3 inserts #1 ea 09/12/24 Allergies Allergy/AdvReac Type Severity Reaction Status Date / Time codeine Allergy Mild stomach Verified 03/19/25 09:10 ache Review of Systems Const: Denies: fever(s) or chills Card: Denies: chest pain Resp: Denies: dyspnea GI: Denies: abdominal pain : Denies: dysuria, urinary frequency or urinary urgency Musc: Denies: neck pain or back pain Skin/Breast: Denies: rash PFSH ED PFSH: Medical History Chronic anticoagulation Pacemaker Diabetes mellitus Hearing loss Hypertension Surgical History History of ureter stent Family History Brother Diabetes Brother Diabetes Denies family history of Cancer Stroke Social History Smoking and tobacco/nicotine status: never used tobacco/nicotine Alcohol intake: never Substance/Drug Use: never Household members: spouse Marital status: Current occupational status: retired Physical Exam Const: GENERAL APPEARANCE: cooperative ORIENTATION/CONSCIOUSNESS: Yes awake, Yes oriented to person, Yes oriented to place and Yes oriented to time HENMT: COMMON NORMALS: normocephalic, atraumatic and hearing grossly normal bilaterally HEAD & SCALP: normocephalic and atraumatic Resp: COMMON NORMALS: normal respiratory effort, No retractions, No use of accessory muscles and clear to auscultation bilaterally AUSCULTATION: clear to auscultation bilaterally Cardio: COMMON NORMALS: regular rate, regular rhythm and No murmurs present (Cardio) RATE: regular rate RHYTHM: regular rhythm GI: COMMON NORMALS: Soft to palpation and No hepatosplenomegaly present AUSCULTATION: Yes normoactive bowel sounds PALPATION: Yes Soft to palpation, No Tenderness to palpation present (GI), No Guarding due to palpation present (GI) and Yes No hepatosplenomegaly present Extremity: COMMON NORMALS: normal to inspection, capillary refill normal, no clubbing, cyanosis or edema, no calf tenderness and no pedal edema Neuro: SENSORIUM/ORIENTATION: Yes oriented to person, Yes oriented to place and Yes oriented to time Skin: COMMON NORMALS: no rashes or lesions noted GENERAL SKIN EXAM: no rashes or lesions noted Course Vital Signs: Vital signs: Vital Signs Temperature 97.9 F 06/06/25 12:41 Pulse Rate 75 06/06/25 17:00 Respiratory Rate 17 06/06/25 15:15 Blood Pressure 165/87 06/06/25 14:45 Pulse Oximetry 95 06/06/25 17:00 Oxygen Delivery Me thod Room Air 06/06/25 17:00 MDM - Fall Medical Decision Making Imaging unremarkable. Labs x-ray and EKG reviewed as found in chart. Syncope still unexplained. Will place on observation discussed with hospitalist orders written Medical Records I reviewed the patient's medical records. Lab Data I reviewed the patient's lab results. 06/06/25 13:05 06/06/25 13:05 Radiology Impressions Chest X-Ray 06/06/25 12:44 IMPRESSION: No acute lung or pleural abnormality. Multiple left rib fractures as above. Head CT 06/06/25 12:44 IMPRESSION: 1. Negative head CT for acute lateral edema. 2. No skull fracture. 3. No scalp hematoma. 4. Symmetric cerebral atrophy and small vessel disease. Cervical Spine CT 06/06/25 12:59 IMPRESSION: 1. No acute cervical spine fracture identified. 2. Advanced facet joint arthropathy with multi level areas of foraminal stenosis. 3. Severe bilateral foraminal stenosis at C3-4 and moderate to severe at C4-5. Additional moderate bilateral foraminal stenosis at C6-7 and on the RIGHT at C5-6. 4. Bony fusion across the disc spaces of C5-6 and C6-7. Additional bilateral facet joint effusions. Lumbar Spine CT 06/06/25 13:17 IMPRESSION: 1. No lumbar spine fracture. 2. L4-5: Mild to moderate central with bilateral foraminal subarticular recess stenosis. 3. Prior cholecystectomy. 4. Horseshoe kidneys. Thoracic Spine CT 06/06/25 13:18 IMPRESSION: 1. No acute thoracic spine fractures. 2. Numerous healed left-sided rib fractures. Head/Neck CTA 06/06/25 15:37 IMPRESSION: No large vessel stenosis or occlusion. IMPRESSION: No stenosis or occlusion. REFERENCES: NASCET CRITERIA. The degree of stenosis in the cervical segment of the internal carotid artery is based on NASCET criteria. Normal is no stenosis. Mild is less than 50% stenosis. Moderate is 50-69% stenosis. Severe is 70% to 99% stenosis. Total occlusion is no detectable patent lumen. Laboratory Results WBC 12.21 10^3/uL (3.29-11.43) H 06/06/25 13:05 RBC 5.23 10^6/uL (3.85-5.65) 06/06/25 13:05 Hgb 16.30 g/dL (11.27-16.99) 06/06/25 13:05 Hct 46.3 % (37-53) 06/06/25 13:05 MCV 88.5 fl (82-101) 06/06/25 13:05 MCH 31.2 pg (27-33) 06/06/25 13:05 MCHC 35.2 g/dL (30-55) 06/06/25 13:05 RDW 13.0 % (12.1-15.1) 06/06/25 13:05 Plt Count 181 10^3/cmm (157-399) 06/06/25 13:05 MPV 9.9 fL (7.4-10.4) 06/06/25 13:05 Neut % (Auto) 80.6 % 06/06/25 13:05 Lymph % (Auto) 11.1 % 06/06/25 13:05 [place]ner % (Auto) 6.2 % 06/06/25 13:05 Eos % (Auto) 0.7 % 06/06/25 13:05 Baso % (Auto) 0.7 % 06/06/25 13:05 Neut # (Auto) 9.84 10^3/uL (1.8-7.7) H 06/06/25 13:05 Lymph # (Auto) 1.4 10^3/uL (0.8-4.8) 06/06/25 13:05 [place] # (Auto) 0.8 10^3/uL (0.2-0.9) 06/06/25 13:05 Eos # (Auto) 0.1 10^3/uL (0.0-0.8) 06/06/25 13:05 Baso # (Auto) 0.1 10^3/uL (0.0-0.1) 06/06/25 13:05 Nucleated RBC % (auto) 0 % 06/06/25 13:05 Nucleated RBCs # 0.0 /100WBC 06/06/25 13:05 Sodium 140 mmol/L (136-145) 06/06/25 13:05 Potassium 3.6 mmol/L (3.5-5.1) 06/06/25 13:05 Chloride 102 mmol/L (98-107) 06/06/25 13:05 Carbon Dioxide 24 mmol/L (22-29) 06/06/25 13:05 Anion Gap 17.6 (5-19) 06/06/25 13:05 BUN 13 mg/dL (8-23) 06/06/25 13:05 Creatinine 0.8 mg/dL (0.7-1.2) 06/06/25 13:05 GFR Calculation Not Reportable 06/06/25 13:05 Glucose 263 mg/dL (65-115) H 06/06/25 13:05 Calculated Osmolality 299 mOsm/kg (285-295) H 06/06/25 13:05 Lactic Acid 1.9 mmol/L (0.5-2.2) 06/06/25 16:08 Calcium 9.3 mg/dL (8.5-10.5) 06/06/25 13:05 Total Bilirubin 0.4 mg/dL (0.15-1.2) 06/06/25 13:05 AST 21 U/L (0-40) 06/06/25 13:05 ALT 24 U/L (0-41) 06/06/25 13:05 Alkaline Phosphatase 141 U/L (40-130) H 06/06/25 13:05 Troponin T Baseline 11 ng/L (0-15) 06/06/25 13:05 Troponin T 120 Minute 10.48 ng/L (0-15) 06/06/25 15:13 Delta Troponin T -0.52 ABS# (0-10) L 06/06/25 15:13 Total Protein 6.6 g/dL (6.6-8.7) 06/06/25 13:05 Albumin 4.0 g/dL (3.5-5.2) 06/06/25 13:05 Globulin 2.6 g/dL (1.3-4.6) 06/06/25 13:05 Procalcitonin 0.05 ng/mL (0-0.5) 06/06/25 16:08 All radiology interpretation(s) finalized by discharge EKG Data EKG 1: Interpretation: 06/06/2025 1254 EKG shows paced rhythm at rate of 69. No further evaluation possible. EKG 2: Interpretation: EKG 06/06/2025 1509 paced rhythm rate of 72 no further evaluation of hospital. Compared EKG taken previously today and no significant change noted Discharge Plan Discharge Patient Disposition: Left Against Medical Advice Clinical Impression: Syncope and collapse, Neck pain, Cervical stenosis of spinal canal, Chronic anticoagulation, Diabetes mellitus, Hypertension, Type 2 diabetes mellitus with diabetic polyneuropathy Condition: Stable Prescriptions: No Action finasteride 5 mg tablet 5 mg PO QDAY tamsulosin 0.4 mg capsule 0.4 mg PO BEDTIME trazodone 100 mg tablet 200 mg PO BEDTIME (DME) Diabetic shoes with custom insoles See Rx Instructions .Route .MEDSUPPLY Qty: 1 0RF Rx Instructions: As directed by [facility] carvedilol 12.5 mg tablet 6.25 mg PO BID Rx Instructions: must administer with a meal/food (DME) Diabetic socks See Rx Instructions .Route .MEDSUPPLY Qty: 12 0RF Rx Instructions: As directed gabapentin 300 mg capsule 300 mg PO BID (DME) diabetic shoes with 3 inserts See Rx Instructions .Route .MEDSUPPLY Qty: 1 0RF Rx Instructions: As directed to the shoe ella atorvastatin 80 mg Tablet 80 mg PO QPM amlodipine 10 mg Tablet 10 mg PO DAILY duloxetine 30 mg Capsule,Delayed Release(Dr/Ec) 30 mg PO DAILY alpha lipoic acid 600 mg Capsule 600 mg PO DAILY Eliquis 5 mg Tablet 5 mg PO BID multivitamin Tablet 1 tab PO DAILY losartan 50 mg Tablet 50 mg PO DAILY lidocaine 4 % Adhesive Patch,Medicated 2 patch TOPICAL DAILY PRN (Reason: Pain) Rx Instructions: 12 hours on and 12 hours off omega-3 fatty acids 1,000 mg Capsule 1,000 mg PO DAILY glipizide 10 mg Tablet 5 mg PO TID isosorbide mononitrate 30 mg Tablet Extended Release 24 Hr 30 mg PO QAM clopidogrel 75 mg Tablet 75 mg PO DAILY fexofenadine [Kassie] 180 mg Tablet 180 mg PO DAILY omeprazole 40 mg Capsule,Delayed Release(Dr/Ec) 40 mg PO DAILY methocarbamol 750 mg Tablet 375 mg PO Q8H cyanocobalamin (vitamin B-12) 1,000 mcg/mL Solution 1,000 mcg IM Q30D nitroglycerin [Nitrostat] 0.4 mg Tablet, Sublingual 0.4 mg SUBLINGUAL Q5M PRN (Reason: Chest Pain) Rx Instructions: do not exceed 3 doses per episode fluticasone propionate [Flonase] 50 mcg/actuation [place],Suspension 1 spray INTRANASAL DAILY Rx Instructions: administer into each nostril metformin 500 mg Tablet Extended Release 24 Hr See Rx Instructions .ROUTE .COMPLEX Rx Instructions: Take 1 tablet by mouth in the morning and 2 tablets in the evening. escitalopram oxalate 10 mg Tablet 10 mg PO DAILY ezetimibe 10 mg Tablet 10 mg PO DAILY cholecalciferol (vitamin D3) 50 mcg (2,000 unit) Tablet 50 mcg PO DAILY mirabegron [Myrbetriq] 50 mg Tablet Extended Release 24 Hr 50 mg PO DAILY Jardiance 25 mg Tablet 25 mg PO DAILY Referrals: Sherry Borjas FNP [Primary Care Provider, Nurse Practitioner] Print Language: Vietnamese Coding Level of Care Code ED Agricultural Agent for Felipe Damian
[2025-06-06 13:11] LABS: Hematocrit 46.3 % (37-53); Hemoglobin 16.30 g/dL (11.27-16.99); Mean Corpuscular HGB Conc 35.2 g/dL (30-55); Mean Corpuscular Hemoglobin 31.2 pg (27-33); Mean Corpuscular Volume 88.5 fl (82-101); Nucleated Red Blood Cells % 0 %; Platelet Count 181 10^3/cmm (157-399); Red Blood Count 5.23 10^6/uL (3.85-5.65); White Blood Count 12.21 10^3/uL (3.29-11.43)
--- NOTE | 2025-06-06 13:17 | CT_ITS ---
WS: [id number] CT LUMBAR SPINE, noncontrast. HISTORY: TRAUMA TECHNIQUE: Contiguous 2.0 mm axial imaging are performed. Sagittal and coronal reformats are submitted and reviewed. All CT scans at [facility] use at least one of these dose optimization techniques: automated exposure control; mA and/or kV adjustment per patient size (includes targeted exams where dose is matched to clinical indication); or iterative reconstruction. IV contrast: None DLP: 1588.41 mGy.cm COMPARISON: None available. Normal lumbar alignment with no loss of disc space height or vertebral body height. L1-2: Normal. L2-3: Mild disc bulging. Mild foraminal stenosis. L3-4: Diffuse annular disc bulging with mild subarticular recess and foraminal encroachment. L4-5: Moderate bilateral facet joint arthropathy. Osteophytic ridging at the vertebral bodies. Disc bulging. Mild to moderate central, bilateral foraminal and subarticular recess stenosis. L5-S1: Osteophytic ridging. Mild LEFT foraminal stenosis. Horseshoe kidneys. Prior cholecystectomy. Atherosclerosis aorta and mesenteric arteries. Advanced sigmoid diverticulosis. No evidence for acute diverticulitis. CT/CT lumbar spine wo con* [id number] IMPRESSION: 1. No lumbar spine fracture. 2. L4-5: Mild to moderate central with bilateral foraminal subarticular recess stenosis. 3. Prior cholecystectomy. 4. Horseshoe kidneys.
--- NOTE | 2025-06-06 13:18 | CT_ITS ---
WS: [id number] CT THORACIC SPINE HISTORY: TRAUMA TECHNIQUE: Contiguous 2.5 mm axial images are reviewed to thoracic spine. Images are reformatted in sagittal and coronal planes. All CT scans at [facility] use at least one of these dose optimization techniques: automated exposure control; mA and/or kV adjustment per patient size (includes targeted exams where dose is matched to clinical indication); or iterative reconstruction. DLP: 1588.41 mGy.cm COMPARISON: None available. Slight increase in thoracic kyphosis. Osteopenia. Hypertrophic bridging osteophytes over several contiguous levels of the thoracic spine. Mild deformity involving the LEFT transverse process of L5 from an old fracture. No acute thoracic spine fractures. No acute transverse or spinous process fractures. Numerous remote and healed fractures involving the posterior LEFT thorax. Visualized lungs are negative for contusion or laceration. No pneumothorax identified. No effusion. LEFT subclavian cardiac pacer. CT/CT thoracic spin wo con* [id number] IMPRESSION: 1. No acute thoracic spine fractures. 2. Numerous healed left-sided rib fractures.
[2025-06-06 13:29] LABS: Alanine Aminotransferase 24 U/L (0-41); Albumin Level 4.0 g/dL (3.5-5.2); Alkaline Phosphatase 141 U/L (40-130); Anion Gap 17.6 (5-19); Aspartate Amino Transferase 21 U/L (0-40); Blood Urea Nitrogen 13 mg/dL (8-23); Calcium 9.3 mg/dL (8.5-10.5); Carbon Dioxide 24 mmol/L (22-29); Chloride 102 mmol/L (98-107); Creatinine Clr Calc Pharmacy 93.3418; Globulin 2.6 g/dL (1.3-4.6); Glucose 263 mg/dL (65-115); Osmolality Calculated 299 mOsm/kg (285-295); Potassium 3.6 mmol/L (3.5-5.1); Sodium 140 mmol/L (136-145); Total Protein 6.6 g/dL (6.6-8.7); Troponin(5th) Baseline 11 ng/L (0-15)
--- NOTE | 2025-06-06 15:00 | ECG_ITS ---
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 Measurements Intervals [place] Rate: 72 P: 57 SD: 171 QRS: -52 QRSD: 168 T: 106 QT: 449 QTc: 493 Interpretive Statements ELECTRONIC VENTRICULAR PACEMAKER AV pacing ABNORMAL RHYTHM ECG Compared to ECG 06/06/2025 13:44:06 No significant changes Electronically Signed On 06-06-2025 22:52:39 CDT by Tiffanie New M.D. [email or web address]
[2025-06-06] MEDS: fentaNYL 50 mcg/mL INJ 2mL 25 MCG IVP (15:15)
--- NOTE | 2025-06-06 15:37 | CTR_ITS ---
PROCEDURE INFORMATION: Exam: CTA Head With Contrast, Arteriography Exam date and time: 06/06/2025 3:45 PM Age: 75 years old Clinical indication: Syncope and collapse; Additional info: Syncope, carotid stenosis TECHNIQUE: Imaging protocol: Computed tomographic angiography of the head with contrast. Exam focused on the arteries. 3D rendering (Not supervised by radiologist): MIP and/or 3D reconstructed images were created by the technologist. Radiation optimization: All CT scans at this facility use at least one of these dose optimization techniques: automated exposure control; mA and/or kV adjustment per patient size (includes targeted exams where dose is matched to clinical indication); or iterative reconstruction. Contrast material: OMNI 350; Contrast volume: 100 ml; Contrast route: INTRAVENOUS (IV); COMPARISON: CT head wo con* [id number] 06/06/2025 1:15 PM RADIATION DOSE METRICS: Total DLP (mGy-cm): 460.3 FINDINGS: ANTERIOR CIRCULATION: Right internal carotid artery: Intracranial segment is patent with no significant stenosis. No aneurysm. Right middle cerebral artery: No occlusion or significant stenosis. No aneurysm. Right anterior cerebral artery: No occlusion or significant stenosis. No aneurysm. Left internal carotid artery: Intracranial segment is patent with no significant stenosis. No aneurysm. Left middle cerebral artery: No occlusion or significant stenosis. No aneurysm. Left anterior cerebral artery: No occlusion or significant stenosis. No aneurysm. POSTERIOR CIRCULATION: Right vertebral artery: No occlusion or significant stenosis. No aneurysm. Left vertebral artery: No occlusion or significant stenosis. No aneurysm. Basilar artery: No occlusion or significant stenosis. No aneurysm. Right posterior cerebral artery: No occlusion or significant stenosis. No aneurysm. Left posterior cerebral artery: No occlusion or significant stenosis. No aneurysm. Brain: No definite mass, mass effect, or midline shift. Cerebral ventricles: No ventriculomegaly. Bones/joints: Unremarkable. No acute fracture. Soft tissues: Unremarkable. PROCEDURE INFORMATION: Exam: CTA Neck With Contrast Exam date and time: 06/06/2025 3:45 PM Age: 75 years old Clinical indication: Syncope and collapse; Additional info: Syncope, carotid stenosis TECHNIQUE: Imaging protocol: Computed tomographic angiography of the neck with contrast. Exam focused on the cervical segments of the vasculature. 3D rendering (Not supervised by radiologist): MIP and/or 3D reconstructed images were created by the technologist. Radiation optimization: All CT scans at this facility use at least one of these dose optimization techniques: automated exposure control; mA and/or kV adjustment per patient size (includes targeted exams where dose is matched to clinical indication); or iterative reconstruction. Contrast material: OMNI 350; Contrast volume: 100 ml; Contrast route: INTRAVENOUS (IV); COMPARISON: CT cervical spin wo con* [id number] 06/06/2025 1:15 PM RADIATION DOSE METRICS: Total DLP (mGy-cm): 460.3 FINDINGS: Right common carotid artery: No stenosis. No dissection or occlusion. Right internal carotid artery: No stenosis of the extracranial segment. No dissection or occlusion. Right external carotid artery: No occlusion or stenosis of the origin. Left common carotid artery: No stenosis. No dissection or occlusion. Left internal carotid artery: No stenosis of the extracranial segment. No dissection or occlusion. Left external carotid artery: No occlusion or stenosis of the origin. Right vertebral artery: No stenosis. No dissection or occlusion. Left vertebral artery: No stenosis. No dissection or occlusion. Soft tissues: Normal. No significant soft tissue swelling. Bones/joints: No acute fracture. CT/CT angio headneck* [id number] IMPRESSION: No large vessel stenosis or occlusion. IMPRESSION: No stenosis or occlusion. REFERENCES: NASCET CRITERIA. The degree of stenosis in the cervical segment of the internal carotid artery is based on NASCET criteria. Normal is no stenosis. Mild is less than 50% stenosis. Moderate is 50-69% stenosis. Severe is 70% to 99% stenosis. Total occlusion is no detectable patent lumen.
--- NOTE | 2025-06-06 15:39 | PM.HP ---
Providers/Chief Complaint Primary Care Provider: ZARI Bates Chief Complaint: Fell hit head and back blacked out History of Present Illness Vince Telles is a 75 year old male with past medical history of hypertension, type 2 diabetes mellitus, pacemaker implantation, chronic anticoagulation with Eliquis who recently had a significant trauma after being struck by a bull earlier this year after which she sustained multiple rib fractures presents to the ER today after having episode of syncope and fall earlier today morning while he was working in the yard. He states he remembers standing up from the yardwork and does remember falling straight on his back. States after that his memory is fuzzy but he remembers walking slowly back to his couch inside the house. After that he started having extreme pain in his neck so presented to the ER. Patient states usually he has been having dizziness and giddiness for few months while walking on and off for which he has to hold off to the wall to walk. Denies any exacerbating factors. Giddiness does not get worse on changing his position, moving his head, standing from sitting position. States his blood pressure is usually ranging from 125 to 137 mmHg at home with blood sugars mostly ranging from 90-1 30 on a good day but sometimes going up to 180s. States usually takes glipizide at home with meals and recently his pharmacist at [facility] has been transitioning him to metformin with hope to discontinue glipizide. He started on new metformin every morning today. Review of Systems General: Reports: 10 or more systems reviewed and unremarkable except in HPI and below Const: Denies: fever(s), chills, body aches, change in appetite, change in weight, malaise, night sweats, diaphoresis, change in sleep pattern, daytime sleepiness or snoring Eyes: Denies: change in vision, blurry vision, photophobia, eye discomfort or eye discharge ENMT: Denies: throat pain, enlarged tonsils, hoarseness, mouth pain, oral sores, dry mouth, tinnitus, nasal congestion or post nasal drip Card: Denies: chest pain, palpitations, irregular heart rhythm, edema, swelling of feet/ankles, lightheadedness, syncope, pre-syncope, dyspnea on exertion, orthopnea, leg pain with exertion or acrocyanosis Resp: Denies: dyspnea, productive cough, non-productive cough, wheezing, stridor, pain on inspiration, change in phlegm color, hemoptysis or chest congestion GI: Denies: abdominal pain, nausea, vomiting, hematemesis, coffee ground emesis, dysphagia, heartburn, diarrhea, constipation, bloating, GI cramping, change in bowel habits, pain on defecation, hematochezia or melena : Denies: flank pain, difficulty urinating, dysuria, urinary frequency, urinary urgency, urinary hesitancy, urinary dribbling, difficulty starting urination, change in urine stream, nocturia or hematuria Musc: Denies: neck pain, back pain, extremity pain, joint pain, joint swelling, joint redness, joint stiffness or limited range of motion Neuro: Denies: headache(s), numbness in extremities, weakness in extremities, sensory changes, lack of coordination, difficulty walking, frequent falls, dizziness, vertigo, confusion, Slurred speech present, difficulty communicating thoughts or seizure-like activity Psych: Denies: anxiety, depression, mood swings, panic attacks, hopelessness or irritability Endo: Denies: polyuria, polydipsia, tired all the time, cold intolerance, excessive sweating, flushing or heat intolerance Nathanael/Lymph: Denies: easy bruising or easy bleeding All/Imm: Denies: tongue swelling, facial swelling or acute wheezing Medications/Allergies Home Medications ?Medication ?Instructions ?Recorded ?Confirmed ?Last Taken ?Type finasteride 5 mg tablet 5 mg PO QDAY 11/28/19 06/06/25 06/06/25 History tamsulosin 0.4 mg capsule 0.4 mg PO BEDTIME 11/28/19 06/06/25 06/05/25 History trazodone 100 mg tablet 200 mg PO BEDTIME 02/18/21 06/06/25 Unknown History carvedilol 12.5 mg tablet 6.25 mg PO BID 07/03/22 06/06/25 06/06/25 History Diabetic shoes with custom insoles #1 ea 07/09/22 06/06/25 Unknown Rx gabapentin 300 mg capsule 300 mg PO BID 09/06/23 06/06/25 06/06/25 History Diabetic socks #12 ea 06/20/24 06/06/25 Unknown Rx diabetic shoes with 3 inserts #1 ea 09/12/24 06/06/25 Unknown Rx alpha lipoic acid 600 mg capsule 600 mg PO DAILY 06/06/25 06/06/25 06/06/25 History amlodipine 10 mg tablet 10 mg PO DAILY 06/06/25 06/06/25 06/06/25 History apixaban 5 mg tablet (Eliquis) 5 mg PO BID 06/06/25 06/06/25 06/06/25 History atorvastatin 80 mg tablet 80 mg PO QPM 06/06/25 06/06/25 06/05/25 History cholecalciferol (vitamin D3) 50 50 mcg PO DAILY 06/06/25 06/06/25 06/06/25 History mcg (2,000 unit) tablet clopidogrel 75 mg tablet 75 mg PO DAILY 06/06/25 06/06/25 06/06/25 History cyanocobalamin (vitamin B-12) 1,000 mcg IM Q30D 06/06/25 06/06/25 06/01/25 History 1,000 mcg/mL injection solution duloxetine 30 mg capsule,delayed 30 mg PO DAILY 06/06/25 06/06/25 06/06/25 History release empagliflozin 25 mg tablet 25 mg PO DAILY 06/06/25 06/06/25 06/06/25 History (Jardiance) escitalopram oxalate 10 mg tablet 10 mg PO DAILY 06/06/25 06/06/25 06/06/25 History ezetimibe 10 mg tablet 10 mg PO DAILY 06/06/25 06/06/25 06/06/25 History fexofenadine 180 mg tablet 180 mg PO DAILY 06/06/25 06/06/25 06/06/25 History fluticasone propionate 50 1 spray intranasal DAILY 06/06/25 06/06/25 06/06/25 History mcg/actuation nasal spray,suspension glipizide 10 mg tablet 5 mg PO TID 06/06/25 06/06/25 06/06/25 History isosorbide mononitrate 30 mg 30 mg PO QAM 06/06/25 06/06/25 06/06/25 History tablet,extended release 24 hr lidocaine 4 % topical patch 2 patch topical DAILY PRN Pain 06/06/25 06/06/25 Unknown History losartan 50 mg tablet 50 mg PO DAILY 06/06/25 06/06/25 06/06/25 History metformin 500 mg tablet,extended See Rx Instructions .Route .COMPLEX 06/06/25 06/06/25 06/06/25 History release 24 hr methocarbamol 750 mg tablet 375 mg PO Q8H 06/06/25 06/06/25 06/06/25 History mirabegron 50 mg tablet,extended 50 mg PO DAILY 06/06/25 06/06/25 06/06/25 History release 24 hr (Myrbetriq) multivitamin 1 tab PO DAILY 06/06/25 06/06/25 06/06/25 History nitroglycerin 0.4 mg sublingual 0.4 mg sublingual Q5M PRN Chest 06/06/25 06/06/25 Unknown History tablet (Nitrostat) Pain omega-3 fatty acids 1,000 mg 1,000 mg PO DAILY 06/06/25 06/06/25 06/06/25 History capsule omeprazole 40 mg capsule,delayed 40 mg PO DAILY 06/06/25 06/06/25 06/06/25 History release Allergies Allergy/AdvReac Type Severity Reaction Status Date / Time codeine Allergy Mild stomach Verified 03/19/25 09:10 ache PFSH Acute PFSH: Medical History (Updated 06/06/25 @ 17:00 by Robert José MD) Chronic anticoagulation Pacemaker Diabetes mellitus Hearing loss Hypertension Surgical History History of ureter stent Family History Brother Diabetes Brother Diabetes Denies family history of Cancer Stroke Social History Smoking and tobacco/nicotine status: never used tobacco/nicotine Alcohol intake: never Substance/Drug Use: never Household members: spouse Marital status: Current occupational status: retired Vitals/I&O/Wt Last Vital Signs Temp 97.9 F 06/06/25 12:41 Pulse 74 06/06/25 15:14 Resp 17 06/06/25 15:15 BP 165/87 06/06/25 14:45 Pulse Ox 95 06/06/25 15:15 O2 Del Method Room Air 06/06/25 15:14 Weight last 48 hrs Weight 97.069 kg Physical Exam Narrative: General: No acute distress, AO x3 HEENT: PERRLA, pupils bilaterally equal and reactive Chest: Normal vesicular breath sounds, no added sounds, equal good air entry bilaterally CVS: S1-S2 regular, no murmurs, no tachycardia, no gallops, no rubs Abdomen: Soft, nontender, no organomegaly, bowel sounds present Neuro: No focal deficits, no facial deformity, AO x3, power 5/5 in all limbs Data 06/06/25 13:05 06/06/25 13:05 Other Labs: Radiology Impressions Chest X-Ray 06/06/25 12:44 IMPRESSION: No acute lung or pleural abnormality. Multiple left rib fractures as above. Head CT 06/06/25 12:44 IMPRESSION: 1. Negative head CT for acute lateral edema. 2. No skull fracture. 3. No scalp hematoma. 4. Symmetric cerebral atrophy and small vessel disease. Cervical Spine CT 06/06/25 12:59 IMPRESSION: 1. No acute cervical spine fracture identified. 2. Advanced facet joint arthropathy with multi level areas of foraminal stenosis. 3. Severe bilateral foraminal stenosis at C3-4 and moderate to severe at C4-5. Additional moderate bilateral foraminal stenosis at C6-7 and on the RIGHT at C5-6. 4. Bony fusion across the disc spaces of C5-6 and C6-7. Additional bilateral facet joint effusions. Lumbar Spine CT 06/06/25 13:17 IMPRESSION: 1. No lumbar spine fracture. 2. L4-5: Mild to moderate central with bilateral foraminal subarticular recess stenosis. 3. Prior cholecystectomy. 4. Horseshoe kidneys. Thoracic Spine CT 06/06/25 13:18 IMPRESSION: 1. No acute thoracic spine fractures. 2. Numerous healed left-sided rib fractures. Head/Neck CTA 06/06/25 15:37 IMPRESSION: No large vessel stenosis or occlusion. IMPRESSION: No stenosis or occlusion. REFERENCES: NASCET CRITERIA. The degree of stenosis in the cervical segment of the internal carotid artery is based on NASCET criteria. Normal is no stenosis. Mild is less than 50% stenosis. Moderate is 50-69% stenosis. Severe is 70% to 99% stenosis. Total occlusion is no detectable patent lumen. Laboratory Results WBC 12.21 10^3/uL (3.29-11.43) H 06/06/25 13:05 RBC 5.23 10^6/uL (3.85-5.65) 06/06/25 13:05 Hgb 16.30 g/dL (11.27-16.99) 06/06/25 13:05 Hct 46.3 % (37-53) 06/06/25 13:05 MCV 88.5 fl (82-101) 06/06/25 13:05 MCH 31.2 pg (27-33) 06/06/25 13:05 MCHC 35.2 g/dL (30-55) 06/06/25 13:05 RDW 13.0 % (12.1-15.1) 06/06/25 13:05 Plt Count 181 10^3/cmm (157-399) 06/06/25 13:05 MPV 9.9 fL (7.4-10.4) 06/06/25 13:05 Neut % (Auto) 80.6 % 06/06/25 13:05 Lymph % (Auto) 11.1 % 06/06/25 13:05 [place] % (Auto) 6.2 % 06/06/25 13:05 Eos % (Auto) 0.7 % 06/06/25 13:05 Baso % (Auto) 0.7 % 06/06/25 13:05 Neut # (Auto) 9.84 10^3/uL (1.8-7.7) H 06/06/25 13:05 Lymph # (Auto) 1.4 10^3/uL (0.8-4.8) 06/06/25 13:05 [place] # (Auto) 0.8 10^3/uL (0.2-0.9) 06/06/25 13:05 Eos # (Auto) 0.1 10^3/uL (0.0-0.8) 06/06/25 13:05 Baso # (Auto) 0.1 10^3/uL (0.0-0.1) 06/06/25 13:05 Nucleated RBC % (auto) 0 % 06/06/25 13:05 Nucleated RBCs # 0.0 /100WBC 06/06/25 13:05 Sodium 140 mmol/L (136-145) 06/06/25 13:05 Potassium 3.6 mmol/L (3.5-5.1) 06/06/25 13:05 Chloride 102 mmol/L (98-107) 06/06/25 13:05 Carbon Dioxide 24 mmol/L (22-29) 06/06/25 13:05 Anion Gap 17.6 (5-19) 06/06/25 13:05 BUN 13 mg/dL (8-23) 06/06/25 13:05 Creatinine 0.8 mg/dL (0.7-1.2) 06/06/25 13:05 GFR Calculation Not Reportable 06/06/25 13:05 Glucose 263 mg/dL (65-115) H 06/06/25 13:05 Calculated Osmolality 299 mOsm/kg (285-295) H 06/06/25 13:05 Lactic Acid 1.9 mmol/L (0.5-2.2) 06/06/25 16:08 Calcium 9.3 mg/dL (8.5-10.5) 06/06/25 13:05 Total Bilirubin 0.4 mg/dL (0.15-1.2) 06/06/25 13:05 AST 21 U/L (0-40) 06/06/25 13:05 ALT 24 U/L (0-41) 06/06/25 13:05 Alkaline Phosphatase 141 U/L (40-130) H 06/06/25 13:05 Troponin T Baseline 11 ng/L (0-15) 06/06/25 13:05 Troponin T 120 Minute 10.48 ng/L (0-15) 06/06/25 15:13 Delta Troponin T -0.52 ABS# (0-10) L 06/06/25 15:13 Total Protein 6.6 g/dL (6.6-8.7) 06/06/25 13:05 Albumin 4.0 g/dL (3.5-5.2) 06/06/25 13:05 Globulin 2.6 g/dL (1.3-4.6) 06/06/25 13:05 Procalcitonin 0.05 ng/mL (0-0.5) 06/06/25 16:08 A&P Assessment and plan 1. Syncope and collapse: Unknown etiology. Cannot rule out arrhythmia. Telemetry. Pacemaker interrogation. Could be hypoglycemia. Check A1c. Hypoglycemia protocol. Stroke ruled out with a negative CT head. Check CTA head and neck. Check echocardiogram to rule out valvular disorder including aortic stenosis. Cycle troponins. No electrolyte abnormality. Liver function within normal limits. Check orthostatics. Physical therapy. 2. Neck pain: CT neck concerning for cervical canal stenosis. No fracture. Lidocaine patch, tramadol 50 mg every 4 hours as needed. Flexeril 10 mg 3 times daily. 3. Cervical stenosis of spinal canal: 4. Hypertension: Goal blood pressure less than 140/90 mmHg. Continue with home dose of carvedilol, Imdur, losartan. Uptitrate as for goal blood pressure. 5. Diabetes mellitus: Hold off on OHA. Check A1c. Insulin sliding scale. 6. Chronic anticoagulation: Continue with chronic Eliquis. 7. Dizziness and giddiness: Plan: CODE STATUS: Discussed in detail with the patient. Full code. Cardiac carb consistent diet. Eliquis will be sufficient for DVT prophylaxis Protonix PUD prophylaxis Continue other chronic home medications PDMP PDMP Reviewed: Not Reviewed Attestations Medical Necessity Statement*: Admission for more than 2 midnights for further evaluation management of syncope and collapse, neck pain in an elderly Diagnoses Syncope and collapse R55 Neck pain M54.2 Cervical stenosis of spinal canal M48.02 Hypertension I10 Diabetes mellitus E11.9 Chronic anticoagulation Z79.01 Dizziness and giddiness R42
[2025-06-06] MEDS: iohexol 350 mg/mL 500 mL Btl (per mL) IV (15:48)
[2025-06-06 16:01] LABS: Troponin 5 2HR 10.48 ng/L (0-15)
[2025-06-06 16:02] LABS: Troponin 5 2HR Delta -0.52 ABS# (0-10)
--- NOTE | 2025-06-06 16:11 | PC.PHAR ---
Med rec completed with pts' [facility] med list and verified with Sherita Cruz at the [place]. Trazodone is the only medication [facility] that is not currently [facility] med list.
[2025-06-06 16:48] LABS: Lactic Sepsis W/Reflex 1.9 mmol/L (0.5-2.2)
[2025-06-06 16:56] LABS: Procalcitonin 0.05 ng/mL (0-0.5)
== END 2025-06-06 17:39 | disposition left against medical advice (07) ==
PROVIDERS: Student in an Organized Health Care Education/Training Program; Emergency Provider Family Medicine; PCP Nurse Practitioner
DX: R55 Syncope and collapse (principal); M54.2 Cervicalgia; M48.02 Spinal stenosis, cervical region; Z79.01 Long term (current) use of anticoagulants; E11.42 Type 2 diabetes mellitus with diabetic polyneuropathy; Z79.02 Long term (current) use of antithrombotics/antiplatelets; Z79.84 Long term (current) use of oral hypoglycemic drugs; I10 Essential (primary) hypertension; Z95.0 Presence of cardiac pacemaker
CPT/HCPCS: 36415; 70450; 70496; 70498; 71045; 72125; 72128; 72131; 80053; 83605; 84145; 84484; 85025; 93005; 96374; 99285; J3010

== ENCOUNTER → 2025-06-18 09:56 | Outpatient (BNVA) | payer OTHER, SELFPAY | PROVIDERS: PCP Nurse Practitioner; Visit Provider Podiatrist Foot & Ankle Surgery | DX: E11.42 Type 2 diabetes mellitus with diabetic polyneuropathy (principal); L60.3 Nail dystrophy; E11.8 Type 2 diabetes mellitus with unspecified complications; Z79.4 Long term (current) use of insulin; Z79.84 Long term (current) use of oral hypoglycemic drugs | CPT/HCPCS: 11721; 99213 ==

== ENCOUNTER → 2025-09-10 10:38 | Outpatient (BNVA) | payer OTHER, SELFPAY | PROVIDERS: PCP Nurse Practitioner; Visit Provider Podiatrist Foot & Ankle Surgery | DX: E11.42 Type 2 diabetes mellitus with diabetic polyneuropathy (principal); Z79.4 Long term (current) use of insulin; E11.8 Type 2 diabetes mellitus with unspecified complications; L60.3 Nail dystrophy; M21.41 Flat foot [pes planus] (acquired), right foot; M21.42 Flat foot [pes planus] (acquired), left foot; Z79.84 Long term (current) use of oral hypoglycemic drugs | CPT/HCPCS: 11721; 99213 ==